=== PATIENT | male | born 1960 | race Caucasian/White ===

== ENCOUNTER 2016-08-27 14:53 | Outpatient (RCR) | payer BC ==
--- OUTSIDE RECORDS SUMMARY | 2016-06-04 15:03 | XMS REPORT | Continuity of Care Document ---
Author Author [facility] Organization [facility] Address Unknown Phone Unavailable Care Team Providers Care Director Of Supply Chain Name Role Phone Heri Holcomb PCP [phone] Source Comments Some departments are not documenting in the electronic medical record. If you do not see the information that you expected, contact Release of Information in the Health Information Management department at [phone] for further assistance in locating additional records.[facility] Active Allergies and Adverse Reactions No Known Allergies Current Medications Prescription Sig. Disp. Refills Start End Date Status Date ALPRAZolam (XANAX) 1 mg Take 0.5-1 mg by mouth at Active tablet bedtime as needed. vitamins, multiple tablet Take 1 Tab by mouth Active daily. methimazole (TAPAZOLE) 10 Take 5 mg by mouth daily. Active mg tablet magnesium oxide (MAG-OX) Take 400 mg by mouth Active 400 mg tablet twice daily. metoprolol tartrate Take 1 Tab by mouth twice 180 Tab 3 02/17/20 Active (LOPRESSOR) 25 mg tablet daily. 16 Active Problems Problem Noted Date Cirrhosis (HCC) 02/17/[address] (HCC) 07/14/2015 Hepatitis C 09/17/2014 Acute renal failure (HCC) 08/25/2014 Hyponatremia 08/25/2014 Anemia, chronic disease 08/25/2014 SBO (small bowel obstruction) (HCC) 08/10/2014 Resolved Problems Problem Noted Date Resolved Date Cirrhosis (HCC) 09/17/2014 02/17/2016 Most Recent Encounters Date Type Specialty Providers Description 04/05/2016 Telephone HepatBear Gee MD Follow-up Phone Call 03/27/2016 Telephone Hepatology Bear Mitchell MD Follow-up Phone Call 03/07/2016 Telephone Hepatology Bear Mitchell MD Medication Question Social History Tobacco Use Types Packs/Day Years Used Date Never Smoker Alcohol Use Drinks/Week oz/Week Comments Yes Last Filed Vital Signs Vital Sign Reading Time Taken Blood Pressure 160/92 02/17/2016 8:13 AM CDT Pulse 90 02/17/2016 8:13 AM CDT Temperature 36.6 C (97.8 F) 02/17/2016 8:13 AM CDT Respiratory Rate 16 02/17/2016 8:13 AM CDT Height 1.778 m (5' 10") 02/17/2016 8:13 AM CDT Weight 77.928 kg (171 lb 12.8 02/17/2016 8:13 AM CDT oz) Body Mass Index 24.65 02/17/2016 8:13 AM CDT Oxygen Saturation 100% 02/17/2016 8:13 AM CDT Plan of Care Date Type Specialty Providers Description 08/10/2016 Appointment Radiology Bear Mitchell MD [address] [facility] [address] [place] [address] [phone] (Fax) 02/18/2017 Appointment Hepatology Bear Mitchell MD [address] [facility] [address] [place] [address] [phone] (Fax) Health Maintenance Due Date Last Done Comments Physical (Comprehensive) 1965 Exam Pertussis Vaccine 1969 Tetanus Vaccine 1975 Colorectal Cancer 2008 Screening Influenza Vaccine 03/29/2016 Results from Last 3 Months Not on file
[2016-06-04 16:34] LABS: BASOPHILS % (AUTO) 0 % (0-10); EOSINOPHILS # (AUTO) 0.1 10^3/uL (0.0-0.3); EOSINOPHILS % (AUTO) 3 % (0-10); LYMPHOCYTES # (AUTO) 1.4 X 10^3 (1.0-4.0); LYMPHOCYTES % (AUTO) 31 % (12-44); MEAN CORPUSCULAR HEMOGLOBIN 33 PG (25-34); MEAN CORPUSCULAR HGB CONC 36 G/DL (32-36); MEAN CORPUSCULAR VOLUME 92 FL (80-99); MEAN PLATELET VOLUME 8.8 FL (7.4-10.4); MONOCYTES # (AUTO) 0.4 X 10^3 (0.0-1.0); MONOCYTES % (AUTO) 9 % (0-12); NEUTROPHILS # (AUTO) 2.6 X 10^3 (1.8-7.8); NEUTROPHILS % (AUTO) 57 % (42-75); PLATELET COUNT 135 10^3/uL (130-400); RED BLOOD COUNT 4.27 10^6/uL (4.35-5.85); RED CELL DISTRIBUTION WIDTH 14.4 % (10.0-14.5); WHITE BLOOD COUNT 4.5 10^3/uL (4.3-11.0)
[2016-06-04 17:04] LABS: ALANINE AMINOTRANSFERASE 31 U/L (0-55); ALBUMIN 3.8 G/DL (3.2-4.5); ANION GAP 11 MMOL/L (5-14); ASPARTATE AMINO TRANSFERASE 41 U/L (5-34); BILIRUBIN,TOTAL 1.7 MG/DL (0.1-1.0); BLOOD UREA NITROGEN 16 MG/DL (7-18); BUN/CREATININE RATIO 15; CALCIUM 8.9 MG/DL (8.5-10.1); CARBON DIOXIDE 21 MMOL/L (21-32); CHLORIDE 107 MMOL/L (98-107); CREATININE SERUM 1.05 MG/DL (0.60-1.30); GFR ESTIMATED > 60; GLUCOSE 76 MG/DL (70-105); POTASSIUM 3.6 MMOL/L (3.6-5.0); SODIUM 139 MMOL/L (135-145); TOTAL PROTEIN 6.9 G/DL (6.4-8.2)
[2016-08-27 15:18] LABS: BASOPHILS % (AUTO) 1 % (0-10); EOSINOPHILS # (AUTO) 0.1 10^3/uL (0.0-0.3); EOSINOPHILS % (AUTO) 2 % (0-10); LYMPHOCYTES # (AUTO) 1.2 X 10^3 (1.0-4.0); LYMPHOCYTES % (AUTO) 32 % (12-44); MEAN CORPUSCULAR HEMOGLOBIN 33 PG (25-34); MEAN CORPUSCULAR HGB CONC 35 G/DL (32-36); MEAN CORPUSCULAR VOLUME 94 FL (80-99); MEAN PLATELET VOLUME 8.9 FL (7.4-10.4); MONOCYTES # (AUTO) 0.4 X 10^3 (0.0-1.0); MONOCYTES % (AUTO) 10 % (0-12); NEUTROPHILS # (AUTO) 2.2 X 10^3 (1.8-7.8); NEUTROPHILS % (AUTO) 56 % (42-75); PLATELET COUNT 131 10^3/uL (130-400); RED BLOOD COUNT 4.31 10^6/uL (4.35-5.85); RED CELL DISTRIBUTION WIDTH 13.6 % (10.0-14.5); WHITE BLOOD COUNT 3.9 10^3/uL (4.3-11.0)
[2016-08-27 16:04] LABS: ALANINE AMINOTRANSFERASE 35 U/L (0-55); ALBUMIN 3.9 G/DL (3.2-4.5); ANION GAP 9 MMOL/L (5-14); ASPARTATE AMINO TRANSFERASE 44 U/L (5-34); BILIRUBIN,TOTAL 1.2 MG/DL (0.1-1.0); BLOOD UREA NITROGEN 19 MG/DL (7-18); BUN/CREATININE RATIO 18; CALCIUM 9.1 MG/DL (8.5-10.1); CARBON DIOXIDE 22 MMOL/L (21-32); CHLORIDE 106 MMOL/L (98-107); CREATININE SERUM 1.05 MG/DL (0.60-1.30); GFR ESTIMATED > 60; GLUCOSE 85 MG/DL (70-105); POTASSIUM 4.2 MMOL/L (3.6-5.0); SODIUM 137 MMOL/L (135-145); TOTAL PROTEIN 6.9 G/DL (6.4-8.2)
== END 2016-09-02 | disposition home or self-care (01) ==
LOC: ONC 14:53
PROVIDERS: ATTEND Internal Medicine Hematology & Oncology
DX: C19 Malignant neoplasm of rectosigmoid junction (principal); R91.1 Solitary pulmonary nodule; Z93.3 Colostomy status; Z79.899 Other long term (current) drug therapy; Z45.2 Encounter for adjustment and management of vascular access device
CPT/HCPCS: 36591; 80053; 82378; 85025; 96523; 99213

== ENCOUNTER → 2016-08-27 | Outpatient (CLI) | payer BC ==
[~2016-08-27] MED LIST: ALLO300T2 PO; ALPR1T PO; ALPR1TAB7 PO; ASP325TEC PO; B/P MEDICATION; CHLS4PK PO; CIPR250S2 PO; CITA-105 PO; CYCL5TAB PO; Fentanyl Citrate IV; GBPN600T PO; GLUC-148 PO; GLYB5TAB6 PO; HCA25SU PR; HYDR-34 PO; INSULIN FLEX; LIPA1CAP2 PO; LIRA0.6P SQ; LISI1TAB10 PO; LOPE1LIQ PO; LOPE2CAP PO; LOPE2TAB17 PO; LSNP20T PO; MAGN400C PO; MELO-195 PO; METH10TA5 PO; METH5TAB5 PO; METO-272 PO; METO100T5 PO; MS15TCR PO; MTR500T PO; MULT-974 PO; NAPR-684 PO; NF-METHI10 PO; ONDA2VIA IV; OXYC-12 PO; OXYC1TAB25 PO; PANT40VI3 IV; POTA10CA43 PO; SIMV40TA4 PO; TRAM50TA2 PO; XELODA 500 MG PO
--- OUTSIDE RECORDS SUMMARY | 2016-08-27 15:19 | XMS REPORT | Continuity of Care Document ---
Author Author [facility] Organization [facility] Address Unknown Phone Unavailable Care Team Providers Care Dehydrogenation Converter Helper Name Role Phone Heri Holcomb PCP [phone] Source Comments Some departments are not documenting in the electronic medical record. If you do not see the information that you expected, contact Release of Information in the Health Information Management department at [phone] for further assistance in locating additional records.[facility] Active Allergies and Adverse Reactions No [...] Recent Encounters Date Type Specialty Providers Description 07/26/2016 Telephone Hepatology Bear Mitchell MD Follow-up Phone Call 07/26/2016 Orders Only Hepatology Elena Puckett LPN Alcoholic cirrhosis of liver without ascites (HCC); Cirrhosis of liver without ascites, unspecified hepatic cirrhosis type (HCC) 07/26/2016 Telephone Hepatology Bear Mitchell MD Results - Lab/US 07/19/2016 Orders Only Hepatology Cassandra Frias Abnormal laboratory test result; Other cirrhosis of liver (HCC) 2016 Telephone HepatBear Gee MD Other - Doppler Social History Tobacco Use Types Packs/Day Years [...] of Care Date Type Specialty Providers Description 02/18/2017 Appointment Radiology Bear Mitchell MD [address] [facility] [address] [place] [address] [phone] (Fax) 02/18/2017 Appointment Hepatology Bear Mitchell MD [address] [facility] [address] [place] [address] [phone] (Fax) Health Maintenance Due Date Last Done Comments Physical (Comprehensive) 1967 Exam Pertussis Vaccine 1969 Tetanus Vaccine 1975 Colorectal Cancer 2008 Screening Influenza Vaccine 03/29/2016 Results from Last 3 Months COMPREHENSIVE METABOLIC PANEL (07/18/2016 1:29 PM) Component Value Range Sodium 137 132-145 Potassium 3.9 3.5-5.5 mEq/L Chloride 102 95-110 CO2 29.0 24.0-34.0 Anion Gap 10 6-14 Glucose 88 60-125 mg/dL Creatinine 1.1 0.6-1.5 mg/dL eGFR Non 73 >59 ml/min/1.73m2 Blood Urea Nitrogen 20 5-25 mg/dL Calcium 9.6 8.5-10.8 mg/dL Alk Phosphatase 139 (H) 30-115 AST (SGOT) 39 0-40 U/L ALT (SGPT) 26 0-50 Total Bilirubin 1.4 0.1-1.4 mg/dL Albumin 4.0 3.5-5.5 g/dL Total Protein 7.0 6.0-8.0 g/dL Specimen Blood Narrative Outside Lab Verified by Cassandra Frias on 07/19/2016. CBC AND DIFF (07/18/2016 1:29 PM) Component Value Range White Blood Cells 5.04 5.00-10.00 RBC 4.29 4.20-5.40 Hemoglobin 14.2 14.0-17.0 Hematocrit 41.3 (L) 42.0-52.0 MCV 96.3 80.0-97.0 MCH 33.1 (H) 27.0-31.0 MCHC 34.4 32.0-36.0 pg RDW 14.3 11.6-14.8 % Platelet Count 101 (L) 150-400 ul Neutrophils 57.1 37.0-80.0 % Lymphocytes 28.6 10.0-50.0 % Monocytes 11.7 0.0-12.0 % Eosinophil 1.8 0.0-7.0 % Basophil 0.8 0.0-2.5 % Absolute Neutrophil Count 2.88 2.00-6.90 Absolute Lymph Count 1.44 0.60-3.40 Absolute Monocyte Count 0.6 0.0-0.9 K/ul Absolute Eosinophil Count 0.1 0.0-0.7 Absolute Basophil Count 0.0 0.0-0.2 Specimen Blood Narrative Outside Lab Verified by Cassandra Frias on 07/19/2016. US DOPPLER ABD PELV RETROPER COMP (07/16/2016)
== END ==
LOC: EDSTATUS 15:09 → LAB 15:09
PROVIDERS: ATTEND Internal Medicine
DX: E05.00 Thyrotoxicosis with diffuse goiter without thyrotoxic crisis or storm (principal)
CPT/HCPCS: 36415; 84439; 84443

== ENCOUNTER 2016-11-28 09:04 | Outpatient (RCR) | payer BC ==
--- OUTSIDE RECORDS SUMMARY | 2016-10-08 09:40 | XMS REPORT | Continuity of Care Document ---
Author Author [facility] Organization [facility] Address Unknown Phone Unavailable Care Team Providers Care Marine Engine Mechanic Name Role Phone Heri Holcomb PCP [phone] Source Comments Some departments are not documenting in the electronic medical record. If you do not see the information that you expected, contact Release of Information in the Health Information Management department at [phone] for further assistance in locating additional records.[facility] Active Allergies and Adverse Reactions No [...] test result; Other cirrhosis of liver (HCC) Social History Tobacco Use Types Packs/Day Years [...] 02/18/2017 Appointment Radiology Bear Mitchell MD [address] [facility] [address] [place] [address] [phone] (Fax) 02/18/2017 Appointment Hepatology Bear Mitchell MD [address] [facility] [address] [place] [address] [phone] (Fax) Health Maintenance Due Date Last Done Comments Physical (Comprehensive) 1967 Exam Pertussis Vaccine 1969 Tetanus Vaccine 1975 Colorectal Cancer 2008 Screening Influenza Vaccine 03/29/2017 Results from Last 3 Months COMPREHENSIVE METABOLIC [...]
[2016-11-28 09:32] LABS: BASOPHILS % (AUTO) 1 % (0-10); EOSINOPHILS # (AUTO) 0.1 10^3/uL (0.0-0.3); EOSINOPHILS % (AUTO) 2 % (0-10); LYMPHOCYTES # (AUTO) 0.9 X 10^3 (1.0-4.0); LYMPHOCYTES % (AUTO) 30 % (12-44); MEAN CORPUSCULAR HGB CONC 35 G/DL (32-36); MEAN CORPUSCULAR VOLUME 94 FL (80-99); MONOCYTES # (AUTO) 0.4 X 10^3 (0.0-1.0); MONOCYTES % (AUTO) 14 % (0-12); NEUTROPHILS # (AUTO) 1.6 X 10^3 (1.8-7.8); NEUTROPHILS % (AUTO) 53 % (42-75); PLATELET COUNT 115 10^3/uL (130-400); RED BLOOD COUNT 4.25 10^6/uL (4.35-5.85); RED CELL DISTRIBUTION WIDTH 13.8 % (10.0-14.5); WHITE BLOOD COUNT 3.1 10^3/uL (4.3-11.0)
[2016-11-28 09:33] LABS: MEAN CORPUSCULAR HEMOGLOBIN 32 PG (25-34)
[2016-11-28 10:03] LABS: ALANINE AMINOTRANSFERASE 46 U/L (0-55); ALBUMIN 3.5 G/DL (3.2-4.5); ANION GAP 6 MMOL/L (5-14); ASPARTATE AMINO TRANSFERASE 57 U/L (5-34); BILIRUBIN,TOTAL 1.3 MG/DL (0.1-1.0); BLOOD UREA NITROGEN 18 MG/DL (7-18); BUN/CREATININE RATIO 16; CALCIUM 9.2 MG/DL (8.5-10.1); CARBON DIOXIDE 26 MMOL/L (21-32); CHLORIDE 106 MMOL/L (98-107); CREATININE SERUM 1.16 MG/DL (0.60-1.30); GFR ESTIMATED > 60; GLUCOSE 91 MG/DL (70-105); POTASSIUM 4.3 MMOL/L (3.6-5.0); SODIUM 138 MMOL/L (135-145); TOTAL PROTEIN 6.4 G/DL (6.4-8.2)
== END 2017-01-06 | disposition home or self-care (01) ==
LOC: ONC 09:04
PROVIDERS: ATTEND Internal Medicine Hematology & Oncology
DX: C19 Malignant neoplasm of rectosigmoid junction (principal); R91.8 Other nonspecific abnormal finding of lung field; E05.00 Thyrotoxicosis with diffuse goiter without thyrotoxic crisis or storm; B18.2 Chronic viral hepatitis C; I10 Essential (primary) hypertension; E83.42 Hypomagnesemia; D61.818 Other pancytopenia; R79.89 Other specified abnormal findings of blood chemistry; Z93.3 Colostomy status; Z92.21 Personal history of antineoplastic chemotherapy; Z92.3 Personal history of irradiation; Z79.899 Other long term (current) drug therapy
CPT/HCPCS: 36591; 80053; 82378; 85025; 99213

== ENCOUNTER → 2016-11-28 | Outpatient (CLI) | payer BC | LOC: LAB 09:09 | PROVIDERS: ATTEND Internal Medicine | DX: E05.00 Thyrotoxicosis with diffuse goiter without thyrotoxic crisis or storm (principal) | CPT/HCPCS: 84439; 84443 ==

== ENCOUNTER 2017-04-08 14:49 | Outpatient (RCR) | payer BC ==
[2017-02-25 10:53] LABS: BASOPHILS % (AUTO) 1 % (0-10); EOSINOPHILS # (AUTO) 0.1 10^3/uL (0.0-0.3); EOSINOPHILS % (AUTO) 2 % (0-10); LYMPHOCYTES # (AUTO) 1.1 X 10^3 (1.0-4.0); LYMPHOCYTES % (AUTO) 31 % (12-44); MEAN CORPUSCULAR HEMOGLOBIN 32 PG (25-34); MEAN CORPUSCULAR HGB CONC 34 G/DL (32-36); MEAN CORPUSCULAR VOLUME 93 FL (80-99); MEAN PLATELET VOLUME 9.1 FL (7.4-10.4); MONOCYTES # (AUTO) 0.5 X 10^3 (0.0-1.0); MONOCYTES % (AUTO) 14 % (0-12); NEUTROPHILS # (AUTO) 1.8 X 10^3 (1.8-7.8); NEUTROPHILS % (AUTO) 53 % (42-75); PLATELET COUNT 116 10^3/uL (130-400); RED BLOOD COUNT 4.12 10^6/uL (4.35-5.85); RED CELL DISTRIBUTION WIDTH 13.8 % (10.0-14.5); WHITE BLOOD COUNT 3.4 10^3/uL (4.3-11.0)
[2017-02-25 11:37] LABS: ALANINE AMINOTRANSFERASE 27 U/L (0-55); ALBUMIN 3.5 GM/DL (3.2-4.5); ANION GAP 8 MMOL/L (5-14); ASPARTATE AMINO TRANSFERASE 35 U/L (5-34); BILIRUBIN,TOTAL 1.2 MG/DL (0.1-1.0); BLOOD UREA NITROGEN 17 MG/DL (7-18); BUN/CREATININE RATIO 18; CALCIUM 8.7 MG/DL (8.5-10.1); CARBON DIOXIDE 24 MMOL/L (21-32); CHLORIDE 105 MMOL/L (98-107); CREATININE SERUM 0.97 MG/DL (0.60-1.30); GFR ESTIMATED > 60; GLUCOSE 103 MG/DL (70-105); POTASSIUM 3.9 MMOL/L (3.6-5.0); SODIUM 137 MMOL/L (135-145); TOTAL PROTEIN 6.6 GM/DL (6.4-8.2)
== END 2017-04-11 | disposition home or self-care (01) ==
LOC: ONC 14:49
PROVIDERS: ATTEND Internal Medicine Hematology & Oncology
DX: C19 Malignant neoplasm of rectosigmoid junction (principal); R91.1 Solitary pulmonary nodule; Z93.3 Colostomy status; Z79.899 Other long term (current) drug therapy; Z45.2 Encounter for adjustment and management of vascular access device
CPT/HCPCS: 36591; 80053; 82378; 85025; 96523

== ENCOUNTER 2017-08-09 11:18 | Outpatient (RCR) | payer BC | END 2017-08-14 | disposition home or self-care (01) | LOC: ONC 11:18 | PROVIDERS: ATTEND Internal Medicine Hematology & Oncology | DX: C19 Malignant neoplasm of rectosigmoid junction (principal); R91.1 Solitary pulmonary nodule; E05.00 Thyrotoxicosis with diffuse goiter without thyrotoxic crisis or storm; B18.2 Chronic viral hepatitis C; I10 Essential (primary) hypertension; E83.42 Hypomagnesemia; D61.818 Other pancytopenia; R79.89 Other specified abnormal findings of blood chemistry; Z93.3 Colostomy status; Z79.899 Other long term (current) drug therapy; Z92.21 Personal history of antineoplastic chemotherapy; Z92.3 Personal history of irradiation | CPT/HCPCS: 36591; 82378; 96523 ==

== ENCOUNTER → 2017-09-25 | Outpatient (CLI) | payer BC | LOC: LAB 16:00 | PROVIDERS: ATTEND Internal Medicine | DX: E05.00 Thyrotoxicosis with diffuse goiter without thyrotoxic crisis or storm (principal) | CPT/HCPCS: 84443 ==

== ENCOUNTER 2017-12-20 08:51 | Outpatient (RCR) | payer BC | END 2017-12-24 | disposition home or self-care (01) | LOC: ONC 08:51 | PROVIDERS: ATTEND Internal Medicine Hematology & Oncology | DX: C19 Malignant neoplasm of rectosigmoid junction (principal); R91.1 Solitary pulmonary nodule; E05.00 Thyrotoxicosis with diffuse goiter without thyrotoxic crisis or storm; B18.2 Chronic viral hepatitis C; I10 Essential (primary) hypertension; E83.42 Hypomagnesemia; D61.818 Other pancytopenia; R79.89 Other specified abnormal findings of blood chemistry; Z93.3 Colostomy status; Z79.899 Other long term (current) drug therapy; Z92.21 Personal history of antineoplastic chemotherapy; Z92.3 Personal history of irradiation; Z45.2 Encounter for adjustment and management of vascular access device | CPT/HCPCS: 36415; 36591; 82378; 96523; 99213 ==

== ENCOUNTER 2018-04-23 13:45 | Outpatient (RCR) | payer BC | END 2018-05-01 | disposition home or self-care (01) | LOC: ONC 13:45 | PROVIDERS: ATTEND Internal Medicine Hematology & Oncology | DX: C19 Malignant neoplasm of rectosigmoid junction (principal); R91.1 Solitary pulmonary nodule; E05.00 Thyrotoxicosis with diffuse goiter without thyrotoxic crisis or storm; B18.2 Chronic viral hepatitis C; I10 Essential (primary) hypertension; E83.42 Hypomagnesemia; D61.818 Other pancytopenia; R79.89 Other specified abnormal findings of blood chemistry; Z93.3 Colostomy status; Z79.899 Other long term (current) drug therapy; Z92.21 Personal history of antineoplastic chemotherapy; Z92.3 Personal history of irradiation; Z45.2 Encounter for adjustment and management of vascular access device | CPT/HCPCS: 96523 ==

== ENCOUNTER 2018-06-25 14:20 | Outpatient (CLI) | payer BC ==
[~2018-06-25] VITALS: Ht 177.8 cm
[2018-06-25] MEDS ORDERED: LISI-552 PO (14:27)
[2018-06-25] MEDS ORDERED: MULT-35 PO (14:27)
[2018-06-25] MEDS ORDERED: MAGN400T7 PO (14:27)
== END 2018-06-25 14:42 | disposition home or self-care (01) ==
LOC: PREOP 14:20
PROVIDERS: ATTEND Surgery
DX: Z01.818 Encounter for other preprocedural examination (principal)

== ENCOUNTER 2018-06-26 07:46 | Day surgery (SDC) | payer BC ==
[~2018-06-26] VITALS: Ht 177.8 cm; Wt 84.8 kg
[~2018-06-26 07:46] MED LIST changes: +LISI-552 PO; +MAGN400T7 PO; +MULT-35 PO
--- NOTE | 2018-06-26 07:56 | Progress Note-Pre Operative ---
Pre-Operative Progress Note H&P Reviewed The H&P was reviewed, patient examined and no changes noted. Date Seen by Provider: Jun 26, 2018 Time Seen by Provider: 07:55 Date H&P Reviewed: Jun 26, 2018 Time H&P Reviewed: 07:55 Pre-Operative Diagnosis: hx rectal ca MATTHEW CASTREJON DO Jun 26, 2018 07:56
[2018-06-26 08:00] VITALS: BP 141/81
[2018-06-26] MEDS ORDERED: LACTATED RINGERS 1,000 ML IV PRN (08:19)
[2018-06-26] MEDS ORDERED: proPOfol 200 MG/20 ML (DIPRIVAN) VIAL IV ONE (08:26)
[2018-06-26] MEDS ORDERED: MIDAZOLAM 2 MG/2 ML (VERSED) VIAL ONE (08:26)
[2018-06-26] MEDS ORDERED: fentaNYL INJECTION 100 MCG/2 ML AMP ONE (08:27)
[2018-06-26] MEDS ORDERED: ceFAZolin 2 GM IV Premixed 50 ML IV ONE (08:30)
[2018-06-26] MEDS ORDERED: BUPIVACAINE 0.5% 30 ML (SENSORCAINE) VIAL ONE (08:58)
[2018-06-26] MEDS ORDERED: LIDOCAINE 1% INJ 20 ML 20 ML VIAL ONE (08:58)
[2018-06-26] MEDS ORDERED: LIDOCAINE PF 2% 5 ML (XYLOCAINE) VIAL ONE (09:30)
[2018-06-26 10:00] VITALS: BP 154/90
--- NOTE | 2018-06-26 10:08 | Discharge Inst-Simple/Standard ---
Discharge Inst-Standard Patient Instructions/Follow Up Plan of Care/Instructions/FU: 2 weeks Glo Activity as Tolerated: Yes Discharge Diet: Regular Diet Other Inst to Patient Follow up Appt: Make appointment for 2 week. Instructions:. May shower in 24 hours, no tub bath or soaking. Use incentive spirometer at home as directed. No Smoking Skin/Wound Care: You have special glue over incision it will fall off on its own. Symptoms to Report: Appetite Changes, Extremity Discoloration, Numbness/Tingling, Swelling Increased , Bleeding Excessive, Eyesight Changes, Pain Increased, Urine Color Change, Constipation(Persistent), Fever over 101 degree F, Pain/Pressure in chest, Urinating Difficulty, Cough Up/Vomit Blood, Heart Beat Irreg/Pounding, Pain/ Pressure in jaw, Vaginal Bleeding Increase, Cramps in feet or legs, Lightheadedness, Pain/Pressure in shoulder, Diarrhea(Persistent), Memory Changes Suddenly, Questions/Concerns, Weight gain consecutive days, Dizziness/ Fainting, Nausea/Vomiting, Shortness of Breath, Weight gain over 2 pounds If questions or concerns contact your physician Or seek help at emergency department. MATTHEW CASTREJON DO Jun 26, 2018 10:08
[2018-06-26 10:30] VITALS: BP 185/109
[2018-06-26 10:50] VITALS: BP 185/109
--- NOTE | 2018-06-26 13:35 | Anesthesia-General Post-Op ---
MAC Patient Condition Mental Status/LOC: Same as Preop Cardiovascular: Satisfactory Nausea/Vomiting: Absent Respiratory: Satisfactory Pain: Controlled Complications: Absent Post Op Complications Complications None Follow Up Care/Instructions Patient Instructions None needed. Anesthesiology Discharge Order Discharge Order Patient is doing well, no complaints, stable vital signs, no apparent adverse anesthesia problems. No complications reported per nursing. JOSE CERVANTES CRNA Jun 26, 2018 13:35
--- OUTSIDE RECORDS SUMMARY | 2018-06-26 14:09 | XMS REPORT | Encounter Summary ---
Author Author [facility] Organization [facility] Address Unknown Phone Unavailable Care Team Providers Care Animal Care Attendant Name Role Phone Nika Salmeron RN Unavailable Unavailable Aamir Holcomb MD PCP Nila Mcbride MD Unavailable Unavailable Martina Olsen RN Unavailable Unavailable Patti Lieberman RN Unavailable Unavailable Aldair Doe DO Unavailable Jennifer Cavanaugh RN Unavailable Unavailable Grisel Fry MD Unavailable Erick Galeana MD Unavailable Bear Mitchell MD Unavailable Mike Wood MD 3 Ying Salmeron MD 3 Reason for Referral * Radiology Services Status Reason Specialty Diagnoses / Referred By Referred To Procedures Contact Contact No Auth Needed Radiology Diagnoses [address] Cirrhosis of [place], MONUMENT SETTER HELPER [address] liver without [address] [facility] [address] ascites, [address] unspecified [address] [place], [place] [address] cirrhosis type [address] Phone: (HCC) S/P TIPS [phone] (transjugular Fax: intrahepatic [phone] portosystemic shunt) P rocedures CT ABDOMEN WO/W CONTRAST * Radiology Services Status Reason Specialty Diagnoses / Referred By Referred To Procedures Contact Contact No Auth Needed Radiology Diagnoses Will [address] Cirrhosis of [place], MONUMENT SETTER HELPER [address] liver without [address] [address], [address] unspecified [address] [place], [place] [address] cirrhosis type [address] Phone: (HCC) S/P TIPS [phone] (transjugular Fax: intrahepatic [phone] portosystemic shunt) P rocedures CT ABDOMEN WO/W CONTRAST Reason for Visit * Radiology Services Status Reason Specialty Diagnoses / Referred By Referred To Procedures Contact Contact No Auth Needed Radiology Diagnoses Will [address] Cirrhosis of [place], MONUMENT SETTER HELPER [address] liver without [address] [facility] [address], [address] unspecified [address] [place], [place] [address] cirrhosis type [address] Phone: (HCC) S/P TIPS [phone] (transjugular Fax: intrahepatic [phone] portosystemic shunt) P rocedures CT ABDOMEN WO/W CONTRAST Encounter Details Date Type Department Care Team Description 05/16/2018 [facility], MONUMENT SETTER HELPER Encounter Hospital Radiology [address] [place] [address] [address] FLO[address] [phone] [place] [address] [phone] Social History Tobacco Use Types Packs/Day Years Used Date Never Smoker Smokeless Tobacco: Never Used Alcohol Use Drinks/Week oz/Week Comments Yes Sex Assigned at Date Recorded Not on file as of this encounter Functional Status Functional Status Response Date of Assessment Does the patient have a hearing impairment: No 05/16/2018 Does the patient have a visual impairment: Yes 05/16/2018 Does the patient have impaired ambulation: No 05/16/2018 Does the patient have an activity of daily living No 05/16/2018 (ADL) impairment: Does the patient have an instrumental activity of No 05/16/2018 daily living (IADL) impairment: Cognitive Status Response Date of Assessment Does the patient have a cognitive impairment: No 05/16/2018 as of this encounter Medications at Time of Discharge Medication Sig. Disp. Refills Start Date End Date ALPRAZolam (XANAX) 1 mg Take 0.5-1 mg by mouth at tablet bedtime as needed. lisinopril (PRINIVIL; Take 20 mg by mouth ZESTRIL) 10 mg tablet daily. magnesium oxide (MAG-OX) Take 400 mg by mouth 400 mg tablet twice daily. methimazole (TAPAZOLE) 10 Take 5 mg by mouth daily. mg tablet metoprolol tartrate Take 1 Tab by mouth twice 180 Tab 3 02/17/2016 (LOPRESSOR) 25 mg tablet daily. vitamins, multiple tablet Take 1 Tab by mouth daily. as of this encounter Plan of Treatment Not on fileas of this encounter Procedures Procedure Name Priority Date/Time Associated Diagnosis Comments CT ABDOMEN WO/W CONTRAST Routine 05/16/2018 Cirrhosis of liver Results for this 10:49 AM CDT without ascites, procedure are in the unspecified hepatic results section. cirrhosis type (HCC) S/P TIPS (transjugular intrahepatic portosystemic shunt) POC CREATININE, RAD 05/16/2018 Results for this 10:33 AM CDT procedure are in the results section. in this encounter Results * CT ABDOMEN WO/W CONTRAST (05/16/2018 10:49 AM) Impressions Performed At 1. No hepatic mass to suggest hepatocellular carcinoma [facility] 2.Cirrhosis and portal hypertension Finalized by Elias Christy M.D. on 05/16/2018 12:51 PM. Dictated by Elias Christy M.D. on 05/16/2018 12:44 PM. Narrative Performed At CT ABDOMEN [facility] Clinical Indication:Male, 57 years old. Hepatocellular carcinoma screening.Heterogeneous liver.Cirrhosis of liver without ascites, unspecified hepatic cirrhosis type. Technique:Multiple contiguous axial images were obtained through the abdomen following the administration of IV contrast material. Noncontrast as well as hepatic arterial, portal venous and delayed imaging was obtained through the abdomen. Post processing coronal and sagittal reconstruction images were made from the axial images. IV contrast: Isovue-370 Bowel contrast:None Comparison: CT August 11, 2014.Abdominal sonogram May 10, 2017. FINDINGS: Lower Thorax: Unchanged mild elevation of the left diaphragm. Liver and Biliary system: The liver is cirrhotic with a TIPS in place that appears patent. No hyperenhancing liver lesion is visualized. Major portal veins and hepatic veins are all patent. Gallbladder is nondistended. Common bile duct is normal in caliber. Spleen: Spleen is mildly enlarged. Adrenal Glands and Kidneys: Unremarkable. Pancreas and Retroperitoneum: Vascular embolization coils are present just cephalad to the pancreatic neck.Pancreas is unremarkable. No retroperitoneal lymphadenopathy. Aorta and Major Vessels: Normal caliber abdominal aorta with mild atherosclerosis. Bowel, Mesentery and Peritoneal space: There has been at least a partial right colectomy, though the entirety of the bowel is not included in the field-of- view of the exam. The visualized bowel loops are normal in caliber. No ascites. Abdominal wall and Osseous Structures: Mild lumbar spondylosis. There is a left lower quadrant colostomy. Procedure Note Interface, Rad[facility] Results - 05/16/2018 12:[address] ABDOMEN Clinical Indication: Male, 57 years old. Hepatocellular carcinoma screening. Heterogeneous liver. Cirrhosis of liver without ascites, unspecified hepatic cirrhosis type. Technique: Multiple contiguous axial images were obtained through the abdomen following the administration of IV contrast material. Noncontrast as well as hepatic arterial, portal venous and delayed imaging was obtained through the abdomen. Post processing coronal and sagittal reconstruction images were made from the axial images. IV contrast: Isovue-370 Bowel contrast: None Comparison: CT August 11, 2014. Abdominal sonogram May 10, 2017. FINDINGS: Lower Thorax: Unchanged mild elevation of the left diaphragm. Liver and Biliary system: The liver is cirrhotic with a TIPS in place that appears patent. No hyperenhancing liver lesion is visualized. Major portal veins and hepatic veins are all patent. Gallbladder is nondistended. Common bile duct is normal in caliber. Spleen: Spleen is mildly enlarged. Adrenal Glands and Kidneys: Unremarkable. Pancreas and Retroperitoneum: Vascular embolization coils are present just cephalad to the pancreatic neck. Pancreas is unremarkable. No retroperitoneal lymphadenopathy. Aorta and Major Vessels: Normal caliber abdominal aorta with mild atherosclerosis. Bowel, Mesentery and Peritoneal space: There has been at least a partial right colectomy, though the entirety of the bowel is not included in the field-of- view of the exam. The visualized bowel loops are normal in caliber. No ascites. Abdominal wall and Osseous Structures: Mild lumbar spondylosis. There is a left lower quadrant colostomy. IMPRESSION 1. No hepatic mass to suggest hepatocellular carcinoma 2. Cirrhosis and portal hypertension Finalized by Elias Christy M.D. on 05/16/2018 12:51 PM. Dictated by Elias Christy M.D. on 05/16/2018 12:44 PM. Performing Organization Address City/[facility]/Zipcode Phone Number [facility] * POC CREATININE, RAD (05/16/2018 10:33 AM) Creatinine, POC 1.6 (H) 0.4 - 1.24 MG/DL [facility] Performing Organization Address City/[facility] Phone Number [facility] [address] [place] [address] in this encounter Visit Diagnoses Diagnosis Cirrhosis of liver without ascites, unspecified hepatic cirrhosis type (HCC) S/P TIPS (transjugular intrahepatic portosystemic shunt) Other postprocedural status Administered Medications Medication Order MAR Action Action Date Dose Rate Site iopamidol 370 (ISOVUE-370) injection 80 Given 05/16/2018 80 mL mL 10:45 CDT 80 mL, Intravenous, ONCE, 1 dose, 05/16/18 at 1045, NOTE: This is a HIGH ALERT Medication. sodium chloride PF 0.9% injection 50 mL Given 05/16/2018 50 mL 50 mL, Intravenous, ONCE, 1 dose, Fri 10:45 CDT 05/16/18 at 1045, Intra-procedure (IR) in this encounter
--- OUTSIDE RECORDS SUMMARY | 2018-06-26 14:09 | XMS REPORT | Encounter Summary ---
Author Author [facility] Organization [facility] Address Unknown Phone Unavailable Care Team Providers Care Speech Professor Name Role Phone Nika Salmeron RN Unavailable Unavailable Aamir Holcomb MD PCP Nila Mcbride MD Unavailable Unavailable Martina Olsen RN Unavailable Unavailable Patti Lieberman RN Unavailable Unavailable Aldair Doe DO Unavailable Jennifer Cavanaugh RN Unavailable Unavailable Grisel Fry MD Unavailable Erick Galeana MD Unavailable Bear Mitchell MD Unavailable Mike Wood MD 3 Ying Salmeron MD 3 Reason for Visit * Reason Comments End Stage Liver Disease Encounter Details Date Type Department Care Team Description 05/16/2018 Office Visit Center for Bear Mitchell MD Other cirrhosis of liver Transplantation-Hepatolog [address] (HCC) (Primary Dx); [facility] [place] [address] History of hepatitis C; [facility] 1st [place] [address] S/P TIPS (transjugular [address] [phone] intrahepatic [place], [place] portosystemic shunt) [id number] Social History Tobacco Use Types Packs/Day Years Used Date Never Smoker Smokeless Tobacco: Never Used Alcohol Use Drinks/Week oz/Week Comments Yes Sex Assigned at Date Recorded Not on file as of this encounter Last Filed Vital Signs Vital Sign Reading Time Taken Blood Pressure 162/80 05/16/2018 8:56 AM CDT Pulse 104 05/16/2018 8:56 AM CDT Temperature 36.9 C (98.5 F) 05/16/2018 8:56 AM CDT Respiratory Rate 18 05/16/2018 8:56 AM CDT Oxygen Saturation 100% 05/16/2018 8:56 AM CDT Inhaled Oxygen - - Concentration Weight 85.2 kg (187 lb 12.8 oz) 05/16/2018 8:56 AM CDT Height 177.8 cm (5' 10") 05/16/2018 8:56 AM CDT Body Mass Index 26.95 05/16/2018 8:56 AM CDT in this encounter Functional Status Functional Status Response [...] impairment: No 05/16/2018 as of this encounter Instructions * Patient Instructions - Katherine Chester, RN - 05/16/2018 8:00 AM CDT Schedule: 1. Return to clinic in 1 year(will need to call to schedule, pt had to leave for CT). 2. Labs today after CT. Patient Information: 1. Continue labs every 6 months, these are due today. 2. Continue imaging every 6 months. You have a CT scheduled for today. 3. The Fibroscan completed at today's visit showed that you still have cirrhosis. If you have completed labs or imaging today and have not received results within 10 days, please contact our office. [facility] Dr. Bear Murphy, RN [phone] in this encounter Progress Notes * Isis Dudley, RN - 05/16/2018 8:00 AM CDT Notified by microbiology that PT INR was not resulted due to the tube not being filled to the top. Alerted Dr Mitchell, who said ok to draw at next visit. * Bear Mitchell MD - 05/16/2018 8:00 AM CDT Formatting of this note may be different from the original. Date of Service: 05/16/2018 Subjective: Kanu Masterson Jr. is a 57 y.o. male. 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 Patient had a tips for refractory ascites. Currently has disease that is very compensated. He has a fibro-scan today that showed a liver stiffness of 16.4 and CAP score of 319. Patients therefore needs to have continued liver cancer screening with imaging every 6 months. In particular patient has increased ultrasound echogenicity and therefore is having a CT scan done today. Patient is considering a takedown of the stroma related to his previous rectal cancer. He is safe from a cirrhosis standpoint although the risk is not completely 0 considering he still have evidence of cirrhosis at this time. He should have a careful discussion with colorectal surgeon about the feasibility of this procedure from a technical standpoint. Review of Systems Review of systems as above and per History of Present Illness; otherwise negative for 10 of 14 systems reviewed. Objective: ALPRAZolam (XANAX) 1 mg tablet Take 0.5-1 mg by mouth at bedtime as needed. lisinopril (PRINIVIL; ZESTRIL) 10 mg tablet Take 20 mg by mouth daily. magnesium oxide (MAG-OX) 400 mg tablet Take 400 mg by mouth twice daily. methimazole (TAPAZOLE) 10 mg tablet Take 5 mg by mouth daily. metoprolol tartrate (LOPRESSOR) 25 mg tablet Take 1 Tab by mouth twice daily. vitamins, multiple tablet Take 1 Tab by mouth daily. Vitals: 05/16/18 0856 BP: 162/80 Pulse: 104 Resp: 18 Temp: 36.9 C (98.5 F) TempSrc: Oral SpO2: 100% Weight: 85.2 kg (187 lb 12.8 oz) Height: 177.8 cm (70") Body mass index is 26.95 kg/m. 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 S/p TIPS: Patient had a tips for refractory ascites. Currently has disease that is very compensated. Cirrhosis: He has a fibro-scan today that showed a liver stiffness of 16.4 and CAP score of 319. HCC Screning: Patients therefore needs to have continued liver cancer screening with imaging every 6 months. In particular patient has increased ultrasound echogenicity and therefore is having a CT scan done today. Ostomy: Patient is considering a takedown of the stroma related to his previous rectal cancer. He is safe from a cirrhosis standpoint although the risk is not completely 0 considering he still have evidence of cirrhosis at this time. He should have a careful discussion with colorectal surgeon about the feasibility of this procedure from a technical standpoint. * Sandro Benson MD - 05/16/2018 8:00 AM CDT Formatting of this note may be different from the original. Date of Service: 05/16/2018 Kanu Masterson Jr. is a 57 y.o. male Subjective: History of Present Illness Providers PCP/IM: Dr. Aamir Holcomb Medical Oncology: Dr. Ying Salmeron GI: Gagan Nagy Hepatology: Dr. Bear Mitchell-[facility] Overview This is a very pleasant 56-year-old gentleman with history of cirrhosis secondary to hepatitis C that was treated and cleared in 2009. He developed rectal carcinoma in 2012 then developed a small-bowel obstruction in July 2014 and underwent partial colectomy. He still has a colostomy bag in place. His rectal carcinoma is being managed by Dr. Coffey. He did have ascites during his second procedure in July 2014, TIPS was placed. His MELD is low at 8 and has been stable. His cirrhosis at this time is compensated. History of Present Illness Mr. Masterson presents today for a followup visit. Last visit was 04/2017 with Joyce. Since that time he denies hospitalizations or new medical problems. His main question today is a surgical question. He would like to know the feasibility of reversing his ostomy. Dr. Doe, our colorectal surgeon, I previously commented in documentation that this would likely be difficult if not impossible due to his small remnant rectal stump in fact that postradiation changes would make the anastomosis difficult. The patient denies any evidence of gastrointestinal bleeding, fatigue, confusion or disorientation, abdominal pain or swelling. He does have some intermittent lower extremity edema near the end of the day. Review of Systems Review of systems as above and per History of Present Illness; otherwise negative for 10 of 14 systems reviewed. Objective: ALPRAZolam (XANAX) 1 mg tablet Take 0.5-1 mg by mouth at bedtime as needed. lisinopril (PRINIVIL; ZESTRIL) 10 mg tablet Take 20 mg by mouth daily. magnesium oxide (MAG-OX) 400 mg tablet Take 400 mg by mouth twice daily. methimazole (TAPAZOLE) 10 mg tablet Take 5 mg by mouth daily. metoprolol tartrate (LOPRESSOR) 25 mg tablet Take 1 Tab by mouth twice daily. vitamins, multiple tablet Take 1 Tab by mouth daily. Vitals: 05/16/18 0856 BP: 162/80 Pulse: 104 Resp: 18 Temp: 36.9 C (98.5 F) TempSrc: Oral SpO2: 100% Weight: 85.2 kg (187 lb 12.8 oz) Height: 177.8 cm (70") Body mass index is 26.95 kg/m. Physical Exam Constitutional: He is oriented to person, place, and time. He appears well- developed and well-nourished. No distress. HENT: Head: Normocephalic and atraumatic. Mouth/Throat: Oropharynx is clear and moist. Eyes: Conjunctivae and EOM are normal. No scleral icterus. Neck: Normal range of motion. No tracheal deviation present. Cardiovascular: Normal rate and regular rhythm. Pulmonary/Chest: Effort normal. No respiratory distress. Abdominal: Soft. He exhibits no distension. There is no tenderness. Right upper quadrant surgical scar Musculoskeletal: Normal range of motion. He exhibits edema (Trace pedal edema). Lymphadenopathy: He has no cervical adenopathy. Neurological: He is alert and oriented to person, place, and time. Skin: Skin is warm and dry. No rash noted. Psychiatric: He has a normal mood and affect. His behavior is normal. Orders Only on 11/05/2017 Component Date Value Ref Range Status White Blood Cells 11/01/2017 3.83* 5.00 - 10.00 K/uL Final RBC 11/01/2017 4.61 4.20 - 5.40 M/ul Final Hemoglobin 11/01/2017 14.8 14.0 - 17.0 g/dl Final Hematocrit 11/01/2017 44.1 42.0 - 52.0 % Final MCV 11/01/2017 95.7 80.0 - 97.00 fL Final MCH 11/01/2017 32.1* 27.0 - 31.0 pg Final MCHC 11/01/2017 33.6 32.0 - 36.0 pg Final RDW 11/01/2017 14.5 11.6 - 14.8 % Final Platelet Count 11/01/2017 110* 150 - 400 K/uL Final Neutrophils 11/01/2017 61.4 37.0 - 80.0 % Final Lymphocytes 11/01/2017 24.8 10.0 - 50.0 % Final Monocytes 11/01/2017 11.5 0.0 - 12.0 % Final Eosinophil 11/01/2017 1.8 0.0 - 7.0 % Final Basophil 11/01/2017 0.5 0.0 - 2.5 % Final Absolute Neutrophil Count 11/01/2017 2.35 2.00 - 6.90 K/uL Final Absolute Lymph Count 11/01/2017 0.95 0.60 - 3.40 K/uL Final Absolute Monocyte Count 11/01/2017 0.4 0.0 - 0.9 K/uL Final Absolute Eosinophil Count 11/01/2017 0.1 0.0 - 0.7 K/uL Final Absolute Basophil Count 11/01/2017 0.0 0.0 - 0.2 K/uL Final Sodium 11/01/2017 141 132 - 145 mEq/L Final Potassium 11/01/2017 4.3 3.5 - 5.5 mEq/L Final Chloride 11/01/2017 107 95 - 110 mEq/L Final CO2 11/01/2017 27.0 24.0 - 34.0 mEq/L Final Anion Gap 11/01/2017 11 6 - 14 Final Glucose 11/01/2017 100 60 - 125 mg/dL Final Creatinine 11/01/2017 1.0 0.6 - 1.5 mg/dL Final eGFR Non 11/01/2017 83 >59 mL/min/1.73 Final Blood Urea Nitrogen 11/01/2017 14 5 - 25 mg/dL Final Calcium 11/01/2017 8.9 8.5 - 10.8 mg/dL Final Alk Phosphatase 11/01/2017 120* 30 - 115 U/L Final AST (SGOT) 11/01/2017 30 0 - 40 U/L Final ALT (SGPT) 11/01/2017 25 0 - 53 U/L Final Total Bilirubin 11/01/2017 1.1 0.1 - 1.4 mg/dL Final Albumin 11/01/2017 3.5 3.5 - 5.5 g/dL Final Total Protein 11/01/2017 6.3 6.0 - 8.0 g/dL Final Protime 11/01/2017 13.7 11.3 - 14.1 seconds Final INR 11/01/2017 1.1 0.9 - 1.1 Final Alpha Feto Protein 11/01/2017 3.8 0.0 - 8.7 ng/mL Final Assessment and Plan: This is a 56-year-old gentleman with cirrhosis stage liver disease from a history of hepatitis C that was treated and cleared in 2009. His cirrhosis is compensated with a low MELD at 8. MELD-Na score: 8 at 11/01/2017 8:24 AM MELD score: 8 at 11/01/2017 8:24 AM Calculated from: Serum Creatinine: 1 mg/dL at 11/01/2017 8:24 AM Serum Sodium: 141 mEq/L (Rounded to 137) at 11/01/2017 8:24 AM Total Bilirubin: 1.1 mg/dL at 11/01/2017 8:24 AM INR(ratio): 1.1 at 11/01/2017 8:24 AM Age: 57 years Cirrhosis due to history of alcohol use and hepatitis C Fibrosis scan today showed E kilopascals 16.4, IQ R 24% with CAP 319 consistent with advanced fibrosis. Hepatitis C was treated in 2009 and cleared no further orders. He had a TIPS placed for ascites and has no history of esophageal variceal bleeding. He will complete a CT scan today. We will continue monitoring with imaging and meld labs with AFP every 6 months. Risk for hepatic encephalopathy: The patient does have a TIPS in place. This increases his risk for hepatic encephalopathy, however, he is having no problems at this time. 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 We will continue to monitor him. Risk for fluid balance problems. The patient does have a TIPS and has having no fluid balance issues, on no diuretics. We will continue to monitor him at this time. HCC screening. The patient had an abdominal ultrasound this morning, the report is pending. Will repeat in 6 months then 12 months when we see him back. HTN: Being managed by PCP. Rectal carcinoma/stable lung lesion: this is being managed by Dr. Ying Salmeron. Return to clinic in 1 year. Sandro Benson MD GI/Hepatology Fellow [phone] Seen with Dr. Mitchell in this encounter Procedure Notes * Bear Mitchell MD - 05/16/2018 8:00 AM CDT Associated Order(s): FIBROSCAN Pre-Procedure Diagnose(s): Other cirrhosis of liver (HCC); History of hepatitis C; S/P TIPS (transjugular intrahepatic portosystemic shunt) (No note.) in this encounter Plan of Treatment Name Priority Associated Diagnoses Order Schedule ALPHA FETO PROTEIN (AFP) Routine Other cirrhosis of liver every 6 months for 3 (HCC) Occurrences starting History of hepatitis C 05/16/2018 until S/P TIPS (transjugular 05/16/2019, 1 completed intrahepatic portosystemic shunt) CBC AND DIFF Routine Other cirrhosis of liver every 6 months for 3 (HCC) Occurrences starting History of hepatitis C 05/16/2018 until S/P TIPS (transjugular 05/16/2019, 1 completed intrahepatic portosystemic shunt) COMPREHENSIVE METABOLIC PANEL Routine Other cirrhosis of liver every 6 months for 3 (HCC) Occurrences starting History of hepatitis C 05/16/2018 until S/P TIPS (transjugular 05/16/2019, 1 completed intrahepatic portosystemic shunt) PROTIME INR (PT) Routine Other cirrhosis of liver every 6 months for 3 (HCC) Occurrences starting History of hepatitis C 05/16/2018 until S/P TIPS (transjugular 05/16/2019 intrahepatic portosystemic shunt) as of this encounter Procedures Procedure Name Priority Date/Time Associated Diagnosis Comments FIBROSCAN Routine 05/16/2018 Other cirrhosis of liver Results for this 8:00 AM CDT (HCC) procedure are in the History of hepatitis C results section. S/P TIPS (transjugular intrahepatic portosystemic shunt) in this encounter Results * COMPREHENSIVE METABOLIC PANEL (05/16/2018 10:30 AM) Sodium 141 137 - 147 MMOL/L [facility] Potassium 4.3 3.5 - 5.1 MMOL/L [facility] Chloride 107 98 - 110 MMOL/L [facility] Glucose 103 (H) 70 - 100 MG/DL [facility] Blood Urea Nitrogen 22 7 - 25 MG/DL [facility] Creatinine 1.41 (H) 0.4 - 1.24 MG/DL [facility] Calcium 9.5 8.5 - 10.6 MG/DL [facility] Total Protein 6.5 6.0 - 8.0 G/DL [facility] Total Bilirubin 1.0 0.3 - 1.2 MG/DL [facility] Albumin 3.6 3.5 - 5.0 G/DL [facility] Alk Phosphatase 98 25 - 110 U/L [facility] AST (SGOT) 31 7 - 40 U/L [facility] CO2 29 21 - 30 MMOL/L [facility] ALT (SGPT) 19 7 - 56 U/L [facility] Anion Gap 5 3 - 12 [facility] eGFR Non 51 (L) >60 mL/min [facility] Comment: The eGFR is not validated for use in drug dosing adjustments.Continue to use estimated creatinine clearance per dosing reference text.Please contact the Clinical Pharmacist for questions. eGFR >60 >60 mL/min [facility] Comment: The eGFR is not validated for use in drug dosing adjustments.Continue to use estimated creatinine clearance per dosing reference text.Please contact the Clinical Pharmacist for questions. Specimen Blood Performing Organization Address City/State/Zipcode Phone Number [facility] [address] [place] [address] * CBC AND DIFF (05/16/2018 10:30 AM) White Blood Cells 3.5 (L) 4.5 - 11.0 K/UL [facility] RBC 4.23 (L) 4.4 - 5.5 M/UL [facility] Hemoglobin 13.9 13.5 - 16.5 GM/DL [facility] Hematocrit 41.0 40 - 50 % [facility] MCV 96.8 80 - 100 FL [facility] MCH 32.8 26 - 34 PG [facility] MCHC 33.9 32.0 - 36.0 G/DL [facility] RDW 14.5 11 - 15 % [facility] Platelet Count 124 (L) 150 - 400 K/UL [facility] MPV 7.4 7 - 11 FL [facility] Neutrophils 63 41 - 77 % [facility] Lymphocytes 27 24 - 44 % [facility] Monocytes 8 4 - 12 % [facility] Eosinophils 2 0 - 5 % [facility] Basophils 0 0 - 2 % [facility] Absolute Neutrophil Count 2.20 1.8 - 7.0 K/UL [facility] Absolute Lymph Count 0.90 (L) 1.0 - 4.8 K/UL [facility] Absolute Monocyte Count 0.30 0 - 0.80 K/UL [facility] Absolute Eosinophil Count 0.10 0 - 0.45 K/UL [facility] Absolute Basophil Count 0.00 0 - 0.20 K/UL [facility] Specimen Blood Performing Organization Address City/[facility] Phone Number [facility] [address] [place] [address] * ALPHA FETO PROTEIN (AFP) (05/16/2018 10:30 AM) Alpha Feto Protein 3.2 0.0 - 15.0 NG/ML [facility] Specimen Blood Performing Organization Address [facility] Phone Number [facility] [address] [place] [address] * FIBROSCAN (05/16/2018 8:00 AM) Narrative Performed At IN CLINIC Bear Mitchell MD 05/16/2018 10:01 AM (No note.) Procedure Note Bear Mitchell MD - 05/16/2018 8:00 AM CDT (No note.) Performing Organization Address [facility] Phone Number IN CLINIC in this encounter Visit Diagnoses Diagnosis Other cirrhosis of liver (HCC) - Primary History of hepatitis C Personal history of other infectious and parasitic disease S/P TIPS (transjugular intrahepatic portosystemic shunt) Other postprocedural status
--- OUTSIDE RECORDS SUMMARY | 2018-06-26 14:09 | XMS REPORT | Encounter Summary ---
Author Author [facility] Organization [facility] Address Unknown Phone Unavailable Care Team Providers Care Desk Monitor Name Role Phone Nika Salmeron RN Unavailable Unavailable Aamir Holcomb MD PCP Nila Mcbride MD Unavailable Unavailable Martina Olsen RN Unavailable Unavailable Patti Lieberman RN Unavailable Unavailable Aldair Doe DO Unavailable Jennifer Cavanaugh RN Unavailable Unavailable Grisel Fry MD Unavailable Erick Galeana MD Unavailable Bear Mitchell MD Unavailable Mike Wood MD 3 Ying Salmeron MD 3 Reason for Visit * Reason Comments Other Encounter Details Date Type Department Care Team Description 05/16/2018 Telephone Center for Bear Mitchell MD Other [facility] [address] [place] [address] [facility] 1[address] [place] [address] [address] [facility] [phone] [place] [address] Social History Tobacco Use Types Packs/Day [...] impairment: No 05/16/2018 as of this encounter Miscellaneous Notes * Telephone Encounter - Jennifer Somers - 05/16/2018 8:15 AM CDT Pt called to inform care team he is running late to appt as he is stuck in traffic but is on his way. in this encounter Plan of Treatment Not on fileas of this encounter Visit Diagnoses Not on filein this encounter
--- OUTSIDE RECORDS SUMMARY | 2018-06-26 14:09 | XMS REPORT | Encounter Summary ---
Author Author [facility] Organization [facility] Address Unknown Phone Unavailable Care Team Providers Care Oracle Data Warehouse Developer Name Role Phone Nika Salmeron RN Unavailable Unavailable Aamir Holcomb MD PCP Nila Mcbride MD Unavailable Unavailable Martina Olsen RN Unavailable Unavailable Patti Lieberman RN Unavailable Unavailable Aldair Doe DO Unavailable Jennifer Cavanaugh RN Unavailable Unavailable Grisel Fry MD Unavailable Erick Galeana MD Unavailable Bear Mitchell MD Unavailable Mike Wood MD 3 Ying Salmeron MD 3 Encounter Details Date Type Department Care Team Description 11/13/2017 Procedure Pass [facility] [address] MED OFFICE [address] [place] [address] Social History Tobacco Use Types Packs/Day Years Used Date Never Smoker Smokeless Tobacco: Never Used Alcohol Use Drinks/Week oz/Week Comments Yes Sex Assigned at Date Recorded Not on file as of this encounter Functional Status Functional Status Response Date of Assessment Does the patient have a hearing impairment: No 05/10/2017 Does the patient have a visual impairment: Yes 05/10/2017 Does the patient have impaired ambulation: No 05/10/2017 Does the patient have an activity of daily living No 05/10/2017 (ADL) impairment: Does the patient have an instrumental activity of No 05/10/2017 daily living (IADL) impairment: Cognitive Status Response Date of Assessment Does the patient have a cognitive impairment: No 05/10/2017 as of this encounter Plan of Treatment Not on fileas of this encounter Visit Diagnoses Not on filein this encounter
--- OUTSIDE RECORDS SUMMARY | 2018-06-26 14:09 | XMS REPORT | Encounter Summary ---
Author Author [facility] Organization [facility] Address Unknown Phone Unavailable Care Team Providers Care Java Web Developer Name Role Phone Nika Salmeron RN [...] Type Department Care Team Description 05/16/2018 [facility] Bear Mitchell MD Other cirrhosis of liver Encounter [facility] [address] (HCC) [address] [place] [address] [place] [address] [place] [address] [phone] Social History Tobacco Use Types Packs/Day Years [...] Procedure Name Priority Date/Time Associated Diagnosis Comments ALPHA FETO PROTEIN (AFP) Routine 05/16/2018 Other cirrhosis of liver Results for this 10:30 AM CDT (HCC) procedure are in the History of hepatitis C results section. S/P TIPS (transjugular intrahepatic portosystemic shunt) CBC AND DIFF Routine 05/16/2018 Other cirrhosis of liver Results for this 10:30 AM CDT (HCC) procedure are in the History of hepatitis C results section. S/P TIPS (transjugular intrahepatic portosystemic shunt) COMPREHENSIVE METABOLIC Routine 05/16/2018 Other cirrhosis of liver Results for this PANEL 10:30 AM CDT (HCC) procedure are in the [...] Address City/State/Zipcode Phone Number [facility] [address] [place] [address] * CBC AND DIFF (05/16/2018 10:30 AM) [...] MAIN LAB Specimen Blood Performing Organization Address City/[facility] Phone [facility] [address] [place] [address] * ALPHA FETO PROTEIN (AFP) (05/16/2018 10:30 AM) Alpha Feto Protein 3.2 0.0 - 15.0 NG/ML [facility]IN [facility] Specimen Blood Performing Organization Address [facility] Phone Number [facility] [address] [place] [address] in this encounter Visit Diagnoses Diagnosis Other cirrhosis of liver (HCC) History of hepatitis C Personal history of other infectious and parasitic disease S/P TIPS (transjugular intrahepatic portosystemic shunt) Other postprocedural status Admitting Diagnoses Diagnosis Other cirrhosis of liver (HCC) Other cirrhosis of liver Personal history of other infectious and parasitic diseases Presence of other vascular implants and grafts
--- OUTSIDE RECORDS SUMMARY | 2018-06-26 14:09 | XMS REPORT | Clinical Summary ---
Author Author [facility] Organization [facility] Address Unknown Phone Unavailable Care Team Providers Care Customer Business Manager Name Role Phone Nika Salmeron RN Unavailable Unavailable Aamir Holcomb MD PCP Nila Mcbride MD Unavailable Unavailable Martina Olsen RN Unavailable Unavailable Patti Lieberman RN Unavailable Unavailable Aldair Doe DO Unavailable Jennifer Cavanaugh RN Unavailable Unavailable Grisel Fry MD Unavailable Erick Galeana MD Unavailable Bear Mitchell MD Unavailable Mike Wood MD 3 Ying Salmeron MD 3 Source Comments Some departments are not documenting in the electronic medical record. If you do not see the information that you expected, contact Release of Information in the Health Information Management department at [phone] for further assistance in locating additional records.[facility] Allergies No Known Allergies Current Medications Prescription Sig. [...] Active (LOPRESSOR) 25 mg tablet daily. 16 lisinopril (PRINIVIL; Take 20 mg by mouth Active ZESTRIL) 10 mg tablet daily. 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 Overview: For ascites after surgery History of hepatitis C 05/10/2017 Overview: Treated and cleared in 2009 Cirrhosis (HCC) 02/17/[address] (HCC) 07/14/2015 Resolved Problems Problem Noted Date Resolved Date Cirrhosis (HCC) 09/17/2014 02/17/2016 Hepatitis C 09/17/2014 05/10/2017 Acute renal failure (HCC) 08/25/2014 05/10/2017 Hyponatremia 08/25/2014 05/10/2017 Anemia, chronic disease 08/25/2014 05/10/2017 SBO (small bowel obstruction) (HCC) 08/10/2014 05/10/2017 Encounters Date Type Specialty Care Team Description 05/16/2018 Hospital Lab Bear Mitchell MD Other cirrhosis of liver Encounter (HCC) 05/16/2018 Hospital Radiology Joyce Gonzales APRN Encounter 05/16/2018 Office Visit Hepatology Bear Mitchell MD Other cirrhosis of liver (HCC) (Primary Dx); History of hepatitis C; S/P TIPS (transjugular intrahepatic portosystemic shunt) 05/16/2018 Telephone Hepatology Bear Mitchell MD Other 11/13/2017 Procedure Pass Radiology from Last 3 Months Family History Medical History Relation Name Comments Arthritis-osteo Father Hypertension Father Heart Failure Paternal Grandfather Hypertension Paternal Grandfather Heart Failure Paternal Grandmother Relation Name Status Comments Father Paternal Grandfather Paternal Grandmother Social History Tobacco Use Types Packs/Day Years Used Date Never Smoker Smokeless Tobacco: Never Used Alcohol Use Drinks/Week oz/Week Comments Yes Sex Assigned at Date Recorded Not on file Last Filed Vital Signs Vital Sign Reading [...] Mass Index 26.95 05/16/2018 8:56 AM CDT Plan of Treatment Health Maintenance Due Date Last Done Comments PHYSICAL (COMPREHENSIVE) 1965 EXAM HIV SCREENING 1973 DTAP/TDAP VACCINES (1 - 1976 Tdap) COLORECTAL CANCER 2008 SCREENING SHINGLES RECOMBINANT 2008 VACCINE (1 of 2) INFLUENZA VACCINE 02/26/2018 Procedures Procedure Name Priority Date/Time Associated Diagnosis Comments CT ABDOMEN WO/W CONTRAST Routine 05/16/2018 Cirrhosis of liver Results for this 10:49 AM CDT without ascites, procedure are in the unspecified hepatic results section. cirrhosis type (HCC) S/P TIPS (transjugular intrahepatic portosystemic shunt) POC CREATININE, RAD 05/16/2018 Results for this 10:33 AM CDT procedure are in the results section. COMPREHENSIVE METABOLIC Routine 05/16/2018 Other cirrhosis of [...] section. S/P TIPS (transjugular intrahepatic portosystemic shunt) ALPHA FETO PROTEIN (AFP) Routine 05/16/2018 Other cirrhosis of liver Results for this 10:30 AM CDT (HCC) procedure are in the History of hepatitis C results section. S/P TIPS (transjugular intrahepatic portosystemic shunt) FIBROSCAN Routine 05/16/2018 Other cirrhosis of liver Results for this 8:00 AM CDT (HCC) procedure are in the History of hepatitis C results section. S/P TIPS (transjugular intrahepatic portosystemic shunt) from Last 3 Months Results * CT ABDOMEN WO/W CONTRAST (05/16/2018 [...] on 05/16/2018 12:44 PM. Performing Organization Address [facility] [place] RAD RESULTS * POC CREATININE, RAD (05/16/2018 10:33 AM) Creatinine, POC 1.6 (H) 0.4 - 1.24 MG/DL [facility] Performing Organization Address [facility] [place] [facility] [address] [phone] * ALPHA FETO PROTEIN (AFP) (05/16/2018 10:30 AM) Alpha Feto Protein 3.2 0.0 - 15.0 NG/ML [facility] Specimen Blood Performing Organization Address [facility] [place] [facility] [address] [place] [address] * CBC AND DIFF (05/16/2018 10:30 AM) [...] MAIN LAB Specimen Blood Performing Organization Address City/State/Zipcode Phone Number MAIN LAB [address] [place] [address] * COMPREHENSIVE METABOLIC PANEL (05/16/2018 10:30 AM) [...] for questions. Specimen Blood Performing Organization Address City/[facility] Phone Number [facility] [address] [place] [address] * FIBROSCAN (05/16/2018 8:00 AM) Narrative Performed At [facility] Bear Mitchell MD 05/16/2018 10:01 AM (No note.) Procedure Note Bear Mitchell MD - 05/16/2018 8:00 AM CDT (No note.) Performing Organization Address [place]/[facility] [place] Phone Number [facility] from Last 3 Months
--- OUTSIDE RECORDS SUMMARY | 2018-06-26 14:11 | XMS REPORT | Continuity of Care Document ---
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 10/29/2014 Ot 070.70 10/29/2014 Ot 242.00 10/29/2014 Ot 401.9 10/29/2014 Ot 571.5 11/12/2014 OSNIA NICHOLS 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 Ot 154.0 11/12/2014 SONIA NICHOLS 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 Ot V44.3 11/12/2014 NICHOLSSONIA Wilson 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 Ot V58.69 11/12/2014 SONIA NICHOLS 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 Ot 518.0 11/12/2014 SONIA NICHOLS 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 Ot 571.5 11/12/2014 SONIA NICHOLS 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 Ot 789.2 11/12/2014 NICHOLSSONIA Wilson 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 Ot 793.19 12/25/2014 VIKI, BOBAN N Ot 154.0 12/25/2014 VIKI, BOBAN N Ot 793.11 12/25/2014 VIKI, BOBAN N Ot V44.3 12/25/2014 VIKI, BOBAN N Ot V58.69 01/25/2015 VIKI, BOBAN N Ot 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 01/25/2015 VIKI, BOBAN N Ot 793.11 SOLITARY PULMONARY NODULE 01/25/2015 VIKI, BOBAN N Ot V44.3 COLOSTOMY STATUS 01/25/2015 VIKI, BOBAN N Ot V58.69 OT MED,LT,CURRENT USE 02/03/2015 VIKI, BOBAN N Ot 154.0 02/03/2015 VIKI, BOBAN N Ot 793.11 02/03/2015 VIKI, BOBAN N Ot V44.3 02/03/2015 VIKI, BOBAN N Ot V58.69 02/03/2015 VIKI, BOBAN N Ot 154.0 02/03/2015 VIKI, BOBAN N Ot 793.11 02/03/2015 VIKI, BOBAN N Ot V44.3 02/03/2015 VIKI, BOBAN N Ot V58.69 02/04/2015 VIKI, BOBAN N Ot 154.0 02/04/2015 VIKI, BOBAN N Ot 793.11 02/04/2015 VIKI, BOBAN N Ot V44.3 02/04/2015 VIKI, BOBAN N Ot V58.69 02/08/2015 VIKI, BOBAN N Ot 154.0 02/08/2015 VIKI, BOBAN N Ot 793.11 02/08/2015 VIKI, BOBAN N Ot V44.3 02/08/2015 VIKI, BOBAN N Ot V58.69 02/17/2015 JACKSON LEE, JAYSONAAKI Ot 153.9 02/17/2015 JACKSON LEE, JAYSONAAKI Ot V72.63 02/17/2015 JACKSON LEE, TAKAAKI Ot V74.8 02/17/2015 MELISSA LEE, JESIKA Liriano Ot 242.90 02/24/2015 MELISSA LEE, JESIKA Liriano Ot 153.9 02/24/2015 MELISSA LEE, JESIKA Liriano Ot 242.00 02/24/2015 MELISSA LEE, JESIKA Liriano Ot 280.9 03/15/2015 VIKI, BOBAN N Ot 154.0 03/15/2015 VIKI, BOBAN N Ot 793.11 03/15/2015 VIKI, BOBAN N Ot V44.3 03/15/2015 VIKI, BOBAN N Ot V58.69 04/15/2015 Ot 155.0 04/15/2015 Ot V81.5 04/15/2015 Ot 155.0 04/15/2015 Ot 070.54 04/15/2015 Ot V58.69 04/15/2015 MELISSA LEE, JESIKA Liriano Ot 154.0 04/15/2015 MELISSA LEE, JESIKA Liriano Ot 211.3 04/15/2015 MELISSA LEE, JESIKA Liriano Ot V76.51 04/15/2015 MELISSA LEE, JESIKA Liriano Ot V72.84 04/15/2015 JACKSON LEE, ADAN Ot 153.9 04/15/2015 JACKSON LEE, SAMANTHAKI Ot 401.9 04/15/2015 JACKSON LEE, JAYSONAAKI Ot V72.63 04/15/2015 JACKSON LEE, JAYSONAAKI Ot V74.8 04/15/2015 VIKI, BOBAN N Ot 154.1 04/15/2015 VIKI, BOBAN N Ot 793.11 04/15/2015 VIKI, BOBAN N Ot 154.0 04/15/2015 VIKI, BOBAN N Ot 285.9 04/15/2015 VIKI, BOBAN N Ot 584.9 04/15/2015 MELISSA LEE, JESIKA Liriano Ot 263.9 04/15/2015 MELISSA LEE, JESIKA Liriano Ot 276.51 04/15/2015 MELISSA LEE, JESIKA Liriano Ot 401.9 04/15/2015 MELISSA LEE, JESIKA Liriano Ot 571.5 04/15/2015 SONIA NICHOLS S 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 Ot 070.70 04/15/2015 SONIA NICHOLS S 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 Ot 154.0 04/15/2015 SONIA NICHOLS S 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 Ot 518.89 04/15/2015 NICHOLSSONIA S 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 Ot 571.5 04/15/2015 MELISSA LEE, JESIKA Liriano Ot 242.90 04/15/2015 NICHOLSSONIA Wilson S 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 Ot 070.70 04/15/2015 NICHOLSSONIA Wilson S 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 Ot 154.0 04/15/2015 NICHOLSSONIA Wilson S 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 Ot 793.11 04/15/2015 SONIA NICHOLS S 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 Ot V44.3 04/15/2015 NICHOLSSONIA Wilson S 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 Ot V58.69 04/15/2015 SONIA NICHOLS S 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 Ot 154.0 04/15/2015 NICHOLSSONIA Wilson S 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 Ot V87.41 04/15/2015 NICHOLSSONIA Wilson S 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 Ot 154.0 04/15/2015 NICHOLSSONIA Wilson S 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 Ot 276.51 04/15/2015 SONIA NICHOLS S 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 Ot 787.91 04/15/2015 NICHOLSSONIA Wilson S 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 Ot 793.11 04/15/2015 NICHOLSSONIA Wilson S 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 Ot V44.3 04/15/2015 NICHOLSSONIA Wilson S 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 Ot V58.69 04/15/2015 Ot 709.8 04/15/2015 Ot V44.3 04/15/2015 NICHOLSSONIA Wilson S 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 Ot 154.0 04/15/2015 NICHOLSSONIA Wilson S 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 Ot 276.51 04/15/2015 NICHOLSSONIA Wilson S 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 Ot 787.91 04/15/2015 NICHOLSSONIA S 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 Ot 793.11 04/15/2015 NICHOLSSONIA S 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 Ot V44.3 04/15/2015 NICHOLSSONIA S 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 Ot V58.69 04/15/2015 MELISSA LEE, JESIKA Liriano Ot 242.00 04/15/2015 MELISSA LEE, JESIKA Liriano Ot 242.00 04/15/2015 NICHOLSSONIA Wilson S 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 Ot 154.0 04/15/2015 SIMONESONIA S 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 Ot 276.51 04/15/2015 SIMONESONIA S 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 Ot 787.91 04/15/2015 NICHOLSSONIA S 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 Ot 793.11 04/15/2015 SIMONE SONIA S 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 Ot V44.3 04/15/2015 SIMONE SONIA S 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 Ot V58.69 04/15/2015 SIMONESONIA S 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 Ot 154.0 04/15/2015 SIMONE SONIA S 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 Ot V44.3 04/15/2015 SIMONE SONIA S 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 Ot V58.69 04/15/2015 JACKSON LEE, ADAN Ot 154.1 04/15/2015 JACKSON LEE, ADAN Ot V72.84 04/15/2015 JACKSON LEE, ADAN Ot V74.8 04/15/2015 SIMONE SONIA S 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 Ot 154.0 04/15/2015 SIMONE SONIA S 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 Ot 793.11 04/15/2015 SIMONE SONIA S 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 Ot V44.3 04/15/2015 SIMONE SONIA S 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 Ot V58.69 04/15/2015 JESIKA TORRES MD Ot 242.00 04/15/2015 SIMONESONIA S 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 Ot 154.0 04/15/2015 SIMONE SONIA S 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 Ot 793.11 04/15/2015 SIMONE SONIA S 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 Ot V44.3 04/15/2015 SIMONE SONIA S 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 Ot V58.69 04/15/2015 JESIKA TORRES MD Ot 274.9 04/15/2015 SIMONE SONIA S 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 Ot 154.0 04/15/2015 SIMONE SONIA S 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 Ot 793.11 04/15/2015 SIMONE SONIA S 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 Ot V44.3 04/15/2015 SIMONE SONIA S 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 Ot V58.69 04/15/2015 SIMONE SONIA S 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 Ot 154.0 04/15/2015 SIMONE SONIA S 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 Ot 793.11 04/15/2015 SIMONE HILAH S 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 Ot V44.3 04/15/2015 SONIA NICHOLS 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 Ot V58.69 04/15/2015 SONIA NICHOLS 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 Ot 154.0 04/15/2015 SONIA NICHOLS 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 Ot 196.9 04/15/2015 SONIA NICHOLS 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 Ot 287.5 04/15/2015 SONIA NICHOLS S 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 Ot 288.00 04/15/2015 SONIA NICHOLS S 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 Ot 793.11 04/15/2015 SONIA NICHOLS 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 Ot V44.3 04/15/2015 SONIA NICHOLS 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 Ot V58.69 04/15/2015 HIMA DREW Ot 154.1 04/15/2015 SONIA NICHOLS 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 Ot 070.70 04/15/2015 SONIA NICHOLS 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 Ot 154.1 04/15/2015 SONIA NICHOLS 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 Ot 196.9 04/15/2015 SONIA NICHOLS 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 Ot 793.11 04/15/2015 SONIA NICHOLS 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 Ot V44.3 04/15/2015 SONIA NICHOLS 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 Ot V58.69 04/15/2015 MELISSA LEE, JESIKA Liriano Ot V72.84 04/15/2015 JACKSON LEE, DAAN Ot 153.9 04/15/2015 JACKSON LEE, ADAN Ot V72.63 04/15/2015 JACKSON LEE, ADAN Ot V74.8 04/15/2015 MELISSA LEE, JESIKA Liriano Ot 242.90 04/15/2015 JESIKA TORRES MD Ot 242.00 04/15/2015 Ot 571.5 04/15/2015 Ot V10.06 04/15/2015 Ot 070.70 04/15/2015 Ot 242.00 04/15/2015 Ot 401.9 04/15/2015 Ot 571.5 04/15/2015 SONIA NICHOLS 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 Ot 154.0 04/15/2015 SONIA NICHOLS 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 Ot V44.3 04/15/2015 SONAI NICHOLS S 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 Ot V58.69 04/15/2015 NICHOLSSONIA Wilson S 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 Ot 518.0 04/15/2015 SONIA NICHOLS S 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 Ot 571.5 04/15/2015 NICHOLSSONIA Wilson S 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 Ot 789.2 04/15/2015 NICHOLSSONIA Wilson S 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 Ot 793.19 04/15/2015 VIKIPOONAM PARRATIARA N Ot 154.0 04/15/2015 POONAM DREWTIARA N Ot 793.11 04/15/2015 VIKI HIMA N Ot V44.3 04/15/2015 VIKIHIMA N Ot V58.69 04/15/2015 MELISSA LEE, JESIKA Liriano Ot 153.9 04/15/2015 MELISSA LEE, JESIKA Liriano Ot 242.00 04/15/2015 MELISSA LEE, JESIKA Liriano Ot 280.9 04/15/2015 SIMONESONIA S RADIAL ARM SAW OPERATOR Ot 070.70 04/15/2015 NICHOLSSONIA S RADIAL ARM SAW OPERATOR Ot 280.9 04/15/2015 NICHOLS SONIA S RADIAL ARM SAW OPERATOR Ot 571.5 04/15/2015 SIMONE SONIA S RADIAL ARM SAW OPERATOR Ot V10.06 04/15/2015 SIMONE SONIA S RADIAL ARM SAW OPERATOR Ot V44.3 04/15/2015 NICHOLSSONIA S RADIAL ARM SAW OPERATOR Ot V58.69 04/15/2015 NICHOLSSONIA S RADIAL ARM SAW OPERATOR Ot V67.1 04/15/2015 SIMONE SONIA S RADIAL ARM SAW OPERATOR Ot V67.2 04/21/2015 NICHOLSSONIA S RADIAL ARM SAW OPERATOR Ot 070.70 04/21/2015 NICHOLSSONIA Wilson S RADIAL ARM SAW OPERATOR Ot 280.9 04/21/2015 SIMONE SONIA S RADIAL ARM SAW OPERATOR Ot 571.5 04/21/2015 SIMONE SONIA S RADIAL ARM SAW OPERATOR Ot V10.06 04/21/2015 NICHOLSSONIA S RADIAL ARM SAW OPERATOR Ot V44.3 04/21/2015 NICHOLSSONIA S RADIAL ARM SAW OPERATOR Ot V58.69 04/21/2015 SIMONE SONIA S RADIAL ARM SAW OPERATOR Ot V67.1 04/21/2015 SIMONE SONIA S RADIAL ARM SAW OPERATOR Ot V67.2 04/27/2015 HIMA DREW N Ot 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 04/27/2015 VIKI, HIMA N Ot 793.11 SOLITARY PULMONARY NODULE 04/27/2015 VIKIHIMA N Ot V44.3 COLOSTOMY STATUS 04/27/2015 POONAM DREWAN N Ot V58.69 OTH MED,LT,CURRENT USE 04/27/2015 VIKI, BOBAN N Ot V58.81 FIT/ADJ VASCULAR CATHETER 04/27/2015 SONIA NICHOLS RADIAL ARM SAW OPERATOR Ot 154.1 04/27/2015 SONIA NICHOLS RADIAL ARM SAW OPERATOR Ot 793.19 07/16/2015 VIKI BOBAN N Ot 154.0 07/16/2015 VIKI, BOBAN N Ot 793.11 07/16/2015 VIKI BOBAN N Ot V44.3 07/16/2015 VIKI BOBAN N Ot V58.69 07/20/2015 MELISSA LEE, JESIKA Liriano Ot E05.00 08/02/2015 VIKI, BOBAN N Ot C19 08/02/2015 VIKI, BOBAN N Ot R91.1 08/02/2015 VIKI, BOBAN N Ot Z79.899 08/02/2015 VIKI, BOBAN N Ot Z93.3 08/16/2015 VIKI, BOBAN N Ot C19 MALIGNANT NEOPLASM OF RECTOSIGMOID JUNCT 08/16/2015 VIKI, BOBAN N Ot R91.1 SOLITARY PULMONARY NODULE 08/16/2015 VIKI, BOBAN N Ot Z79.899 OTHER ALF (CURRENT) DRUG THERAPY 08/16/2015 VIKI BOBAN N Ot Z93.3 COLOSTOMY STATUS 08/24/2015 VIKI, BOBAN N Ot C19 08/24/2015 VIKI, BOBAN N Ot R91.1 08/24/2015 VIKI, BOBAN N Ot Z79.899 08/24/2015 VIKI, BOBAN N Ot Z93.3 08/30/2015 VIKI, BOBAN N Ot C19 08/30/2015 VIKI, BOBAN N Ot R91.1 08/30/2015 VIKI, BOBAN N Ot Z79.899 08/30/2015 VIKI, BOBAN N Ot Z93.3 09/15/2015 VIKI, BOBAN N Ot C19 09/15/2015 VIKI, BOBAN N Ot R91.1 09/15/2015 VIKI, BOBAN N Ot Z45.2 09/15/2015 VIKI, BOBAN N Ot Z79.899 09/15/2015 HIMA DREW N Ot Z93.3 10/04/2015 MELISSA LEE, JESIKA Liriano Ot E05.00 10/24/2015 SONIA NICHOLS RADIAL ARM SAW OPERATOR Ot C19 10/24/2015 SONIA NICHOLS RADIAL ARM SAW OPERATOR Ot R91.1 10/24/2015 SONIA NICHOLS RADIAL ARM SAW OPERATOR Ot Z79.899 10/24/2015 SONIA NICHOLS RADIAL ARM SAW OPERATOR Ot Z93.3 10/24/2015 JESIKA TORRES MD Ot E05.00 11/24/2015 HIMA DREW N Ot C19 MALIGNANT NEOPLASM OF RECTOSIGMOID JUNCT 11/24/2015 HIMA DREW N Ot R91.1 SOLITARY PULMONARY NODULE 11/24/2015 HIMA DREW N Ot Z45.2 ENCOUNTER FOR ADJUSTMENT AND MANAGEMENT 11/24/2015 HIMA DREW N Ot Z79.899 OTHER WRAP YARN SORTER (CURRENT) DRUG THERAPY 11/24/2015 HIMA DREW N Ot Z93.3 COLOSTOMY STATUS 12/09/2015 HIMA DREW N Ot C19 MALIGNANT NEOPLASM OF RECTOSIGMOID JUNCT 12/09/2015 HIMA DREW N Ot R91.1 SOLITARY PULMONARY NODULE 12/09/2015 VIKIHIMA PARRA N Ot Z45.2 ENCOUNTER FOR ADJUSTMENT AND MANAGEMENT 12/09/2015 HIMA DREW N Ot Z79.899 OTHER ALF (CURRENT) DRUG THERAPY 12/09/2015 HIMA DREW N Ot Z93.3 COLOSTOMY STATUS 12/28/2015 HIMA DREW N Ot C19 MALIGNANT NEOPLASM OF RECTOSIGMOID JUNCT 12/28/2015 HIMA DREW N Ot R91.1 SOLITARY PULMONARY NODULE 12/28/2015 VIKIHIMA PARRA N Ot Z45.2 ENCOUNTER FOR ADJUSTMENT AND MANAGEMENT 12/28/2015 VIKIHIMA N Ot Z79.899 OTHER WRAP YARN SORTER (CURRENT) DRUG THERAPY 12/28/2015 VIKIHIMA PARRA N Ot Z93.3 COLOSTOMY STATUS 12/28/2015 SONIA NICHOLS S RADIAL ARM SAW OPERATOR Ot C19 MALIGNANT NEOPLASM OF RECTOSIGMOID JUNCT 12/28/2015 SONIA NICHOLS RADIAL ARM SAW OPERATOR Ot R91.1 SOLITARY PULMONARY NODULE 12/28/2015 SONIA NICHOLS RADIAL ARM SAW OPERATOR Ot Z45.2 ENCOUNTER FOR ADJUSTMENT AND MANAGEMENT 12/28/2015 SONIA NICHOLS RADIAL ARM SAW OPERATOR Ot Z79.899 OTHER ALF (CURRENT) DRUG THERAPY 12/28/2015 SONIA NICHOLS RADIAL ARM SAW OPERATOR Ot Z93.3 COLOSTOMY STATUS 01/06/2016 SONIA NICHOLS RADIAL ARM SAW OPERATOR Ot C19 MALIGNANT NEOPLASM OF RECTOSIGMOID JUNCT 01/06/2016 SONIA NICHOLS RADIAL ARM SAW OPERATOR Ot R91.1 SOLITARY PULMONARY NODULE 01/06/2016 SONAI NICHOLS RADIAL ARM SAW OPERATOR Ot Z45.2 ENCOUNTER FOR ADJUSTMENT AND MANAGEMENT 01/06/2016 SONIA NICHOLS RADIAL ARM SAW OPERATOR Ot Z79.899 OTHER WRAP YARN SORTER (CURRENT) DRUG THERAPY 01/06/2016 SONIA NICHOLS RADIAL ARM SAW OPERATOR Ot Z93.3 COLOSTOMY STATUS 01/25/2016 JESIKA TORRES MD Ot Z01.818 ENCOUNTER FOR OTHER PREPROCEDURAL EXAMIN 01/25/2016 JESIKA TORRES MD Ot Z12.11 ENCOUNTER FOR SCREENING FOR MALIGNANT NE 01/25/2016 JESIKA TORRES MD Ot Z85.038 PERSONAL HISTORY OF MALIGNANT NEOPLASM O 01/26/2016 JESIKA TORRES MD Ot Z01.818 ENCOUNTER FOR OTHER PREPROCEDURAL EXAMIN 01/26/2016 JESIKA TORRES MD Ot Z12.11 ENCOUNTER FOR SCREENING FOR MALIGNANT NE 01/26/2016 JESIKA TORRES MD Ot Z85.038 PERSONAL HISTORY OF MALIGNANT NEOPLASM O 01/27/2016 Ot 709.8 SKIN DISORDERS NEC 01/27/2016 Ot V44.3 COLOSTOMY STATUS 01/27/2016 JESIKA TORRES MD Ot 242.00 TOX DIF GOITER NO CRISIS 01/27/2016 JESIKA TORRES MD Ot E05.00 THYROTOXICOSIS W DIFFUSE GOITER W/O THYR 01/27/2016 JESIKA TORRES MD Ot K62.7 RADIATION PROCTITIS 01/27/2016 JESIKA TORRES MD Ot Z12.11 ENCOUNTER FOR SCREENING FOR MALIGNANT NE 01/27/2016 JESIKA TORRES MD Ot Z79.899 OTHER WRAP YARN SORTER (CURRENT) DRUG THERAPY 01/27/2016 JESIKA TORRES MD Ot Z85.038 PERSONAL HISTORY OF MALIGNANT NEOPLASM O 01/27/2016 JESIKA TORRES MD Ot Z93.3 COLOSTOMY STATUS 02/01/2016 JESIKA TORRES MD, Ot E05.00 THYROTOXICOSIS W DIFFUSE GOITER W/O THYR 02/01/2016 JESIKA TORRES MD Ot K62.7 RADIATION PROCTITIS 02/01/2016 JESIKA TORRES MD Ot Z12.11 ENCOUNTER FOR SCREENING FOR MALIGNANT NE 02/01/2016 JESIKA TORRES MD Ot Z79.899 OTHER ALF (CURRENT) DRUG THERAPY 02/01/2016 JESIKA TORRES MD Ot Z85.038 PERSONAL HISTORY OF MALIGNANT NEOPLASM O 02/01/2016 JESIKA TORRES MD Ot Z93.3 COLOSTOMY STATUS 02/09/2016 VIKIHIMA PARRA N Ot C19 MALIGNANT NEOPLASM OF RECTOSIGMOID JUNCT 02/09/2016 VIKIHIMA PARRA N Ot R91.1 SOLITARY PULMONARY NODULE 02/09/2016 VIKIHIMA PARRA N Ot Z45.2 ENCOUNTER FOR ADJUSTMENT AND MANAGEMENT 02/09/2016 VIKIHIMA PARRA N Ot Z79.899 OTHER WRAP YARN SORTER (CURRENT) DRUG THERAPY 02/09/2016 VIKIHIMA PARRA N Ot Z93.3 COLOSTOMY STATUS 02/22/2016 VIKIHIMA PARRA N Ot C19 MALIGNANT NEOPLASM OF RECTOSIGMOID JUNCT 02/22/2016 VIKIHIMA PARRA N Ot R91.1 SOLITARY PULMONARY NODULE 02/22/2016 VIKIHIMA PARRA N Ot Z45.2 ENCOUNTER FOR ADJUSTMENT AND MANAGEMENT 02/22/2016 VIKIHIMA PARRA N Ot Z79.899 OTHER ALF (CURRENT) DRUG THERAPY 02/22/2016 VIKIHIMA PARRA N Ot Z93.3 COLOSTOMY STATUS 03/14/2016 SONIA NICHOLS RADIAL ARM SAW OPERATOR Ot C20 MALIGNANT NEOPLASM OF RECTUM 03/14/2016 SONIA NICHOLS RADIAL ARM SAW OPERATOR Ot R91.8 OTHER NONSPECIFIC ABNORMAL FINDING OF KORI 03/26/2016 VIKI, BOBAN N Ot C19 MALIGNANT NEOPLASM OF RECTOSIGMOID JUNCT 03/26/2016 VIKIHIMA PARRA N Ot R91.1 SOLITARY PULMONARY NODULE 03/26/2016 VIKIHIMA PARRA N Ot Z45.2 ENCOUNTER FOR ADJUSTMENT AND MANAGEMENT 03/26/2016 VIKIHIMA PARRA N Ot Z79.899 OTHER ALF (CURRENT) DRUG THERAPY 03/26/2016 VIKIHIMA PARRA N Ot Z93.3 COLOSTOMY STATUS 03/29/2016 VIKI, BOBAN N Ot C19 MALIGNANT NEOPLASM OF RECTOSIGMOID JUNCT 03/29/2016 VIKIHIMA PARRA N Ot R91.1 SOLITARY PULMONARY NODULE 03/29/2016 VIKIHIMA PARRA N Ot Z45.2 ENCOUNTER FOR ADJUSTMENT AND MANAGEMENT 03/29/2016 HIMA DREW N Ot Z79.899 OTHER WRAP YARN SORTER (CURRENT) DRUG THERAPY 03/29/2016 VIKIHIMA PARRA N Ot Z93.3 COLOSTOMY STATUS 03/29/2016 SONIA NICHOLS RADIAL ARM SAW OPERATOR Ot C20 MALIGNANT NEOPLASM OF RECTUM 03/29/2016 SONIA NICHOLS RADIAL ARM SAW OPERATOR Ot R91.8 OTHER NONSPECIFIC ABNORMAL FINDING OF [place] 04/13/2016 VIKIHIMA PARRA N Ot C19 MALIGNANT NEOPLASM OF RECTOSIGMOID JUNCT 04/13/2016 HIMA DREW N Ot R91.1 SOLITARY PULMONARY NODULE 04/13/2016 VIKIHIMA PARRA N Ot Z45.2 ENCOUNTER FOR ADJUSTMENT AND MANAGEMENT 04/13/2016 VIKIHIMA PARRA N Ot Z79.899 OTHER WRAP YARN SORTER (CURRENT) DRUG THERAPY 04/13/2016 VIKIHIMA PARRA N Ot Z93.3 COLOSTOMY STATUS 04/24/2016 VIKIHIMA PARRA N Ot C19 MALIGNANT NEOPLASM OF RECTOSIGMOID JUNCT 04/24/2016 VIKIHIMA PARRA N Ot R91.1 SOLITARY PULMONARY NODULE 04/24/2016 VIKIHIMA PARRA N Ot Z45.2 ENCOUNTER FOR ADJUSTMENT AND MANAGEMENT 04/24/2016 VIKIHIMA PARRA N Ot Z79.899 OTHER ALF (CURRENT) DRUG THERAPY 04/24/2016 VIKIHIMA PARRA N Ot Z93.3 COLOSTOMY STATUS 05/07/2016 VIKIHIMA PARRA N Ot C19 MALIGNANT NEOPLASM OF RECTOSIGMOID JUNCT 05/07/2016 VIKIHIMA N Ot R91.1 SOLITARY PULMONARY NODULE 05/07/2016 VIKIHIMA N Ot Z45.2 ENCOUNTER FOR ADJUSTMENT AND MANAGEMENT 05/07/2016 VIKIHIMA N Ot Z79.899 OTHER WRAP YARN SORTER (CURRENT) DRUG THERAPY 05/07/2016 VIKIHIMA N Ot Z93.3 COLOSTOMY STATUS 07/11/2016 VIKIPOONAMAN N Ot C19 MALIGNANT NEOPLASM OF RECTOSIGMOID JUNCT 07/11/2016 VIKIHIMA N Ot R91.1 SOLITARY PULMONARY NODULE 07/11/2016 VIKIHIMA PARRA N Ot Z45.2 ENCOUNTER FOR ADJUSTMENT AND MANAGEMENT 07/11/2016 HIMA DREW N Ot Z79.899 OTHER ALF (CURRENT) DRUG THERAPY 07/11/2016 HIMA DREW N Ot Z93.3 COLOSTOMY STATUS 08/08/2016 HIMA DREW N Ot C19 MALIGNANT NEOPLASM OF RECTOSIGMOID JUNCT 08/08/2016 HIMA DREW N Ot R91.1 SOLITARY PULMONARY NODULE 08/08/2016 HIMA DREW N Ot Z45.2 ENCOUNTER FOR ADJUSTMENT AND MANAGEMENT 08/08/2016 HIMA DREW N Ot Z79.899 OTHER WRAP YARN SORTER (CURRENT) DRUG THERAPY 08/08/2016 HIMA DREW N Ot Z93.3 COLOSTOMY STATUS 08/28/2016 MELISSA LEE, JESIKA Liriano Ot E05.00 THYROTOXICOSIS W DIFFUSE GOITER W/O THYR 09/02/2016 HIMA DREW N Ot C19 MALIGNANT NEOPLASM OF RECTOSIGMOID JUNCT 09/02/2016 HIMA DREW N Ot R91.1 SOLITARY PULMONARY NODULE 09/02/2016 HIMA DREW N Ot Z45.2 ENCOUNTER FOR ADJUSTMENT AND MANAGEMENT 09/02/2016 HIMA DREW N Ot Z79.899 OTHER WRAP YARN SORTER (CURRENT) DRUG THERAPY 09/02/2016 HIMA DREW N Ot Z93.3 COLOSTOMY STATUS 09/12/2016 JESIKA TORRES MD Ot E05.00 THYROTOXICOSIS W DIFFUSE GOITER W/O THYR 10/09/2016 HIMA DREW N Ot C19 MALIGNANT NEOPLASM OF RECTOSIGMOID JUNCT 10/09/2016 HIMA DREW N Ot R91.1 SOLITARY PULMONARY NODULE 10/09/2016 HIMA DREW N Ot Z45.2 ENCOUNTER FOR ADJUSTMENT AND MANAGEMENT 10/09/2016 HIMA DREW N Ot Z79.899 OTHER WRAP YARN SORTER (CURRENT) DRUG THERAPY 10/09/2016 HIMA DREW N Ot Z93.3 COLOSTOMY STATUS 11/13/2016 HIMA DREW N Ot C19 MALIGNANT NEOPLASM OF RECTOSIGMOID JUNCT 11/13/2016 HIMA DREW N Ot R91.1 SOLITARY PULMONARY NODULE 11/13/2016 VIKIHIMA PARRA Ot Z45.2 ENCOUNTER FOR ADJUSTMENT AND MANAGEMENT 11/13/2016 HIMA DREW Ot Z79.899 OTHER ALF (CURRENT) DRUG THERAPY 11/13/2016 HIMA DREW Ot Z93.3 COLOSTOMY STATUS 11/28/2016 Ot 155.0 MAL NEREIDA LIVER , PRIMARY 11/28/2016 Ot V81.5 SCREEN FOR NEPHROPATHY 11/28/2016 Ot 155.0 MAL NEREIDA LIVER , PRIMARY 11/28/2016 Ot 070.54 CHRONIC HEPATITIS C W/O HEPATIC COMA 11/28/2016 Ot V58.69 OTH MED,LT, CURRENT USE 11/28/2016 MELISSA LEE, JESIKA Liriano Ot 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 11/28/2016 MELISSA LEE, JESIKA Liriano Ot 211.3 BENIGN NEOPLASM LG BOWEL 11/28/2016 MELISSA LEE, JESIKA Liriano Ot V76.51 SCREEN MAL NEOP-COLON 11/28/2016 JESIKA TORRES MD Ot V72.84 EXAM PRE-OPERATIVE NOS 11/28/2016 JACKSON LEE, ADAN Ot 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 11/28/2016 ADAN PAZ MD Ot 401.9 HYPERTENSION NOS 11/28/2016 JACKSON LEE, ADAN Ot V72.63 PRE-PROCEDURAL LABORATORY EXAMINATION 11/28/2016 JACKSON LEE, ADAN Ot V74.8 SCREEN-BACTERIAL DIS NEC 11/28/2016 HIMA DREW N Ot 154.1 MALIGNANT NEOPL RECTUM 11/28/2016 HIMA DREW N Ot 793.11 SOLITARY PULMONARY NODULE 11/28/2016 HIMA DREW N Ot 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 11/28/2016 HIMA DREW N Ot 285.9 ANEMIA NOS 11/28/2016 HIMA DREW N Ot 584.9 ACUTE RENAL FAILURE, UNSPECIFIED 11/28/2016 MELISSA LEE, JESIKA Liriano Ot 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 11/28/2016 JESIKA TORRES MD Ot 276.51 DEHYDRATION 11/28/2016 JESIKA TORRES MD Ot 401.9 HYPERTENSION NOS 11/28/2016 MELISSA LEE, JESIKA Liriano Ot 571.5 CIRRHOSIS OF LIVER NOS 11/28/2016 SONIA NICHOLS RADIAL ARM SAW OPERATOR Ot 070.70 UNSPECIFIED VIRAL HEPATITIS C WITHOUT HE 11/28/2016 SONIA NICHOLS RADIAL ARM SAW OPERATOR Ot 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 11/28/2016 SONIA NICHOLS RADIAL ARM SAW OPERATOR Ot 518.89 OTHER DISEASES OF LUNG, NEC 11/28/2016 SONIA NICHOLS RADIAL ARM SAW OPERATOR Ot 571.5 CIRRHOSIS OF LIVER NOS 11/28/2016 MELISSA LEE, JESIKA Liriano Ot 242.90 THYROTOX NOS NO CRISIS 11/28/2016 SONIA NICHOLS RADIAL ARM SAW OPERATOR Ot 070.70 UNSPECIFIED VIRAL HEPATITIS C WITHOUT HE 11/28/2016 SONIA NICHOLS RADIAL ARM SAW OPERATOR Ot 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 11/28/2016 SONIA NICHOLS RADIAL ARM SAW OPERATOR Ot 793.11 SOLITARY PULMONARY NODULE 11/28/2016 SONIA NICHOLS RADIAL ARM SAW OPERATOR Ot V44.3 COLOSTOMY STATUS 11/28/2016 SONIA NICHOLS RADIAL ARM SAW OPERATOR Ot V58.69 OTH MED,LT,CURRENT USE 11/28/2016 SONIA NICHOLS RADIAL ARM SAW OPERATOR Ot 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 11/28/2016 SONIA NICHOLS RADIAL ARM SAW OPERATOR Ot V87.41 PERSONAL HISTORY OF ANTINEOPLASTIC CHEMO 11/28/2016 SONIA NICHOLS RADIAL ARM SAW OPERATOR Ot 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 11/28/2016 SONIA NICHOLS RADIAL ARM SAW OPERATOR Ot 276.51 DEHYDRATION 11/28/2016 SONIA NICHOLS RADIAL ARM SAW OPERATOR Ot 787.91 DIARRHEA 11/28/2016 SONIA NICHOLS RADIAL ARM SAW OPERATOR Ot 793.11 SOLITARY PULMONARY NODULE 11/28/2016 SONIA NICHOLS RADIAL ARM SAW OPERATOR Ot V44.3 COLOSTOMY STATUS 11/28/2016 SONIA NICHOLS RADIAL ARM SAW OPERATOR Ot V58.69 OTH MED,LT,CURRENT USE 11/28/2016 Ot 709.8 SKIN DISORDERS NEC 11/28/2016 Ot V44.3 COLOSTOMY STATUS 11/28/2016 SONIA NICHOLS RADIAL ARM SAW OPERATOR Ot 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 11/28/2016 SONIA NICHOLS RADIAL ARM SAW OPERATOR Ot 276.51 DEHYDRATION 11/28/2016 SONIA NICHOLS RADIAL ARM SAW OPERATOR Ot 787.91 DIARRHEA 11/28/2016 SONIA NICHOLS RADIAL ARM SAW OPERATOR Ot 793.11 SOLITARY PULMONARY NODULE 11/28/2016 SONIA NICHOLS RADIAL ARM SAW OPERATOR Ot V44.3 COLOSTOMY STATUS 11/28/2016 SONIA NICHOLS RADIAL ARM SAW OPERATOR Ot V58.69 OTH MED,LT,CURRENT USE 11/28/2016 JESIKA TORRES MD Ot 242.00 TOX DIF GOITER NO CRISIS 11/28/2016 JESIKA TORRES MD Ot 242.00 TOX DIF GOITER NO CRISIS 11/28/2016 SONIA NICHOLS RADIAL ARM SAW OPERATOR Ot 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 11/28/2016 SONIA NICHOLS RADIAL ARM SAW OPERATOR Ot 276.51 DEHYDRATION 11/28/2016 SONIA NICHOLS RADIAL ARM SAW OPERATOR Ot 787.91 DIARRHEA 11/28/2016 SONIA NICHOLS RADIAL ARM SAW OPERATOR Ot 793.11 SOLITARY PULMONARY NODULE 11/28/2016 SONIA NICHOLS RADIAL ARM SAW OPERATOR Ot V44.3 COLOSTOMY STATUS 11/28/2016 SONIA NICHOLSP Ot V58.69 OTH MED,LT,CURRENT USE 11/28/2016 SONIA NICHOLS RADIAL ARM SAW OPERATOR Ot 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 11/28/2016 SONIA NICHOLS RADIAL ARM SAW OPERATOR Ot V44.3 COLOSTOMY STATUS 11/28/2016 SONIA NICHOLSP Ot V58.69 OTH MED,LT,CURRENT USE 11/28/2016 ADAN PAZ MD Ot 154.1 MALIGNANT NEOPL RECTUM 11/28/2016 ADAN PAZ MD Ot V72.84 EXAM PRE-OPERATIVE NOS 11/28/2016 ADAN PAZ MD Ot V74.8 SCREEN-BACTERIAL DIS NEC 11/28/2016 SONIA NICHOLS RADIAL ARM SAW OPERATOR Ot 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 11/28/2016 SONIA NICHOLS RADIAL ARM SAW OPERATOR Ot 793.11 SOLITARY PULMONARY NODULE 11/28/2016 SONIA NICHOLS RADIAL ARM SAW OPERATOR Ot V44.3 COLOSTOMY STATUS 11/28/2016 SONIA NICHOLS RADIAL ARM SAW OPERATOR Ot V58.69 OTH MED,LT,CURRENT USE 11/28/2016 JESIKA TORRES MD Ot 242.00 TOX DIF GOITER NO CRISIS 11/28/2016 SONIA NICHOLS RADIAL ARM SAW OPERATOR Ot 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 11/28/2016 NICHOLS, HILAH S RADIAL ARM SAW OPERATOR Ot 793.11 SOLITARY PULMONARY NODULE 11/28/2016 KAREN NICHOLSLAURA S RADIAL ARM SAW OPERATOR Ot V44.3 COLOSTOMY STATUS 11/28/2016 SONIA NICHOLS S RADIAL ARM SAW OPERATOR Ot V58.69 OTH MED,LT,CURRENT USE 11/28/2016 MELISSA LEE, JESIKA Liriano Ot 274.9 GOUT NOS 11/28/2016 SONIA NICHOLS S RADIAL ARM SAW OPERATOR Ot 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 11/28/2016 SONIA NICHOLS S RADIAL ARM SAW OPERATOR Ot 793.11 SOLITARY PULMONARY NODULE 11/28/2016 SONIA NICHOLS S RADIAL ARM SAW OPERATOR Ot V44.3 COLOSTOMY STATUS 11/28/2016 KAREN NICHOLSLAURA S RADIAL ARM SAW OPERATOR Ot V58.69 OTH MED,LT,CURRENT USE 11/28/2016 SONIA NICHOLS S RADIAL ARM SAW OPERATOR Ot 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 11/28/2016 SONIA NICHOLS S RADIAL ARM SAW OPERATOR Ot 793.11 SOLITARY PULMONARY NODULE 11/28/2016 SONIA NICHOLS S RADIAL ARM SAW OPERATOR Ot V44.3 COLOSTOMY STATUS 11/28/2016 SONIA NICHOLS S RADIAL ARM SAW OPERATOR Ot V58.69 OTH MED,LT,CURRENT USE 11/28/2016 KAREN NICHOLSLAURA S RADIAL ARM SAW OPERATOR Ot 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 11/28/2016 SONIA NICHOLS S RADIAL ARM SAW OPERATOR Ot 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 11/28/2016 SONIA NICHOLS S RADIAL ARM SAW OPERATOR Ot 287.5 THROMBOCYTOPENIA NOS 11/28/2016 SONIA NICHOLS S RADIAL ARM SAW OPERATOR Ot 288.00 NEUTROPENIA, UNSPECIFIED 11/28/2016 SONIA NICHOLS S RADIAL ARM SAW OPERATOR Ot 793.11 SOLITARY PULMONARY NODULE 11/28/2016 SONIA NICHOLS S RADIAL ARM SAW OPERATOR Ot V44.3 COLOSTOMY STATUS 11/28/2016 SONIA NICHOLS S RADIAL ARM SAW OPERATOR Ot V58.69 OTH MED,LT,CURRENT USE 11/28/2016 HIMA DREW Ot 154.1 MALIGNANT NEOPL RECTUM 11/28/2016 SONIA NICHOLS S RADIAL ARM SAW OPERATOR Ot 070.70 UNSPECIFIED VIRAL HEPATITIS C WITHOUT HE 11/28/2016 SONIA NICHOLS S RADIAL ARM SAW OPERATOR Ot 154.1 MALIGNANT NEOPL RECTUM 11/28/2016 SONIA NICHOLS S RADIAL ARM SAW OPERATOR Ot 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00 TOX DIF GOITER NO CRISIS 11/28/2016 Ot 571.5 CIRRHOSIS OF LIVER NOS 11/28/2016 Ot V10.06 HX-RECTAL ANAL MALIGN 11/28/2016 Ot 070.70 UNSPECIFIED VIRAL HEPATITIS C WITHOUT HE 11/28/2016 Ot 242.00 TOX DIF GOITER NO CRISIS 11/28/2016 Ot 401.9 HYPERTENSION NOS 11/28/2016 Ot 571.5 CIRRHOSIS OF LIVER NOS 11/28/2016 SONIA NICHOLS RADIAL ARM SAW OPERATOR Ot 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 11/28/2016 SONIA NICHOLS RADIAL ARM SAW OPERATOR Ot V44.3 COLOSTOMY STATUS 11/28/2016 SONIA NICHOLSP Ot V58.69 OTH MED,LT,CURRENT USE 11/28/2016 SONIA NICHOLS RADIAL ARM SAW OPERATOR Ot 518.0 PULMONARY COLLAPSE 11/28/2016 SONIA NICHOLS RADIAL ARM SAW OPERATOR Ot 571.5 CIRRHOSIS OF LIVER NOS 11/28/2016 SONIA NICHOLS RADIAL ARM SAW OPERATOR Ot 789.2 SPLENOMEGALY 11/28/2016 SONIA NICHOLS RADIAL ARM SAW OPERATOR Ot 793.19 OTHER NONSPECIFIC ABNORMAL FINDING OF KORI 11/28/2016 JESIKA TORRES MD Ot 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 11/28/2016 JESIKA TORRES MD Ot 242.00 TOX DIF GOITER NO CRISIS 11/28/2016 JESIKA TORRES MD Ot 280.9 IRON DEFIC ANEMIA NOS 11/28/2016 SNOIA NICHOLS RADIAL ARM SAW OPERATOR Ot 070.70 UNSPECIFIED VIRAL HEPATITIS C WITHOUT HE 11/28/2016 SONIA NICHOLS RADIAL ARM SAW OPERATOR Ot 280.9 IRON DEFIC ANEMIA NOS 11/28/2016 SONIA NICHOLS RADIAL ARM SAW OPERATOR Ot 571.5 CIRRHOSIS OF LIVER NOS 11/28/2016 SONIA NICHOLS RADIAL ARM SAW OPERATOR Ot V10.06 HX-RECTAL ANAL MALIGN 11/28/2016 SONIA NICHOLS RADIAL ARM SAW OPERATOR Ot V44.3 COLOSTOMY STATUS 11/28/2016 SONIA NICHOLS RADIAL ARM SAW OPERATOR Ot V58.69 OT MED,LT,CURRENT USE 11/28/2016 SONIA NICHOLS RADIAL ARM SAW OPERATOR Ot V67.1 RADIOTHERAPY FOLLOW-UP 11/28/2016 SONIA NICHOLS RADIAL ARM SAW OPERATOR Ot V67.2 CHEMOTHERAPY FOLLOW-UP 11/28/2016 SONIA NICHOLS RADIAL ARM SAW OPERATOR Ot 154.1 MALIGNANT NEOPL RECTUM 11/28/2016 SONIA NICHOLS RADIAL ARM SAW OPERATOR Ot 793.19 OTHER NONSPECIFIC ABNORMAL FINDING OF KORI 11/28/2016 JESIKA TORRES MD Ot E05.00 THYROTOXICOSIS W DIFFUSE GOITER W/O THYR 11/28/2016 SONIA NICHOLS RADIAL ARM SAW OPERATOR Ot C19 MALIGNANT NEOPLASM OF RECTOSIGMOID JUNCT 11/28/2016 SONIA NICHOLSP Ot R91.1 SOLITARY PULMONARY NODULE 11/28/2016 SONIA NICHOLS RADIAL ARM SAW OPERATOR Ot Z79.899 OTHER WRAP YARN SORTER (CURRENT) DRUG THERAPY 11/28/2016 SONIA NICHOLSP Ot Z93.3 COLOSTOMY STATUS 11/28/2016 JESIKA TORRES MD Ot E05.00 THYROTOXICOSIS W DIFFUSE GOITER W/O THYR 11/28/2016 SONIA NICHOLS RADIAL ARM SAW OPERATOR Ot C19 MALIGNANT NEOPLASM OF RECTOSIGMOID JUNCT 11/28/2016 SONIA NICHOLS RADIAL ARM SAW OPERATOR Ot R91.1 SOLITARY PULMONARY NODULE 11/28/2016 SONIA NICHOLS RADIAL ARM SAW OPERATOR Ot Z45.2 ENCOUNTER FOR ADJUSTMENT AND MANAGEMENT 11/28/2016 SONIA NICHOLS RADIAL ARM SAW OPERATOR Ot Z79.899 OTHER WRAP YARN SORTER (CURRENT) DRUG THERAPY 11/28/2016 SONIA NICHOLS RADIAL ARM SAW OPERATOR Ot Z93.3 COLOSTOMY STATUS 11/28/2016 SONIA NICHOLS RADIAL ARM SAW OPERATOR Ot C20 MALIGNANT NEOPLASM OF RECTUM 11/28/2016 NICHOLS SONIA Wilson RADIAL ARM SAW OPERATOR Ot R91.8 OTHER NONSPECIFIC ABNORMAL FINDING OF KORI 11/28/2016 MELISSA LEE, JESIKA Liriano Ot E05.00 THYROTOXICOSIS W DIFFUSE GOITER W/O THYR 11/28/2016 VIKIHIMA PARRA N Ot C19 MALIGNANT NEOPLASM OF RECTOSIGMOID JUNCT 11/28/2016 VIKI, POONAMTIARA N Ot R91.1 SOLITARY PULMONARY NODULE 11/28/2016 VIKI, POONAMTIARA N Ot Z45.2 ENCOUNTER FOR ADJUSTMENT AND MANAGEMENT 11/28/2016 VIKIPOONAM PARRAAN N Ot Z79.899 OTHER WRAP YARN SORTER (CURRENT) DRUG THERAPY 11/28/2016 VIKI, POONAMTIARA N Ot Z93.3 COLOSTOMY STATUS 12/13/2016 MELISSA LEE, JESIKA Liriano Ot E05.00 THYROTOXICOSIS W DIFFUSE GOITER W/O THYR 01/06/2017 VIKIHIMA PARRA N Ot C19 MALIGNANT NEOPLASM OF RECTOSIGMOID JUNCT 01/06/2017 VIKI, POONAMTIARA N Ot R91.1 SOLITARY PULMONARY NODULE 01/06/2017 VIKIHIMA PARRA N Ot Z45.2 ENCOUNTER FOR ADJUSTMENT AND MANAGEMENT 01/06/2017 VIKI, BOBAN N Ot Z79.899 OTHER ALF (CURRENT) DRUG THERAPY 01/06/2017 VIKI, BOBAN N Ot Z93.3 COLOSTOMY STATUS 01/14/2017 VIKIHIMA PARRA N Ot C19 MALIGNANT NEOPLASM OF RECTOSIGMOID JUNCT 01/14/2017 VIKI, BOBAN N Ot R91.1 SOLITARY PULMONARY NODULE 01/14/2017 VIKIHIMA N Ot Z45.2 ENCOUNTER FOR ADJUSTMENT AND MANAGEMENT 01/14/2017 VIKI BOBAN N Ot Z79.899 OTHER WRAP YARN SORTER (CURRENT) DRUG THERAPY 01/14/2017 VIKIPOONAMAN N Ot Z93.3 COLOSTOMY STATUS 02/08/2017 VIKIHIMA PARRA N Ot C19 MALIGNANT NEOPLASM OF RECTOSIGMOID JUNCT 02/08/2017 VIKI BOBAN N Ot R91.1 SOLITARY PULMONARY NODULE 02/08/2017 VIKI BOBAN N Ot Z45.2 ENCOUNTER FOR ADJUSTMENT AND MANAGEMENT 02/08/2017 VIKI POONAMAN N Ot Z79.899 OTHER WRAP YARN SORTER (CURRENT) DRUG THERAPY 02/08/2017 HIMA DREW Dejan Ot Z93.3 COLOSTOMY STATUS 04/11/2017 VIKI POONAMTIARA Dejan Ot C19 MALIGNANT NEOPLASM OF RECTOSIGMOID JUNCT 04/11/2017 HIMA DREW Dejan Ot R91.1 SOLITARY PULMONARY NODULE 04/11/2017 HIMA DREW Dejan Ot Z45.2 ENCOUNTER FOR ADJUSTMENT AND MANAGEMENT 04/11/2017 VIKI POONAMTIARA Dejan Ot Z79.899 OTHER ALF (CURRENT) DRUG THERAPY 04/11/2017 HIMA DREW Dejan Ot Z93.3 COLOSTOMY STATUS 05/17/2017 HIMA DREW Dejan Ot B18.2 CHRONIC VIRAL HEPATITIS C 05/17/2017 VIKI HIMA Wylie Ot C19 MALIGNANT NEOPLASM OF RECTOSIGMOID JUNCT 05/17/2017 HIMA DREW Dejan Ot D61.818 OTHER PANCYTOPENIA 05/17/2017 VIKI POONAMTIARA Dejan Ot E05.00 THYROTOXICOSIS W DIFFUSE GOITER W/O THYR 05/17/2017 VIKIHIMA N Ot E83.42 HYPOMAGNESEMIA 05/17/2017 VIKI POONAMTIARA Dejan Ot I10 ESSENTIAL (PRIMARY) HYPERTENSION 05/17/2017 HIMA DREW Dejan Ot R79.89 OTHER SPECIFIED ABNORMAL FINDINGS OF BLO 05/17/2017 HIMA DREW Dejan Ot R91.1 SOLITARY PULMONARY NODULE 05/17/2017 HIMA DREW Dejan Ot Z79.899 OTHER WRAP YARN SORTER (CURRENT) DRUG THERAPY 05/17/2017 HIMA DREW Dejan Ot Z92.21 PERSONAL HISTORY OF ANTINEOPLASTIC CHEMO 05/17/2017 VIKIHIMA Ot Z92.3 PERSONAL HISTORY OF IRRADIATION 05/17/2017 VIKI POONAMTIARA Dejan Ot Z93.3 COLOSTOMY STATUS 06/14/2017 HIMA DREW Dejan Ot B18.2 CHRONIC VIRAL HEPATITIS C 06/14/2017 VIKI HIMA Wylie Ot C19 MALIGNANT NEOPLASM OF RECTOSIGMOID JUNCT 06/14/2017 VIKI HIMA Wylie Ot D61.818 OTHER PANCYTOPENIA 06/14/2017 VIKI POONAMTIARA Dejan Ot E05.00 THYROTOXICOSIS W DIFFUSE GOITER W/O THYR 06/14/2017 VIKI HIMA N Ot E83.42 HYPOMAGNESEMIA 06/14/2017 HIMA DREW N Ot I10 ESSENTIAL (PRIMARY) HYPERTENSION 06/14/2017 HIMA DREW N Ot R79.89 OTHER SPECIFIED ABNORMAL FINDINGS OF BLO 06/14/2017 HIMA DERW N Ot R91.1 SOLITARY PULMONARY NODULE 06/14/2017 HIMA DREW N Ot Z79.899 OTHER ALF (CURRENT) DRUG THERAPY 06/14/2017 HIMA DREW N Ot Z92.21 PERSONAL HISTORY OF ANTINEOPLASTIC CHEMO 06/14/2017 HIMA DREW N Ot Z92.3 PERSONAL HISTORY OF IRRADIATION 06/14/2017 HIMA DREW N Ot Z93.3 COLOSTOMY STATUS 08/14/2017 HIMA DREW N Ot B18.2 CHRONIC VIRAL HEPATITIS C 08/14/2017 HIMA DREW N Ot C19 MALIGNANT NEOPLASM OF RECTOSIGMOID JUNCT 08/14/2017 HIMA DREW N Ot D61.818 OTHER PANCYTOPENIA 08/14/2017 HIMA DREW N Ot E05.00 THYROTOXICOSIS W DIFFUSE GOITER W/O THYR 08/14/2017 HIMA DREW N Ot E83.42 HYPOMAGNESEMIA 08/14/2017 HIMA DREW N Ot I10 ESSENTIAL (PRIMARY) HYPERTENSION 08/14/2017 HIMA DREW N Ot R79.89 OTHER SPECIFIED ABNORMAL FINDINGS OF BLO 08/14/2017 HIMA DREW N Ot R91.1 SOLITARY PULMONARY NODULE 08/14/2017 HIMA DREW N Ot Z79.899 OTHER WRAP YARN SORTER (CURRENT) DRUG THERAPY 08/14/2017 HIMA DREW Dejan Ot Z92.21 PERSONAL HISTORY OF ANTINEOPLASTIC CHEMO 08/14/2017 HIMA DREW N Ot Z92.3 PERSONAL HISTORY OF IRRADIATION 08/14/2017 HIMA DREW N Ot Z93.3 COLOSTOMY STATUS 09/26/2017 HIMA DREW N Ot B18.2 CHRONIC VIRAL HEPATITIS C 09/26/2017 HIMA DREW N Ot C19 MALIGNANT NEOPLASM OF RECTOSIGMOID JUNCT 09/26/2017 HIMA DREW N Ot D61.818 OTHER PANCYTOPENIA 09/26/2017 HIMA DREW N Ot E05.00 THYROTOXICOSIS W DIFFUSE GOITER W/O THYR 09/26/2017 HIMA DREW N Ot E83.42 HYPOMAGNESEMIA 09/26/2017 HIMA DREW N Ot I10 ESSENTIAL (PRIMARY) HYPERTENSION 09/26/2017 HIMA DREW N Ot R79.89 OTHER SPECIFIED ABNORMAL FINDINGS OF BLO 09/26/2017 HIMA DREW N Ot R91.1 SOLITARY PULMONARY NODULE 09/26/2017 HIMA DREW N Ot Z79.899 OTHER WRAP YARN SORTER (CURRENT) DRUG THERAPY 09/26/2017 HIMA DREW N Ot Z92.21 PERSONAL HISTORY OF ANTINEOPLASTIC CHEMO 09/26/2017 HIMA DREW N Ot Z92.3 PERSONAL HISTORY OF IRRADIATION 09/26/2017 HIMA DREW N Ot Z93.3 COLOSTOMY STATUS 10/11/2017 MELISSA LEE, JESIKA Liriano Ot E05.00 THYROTOXICOSIS W DIFFUSE GOITER W/O THYR 10/11/2017 HIMA DREW N Ot B18.2 CHRONIC VIRAL HEPATITIS C 10/11/2017 VIKI POONAMTIARA N Ot C19 MALIGNANT NEOPLASM OF RECTOSIGMOID JUNCT 10/11/2017 HIMA DREW N Ot D61.818 OTHER PANCYTOPENIA 10/11/2017 HIMA DREW N Ot E05.00 THYROTOXICOSIS W DIFFUSE GOITER W/O THYR 10/11/2017 HIMA DREW N Ot E83.42 HYPOMAGNESEMIA 10/11/2017 HIMA DREW N Ot I10 ESSENTIAL (PRIMARY) HYPERTENSION 10/11/2017 HIMA DREW N Ot R79.89 OTHER SPECIFIED ABNORMAL FINDINGS OF BLO 10/11/2017 HIMA DREW N Ot R91.1 SOLITARY PULMONARY NODULE 10/11/2017 HIMA DREW N Ot Z79.899 OTHER WRAP YARN SORTER (CURRENT) DRUG THERAPY 10/11/2017 HIMA DREW N Ot Z92.21 PERSONAL HISTORY OF ANTINEOPLASTIC CHEMO 10/11/2017 HIMA DREW N Ot Z92.3 PERSONAL HISTORY OF IRRADIATION 10/11/2017 HIMA DREW N Ot Z93.3 COLOSTOMY STATUS 12/11/2017 HIMA DREW N Ot B18.2 CHRONIC VIRAL HEPATITIS C 12/11/2017 VIKI POONAMTIARA N Ot C19 MALIGNANT NEOPLASM OF RECTOSIGMOID JUNCT 12/11/2017 HIMA DREW N Ot D61.818 OTHER PANCYTOPENIA 12/11/2017 HIMA DREW N Ot E05.00 THYROTOXICOSIS W DIFFUSE GOITER W/O THYR 12/11/2017 HIMA DREW N Ot E83.42 HYPOMAGNESEMIA 12/11/2017 HIMA DREW N Ot I10 ESSENTIAL (PRIMARY) HYPERTENSION 12/11/2017 HIMA DREW N Ot R79.89 OTHER SPECIFIED ABNORMAL FINDINGS OF BLO 12/11/2017 HIMA DREW N Ot R91.1 SOLITARY PULMONARY NODULE 12/11/2017 HIMA DREW N Ot Z79.899 OTHER WRAP YARN SORTER (CURRENT) DRUG THERAPY 12/11/2017 HIMA DREW N Ot Z92.21 PERSONAL HISTORY OF ANTINEOPLASTIC CHEMO 12/11/2017 VIKI, HIMA N Ot Z92.3 PERSONAL HISTORY OF IRRADIATION 12/11/2017 HIMA DREW N Ot Z93.3 COLOSTOMY STATUS 12/24/2017 HIMA DREW N Ot B18.2 CHRONIC VIRAL HEPATITIS C 12/24/2017 HIMA DREW Dejan Ot C19 MALIGNANT NEOPLASM OF RECTOSIGMOID JUNCT 12/24/2017 HIMA DREW N Ot D61.818 OTHER PANCYTOPENIA 12/24/2017 HIMA DREW N Ot E05.00 THYROTOXICOSIS W DIFFUSE GOITER W/O THYR 12/24/2017 HIMA DREW N Ot E83.42 HYPOMAGNESEMIA 12/24/2017 HIMA DREW N Ot I10 ESSENTIAL (PRIMARY) HYPERTENSION 12/24/2017 HIMA DREW Dejan Ot R79.89 OTHER SPECIFIED ABNORMAL FINDINGS OF BLO 12/24/2017 HIMA DREW Dejan Ot R91.1 SOLITARY PULMONARY NODULE 12/24/2017 HIMA DREW Dejan Ot Z45.2 ENCOUNTER FOR ADJUSTMENT AND MANAGEMENT 12/24/2017 HIMA DREW N Ot Z79.899 OTHER WRAP YARN SORTER (CURRENT) DRUG THERAPY 12/24/2017 HIMA DREW N Ot Z92.21 PERSONAL HISTORY OF ANTINEOPLASTIC CHEMO 12/24/2017 VIKI HIMA N Ot Z92.3 PERSONAL HISTORY OF IRRADIATION 12/24/2017 VIKIHIMA N Ot Z93.3 COLOSTOMY STATUS 02/03/2018 VIKI HIMA N Ot B18.2 CHRONIC VIRAL HEPATITIS C 02/03/2018 HIMA DREW N Ot C19 MALIGNANT NEOPLASM OF RECTOSIGMOID JUNCT 02/03/2018 HIMA DREW N Ot D61.818 OTHER PANCYTOPENIA 02/03/2018 HIMA DREW N Ot E05.00 THYROTOXICOSIS W DIFFUSE GOITER W/O THYR 02/03/2018 HIMA DREW N Ot E83.42 HYPOMAGNESEMIA 02/03/2018 HIMA DREW N Ot I10 ESSENTIAL (PRIMARY) HYPERTENSION 02/03/2018 HIMA DREW N Ot R79.89 OTHER SPECIFIED ABNORMAL FINDINGS OF BLO 02/03/2018 HIMA DREW N Ot R91.1 SOLITARY PULMONARY NODULE 02/03/2018 HIMA DREW N Ot Z79.899 OTHER WRAP YARN SORTER (CURRENT) DRUG THERAPY 02/03/2018 VIKI POONAMTIARA N Ot Z92.21 PERSONAL HISTORY OF ANTINEOPLASTIC CHEMO 02/03/2018 VIKIHIMA N Ot Z92.3 PERSONAL HISTORY OF IRRADIATION 02/03/2018 VIKIHIMA N Ot Z93.3 COLOSTOMY STATUS 03/17/2018 HIMA DREW N Ot B18.2 CHRONIC VIRAL HEPATITIS C 03/17/2018 HIMA DREW N Ot C19 MALIGNANT NEOPLASM OF RECTOSIGMOID JUNCT 03/17/2018 HIMA DREW N Ot D61.818 OTHER PANCYTOPENIA 03/17/2018 HIMA DREW N Ot E05.00 THYROTOXICOSIS W DIFFUSE GOITER W/O THYR 03/17/2018 HIMA DREW N Ot E83.42 HYPOMAGNESEMIA 03/17/2018 HIMA DREW N Ot I10 ESSENTIAL (PRIMARY) HYPERTENSION 03/17/2018 HIMA DREW N Ot R79.89 OTHER SPECIFIED ABNORMAL FINDINGS OF BLO 03/17/2018 HIMA DREW N Ot R91.1 SOLITARY PULMONARY NODULE 03/17/2018 HIMA DREW N Ot Z45.2 ENCOUNTER FOR ADJUSTMENT AND MANAGEMENT 03/17/2018 HIMA DREW N Ot Z79.899 OTHER ALF (CURRENT) DRUG THERAPY 03/17/2018 HIMA DREW N Ot Z92.21 PERSONAL HISTORY OF ANTINEOPLASTIC CHEMO 03/17/2018 VIKIHIMA N Ot Z92.3 PERSONAL HISTORY OF IRRADIATION 03/17/2018 HIMA DREW N Ot Z93.3 COLOSTOMY STATUS 04/09/2018 HIMA DREW N Ot B18.2 CHRONIC VIRAL HEPATITIS C 04/09/2018 HIMA DREW N Ot C19 MALIGNANT NEOPLASM OF RECTOSIGMOID JUNCT 04/09/2018 HIMA DREW N Ot D61.818 OTHER PANCYTOPENIA 04/09/2018 HIMA DREW N Ot E05.00 THYROTOXICOSIS W DIFFUSE GOITER W/O THYR 04/09/2018 HIMA DREW N Ot E83.42 HYPOMAGNESEMIA 04/09/2018 HIMA DREW N Ot I10 ESSENTIAL (PRIMARY) HYPERTENSION 04/09/2018 HIMA DREW N Ot R79.89 OTHER SPECIFIED ABNORMAL FINDINGS OF BLO 04/09/2018 HIMA DREW Dejan Ot R91.1 SOLITARY PULMONARY NODULE 04/09/2018 HIMA DREW Dejan Ot Z45.2 ENCOUNTER FOR ADJUSTMENT AND MANAGEMENT 04/09/2018 HIMA DREW Dejan Ot Z79.899 OTHER ALF (CURRENT) DRUG THERAPY 04/09/2018 HIMA DREW Dejan Ot Z92.21 PERSONAL HISTORY OF ANTINEOPLASTIC CHEMO 04/09/2018 HIMA DREW N Ot Z92.3 PERSONAL HISTORY OF IRRADIATION 04/09/2018 HIMA DREW Dejan Ot Z93.3 COLOSTOMY STATUS 05/01/2018 HIMA DREW Dejan Ot B18.2 CHRONIC VIRAL HEPATITIS C 05/01/2018 HIMA DREW N Ot C19 MALIGNANT NEOPLASM OF RECTOSIGMOID JUNCT 05/01/2018 HIMA DREW Dejan Ot D61.818 OTHER PANCYTOPENIA 05/01/2018 HIMA DREW N Ot E05.00 THYROTOXICOSIS W DIFFUSE GOITER W/O THYR 05/01/2018 HIMA DREW N Ot E83.42 HYPOMAGNESEMIA 05/01/2018 HIMA DREW N Ot I10 ESSENTIAL (PRIMARY) HYPERTENSION 05/01/2018 HIMA DREW N Ot R79.89 OTHER SPECIFIED ABNORMAL FINDINGS OF BLO 05/01/2018 HIMA DREW N Ot R91.1 SOLITARY PULMONARY NODULE 05/01/2018 HIMA DREW N Ot Z45.2 ENCOUNTER FOR ADJUSTMENT AND MANAGEMENT 05/01/2018 HIMA DREW N Ot Z79.899 OTHER WRAP YARN SORTER (CURRENT) DRUG THERAPY 05/01/2018 HIMA DREW Dejan Ot Z92.21 PERSONAL HISTORY OF ANTINEOPLASTIC CHEMO 05/01/2018 HIMA DREW Dejan Ot Z92.3 PERSONAL HISTORY OF IRRADIATION 05/01/2018 HIMA DREW Dejan Ot Z93.3 COLOSTOMY STATUS 05/02/2018 HIMA DREW Dejan Ot B18.2 CHRONIC VIRAL HEPATITIS C 05/02/2018 HIMA DREW Dejan Ot C19 MALIGNANT NEOPLASM OF RECTOSIGMOID JUNCT 05/02/2018 HIMA DREW Dejan Ot D61.818 OTHER PANCYTOPENIA 05/02/2018 HIMA DREW Dejan Ot E05.00 THYROTOXICOSIS W DIFFUSE GOITER W/O THYR 05/02/2018 HIMA DREW Dejan Ot E83.42 HYPOMAGNESEMIA 05/02/2018 HIMA DREW Dejan Ot I10 ESSENTIAL (PRIMARY) HYPERTENSION 05/02/2018 HIMA DREW Dejan Ot R79.89 OTHER SPECIFIED ABNORMAL FINDINGS OF BLO 05/02/2018 HIMA DREW Dejan Ot R91.1 SOLITARY PULMONARY NODULE 05/02/2018 HIMA DREW Dejan Ot Z45.2 ENCOUNTER FOR ADJUSTMENT AND MANAGEMENT 05/02/2018 HIMA DREW Dejan Ot Z79.899 OTHER ALF (CURRENT) DRUG THERAPY 05/02/2018 HIMA DREW Dejan Ot Z92.21 PERSONAL HISTORY OF ANTINEOPLASTIC CHEMO 05/02/2018 HIMA DREW Dejan Ot Z92.3 PERSONAL HISTORY OF IRRADIATION 05/02/2018 HIMA DREW Dejan Ot Z93.3 COLOSTOMY STATUS Procedures Code Description Performed By Performed On 79.15 CLOSED RED-INT FIX FEMUR 01/21/2013 38.93 VENOUS CATHETERIZATION NEC 07/02/2013 45.24 FLEXIBLE SIGMOIDOSCOPY 07/02/2013 48.63 ANTERIOR RECT RESECT NEC 07/02/2013 46.01 SM BOWEL EXTERIORIZATION 07/14/2013 46.51 SM BOWEL STOMA CLOSURE 07/01/2014 45.25 CLOSED ENDOSCOPIC BIOPSY OF LARGE INTEST 07/30/2014 46.85 DILATION OF INTESTINE 07/30/2014 Results Test Result Range Serum or plasma thyroxine (T4) free measurement (mass/volume) - 08/27/16 15:10 Serum or plasma thyroxine (T4) free measurement (mass/volume) 1.06 ng/dL 0.70-1.48 Serum or plasma thyrotropin measurement by detection limit <=0.05 miu/l (units/ volume) - 08/27/16 15:10 Serum or plasma thyrotropin measurement by detection limit <=0.05 miu/l (units/ volume) 0.09 u[iU]/mL 0.35-4.94 Serum or plasma thyroxine (T4) free measurement (mass/volume) - 11/28/16 09:20 Serum or plasma thyroxine (T4) free measurement (mass/volume) 0.83 ng/dL 0.70-1.48 Serum or plasma thyrotropin measurement by detection limit <=0.05 miu/l (units/ volume) - 11/28/16 09:20 Serum or plasma thyrotropin measurement by detection limit <=0.05 miu/l (units/ volume) 0.27 u[iU]/mL 0.35-4.94 Serum or plasma thyrotropin measurement by detection limit <=0.05 miu/l (units/ volume) - 09/25/17 16:10 Serum or plasma thyrotropin measurement by detection limit <=0.05 miu/l (units/ volume) 0.85 u[iU]/mL 0.35-4.94 Encounters ACCT No. Visit Date/Time Discharge Status Pt. Type Provider Facility Loc./Unit Complaint [id number] 05/27/2018 15:06:00 05/27/2018 23:59:59 CLS Outpatient HIMA DREW [facility] ONC [id number] 04/23/2018 13:45:00 05/01/2018 00:01:00 DIS Outpatient HIMA DREW [facility] ONC [id number] 12/20/2017 08:51:00 12/24/2017 00:01:00 DIS Outpatient HIMA DREW [facility] ONC [id number] 09/25/2017 16:00:00 09/25/2017 23:59:59 CLS Outpatient MELISSA LEE, JESIKA Liriano [facility] LAB [id number] 08/09/2017 11:18:00 08/14/2017 00:01:00 DIS Outpatient HIMA DREW [facility] ONC [id number] 04/08/2017 14:49:00 04/11/2017 00:01:00 DIS Outpatient HIMA DREW [facility] ONC [id number] 11/28/2016 09:04:00 01/06/2017 00:01:00 DIS Outpatient HIMA DREW [facility] ONC [id number] 11/28/2016 09:09:00 11/28/2016 23:59:59 CLS Outpatient JESIKA TORRES MD [facility] LAB [id number] 08/27/2016 14:53:00 09/02/2016 00:01:00 DIS Outpatient HIMA DREW [facility] ONC [id number] 08/27/2016 15:09:00 08/27/2016 23:59:59 CLS Outpatient JESIKA TORRES MD [facility] LAB [id number] 04/23/2016 13:04:00 05/07/2016 13:27:00 DIS Outpatient HIMA DREW [facility] ONC [id number] 03/19/2016 14:52:00 03/26/2016 00:01:00 DIS Outpatient HIMA DREW [facility] ONC [id number] 03/12/2016 10:08:00 03/12/2016 23:59:59 CLS Outpatient SONIA NICHOLS [facility] RAD MALIGNANT TUMOR OF RECTUM,LUNG NODULES [id number] 01/27/2016 07:51:00 01/27/2016 10:00:00 DIS Outpatient JESIKA TORRES MD [facility] SDC HISTORY COLON CANCER [id number] 01/25/2016 05:43:00 01/25/2016 15:35:00 DIS Outpatient JESIKA TORRES MD [facility] PREOP HISTORY COLON CANCER [id number] 12/27/2015 14:35:00 12/27/2015 23:59:59 CLS Outpatient SONIA NICHOLS [facility] ONC [id number] 11/15/2015 14:07:00 11/24/2015 00:01:00 DIS Outpatient HIMA DREW [facility] ONC [id number] 10/03/2015 14:49:00 10/03/2015 23:59:59 CLS Outpatient JESIKA TORRES MD [facility] LAB [id number] 10/03/2015 14:47:00 10/03/2015 23:59:59 CLS Outpatient SONIA NICHOLS S 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 [facility] ONC [id number] 07/04/2015 14:51:00 07/04/2015 23:59:59 CLS Outpatient JESIKA TORRES MD [facility] LAB [id number] 07/04/2015 14:48:00 07/04/2015 23:59:59 CLS Outpatient HIMA DREW [facility] ONC [id number] 04/19/2015 16:08:00 04/27/2015 00:01:00 DIS Outpatient HIMA DREW N [facility] ONC [id number] 04/15/2015 10:48:00 04/15/2015 23:59:59 CLS Outpatient NICHOLSSONIA Wilson S RADIAL ARM SAW OPERATOR [facility] RAD RECTAL CANCER,LUNG NODULES [id number] 04/07/2015 13:03:00 04/07/2015 23:59:59 CLS Outpatient KAREN NICHOLSAH S RADIAL ARM SAW OPERATOR [facility] ONC [id number] 02/04/2015 07:39:00 02/04/2015 23:59:59 CLS Outpatient JESIKA TORRES MD [facility] LAB [id number] 01/13/2015 12:45:00 01/25/2015 00:01:00 DIS Outpatient HIMA DREW N [facility] ONC [id number] 10/29/2014 09:22:00 10/29/2014 23:59:59 CLS Outpatient NICHOLS, HILAH S RADIAL ARM SAW OPERATOR [facility] RAD LUNG NODULE [id number] 10/27/2014 14:22:00 10/27/2014 23:59:59 CLS Outpatient NICHOLS, HILAH S 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 [facility] ONC [id number] 08/26/2014 00:28:00 08/26/2014 23:59:59 CLS Preadmit JESIKA TORRES MD [facility] LAB [id number] 06/21/2014 10:48:00 08/25/2014 00:01:00 DIS Outpatient HIMA DREW [facility] ONC [id number] 05/27/2014 08:57:00 08/25/2014 00:01:00 DIS Outpatient JESIKA TORRES MD [facility] LAB [id number] 07/18/2014 19:43:00 08/06/2014 16:30:00 DIS Inpatient JESIKA TORRES MD [facility] SURGICAL PARTIAL SMALL BOWEL OBST, DEHYDRATION [id number] 08/02/2014 09:15:00 08/02/2014 23:59:59 CLS Preadmit SONIA NICHOLSP [facility] 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 [id number] 07/01/2014 09:00:00 07/12/2014 14:40:00 DIS Inpatient ADAN PAZ MD [facility] SURGICAL COLON CA [id number] 06/28/2014 08:42:00 06/28/2014 23:59:59 CLS Outpatient JESIKA TORRES MD [facility] LAB THYROTOXICOSIS [id number] 06/28/2014 08:00:00 06/28/2014 23:59:59 CLS Outpatient ADAN PAZ MD [facility] PREOP ILEOSTOMY REVERSAL [id number] 05/21/2014 06:58:00 05/21/2014 09:00:00 DIS Outpatient JESIKA TORRES MD [facility] SDC COLON CANCER [id number] 05/20/2014 07:47:00 05/20/2014 23:59:59 CLS Outpatient JESIKA TORRES MD [facility] PREOP COLON CANCER [id number] 04/21/2014 11:55:00 05/20/2014 00:01:00 DIS Outpatient HIMA DREW [facility] ONC [id number] 05/14/2014 10:11:00 05/14/2014 23:59:59 CLS Outpatient NICHOLSSONIA Wilson S 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 SAW OPERATOR [facility] ONC [id number] 05/04/2014 08:12:00 05/04/2014 23:59:59 CLS Outpatient VIKI HIMA Wylie [facility] RAD RECTAL CANCER [id number] 03/26/2014 10:20:00 03/26/2014 23:59:59 CLS Outpatient NICHOLS, HILAH S RADIAL ARM SAW OPERATOR [facility] ONC [id number] 03/05/2014 09:45:00 03/05/2014 23:59:59 CLS Outpatient NICHOLS, HILAH S RADIAL ARM SAW OPERATOR [facility] ONC [id number] 01/08/2014 09:55:00 02/18/2014 00:01:00 DIS Outpatient HIMA DREW [facility] ONC [id number] 01/01/2014 09:57:00 01/01/2014 23:59:59 CLS Outpatient NICHOLS, HILAH S RADIAL ARM SAW OPERATOR [facility] ONC [id number] 12/18/2013 11:42:00 12/18/2013 23:59:59 CLS Outpatient JESIKA TORRES MD [facility] LAB [id number] 12/11/2013 09:58:00 12/11/2013 23:59:59 CLS Outpatient SONIA NICHOLS S RADIAL ARM SAW OPERATOR [facility] ONC [id number] 11/16/2013 13:27:00 11/16/2013 23:59:59 CLS Outpatient NICHOLS, HILAH S RADIAL ARM SAW OPERATOR [facility] ONC [id number] 11/12/2013 09:14:00 11/15/2013 00:01:00 DIS Outpatient HIMA DREW [facility] ONC [id number] 11/12/2013 09:28:00 11/12/2013 23:59:59 CLS Outpatient JESIKA TORRES MD [facility] LAB [id number] 11/05/2013 06:15:00 11/05/2013 10:40:00 DIS Outpatient ADAN PAZ MD [facility] RECTAL CANCER [id number] 11/02/2013 10:12:00 11/02/2013 23:59:59 CLS Outpatient ADAN PAZ MD [facility] PREOP RECTAL CANCER [id number] 10/23/2013 10:20:00 10/23/2013 23:59:59 CLS Outpatient NICHOLSSONIA Wilson S RADIAL ARM SAW OPERATOR [facility] ONC [id number] 10/14/2013 10:37:00 10/14/2013 23:59:59 CLS Outpatient SONIA NICHOLS S RADIAL ARM SAW OPERATOR [facility] ONC [id number] 10/14/2013 10:33:00 10/14/2013 23:59:59 CLS Outpatient JESIKA TORRES MD [facility] LAB [id number] 10/09/2013 10:27:00 10/09/2013 23:59:59 CLS Outpatient JESIKA TORRES MD [facility] LAB [id number] 10/07/2013 08:37:00 10/07/2013 23:59:59 CLS Outpatient SONIA NICHOLS S RADIAL ARM SAW OPERATOR [facility] ONC [id number] 09/30/2013 09:54:00 10/05/2013 10:56:00 DIS Inpatient JESIKA TORRES MD [facility] 4TH RENAL FAILUR,DEHYDRATION, DIARRHEA [id number] 09/24/2013 08:29:00 09/24/2013 23:59:59 CLS Outpatient SONIA NICHOLS S RADIAL ARM SAW OPERATOR [facility] ONC [id number] 09/18/2013 08:30:00 09/24/2013 09:19:00 DIS Outpatient JESIKA TORRES MD [facility] WOUNDCARE PERISTOMAL TISSUE [id number] 09/17/2013 12:58:00 09/17/2013 23:59:59 CLS Outpatient SONIA NICHOLS S RADIAL ARM SAW OPERATOR [facility] ONC [id number] 09/08/2013 08:37:00 09/08/2013 23:59:59 CLS Outpatient KAREN NICHOLSAH S RADIAL ARM SAW OPERATOR [facility] ONC [id number] 08/26/2013 11:18:00 08/26/2013 23:59:59 CLS Outpatient JESIKA TORRES MD [facility] RAD TACHYCARDIA, HYPERTHYROIDISM [id number] 08/19/2013 13:03:00 08/19/2013 23:59:59 CLS Outpatient NICHOLSKARENLAURA Wilson RADIAL ARM SAW OPERATOR [facility] ONC [id number] 08/11/2013 10:16:00 08/11/2013 23:59:59 CLS Outpatient HIMA DREW [facility] RAD RECTAL CANCER [id number] 08/11/2013 03:24:00 08/11/2013 05:55:00 DIS Emergency CECILIA LEE, ALEJANDRO Steele [facility] ER PROBLEM W/COLOSTOMY BAG [id number] 08/10/2013 11:30:00 08/10/2013 23:59:59 CLS Outpatient JESIKA TORRES MD [facility] DEHYDRATION, MALNUTRITION , CIRRHOSIS, HTN [id number] 08/06/2013 14:55:00 08/06/2013 23:59:59 CLS Outpatient HIMA DREW [facility] ARF, ANEMIA, [place] [id number] 07/27/2013 19:10:00 08/03/2013 14:39:00 DIS Inpatient JESIKA TORRES MD [facility] SURGICAL ACUTE RENAL FAILURE [id number] 07/02/2013 09:54:00 07/16/2013 16:35:00 DIS Inpatient ADAN PAZ MD [facility] SURGICAL COLON CANCER [id number] 06/29/2013 12:06:00 06/29/2013 23:59:59 CLS Outpatient ADAN PAZ MD [facility] PREOP COLON CANCER [id number] 06/12/2013 07:37:00 06/12/2013 23:59:59 CLS Outpatient JESIKA TORRES MD [facility] SDC SCREENING [id number] 06/10/2013 09:50:00 06/10/2013 23:59:59 CLS Outpatient JESIKA TORRES MD [facility] PREOP SCREENING [id number] 01/22/2013 01:38:00 01/23/2013 11:30:00 DIS Inpatient RAMA DUBOSE DO [facility] SURGICAL L LEG FX [id number] 10/29/2014 09:23:00 Document Registration [id number] 10/11/2014 09:11:00 Document Registration [id number] 09/23/2014 09:10:00 Document Registration [id number] 09/24/2013 12:30:00 Document Registration [id number] 09/14/2011 16:10:00 Document Registration [id number] 07/30/2011 11:01:00 Document Registration [id number] 07/20/2011 10:17:00 Document Registration
--- NOTE | 2018-06-26 17:10 | Progress Note-Post Operative ---
Post-Operative Progess Note Surgeon (s)/Machine Hostler (s) Surgeon MATTHEW CASTREJON DO Machine Hostler: na Pre-Operative Diagnosis hx rectal ca Post-Operative Diagnosis same Procedure & Operative Findings Date of Procedure 06/26/18 Procedure Performed/Findings port removal Anesthesia Type mac c local Estimated Blood Loss Estimated blood loss (mL): min Specimens/Packing Specimens Removed na MATTHEW CASTREJON DO Jun 26, 2018 17:10
--- NOTE | 2018-06-30 12:57 | OPERATIVE REPORT ---
DATE OF SERVICE: 06/26/2018 PREOPERATIVE DIAGNOSIS: History of rectal cancer. POSTOPERATIVE DIAGNOSIS: History of rectal cancer. PROCEDURE: Port removal. SURGEON: Matthew Cody DO. ANESTHESIA: Per CHEMICAL LIBRARIAN, MAC with local. ESTIMATED BLOOD LOSS: Minimal. COMPLICATIONS: None. INDICATIONS: The patient is a 57-year-old male, who has been cleared to have port removed. He understands risks and benefits and wished to proceed with the procedure. Consent was signed in the chart. PROCEDURE: The patient was taken to the operating suite. He was prepped and draped in sterile fashion. Surgical pause was performed. Local anesthetic was infiltrated around the port. A 15 blade scalpel was used to make an incision and cautery was used to dissect down to the port, which was then mobilized. The port was then dissected around, grasped, elevated and removed in its entirety. Hemostasis was achieved. The subcutaneous tissues were then reapproximated using 3-0 Vicryl. Skin was then closed using a 4-0 Vicryl in a running subcuticular fashion. The area was then washed and dried and Skin Affix was placed over the incision. The patient tolerated the procedure well without any complications and taken to the recovery room in stable condition. Job ID: [id number] DocumentID: [id number] Dictated Date: 06/30/2018 08:45:54 Clinical Rehabilitation Liaison Date: 06/30/2018 12:56:46 Dictated By: MATTHEW CODY DO [facility]
== END 2018-06-26 10:55 | disposition home or self-care (01) ==
LOC: SDC 07:46
PROVIDERS: ATTEND Surgery
DX: Z08 Encounter for follow-up examination after completed treatment for malignant neoplasm (principal); Z85.048 Personal history of other malignant neoplasm of rectum, rectosigmoid junction, and anus; I10 Essential (primary) hypertension; Z86.19 Personal history of other infectious and parasitic diseases; Z79.899 Other long term (current) drug therapy
CPT/HCPCS: 87081

== ENCOUNTER → 2018-07-01 | Outpatient (CLI) | payer BC ==
[~2018-07-01] MED LIST changes: +IOHEXOL 350 MG/ML 100 ML (OMNIPAQUE 350) VIAL IV ONE; +NS 250 ML (IVPB) BAG IV ONE
--- NOTE | 2018-07-01 10:05 | Diagnostic Imaging Report ---
PROCEDURE: CT chest with contrast, CT abdomen and pelvis with and without contrast. TECHNIQUE: Pre and post intravenous contrast axial imaging of the abdomen and pelvis and post contrast axial imaging of the chest were performed. INDICATION: Rectal cancer. COMPARISON: Study compared 03/12/2016. FINDINGS: CHEST: There is a new mass in the right upper lobe, lobular and irregular, 3.2 x 2.3 cm. New mildly prominent right superior paratracheal mediastinal node is 1.5 x 0.9 cm. There is a small lower right paratracheal node just anterior to the takeoff of the right mainstem at 9.1 mm. There are old healed deformities to the right second and third ribs chronic. No acute or suspicious bony lesion is found. There is no other lung mass. No thoracic effusion. The axilla, thoracic inlet and visualized portions of the supraclavicular fossae unremarkable. The vascular structures unremarkable. ABDOMEN AND PELVIS: Cirrhotic liver with an indwelling patent tip redemonstrated. No vascular obstruction. Mild splenomegaly stable from prior. No findings of splenic infarct. Some thickening of the presacral tissues partially calcified unchanged from prior. Post surgical changes with left lower quadrant diverting ostomy redemonstrated without evidence for parastomal hernia or obstruction. There is no pneumatosis or free air. Post surgical changes to the left hemipelvis, chronic. There is lumbar spondylosis. No acute or new bony abnormality. Some mild thickening of the left adrenal gland, low in density unchanged from prior. Its stability and density favor hyperplasia or adenomatous disease. No abdominopelvic lymphadenopathy. IMPRESSION: CHEST: New mass right upper lobe medially with a borderline new right-sided upper and lower paratracheal mediastinal nodes. Primary lung cancer could not be excluded. The lesion is deep and may not be accessible to percutaneous sampling. Consider metabolic CT/PET as further evaluation to see if a more appropriate candidate for tissue sampling might be demonstrated at that modality. No other significant finding in the chest. ABDOMEN AND PELVIS: Hepatic cirrhosis. Indwelling patent tip. Stable splenomegaly with no findings to suggest abdominopelvic soft tissue or osseous metastasis with stable presumed post therapeutic distortion and scarring of the presacral fat. Dictated by: Dictated on workstation # [id number]
== END ==
LOC: RAD 07:52
PROVIDERS: ATTEND Nurse Practitioner Adult Health
DX: C20 Malignant neoplasm of rectum (principal); R91.8 Other nonspecific abnormal finding of lung field; K74.60 Unspecified cirrhosis of liver
CPT/HCPCS: 71260; 74178

== ENCOUNTER → 2018-07-08 | Outpatient (CLI) | payer BC ==
[~2018-07-08] MED LIST changes: -IOHEXOL 350 MG/ML 100 ML (OMNIPAQUE 350) VIAL IV ONE; -NS 250 ML (IVPB) BAG IV ONE
--- NOTE | 2018-07-08 13:48 | Diagnostic Imaging Report ---
EXAMINATION: PET/CT. INDICATION: Colorectal carcinoma TECHNIQUE: PET/CT imaging was obtained from the base of the skull through the pelvis after the administration of 13.39 mCi of F-[address] imaging was utilized for localization and attenuation correction purposes. The low energy CT utilized for attenuation correction is not considered to be of high enough spatial resolution to allow in and of itself a separate anatomical analysis. FINDINGS: The previous PET/CT exam of 05/04/2014 failed to show any hypermetabolic activity that would suggest the presence of neoplasm. However, the recent CT chest, abdomen and pelvis exam of 07/01/2018 noted a new 2.3 x 3.2 cm mass in the medial aspect of the right upper lobe as well as a 0.9 x 1.5 cm mildly prominent right superior pretracheal lymph node. There was also another lymph node measuring 0.9 cm just anterior to the takeoff of the right mainstem bronchus. On this exam, the mass in the medial aspect of the right upper lung is indeed hypermetabolic and has a maximum SUV of 10.1. The lymph node in the right paratracheal region seen previously is also hypermetabolic with a maximum SUV of 11.7. The lymph node anterior to the right mainstem bronchus is hypermetabolic as well with a maximum SUV of 9.4. There is also a minute slightly hypermetabolic lymph node just anterior to the aortic arch. This has a maximum SUV of 3.9. There is another similar sized lymph node interposed between the innominate vein and the superior vena cava at the level of the manubrium. This has a maximum SUV of 5.2. All of these areas of abnormal hypermetabolic activity should be considered neoplastic until proven otherwise. There is no other hypermetabolic activity to suggest the presence of neoplasm. Physiologic activity is again seen in the brain, the kidneys, the heart and the bladder. The CT images failed to show any sign of an acute abnormality. The TIPS catheter and the embolectomy coils seen previously are again evident. There are also extensive postsurgical changes involving the left pelvis and left hip. Incidental note is made of a large left hydrocele. IMPRESSION: 1. The newly developed mass in the right upper lobe and the mediastinal adenopathy seen on the recent CT chest exam are hypermetabolic and should be considered neoplastic until proven otherwise. 2. There is no other hypermetabolic activity to suggest the presence of neoplasm. 3. There is no acute abnormality identified. 4. There is a large left-sided hydrocele. Dictated by: Dictated on workstation # [id number]
== END ==
LOC: RAD 10:14
PROVIDERS: ATTEND Nurse Practitioner Adult Health
DX: C18.9 Malignant neoplasm of colon, unspecified (principal); N43.3 Hydrocele, unspecified; R91.8 Other nonspecific abnormal finding of lung field; R59.0 Localized enlarged lymph nodes

== ENCOUNTER → 2018-07-11 | Outpatient (CLI) | payer BC ==
[2018-07-11 11:24] LABS: BASOPHILS % (AUTO) 1 % (0-10); EOSINOPHILS # (AUTO) 0.1 10^3/uL (0.0-0.3); EOSINOPHILS % (AUTO) 2 % (0-10); HEMATOCRIT 43 % (40-54); HEMOGLOBIN 14.7 G/DL (13.3-17.7); LYMPHOCYTES # (AUTO) 0.9 X 10^3 (1.0-4.0); LYMPHOCYTES % (AUTO) 30 % (12-44); MEAN CORPUSCULAR HEMOGLOBIN 33 PG (25-34); MEAN CORPUSCULAR HGB CONC 35 G/DL (32-36); MEAN CORPUSCULAR VOLUME 94 FL (80-99); MEAN PLATELET VOLUME 9.2 FL (7.4-10.4); MONOCYTES # (AUTO) 0.3 X 10^3 (0.0-1.0); MONOCYTES % (AUTO) 12 % (0-12); NEUTROPHILS # (AUTO) 1.6 X 10^3 (1.8-7.8); NEUTROPHILS % (AUTO) 55 % (42-75); PLATELET COUNT 135 10^3/uL (130-400); RED BLOOD COUNT 4.53 10^6/uL (4.35-5.85); WHITE BLOOD COUNT 2.9 10^3/uL (4.3-11.0)
[2018-07-11 11:42] LABS: INR 1.1 (0.8-1.4); PROTHROMBIN TIME PATIENT 14.2 SEC (12.2-14.7)
[2018-07-11 11:48] LABS: ALANINE AMINOTRANSFERASE 21 U/L (0-55); ALBUMIN 3.9 GM/DL (3.2-4.5); ALKALINE PHOSPHATASE 118 U/L (40-136); BILIRUBIN,TOTAL 1.2 MG/DL (0.1-1.0); BUN/CREATININE RATIO 13; CALCIUM 9.3 MG/DL (8.5-10.1); CARBON DIOXIDE 24 MMOL/L (21-32); CHLORIDE 105 MMOL/L (98-107); CREATININE SERUM 1.06 MG/DL (0.60-1.30); GFR ESTIMATED > 60; GLUCOSE 96 MG/DL (70-105); POTASSIUM 4.2 MMOL/L (3.6-5.0); SODIUM 138 MMOL/L (135-145); TOTAL PROTEIN 7.3 GM/DL (6.4-8.2)
== END ==
LOC: LAB 10:52
PROVIDERS: ATTEND Nurse Practitioner Family
DX: R91.8 Other nonspecific abnormal finding of lung field (principal)
CPT/HCPCS: 36415; 80053; 85025; 85610

== ENCOUNTER 2018-07-14 06:29 | Outpatient (CLI) | payer BC ==
[~2018-07-14] VITALS: Ht 177.8 cm; Wt 84.8 kg
== END 2018-07-14 11:47 | disposition home or self-care (01) ==
LOC: PREOP 06:29
PROVIDERS: ATTEND Internal Medicine Critical Care Medicine
DX: Z01.818 Encounter for other preprocedural examination (principal)

== ENCOUNTER 2018-07-16 07:12 | Day surgery (SDC) | payer BC ==
[~2018-07-16] VITALS: Ht 177.8 cm; Wt 84.8 kg
[~2018-07-16 07:12] MED LIST changes: +LACTATED RINGERS 1,000 ML IV ONE
[2018-07-16] MEDS ORDERED: LIDOCAINE PF 1% 2 ML VIAL (OR ONLY) IJ ONE (07:13)
--- NOTE | 2018-07-16 07:22 | Progress Note-Pre Operative ---
Pre-Operative Progress Note H&P Reviewed The H&P was reviewed, patient examined and no changes noted. Time Seen by Provider: 08:30 Date H&P Reviewed: Jul 16, 2018 Time H&P Reviewed: 07:22 Pre-Operative Diagnosis: ILD ANA RAIN DO Jul 16, 2018 07:22
[2018-07-16] MEDS ORDERED: LACTATED RINGERS 1,000 ML IV STA (07:25)
[2018-07-16] MEDS ORDERED: fentaNYL INJECTION 100 MCG/2 ML AMP ONE (07:27)
[2018-07-16] MEDS ORDERED: SEVOFLURANE (ULTANE) 15 ML INHAL SOLN ONE (07:27)
[2018-07-16] MEDS ORDERED: proPOfol 200 MG/20 ML (DIPRIVAN) VIAL IV ONE (07:27)
[2018-07-16] MEDS ORDERED: GLYCOPYRROLATE 0.2 MG/ML (ROBINUL) 2 ML VIAL ONE (07:28)
[2018-07-16] MEDS ORDERED: LIDOCAINE PF 2% 5 ML (XYLOCAINE) VIAL ONE (07:28)
[2018-07-16] MEDS ORDERED: MIDAZOLAM 2 MG/2 ML (VERSED) VIAL ONE (07:28)
[2018-07-16] MEDS ORDERED: ONDANSETRON 4 MG/2 ML (SDV) Z0FRAN ONE (07:28)
[2018-07-16] MEDS ORDERED: DEXAMETHASONE 10 MG/ML (DECADRON) 1 ML VIAL ONE (07:28)
[2018-07-16 07:29] VITALS: BP 137/95
[2018-07-16] MEDS ORDERED: ROCURONIUM 10 MG/ML 5 ML SYRINGE IV ONE (07:29)
[2018-07-16] MEDS ORDERED: NEOSTIGMINE 1 MG/ML 5 ML SYRINGE ONE (07:29)
[2018-07-16] MEDS ORDERED: PHENYLEPHRINE 100 MCG/ML 10 ML (ANESTHESIA) SYR ONE (07:49)
--- OUTSIDE RECORDS SUMMARY | 2018-07-16 08:19 | XMS REPORT | Encounter Summary ---
Author Author [facility] Organization [facility] Address Unknown Phone Unavailable Care Team Providers Care Ambulance Dispatcher Name Role Phone Nika Salmeron RN Unavailable Unavailable Aamir Holcomb MD PCP Nila Mcbride MD Unavailable Unavailable Martina Olsen RN Unavailable Unavailable Patti Lieberman RN Unavailable Unavailable Aldair Doe DO Unavailable Jennifer Cavanaugh RN Unavailable Unavailable Grisel Fry MD Unavailable Erick Galeana MD Unavailable Bear Mitchell MD Unavailable Mike Wood MD 3 Ying Salmeron MD 3 Reason for Visit * Reason Comments Results Encounter Details Care Team Description Date Type Department Bear Mitchell MD [address] [place] [address] Results 07/01/2018 Telephone [facility] [address] [place] [address] Social History Date Tobacco Use Types Packs/Day Years Used Never Smoker Smokeless Tobacco: Never Used Alcohol Use Drinks/Week oz/Week Comments Yes Sex Assigned at Date Recorded Not on file Industry Job Start Date Occupation Not on file Not on file Not on file Travel End Travel History Travel Start No recent travel history available. as of this encounter Functional Status Date of Assessment Functional Status Response 05/16/2018 Does the patient have a hearing impairment: No 05/16/2018 Does the patient have a visual impairment: Yes 05/16/2018 Does the patient have impaired ambulation: No 05/16/2018 Does the patient have an activity of daily living No (ADL) impairment: 05/16/2018 Does the patient have an instrumental activity of No daily living (IADL) impairment: Date of Assessment Cognitive Status Response 05/16/2018 Does the patient have a cognitive impairment: No as of this encounter Miscellaneous Notes * Telephone Encounter - Katherine Chester RN - 07/11/2018 3:03 PM POWER EQUIPMENT TECHNOLOGY INSTRUCTOR Left message for patient to return call. Katherine Chester RN BSN R EQUIPMENT TECHNOLOGY INSTRUCTOR * Telephone Encounter - Kiana Boland - 07/10/2018 3:17 PM POWER EQUIPMENT TECHNOLOGY INSTRUCTOR Bill returned your call. R EQUIPMENT TECHNOLOGY INSTRUCTOR * Telephone Encounter - Katherine Chester RN - 07/01/2018 9:44 AM POWER EQUIPMENT TECHNOLOGY INSTRUCTOR Discussed CT and lab results with Dr. Mitchell and he advised to: 1. Complete US with doppler for next imaging. 2. Check on patient due to elevated Cr. Repeat labs and may need quinones cultures. Left message for patient to return call. Katherine Chester [employer] R EQUIPMENT TECHNOLOGY INSTRUCTOR in this encounter Plan of Treatment Order Schedule Name Priority Associated Diagnoses Expected: 10/27/2018 (Approximate), Expires: 07/01/2019 US DOPPLER ABD PELV RETROPER COMP Routine Other cirrhosis of liver (HCC) S/P TIPS (transjugular intrahepatic portosystemic shunt) Expected: 07/01/2018 (Approximate), Expires: 07/01/2019 COMPREHENSIVE METABOLIC PANEL Routine Other cirrhosis of liver (HCC) S/P TIPS (transjugular intrahepatic portosystemic shunt) as of this encounter Visit Diagnoses Diagnosis Other cirrhosis of liver (HCC) - Primary S/P TIPS (transjugular intrahepatic portosystemic shunt) Other postprocedural status in this encounter
--- OUTSIDE RECORDS SUMMARY | 2018-07-16 08:19 | XMS REPORT | Encounter Summary ---
Author Author [facility] Organization [facility] Address Unknown Phone Unavailable Care Team Providers Care Felt Cutting Machine Operator Name Role Phone Nika Salmeron RN Unavailable [...] Visit * Reason Comments Other Encounter Details Care Team Description Date Type Department Bear Mitchell MD [address] [place] [address] Other 05/16/2018 Telephone [facility] [address] [place] [address] Social History Date Tobacco Use [...]
--- OUTSIDE RECORDS SUMMARY | 2018-07-16 08:19 | XMS REPORT | Encounter Summary ---
Author Author [facility] Organization [facility] Address Unknown Phone Unavailable Care Team Providers Care Knifeman Name Role Phone Nika Salmeron RN Unavailable Unavailable Aamir Holcomb MD PCP Nila Mcbride MD Unavailable Unavailable Martina Olsen RN Unavailable Unavailable Patti Lieberman RN Unavailable Unavailable Aldair Doe DO Unavailable Jennifer Cavanaugh RN Unavailable Unavailable Grisel Fry MD Unavailable Erick Galeana MD Unavailable Bear Mitchell MD Unavailable Mike Wood MD 3 Ying Salmeron MD 3 Encounter Details Care Team Description Date Type Department Bear Mitchell MD [address] [place] [address] Other cirrhosis of liver (HCC) 05/16/2018 [facility] [address] [place] [address] Social History Date Tobacco Use Types Packs/Day [...] cognitive impairment: No as of this encounter Medications at Time of Discharge Start Date End Date Medication Sig Dispensed Refills ALPRAZolam (XANAX) 1 mg Take 0.5-1 mg 0 tablet by mouth at bedtime as needed. lisinopril (PRINIVIL; Take 20 mg by 0 ZESTRIL) 10 mg tablet mouth daily. magnesium oxide (MAG-OX) Take 400 mg 0 400 mg tablet by mouth twice daily. methimazole (TAPAZOLE) 10 Take 5 mg by 0 mg tablet mouth daily. 02/17/2016 metoprolol tartrate Take 1 Tab by 180 Tab 3 (LOPRESSOR) 25 mg tablet mouth twice daily. vitamins, multiple tablet Take 1 Tab by 0 mouth daily. as of this encounter Progress Notes * Katherine Chester RN - 05/16/2018 11:59 PM CDT Bear Mitchell MD Shaffer, Michelle, RN Not on diuretics. Call ask how he is doing. Repeat labs, quinones culture See telephone encounter 07/01/18. Katherine Chester RN BSN * Katherine Chester RN - 05/16/2018 11:59 PM CDT Pt Cr elevated from typical baseline, please advise. Katherine in this encounter Plan of Treatment Not on fileas of this encounter Procedures Comments Procedure Name Priority Date/Time Associated Diagnosis ALPHA FETO PROTEIN (AFP) Routine 05/16/2018 Other cirrhosis of liver 10:30 AM CDT (HCC) History of hepatitis C S/P TIPS (transjugular intrahepatic portosystemic shunt) CBC AND DIFF Routine 05/16/2018 Other cirrhosis of liver 10:30 AM CDT (HCC) History of hepatitis C S/P TIPS (transjugular intrahepatic portosystemic shunt) COMPREHENSIVE METABOLIC Routine 05/16/2018 Other cirrhosis of liver PANEL 10:30 AM CDT (HCC) History of hepatitis C S/P TIPS (transjugular intrahepatic portosystemic shunt) in this encounter Results * COMPREHENSIVE METABOLIC PANEL (05/16/2018 10:30 AM CDT) Sodium 141 137 - 147 MMOL/L [facility] [...] Address City/State/Zipcode Phone Number [facility] [address] [place] [address] * CBC AND DIFF (05/16/2018 10:30 AM CDT) White Blood Cells 3.5 (L) 4.5 - [...] MAIN LAB Specimen Blood Performing Organization Address City/[facility]/Zipcode Phone Number [facility] [address] [place] [address] * ALPHA FETO PROTEIN (AFP) (05/16/2018 10:30 AM CDT) Alpha Feto Protein 3.2 0.0 - 15.0 NG/ML [facility] Specimen Blood Performing Organization Address City/[facility] Number [facility] [address] [place] [address] in this encounter Visit Diagnoses Diagnosis Other cirrhosis of liver (HCC) History of hepatitis C Personal history of other infectious and parasitic disease S/P TIPS (transjugular intrahepatic portosystemic shunt) Other postprocedural status in this encounter
--- OUTSIDE RECORDS SUMMARY | 2018-07-16 08:19 | XMS REPORT | Encounter Summary ---
Author Author [facility] Organization [facility] Address Unknown Phone Unavailable Care Team Providers Care Field Laborer Name Role Phone Nika Salmeron RN Unavailable Unavailable Aamir Holcomb MD PCP Nila Mcbride MD Unavailable Unavailable Martina Olsen RN Unavailable Unavailable Patti Lieberman RN Unavailable Unavailable Aldair Doe DO Unavailable Jennifer Cavanaugh RN Unavailable Unavailable Grisel Fry MD Unavailable Erick Galeana MD Unavailable Bear Mitchell MD Unavailable Mike Wood MD 3 Ying Salmeron MD 3 Reason for Referral * Radiology Services Referred By Contact Referred To Contact Status Reason Specialty Diagnoses / Procedures Joyce Gonzales, ASSOCIATE FIELD SERVICE ENGINEER [address] [facility] [address] [place] [address] [facility] MED OFFICE [address] [place] [address] No Auth Needed Radiology Diagnoses Cirrhosis of liver without ascites, unspecified hepatic cirrhosis type (HCC) S/P TIPS (transjugular intrahepatic portosystemic shunt) P rocedures CT ABDOMEN WO/W CONTRAST * Radiology Services Referred By Contact Referred To Contact Status Reason Specialty Diagnoses / Procedures Joyce Gonzales, ASSOCIATE FIELD SERVICE ENGINEER [address] [facility] [address] [place] [address] [facility] [address] [address] No Auth Needed Radiology Diagnoses Cirrhosis of liver without ascites, unspecified hepatic cirrhosis type (HCC) S/P TIPS (transjugular intrahepatic portosystemic shunt) P rocedures CT ABDOMEN WO/W CONTRAST Reason for Visit * Radiology Services Referred By Contact Referred To Contact Status Reason Specialty Diagnoses / Procedures Joyce Gonzales, ASSOCIATE FIELD SERVICE ENGINEER [address] [facility] [address] [place] [address] [facility] [address] [address] No Auth Needed Radiology Diagnoses Cirrhosis of liver without ascites, unspecified hepatic cirrhosis type (HCC) S/P TIPS (transjugular intrahepatic portosystemic shunt) P rocedures CT ABDOMEN WO/W CONTRAST Encounter Details Care Team Description Date Type Department Joyce Gonzales, ASSOCIATE FIELD SERVICE ENGINEER [address] [facility] [address] [place] [address] [phone] 05/16/2018 [facility] Radiology [address] [address] Social History Date Tobacco Use Types Packs/Day [...] 0 mouth daily. as of this encounter Plan of Treatment Not on fileas of this encounter Procedures Comments Procedure Name Priority Date/Time Associated Diagnosis CT ABDOMEN WO/W CONTRAST Routine 05/16/2018 Cirrhosis of liver 10:49 AM CDT without ascites, unspecified hepatic cirrhosis type (HCC) S/P TIPS (transjugular intrahepatic portosystemic shunt) POC CREATININE, RAD 05/16/2018 10:33 AM CDT in this encounter Results * CT ABDOMEN WO/W CONTRAST (05/16/2018 10:49 AM CDT) Impressions Performed At 1. No hepatic mass [...] on 05/16/2018 12:44 PM. Performing Organization Address City/[facility]/Zipcode Phone Number RAD RESULTS * POC CREATININE, RAD (05/16/2018 10:33 AM CDT) Creatinine, POC 1.6 (H) 0.4 - 1.24 MG/DL MAIN LAB Performing Organization Address City/[facility] Phone Number [facility] [address] [place] [address] in this encounter Visit Diagnoses Diagnosis Cirrhosis of liver without ascites, unspecified hepatic cirrhosis type (HCC) S/P TIPS (transjugular intrahepatic portosystemic shunt) Other postprocedural status in this encounter Administered Medications Action Date Dose Rate Site Medication Order MAR Action 05/16/2018 10:45 AM CDT 80 mL iopamidol 370 (ISOVUE-370) injection 80 Given mL 80 mL, Intravenous, ONCE, 1 dose, Sat05/16/18 at 1045, NOTE: This is a HIGH ALERT Medication., 05/16/2018 10:45 AM CDT 50 mL sodium chloride PF 0.9% injection 50 mL Given 50 mL, Intravenous, ONCE, 1 dose, Sat05/16/18 at 1045, Intra-procedure (IR) in this encounter
--- OUTSIDE RECORDS SUMMARY | 2018-07-16 08:19 | XMS REPORT | Clinical Summary ---
Author Author [facility] Organization [facility] Address Unknown Phone Unavailable Care Team Providers Care Web User Experience Strategist Name Role Phone Nika Salmeron RN Unavailable [...] in the Health Information Management department at [phone] for further assistance in locating additional records.[facility] Allergies No Known Allergies Medications End Date Status Medication Sig Dispensed Refills Start Date Active ALPRAZolam (XANAX) 1 mg Take 0.5-1 mg 0 tablet by mouth at bedtime as needed. Active vitamins, multiple tablet Take 1 Tab by 0 mouth daily. Active methimazole (TAPAZOLE) 10 Take 5 mg by 0 mg tablet mouth daily. Active magnesium oxide (MAG-OX) Take 400 mg 0 400 mg tablet by mouth twice daily. Active metoprolol tartrate Take 1 Tab by 180 Tab 3 (LOPRESSOR) 25 mg tablet mouth twice 6 daily. Active lisinopril (PRINIVIL; Take 20 mg by 0 ZESTRIL) 10 mg tablet mouth daily. 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 Overview: For ascites after surgery History of hepatitis C 05/10/2017 Overview: Treated and cleared in 2009 Cirrhosis 02/17/[address] 07/14/2015 Resolved Problems Problem Noted Date Resolved Date Cirrhosis 09/17/2014 02/17/2016 Hepatitis C 09/17/2014 05/10/2017 Acute renal failure 08/25/2014 05/10/2017 Hyponatremia 08/25/2014 05/10/2017 Anemia, chronic disease 08/25/2014 05/10/2017 SBO (small bowel obstruction) 08/10/2014 05/10/2017 Encounters Care Team Description Date Type Specialty Bear Mitchell MD Results 07/01/2018 Telephone Hepatology Bear Mitchell MD Other cirrhosis of liver (HCC) 05/16/2018 Hospital Lab Encounter Joyce Gonzales APRN 05/16/2018 Hospital Radiology Encounter Bear Mitchell MD Other cirrhosis of liver (HCC) (Primary Dx); History of hepatitis C; S/P TIPS (transjugular intrahepatic portosystemic shunt) 05/16/2018 Office Visit Hepatology Bear Mitchell MD Other 05/16/2018 Telephone Hepatology from Last 3 Months Family History Medical History Relation Name Comments Arthritis-osteo Father Hypertension Father Heart Failure Paternal Grandfather Hypertension Paternal Grandfather Heart Failure Paternal Grandmother Relation Name Status Comments Father Paternal Grandfather Paternal Grandmother Social History Date Tobacco Use Types Packs/Day Years Used Never Smoker Smokeless Tobacco: Never Used Alcohol Use Drinks/Week oz/Week Comments Yes Sex Assigned at Date Recorded Not on file Industry Job Start Date Occupation Not on file Not on file Not on file Travel End Travel History Travel Start No recent travel history available. Last Filed Vital Signs Time Taken Vital Sign Reading 05/16/2018 8:56 AM CDT Blood Pressure 162/80 05/16/2018 8:56 AM CDT Pulse 104 05/16/2018 8:56 AM CDT Temperature 36.9 C (98.5 F) 05/16/2018 8:56 AM CDT Respiratory Rate 18 05/16/2018 8:56 AM CDT Oxygen Saturation 100% - Inhaled Oxygen - Concentration 05/16/2018 8:56 AM CDT Weight 85.2 kg (187 lb 12.8 oz) 05/16/2018 8:56 AM CDT Height 177.8 cm (5' 10") 05/16/2018 8:56 AM CDT Body Mass Index 26.95 Plan of Treatment Health Maintenance Due Date Last Done Comments PHYSICAL (COMPREHENSIVE) 1965 EXAM HIV SCREENING 1973 DTAP/TDAP VACCINES (1 - 1976 Tdap) COLORECTAL CANCER 2008 SCREENING SHINGLES RECOMBINANT 2008 VACCINE (1 of 2) INFLUENZA VACCINE 02/26/2018 Procedures Comments Procedure Name Priority Date/Time Associated Diagnosis CT ABDOMEN WO/W CONTRAST Routine 05/16/2018 Cirrhosis of liver 10:49 AM CDT without ascites, unspecified hepatic cirrhosis type (HCC) S/P TIPS (transjugular intrahepatic portosystemic shunt) POC CREATININE, RAD 05/16/2018 10:33 AM CDT COMPREHENSIVE METABOLIC Routine 05/16/2018 Other cirrhosis of liver PANEL 10:30 AM CDT (HCC) History of hepatitis C S/P TIPS (transjugular intrahepatic portosystemic shunt) CBC AND DIFF Routine 05/16/2018 Other cirrhosis of liver 10:30 AM CDT (HCC) History of hepatitis C S/P TIPS (transjugular intrahepatic portosystemic shunt) ALPHA FETO PROTEIN (AFP) Routine 05/16/2018 Other cirrhosis of liver 10:30 AM CDT (HCC) History of hepatitis C S/P TIPS (transjugular intrahepatic portosystemic shunt) FIBROSCAN Routine 05/16/2018 Other cirrhosis of liver 8:00 AM CDT (HCC) History of hepatitis C S/P TIPS (transjugular intrahepatic portosystemic shunt) from [...] on 05/16/2018 12:44 PM. Performing Organization Address [facility] Phone Number RAD RESULTS * POC CREATININE, RAD (05/16/2018 10:33 AM CDT) Creatinine, POC 1.6 (H) 0.4 - 1.24 MG/DL [facility] Performing Organization Address [facility] Phone Number [facility] [address] [place] [address] * ALPHA FETO PROTEIN (AFP) (05/16/2018 10:30 AM CDT) Alpha Feto Protein 3.2 0.0 - 15.0 NG/ML [facility] Specimen Blood Performing Organization Address [facility] Phone Number MAIN LAB [address] [place] [address] * CBC AND DIFF (05/16/2018 10:30 AM [...] Address City/State/Zipcode Phone Number [facility] [address] [facility] [address] * COMPREHENSIVE METABOLIC PANEL (05/16/2018 10:30 AM [...] Address City/State/Zipcode Phone Number MAIN LAB [address] [place] [address] * FIBROSCAN (05/16/2018 8:00 AM CDT) Narrative Performed At IN CLINIC Bear Mitchell MD 05/16/2018 10:01 AM (No note.) Procedure Note Bear Mitchell MD - 05/16/2018 8:00 AM CDT (No note.) Performing Organization Address City/[facility]/Zipcode Phone Number IN CLINIC from Last 3 Months Insurance Payer Benefit Subscriber ID Type Phone Address Plan / Group BS [facility] xxxxxxxxxxxx O [facility] BLUE Advance Directives Patient has advance care planning documents, and code status on file. For more information, please contact: [facility] [address] [place] [address] Date Inactivated Comments Code Status Date Activated 09/03/2014 1:16 PM Full Code 08/10/2014 11:49 PM Provider has discussed Code Status No, more discussion w/Patient or Family? needed
--- OUTSIDE RECORDS SUMMARY | 2018-07-16 08:20 | XMS REPORT | Encounter Summary ---
Author Author [facility] Organization [facility] Address Unknown Phone Unavailable Care Team Providers Care Accounts Executive Name Role Phone Nika Salmeron RN Unavailable [...] Comments End Stage Liver Disease Encounter Details Care Team Description Date Type Department Bear Mitchell MD [address] [facility] [address] [place] [address] Other cirrhosis of liver (HCC) (Primary Dx); History of hepatitis C; S/P TIPS (transjugular intrahepatic portosystemic shunt) 05/16/2018 [facility] [address] [place] [address] Social History Date Tobacco Use Types Packs/Day Years Used Never Smoker Smokeless Tobacco: Never Used Alcohol Use Drinks/Week oz/Week Comments Yes Sex Assigned at Date Recorded Not on file Industry Job Start Date Occupation Not on file Not on file Not on file Travel End Travel History Travel Start No recent travel history available. as of this encounter Last Filed Vital Signs Time Taken Vital [...] 8:56 AM CDT Body Mass Index 26.95 in this encounter Functional Status Date of Assessment [...] cognitive impairment: No as of this encounter Patient Instructions * Patient Instructions* Katherine Chester, DUONG - 05/16/2018 8:00 AM CDT Schedule: 1. [...] [facility] Dr. Bear Murphy, RN [phone] in this encounter Progress Notes * Luis Enrique, Isis, RN - 05/16/2018 8:00 AM CDT Notified by microbiology that PT INR was not resulted due to the tube not being filled to the top. Alerted Dr Mitchell, who said ok to draw at next visit. * Bear Mitchell MD - 05/16/2018 8:00 AM CDT Date of Service: 05/16/2018 Subjective: Kanu Masterson Jr. is a 57 y.o. male. History of Present [id number] gentleman with previous end-stage liver disease secondary [...] Benson MD - 05/16/2018 8:00 AM CDT Date of Service: 05/16/2018 Kanu Masterson Jr. is a 57 y.o. male Subjective: History of Present Illness Providers PCP/IM: Dr. Aamir Holcomb Medical Oncology: Dr. Ying Salmeron GI: Gagan Nagy Hepatology: Dr. Bear Mitchell-[facility] Overview This is a very pleasant [...] note.) in this encounter Plan of Treatment Order Schedule Name Priority Associated Diagnoses every 6 months for 3 Occurrences starting 05/16/2018 until 05/16/2019, 1 completed ALPHA FETO PROTEIN (AFP) Routine Other cirrhosis of liver (HCC) History of hepatitis C S/P TIPS (transjugular intrahepatic portosystemic shunt) every 6 months for 3 Occurrences starting 05/16/2018 until 05/16/2019, 1 completed CBC AND DIFF Routine Other cirrhosis of liver (HCC) History of hepatitis C S/P TIPS (transjugular intrahepatic portosystemic shunt) every 6 months for 3 Occurrences starting 05/16/2018 until 05/16/2019, 1 completed COMPREHENSIVE METABOLIC PANEL Routine Other cirrhosis of liver (HCC) History of hepatitis C S/P TIPS (transjugular intrahepatic portosystemic shunt) every 6 months for 3 Occurrences starting 05/16/2018 until 05/16/2019 PROTIME INR (PT) Routine Other cirrhosis of liver (HCC) History of hepatitis C S/P TIPS (transjugular intrahepatic portosystemic shunt) as of this encounter Procedures Comments Procedure Name Priority Date/Time Associated Diagnosis FIBROSCAN Routine 05/16/2018 Other cirrhosis of liver [...] City/State/Zipcode Phone Number [facility] [address] [place] [address] * CBC AND DIFF (05/16/2018 10:30 AM [...] MAIN LAB Specimen Blood Performing Organization Address City/[facility] Phone Number [facility] LAB [address] [place] [address] * ALPHA FETO PROTEIN (AFP) (05/16/2018 10:30 AM CDT) Alpha Feto Protein 3.2 0.0 - 15.0 NG/ML [facility] Specimen Blood Performing Organization Address [facility] Phone Number [facility] [address] [place] [address] * FIBROSCAN (05/16/2018 8:00 AM CDT) Narrative Performed At IN CLINIC Bear Mitchell MD 05/16/2018 10:01 AM (No note.) Procedure Note Bear Mitchell MD - 05/16/2018 8:00 AM CDT (No note.) Performing Organization Address City/[facility] Phone Number [facility] in this encounter Visit Diagnoses Diagnosis Other cirrhosis of liver (HCC) - Primary History of hepatitis C Personal history of other infectious and parasitic disease S/P TIPS (transjugular intrahepatic portosystemic shunt) Other postprocedural status in this encounter
--- OUTSIDE RECORDS SUMMARY | 2018-07-16 08:21 | XMS REPORT | Continuity of Care Document ---
Author Author [facility] Organization [facility] Address Unknown Phone Unavailable Allergies Active Description Code Type Severity Reaction Onset Reported/Identified Relationship to Patient Clinical Status Yes No Known Drug Allergies [id number] Drug Allergy Unknown N/A 06/25/2018 Medications There is no data. 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 06/27/1326 HIMA DREW Ot [...] JESIKA Liriano Ot V76.51 07/21/2014 MELISSA LEE, JESIKA Liriano Ot V72.84 07/21/2014 JACKSON LEE, ADAN Ot 153.9 07/21/2014 JACKSON LEE, JAYSONAAKI Ot 401.9 07/21/2014 JACKSON LEE, TAKAAKI Ot V72.63 07/21/2014 JACKSON LEE, TAKAAKI Ot V74.8 07/21/2014 VIKI, BOBAN N Ot 154.1 07/21/2014 VIKI, BOBAN N Ot 793.11 07/21/2014 VIKI, BOBAN N Ot 154.0 07/21/2014 VIKI, BOBAN N Ot 285.9 07/21/2014 VIKI, BOBAN N Ot 584.9 07/21/2014 MELISSA LEE, JESIKA Lriiano Ot 263.9 07/21/2014 JESIKA TORRES MD Ot 276.51 07/21/2014 MELISSA LEE, JESIKA Liriano Ot 401.9 07/21/2014 MELISSA LEE, JESIKA Liriano Ot 571.5 07/21/2014 SONIA NICHOLS CHILD CAREGIVER Ot 070.70 07/21/2014 SONIA NICHOLS CHILD CAREGIVER Ot 154.0 07/21/2014 SONIA NICHOLS CHILD CAREGIVER Ot 518.89 07/21/2014 SONIA NICHOLS CHILD CAREGIVER Ot 571.5 07/21/2014 JESIKA TORRES MD Ot 242.90 07/21/2014 SONIA NICHOLS CHILD CAREGIVER Ot 070.70 07/21/2014 SONIA NICHOLS CHILD CAREGIVER Ot 154.0 07/21/2014 SONIA NICHOLS CHILD CAREGIVER Ot 793.11 07/21/2014 SONIA NICHOLS CHILD CAREGIVER Ot V44.3 07/21/2014 SONIA NICHOLS CHILD CAREGIVER Ot V58.69 07/21/2014 SONIA NICHOLS CHILD CAREGIVER Ot 154.0 07/21/2014 SONIA NICHOLS CHILD CAREGIVER Ot V87.41 07/21/2014 SONIA NICHOLS S CHILD CAREGIVER Ot 154.0 07/21/2014 SONIA NICHOLS S CHILD CAREGIVER Ot 276.51 07/21/2014 SONIA NICHOLS S CHILD CAREGIVER Ot 787.91 07/21/2014 SONIA NICHOLS S CHILD CAREGIVER Ot 793.11 07/21/2014 SONIA NICHOLS S CHILD CAREGIVER Ot V44.3 07/21/2014 SONIA NIHCOLS S CHILD CAREGIVER Ot V58.69 07/21/2014 Ot 709.8 07/21/2014 Ot V44.3 07/21/2014 SONIA NICHOLS S CHILD CAREGIVER Ot 154.0 07/21/2014 SONIA NICHOLS S CHILD CAREGIVER Ot 276.51 07/21/2014 NICHOLSSONIA Wilson S CHILD CAREGIVER Ot 787.91 07/21/2014 NICHOLSSONIA Wilson S CHILD CAREGIVER Ot 793.11 07/21/2014 NICHOLSSONIA Wilson S CHILD CAREGIVER Ot V44.3 07/21/2014 NICHOLSSONIA Wilson S CHILD CAREGIVER Ot V58.69 07/21/2014 MELISSA LEE, JESIKA Liriano Ot 242.00 07/21/2014 MELISSA LEE, JESIKA Liriano Ot 242.00 07/21/2014 NICHOLSSONIA Wilson S CHILD CAREGIVER Ot 154.0 07/21/2014 NICHOLSSONIA Wilson S CHILD CAREGIVER Ot 276.51 07/21/2014 NICHOLSSONIA Wilson S CHILD CAREGIVER Ot 787.91 07/21/2014 NICHOLSSONIA Wilson S CHILD CAREGIVER Ot 793.11 07/21/2014 NICHOLSSONIA Wilson S CHILD CAREGIVER Ot V44.3 07/21/2014 NICHOLSSONIA Wilson S CHILD CAREGIVER Ot V58.69 07/21/2014 NICHOLSSONIA Wilson S CHILD CAREGIVER Ot 154.0 07/21/2014 NICHOLSSONIA Wilson S CHILD CAREGIVER Ot V44.3 07/21/2014 NICHOLSSONIA Wilson S CHILD CAREGIVER Ot V58.69 07/21/2014 JACKSON LEE, ADAN Ot 154.1 07/21/2014 JACKSON LEE, ADAN Ot V72.84 07/21/2014 ADAN PAZ MD Ot V74.8 07/21/2014 NICHOLSSONIA Wilson S CHILD CAREGIVER Ot 154.0 07/21/2014 NICHOLSSONIA Wilson S CHILD CAREGIVER Ot 793.11 07/21/2014 NICHOLSSONIA Wilson S CHILD CAREGIVER Ot V44.3 07/21/2014 NICHOLSSONIA S CHILD CAREGIVER Ot V58.69 07/21/2014 JESIKA TORRES MD Ot 242.00 07/21/2014 NICHOLS, SONIA S CHILD CAREGIVER Ot 154.0 07/21/2014 NICHOLSSONIA S CHILD CAREGIVER Ot 793.11 07/21/2014 NICHOLSSONIA S CHILD CAREGIVER Ot V44.3 07/21/2014 SIMONE SONIA S CHILD CAREGIVER Ot V58.69 07/21/2014 MELISSA LEE, JESIKA Liriano Ot 274.9 07/21/2014 NICHOLSSONIA S CHILD CAREGIVER Ot 154.0 07/21/2014 SIMONE SONIA S CHILD CAREGIVER Ot 793.11 07/21/2014 SIMONE SONIA S CHILD CAREGIVER Ot V44.3 07/21/2014 NICHOLSSONIA Wilson S CHILD CAREGIVER Ot V58.69 07/21/2014 NICHOLSSONIA Wilson S CHILD CAREGIVER Ot 154.0 07/21/2014 NICHOLSSONIA Wilson S CHILD CAREGIVER Ot 793.11 07/21/2014 NICHOLSSONIA Wilson S CHILD CAREGIVER Ot V44.3 07/21/2014 NICHOLSSONIA S CHILD CAREGIVER Ot V58.69 07/21/2014 SIMONE SONIA S CHILD CAREGIVER Ot 154.0 07/21/2014 SIMONE KARENAH S CHILD CAREGIVER Ot 196.9 07/21/2014 NICHOLS KARENAH S CHILD CAREGIVER Ot 287.5 07/21/2014 NICHOLS SONIA S CHILD CAREGIVER Ot 288.00 07/21/2014 NICHOLS SONIA S CHILD CAREGIVER Ot 793.11 07/21/2014 SIMONE SONIA S CHILD CAREGIVER Ot V44.3 07/21/2014 NICHOLS, SONIA S CHILD CAREGIVER Ot V58.69 07/21/2014 HIMA DREW Ot 154.1 07/21/2014 SIMONE SONIA S CHILD CAREGIVER Ot 070.70 07/21/2014 SIMONE SONIA S CHILD CAREGIVER Ot 154.1 07/21/2014 SONIA NICHOLS CHILD CAREGIVER Ot 196.9 07/21/2014 SONIA NICHOLS CHILD CAREGIVER Ot 793.11 07/21/2014 SONIA NICHOLS CHILD CAREGIVER Ot V44.3 07/21/2014 SONIA NICHOLS CHILD CAREGIVER Ot V58.69 07/21/2014 MELISSA LEE, JESIKA Liriano [...] Liriano Ot 276.8 07/21/2014 MELISSA LEE, JESIKA Liraino Ot 560.1 07/21/2014 MELISSA LEE, JESIKA Liriano [...] JESIKA Liriano Ot 997.49 07/28/2014 MELISSA LEE, JESIAK Liriano Ot 154.0 07/28/2014 MELISSA LEE, JESIKA Liriano Ot 276.1 07/28/2014 MELISSA LEE, JESIKA Liriano Ot 276.8 07/28/2014 MELISSA LEE, JESIKA Liriano Ot 560.1 07/28/2014 MELISSA LEE, JESIKA Liriano Ot 787.91 07/28/2014 MELISSA LEE, JESIKA Liriano Ot 997.49 07/29/2014 MELISSA LEE, JESIKA Liriano Ot 154.0 07/29/2014 MELISSA LEE, JESIKA Liriano Ot 276.1 07/29/2014 MELISSA LEE, JESIKA Liriano Ot 276.8 07/29/2014 MELISSA LEE, JESIKA Liriano Ot 560.1 07/29/2014 MELISSA LEE, JESIKA Liriano Ot 787.91 07/29/2014 MELISSA LEE, JESIKA Liriano Ot 997.49 07/30/2014 MELISSA LEE, JESIKA Liriano Ot 154.0 07/30/2014 MELISSA LEE, JESIKA Liriaon Ot 276.1 07/30/2014 MELISSA LEE, JESIKA Liriano [...] Liriano Ot 787.91 08/04/2014 MELISSA LEE, JESIKA Liraino Ot 997.49 08/05/2014 MELISSA LEE, JESIKA Liriano [...] N Ot 793.11 SOLITARY PULMONARY NODULE 08/25/2014 IHMA DREW N Ot V44.3 COLOSTOMY STATUS 08/25/2014 [...] JESIKA Liriano Ot 571.5 10/29/2014 SONIA NICHOLS CHILD CAREGIVER Ot 070.70 10/29/2014 SONIA NICHOLS CHILD CAREGIVER Ot 154.0 10/29/2014 SONIA NICHOLS CHILD CAREGIVER Ot 518.89 10/29/2014 SONIA NICHOLS CHILD CAREGIVER Ot 571.5 10/29/2014 MELISSA LEE, JESIKA Liriano Ot 242.90 10/29/2014 SONIA NICHOLS S CHILD CAREGIVER Ot 070.70 10/29/2014 SONIA NICHOLS S CHILD CAREGIVER Ot 154.0 10/29/2014 SONIA NICHOLS S CHILD CAREGIVER Ot 793.11 10/29/2014 SONIA NICHOLS S CHILD CAREGIVER Ot V44.3 10/29/2014 SONIA NICHOLS S CHILD CAREGIVER Ot V58.69 10/29/2014 SONIA NICHOLS S CHILD CAREGIVER Ot 154.0 10/29/2014 SONIA NICHOLS S CHILD CAREGIVER Ot V87.41 10/29/2014 OSNIA NICHOLS S CHILD CAREGIVER Ot 154.0 10/29/2014 SONIA NICHOLS S CHILD CAREGIVER Ot 276.51 10/29/2014 SONIA NICHOLS S CHILD CAREGIVER Ot 787.91 10/29/2014 NICHOLSSONIA Wilson S CHILD CAREGIVER Ot 793.11 10/29/2014 SONIA NICHOLS S CHILD CAREGIVER Ot V44.3 10/29/2014 SONIA NICHOLS S CHILD CAREGIVER Ot V58.69 10/29/2014 Ot 709.8 10/29/2014 Ot V44.3 10/29/2014 SONIA NICHOLS S CHILD CAREGIVER Ot 154.0 10/29/2014 SONIA NICHOLS S CHILD CAREGIVER Ot 276.51 10/29/2014 SONIA NICHOLS S CHILD CAREGIVER Ot 787.91 10/29/2014 NICHOLSSONIA Wilson S CHILD CAREGIVER Ot 793.11 10/29/2014 SONIA NICHOLS S CHILD CAREGIVER Ot V44.3 10/29/2014 NICHOLSSONIA Wilson S CHILD CAREGIVER Ot V58.69 10/29/2014 MELISSA LEE, JESIKA Liriano Ot 242.00 10/29/2014 JESIKA TORRES MD Ot 242.00 10/29/2014 NICHOLSSONIA Wilson S CHILD CAREGIVER Ot 154.0 10/29/2014 NICHOLSSONIA Wilson S CHILD CAREGIVER Ot 276.51 10/29/2014 NICHOLSSONIA Wilson S CHILD CAREGIVER Ot 787.91 10/29/2014 NICHOLSSONIA S CHILD CAREGIVER Ot 793.11 10/29/2014 NICHOLSSONIA Wilson S CHILD CAREGIVER Ot V44.3 10/29/2014 NICHOLSSONIA S CHILD CAREGIVER Ot V58.69 10/29/2014 NICHOLSSONIA S CHILD CAREGIVER Ot 154.0 10/29/2014 NICHOLSSONIA S CHILD CAREGIVER Ot V44.3 10/29/2014 SIMONE SONIA S CHILD CAREGIVER Ot V58.69 10/29/2014 JACKSON LEE, ADAN Ot 154.1 10/29/2014 JACKSON LEE, ADAN Ot V72.84 10/29/2014 JACKSON LEE, ADAN Ot V74.8 10/29/2014 SIMONE SONIA S CHILD CAREGIVER Ot 154.0 10/29/2014 SIMONE SONIA S CHILD CAREGIVER Ot 793.11 10/29/2014 SIMONESONIA S CHILD CAREGIVER Ot V44.3 10/29/2014 SIMONE SONIA S CHILD CAREGIVER Ot V58.69 10/29/2014 MELISSA LEE, JESIKA Liriano Ot 242.00 10/29/2014 SIMONE SONIA S CHILD CAREGIVER Ot 154.0 10/29/2014 SIMONE SONIA S CHILD CAREGIVER Ot 793.11 10/29/2014 SIMONE SONIA S CHILD CAREGIVER Ot V44.3 10/29/2014 SIMONE SONIA S CHILD CAREGIVER Ot V58.69 10/29/2014 MELISSA LEE, JESIKA Liriano Ot 274.9 10/29/2014 SIMONE SONIA S CHILD CAREGIVER Ot 154.0 10/29/2014 NICHOLS, SONIA S CHILD CAREGIVER Ot 793.11 10/29/2014 SIMONE SONIA S CHILD CAREGIVER Ot V44.3 10/29/2014 NICHOLS KARENAH S CHILD CAREGIVER Ot V58.69 10/29/2014 NICHOLS SONIA S CHILD CAREGIVER Ot 154.0 10/29/2014 NICHOLS KARENAH S CHILD CAREGIVER Ot 793.11 10/29/2014 SIMONE KARENAH S CHILD CAREGIVER Ot V44.3 10/29/2014 NICHOLS, KARENAH S CHILD CAREGIVER Ot V58.69 10/29/2014 SIMONE SONIA S CHILD CAREGIVER Ot 154.0 10/29/2014 SIMONE SONIA S CHILD CAREGIVER Ot 196.9 10/29/2014 SIMONE KARENAH S CHILD CAREGIVER Ot 287.5 10/29/2014 SONIA NICHOLS CHILD CAREGIVER Ot 288.00 10/29/2014 SONIA NICHOLS CHILD CAREGIVER Ot 793.11 10/29/2014 SONIA NICHOLS CHILD CAREGIVER Ot V44.3 10/29/2014 SONIA NICHOLS CHILD CAREGIVER Ot V58.69 10/29/2014 HIMA DREW N Ot 154.1 10/29/2014 SONIA NICHOLS CHILD CAREGIVER Ot 070.70 10/29/2014 SONIA NICHOLS CHILD CAREGIVER Ot 154.1 10/29/2014 SONIA NICHOLS CHILD CAREGIVER Ot 196.9 10/29/2014 SONIA NICHOLS CHILD CAREGIVER Ot 793.11 10/29/2014 SONIA NICHOLS CHILD CAREGIVER Ot V44.3 10/29/2014 SONIA NICHOLS CHILD CAREGIVER Ot V58.69 10/29/2014 MELISSA LEE, JESIKA Liriano [...] 401.9 10/29/2014 Ot 571.5 10/29/2014 SONIA NICHOLS CHILD CAREGIVER Ot 154.0 10/29/2014 SONIA NICHOLS CHILD CAREGIVER Ot V44.3 10/29/2014 SONIA NICHOLS CHILD CAREGIVER Ot V58.69 10/29/2014 Ot 571.5 10/29/2014 Ot V10.06 10/29/2014 Ot 070.70 10/29/2014 Ot 242.00 10/29/2014 Ot 401.9 10/29/2014 Ot 571.5 11/12/2014 SONIA NICHOLS CHILD CAREGIVER Ot 154.0 11/12/2014 SONIA NICHOLS CHILD CAREGIVER Ot V44.3 11/12/2014 NICHOLSSONIA Wilson CHILD CAREGIVER Ot V58.69 11/12/2014 SONIA NICHOLS CHILD CAREGIVER Ot 518.0 11/12/2014 SONIA NICHOLS CHILD CAREGIVER Ot 571.5 11/12/2014 SONIA NICHOLS CHILD CAREGIVER Ot 789.2 11/12/2014 NICHOLSSONIA Wilson CHILD CAREGIVER Ot 793.19 12/25/2014 VIKI, BOBAN N Ot [...] Liriano Ot 571.5 04/15/2015 SONIA NICHOLS S CHILD CAREGIVER Ot 070.70 04/15/2015 SONIA NICHOLS S CHILD CAREGIVER Ot 154.0 04/15/2015 SONIA NICHOLS S CHILD CAREGIVER Ot 518.89 04/15/2015 NICHOLSSONIA S CHILD CAREGIVER Ot 571.5 04/15/2015 MELISSA LEE, JESIKA Liriano Ot 242.90 04/15/2015 NICHOLSSONIA Wilson S CHILD CAREGIVER Ot 070.70 04/15/2015 NICHOLSSONIA Wilson S CHILD CAREGIVER Ot 154.0 04/15/2015 NICHOLSSONIA Wilson S CHILD CAREGIVER Ot 793.11 04/15/2015 SONIA NICHOLS S CHILD CAREGIVER Ot V44.3 04/15/2015 NICHOLSSONIA Wilson S CHILD CAREGIVER Ot V58.69 04/15/2015 SONIA NICHOLS S CHILD CAREGIVER Ot 154.0 04/15/2015 NICHOLSSONIA Wilson S CHILD CAREGIVER Ot V87.41 04/15/2015 NICHOLSSONIA Wilson S CHILD CAREGIVER Ot 154.0 04/15/2015 NICHOLSSONIA Wilson S CHILD CAREGIVER Ot 276.51 04/15/2015 SONIA NICHOLS S CHILD CAREGIVER Ot 787.91 04/15/2015 NICHOLSSONIA Wilson S CHILD CAREGIVER Ot 793.11 04/15/2015 NICHOLSSONIA Wilson S CHILD CAREGIVER Ot V44.3 04/15/2015 NICHOLSSONIA Wilson S CHILD CAREGIVER Ot V58.69 04/15/2015 Ot 709.8 04/15/2015 Ot V44.3 04/15/2015 NICHOLSSONIA Wilson S CHILD CAREGIVER Ot 154.0 04/15/2015 NICHOLSSONIA Wilson S CHILD CAREGIVER Ot 276.51 04/15/2015 NICHOLSSONIA Wilson S CHILD CAREGIVER Ot 787.91 04/15/2015 NICHOLSSONIA S CHILD CAREGIVER Ot 793.11 04/15/2015 NICHOLSSONIA S CHILD CAREGIVER Ot V44.3 04/15/2015 NICHOLSSONIA S CHILD CAREGIVER Ot V58.69 04/15/2015 MELISSA LEE, JESIKA Liriano Ot 242.00 04/15/2015 MELISSA LEE, JESIKA Liriano Ot 242.00 04/15/2015 NICHOLSSONIA Wilson S CHILD CAREGIVER Ot 154.0 04/15/2015 SIMONESONIA S CHILD CAREGIVER Ot 276.51 04/15/2015 SIMONESONIA S CHILD CAREGIVER Ot 787.91 04/15/2015 NICHOLSSONIA S CHILD CAREGIVER Ot 793.11 04/15/2015 SIMONE SONIA S CHILD CAREGIVER Ot V44.3 04/15/2015 SIMONE SONIA S CHILD CAREGIVER Ot V58.69 04/15/2015 SIMONESONIA S CHILD CAREGIVER Ot 154.0 04/15/2015 SIMONE SONIA S CHILD CAREGIVER Ot V44.3 04/15/2015 SIMONE SONIA S CHILD CAREGIVER Ot V58.69 04/15/2015 JACKSON LEE, ADAN Ot 154.1 04/15/2015 JACKSON LEE, ADAN Ot V72.84 04/15/2015 JACKSON LEE, ADAN Ot V74.8 04/15/2015 SIMONE SONIA S CHILD CAREGIVER Ot 154.0 04/15/2015 SIMONE SONIA S CHILD CAREGIVER Ot 793.11 04/15/2015 SIMONE SONIA S CHILD CAREGIVER Ot V44.3 04/15/2015 SIMONE SONIA S CHILD CAREGIVER Ot V58.69 04/15/2015 JESIKA TORRES MD Ot 242.00 04/15/2015 SIMONESONIA S CHILD CAREGIVER Ot 154.0 04/15/2015 SIMONE SONIA S CHILD CAREGIVER Ot 793.11 04/15/2015 SIMONE SONIA S CHILD CAREGIVER Ot V44.3 04/15/2015 SIMONE SONIA S CHILD CAREGIVER Ot V58.69 04/15/2015 JESIKA TORRES MD Ot 274.9 04/15/2015 SIMONE SONIA S CHILD CAREGIVER Ot 154.0 04/15/2015 SIMONE SONIA S CHILD CAREGIVER Ot 793.11 04/15/2015 SIMONE SONIA S CHILD CAREGIVER Ot V44.3 04/15/2015 SIMONE SONIA S CHILD CAREGIVER Ot V58.69 04/15/2015 SIMONE SONIA S CHILD CAREGIVER Ot 154.0 04/15/2015 SIMONE SONIA S CHILD CAREGIVER Ot 793.11 04/15/2015 SIMONE HILAH S CHILD CAREGIVER Ot V44.3 04/15/2015 SONIA NICHOLS CHILD CAREGIVER Ot V58.69 04/15/2015 SONIA NICHOLS CHILD CAREGIVER Ot 154.0 04/15/2015 SONIA NICHOLS CHILD CAREGIVER Ot 196.9 04/15/2015 SONIA NICHOLS CHILD CAREGIVER Ot 287.5 04/15/2015 SONIA NICHOLS S CHILD CAREGIVER Ot 288.00 04/15/2015 SONIA NICHOLS S CHILD CAREGIVER Ot 793.11 04/15/2015 SONIA NICHOLS CHILD CAREGIVER Ot V44.3 04/15/2015 SONIA NICHOLS CHILD CAREGIVER Ot V58.69 04/15/2015 HIMA DREW Ot 154.1 04/15/2015 SONIA NICHOLS CHILD CAREGIVER Ot 070.70 04/15/2015 SONIA NICHOLS CHILD CAREGIVER Ot 154.1 04/15/2015 SONIA NICHOLS CHILD CAREGIVER Ot 196.9 04/15/2015 SONIA NICHOLS CHILD CAREGIVER Ot 793.11 04/15/2015 SONIA NICHOLS CHILD CAREGIVER Ot V44.3 04/15/2015 SONIA NICHOLS CHILD CAREGIVER Ot V58.69 04/15/2015 MELISSA LEE, JESIKA Liriano Ot V72.84 04/15/2015 JACKSON LEE, ADAN Ot 153.9 04/15/2015 JACKSON LEE, ADAN Ot V72.63 04/15/2015 JACKSON LEE, ADAN Ot V74.8 04/15/2015 MELISSA LEE, JESIKA Liriano Ot 242.90 04/15/2015 JESIKA TORRES MD Ot 242.00 04/15/2015 Ot 571.5 04/15/2015 Ot V10.06 04/15/2015 Ot 070.70 04/15/2015 Ot 242.00 04/15/2015 Ot 401.9 04/15/2015 Ot 571.5 04/15/2015 SONIA NICHOLS CHILD CAREGIVER Ot 154.0 04/15/2015 SONIA NICHOLS CHILD CAREGIVER Ot V44.3 04/15/2015 SONIA NICHOLS S CHILD CAREGIVER Ot V58.69 04/15/2015 NICHOLSSONIA Wilson S CHILD CAREGIVER Ot 518.0 04/15/2015 SONIA NICHOLS S CHILD CAREGIVER Ot 571.5 04/15/2015 NICHOLSSONIA Wilson S CHILD CAREGIVER Ot 789.2 04/15/2015 NICHOLSSONIA Wilson S CHILD CAREGIVER Ot 793.19 04/15/2015 VIKIPOONAM PARRATIARA N Ot 154.0 04/15/2015 POONAM DREWTIARA N Ot 793.11 04/15/2015 VIKI HIMA N Ot V44.3 04/15/2015 VIKIHIMA N Ot V58.69 04/15/2015 MELISSA LEE, JESIKA Liriano Ot 153.9 04/15/2015 MELISSA LEE, JESIKA Liriano Ot 242.00 04/15/2015 MELISSA LEE, JESIKA Liriano Ot 280.9 04/15/2015 SIMONESONIA S CHILD CAREGIVER Ot 070.70 04/15/2015 NICHOLSSONIA S CHILD CAREGIVER Ot 280.9 04/15/2015 NICHOLS SONIA S CHILD CAREGIVER Ot 571.5 04/15/2015 SIMONE SONIA S CHILD CAREGIVER Ot V10.06 04/15/2015 SIMONE SONIA S CHILD CAREGIVER Ot V44.3 04/15/2015 NICHOLSSONIA S CHILD CAREGIVER Ot V58.69 04/15/2015 NICHOLSSONIA S CHILD CAREGIVER Ot V67.1 04/15/2015 SIMONE SONIA S CHILD CAREGIVER Ot V67.2 04/21/2015 NICHOLSSONIA S CHILD CAREGIVER Ot 070.70 04/21/2015 NICHOLSSONIA Wilson S CHILD CAREGIVER Ot 280.9 04/21/2015 SIMONE SONIA S CHILD CAREGIVER Ot 571.5 04/21/2015 SIMONE SONIA S CHILD CAREGIVER Ot V10.06 04/21/2015 NICHOLSSONIA S CHILD CAREGIVER Ot V44.3 04/21/2015 NICHOLSSONIA S CHILD CAREGIVER Ot V58.69 04/21/2015 SIMONE SONIA S CHILD CAREGIVER Ot V67.1 04/21/2015 SIMONE SONIA S CHILD CAREGIVER Ot V67.2 04/27/2015 HIMA DREW N Ot 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 04/27/2015 VIKI, HIMA N Ot 793.11 SOLITARY PULMONARY NODULE 04/27/2015 VIKIHIMA N Ot V44.3 COLOSTOMY STATUS 04/27/2015 POONAM DREWAN N Ot V58.69 OTH MED,LT,CURRENT USE 04/27/2015 VIKI, BOBAN N Ot V58.81 FIT/ADJ VASCULAR CATHETER 04/27/2015 SONIA NICHOLS CHILD CAREGIVER Ot 154.1 04/27/2015 SONIA NICHOLS CHILD CAREGIVER Ot 793.19 07/16/2015 VIKI BOBAN N Ot [...] 08/16/2015 VIKI, BOBAN N Ot Z79.899 OTHER [facility] (CURRENT) DRUG THERAPY 08/16/2015 VIKI BOBAN N [...] JESIKA Liriano Ot E05.00 10/24/2015 SONIA NICHOLS CHILD CAREGIVER Ot C19 10/24/2015 SONIA NICHOLS CHILD CAREGIVER Ot R91.1 10/24/2015 SONIA NICHOLS CHILD CAREGIVER Ot Z79.899 10/24/2015 SONIA NICHOLS CHILD CAREGIVER Ot Z93.3 10/24/2015 JESIKA TORRES MD Ot E05.00 11/24/2015 HIMA DREW N Ot C19 MALIGNANT NEOPLASM OF RECTOSIGMOID JUNCT 11/24/2015 HIMA DREW N Ot R91.1 SOLITARY PULMONARY NODULE 11/24/2015 HIMA DREW N Ot Z45.2 ENCOUNTER FOR ADJUSTMENT AND MANAGEMENT 11/24/2015 HIMA DREW N Ot 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.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 11/24/2015 HIMA DREW N Ot Z93.3 COLOSTOMY STATUS 12/09/2015 HIMA DREW N Ot C19 MALIGNANT NEOPLASM OF RECTOSIGMOID JUNCT 12/09/2015 HIMA DREW N Ot R91.1 SOLITARY PULMONARY NODULE 12/09/2015 VIKIHIMA PARRA N Ot Z45.2 ENCOUNTER FOR ADJUSTMENT AND MANAGEMENT 12/09/2015 HIMA DREW N Ot Z79.899 OTHER [facility] (CURRENT) DRUG THERAPY 12/09/2015 HIMA DREW N Ot Z93.3 COLOSTOMY STATUS 12/28/2015 HIMA DREW N Ot C19 MALIGNANT NEOPLASM OF RECTOSIGMOID JUNCT 12/28/2015 HIMA DREW N Ot R91.1 SOLITARY PULMONARY NODULE 12/28/2015 VIKIHIMA PARRA N Ot Z45.2 ENCOUNTER FOR ADJUSTMENT AND MANAGEMENT 12/28/2015 VIKIHIMA N Ot Z79.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 12/28/2015 VIKIHIMA PARRA N Ot Z93.3 COLOSTOMY STATUS 12/28/2015 SONIA NICHOLS S CHILD CAREGIVER Ot C19 MALIGNANT NEOPLASM OF RECTOSIGMOID JUNCT 12/28/2015 SONIA NICHOLS CHILD CAREGIVER Ot R91.1 SOLITARY PULMONARY NODULE 12/28/2015 SONIA NICHOLS CHILD CAREGIVER Ot Z45.2 ENCOUNTER FOR ADJUSTMENT AND MANAGEMENT 12/28/2015 SONIA NICHOLS CHILD CAREGIVER Ot Z79.899 OTHER [facility] (CURRENT) DRUG THERAPY 12/28/2015 SONIA NICHOLS CHILD CAREGIVER Ot Z93.3 COLOSTOMY STATUS 01/06/2016 SONIA NICHOLS CHILD CAREGIVER Ot C19 MALIGNANT NEOPLASM OF RECTOSIGMOID JUNCT 01/06/2016 SONIA NICHOLS CHILD CAREGIVER Ot R91.1 SOLITARY PULMONARY NODULE 01/06/2016 SONIA NICHOLS CHILD CAREGIVER Ot Z45.2 ENCOUNTER FOR ADJUSTMENT AND MANAGEMENT 01/06/2016 SONIA NICHOLS CHILD CAREGIVER Ot Z79.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 01/06/2016 SONIA NICHOLS CHILD CAREGIVER Ot Z93.3 COLOSTOMY STATUS 01/25/2016 JESIKA TORRES [...] 01/27/2016 JESIKA TORRES MD Ot Z79.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 01/27/2016 JESIKA TORRES MD Ot Z85.038 PERSONAL HISTORY OF MALIGNANT NEOPLASM O 01/27/2016 JESIKA TORRES MD Ot Z93.3 COLOSTOMY STATUS 02/01/2016 JESIKA TORRES MD, Ot E05.00 THYROTOXICOSIS W DIFFUSE GOITER W/O THYR 02/01/2016 JESIKA TORRES MD Ot K62.7 RADIATION PROCTITIS 02/01/2016 JESIKA TORRES MD Ot Z12.11 ENCOUNTER FOR SCREENING FOR MALIGNANT NE 02/01/2016 JESIKA TORRES MD Ot Z79.899 OTHER [facility] (CURRENT) DRUG THERAPY 02/01/2016 JESIKA TORRES MD Ot Z85.038 PERSONAL HISTORY OF MALIGNANT NEOPLASM O 02/01/2016 JESIKA TORRES MD Ot Z93.3 COLOSTOMY STATUS 02/09/2016 VIKIHIMA PARRA N Ot C19 MALIGNANT NEOPLASM OF RECTOSIGMOID JUNCT 02/09/2016 VIKIHIMA PARRA N Ot R91.1 SOLITARY PULMONARY NODULE 02/09/2016 VIKIHIMA PARRA N Ot Z45.2 ENCOUNTER FOR ADJUSTMENT AND MANAGEMENT 02/09/2016 VIKIHIMA PARRA N Ot Z79.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 02/09/2016 VIKIHIMA PARRA N Ot Z93.3 COLOSTOMY STATUS 02/22/2016 VIKIHIMA PARRA N Ot C19 MALIGNANT NEOPLASM OF RECTOSIGMOID JUNCT 02/22/2016 VIKIHIMA PARRA N Ot R91.1 SOLITARY PULMONARY NODULE 02/22/2016 VIKIHIMA PARRA N Ot Z45.2 ENCOUNTER FOR ADJUSTMENT AND MANAGEMENT 02/22/2016 VIKIHIMA PARRA N Ot Z79.899 OTHER [facility] (CURRENT) DRUG THERAPY 02/22/2016 VIKIHIMA PARRA N Ot Z93.3 COLOSTOMY STATUS 03/14/2016 SONIA NICHOLS CHILD CAREGIVER Ot C20 MALIGNANT NEOPLASM OF RECTUM 03/14/2016 SONIA NICHOLS CHILD CAREGIVER Ot R91.8 OTHER NONSPECIFIC ABNORMAL FINDING OF KORI 03/26/2016 VIKI, BOBAN N Ot C19 MALIGNANT NEOPLASM OF RECTOSIGMOID JUNCT 03/26/2016 VIKIHIMA PARRA N Ot R91.1 SOLITARY PULMONARY NODULE 03/26/2016 VIKIHIMA PARRA N Ot Z45.2 ENCOUNTER FOR ADJUSTMENT AND MANAGEMENT 03/26/2016 VIKIHIMA PARRA N Ot Z79.899 OTHER [facility] (CURRENT) DRUG THERAPY 03/26/2016 VIKIHIMA PARRA N Ot Z93.3 COLOSTOMY STATUS 03/29/2016 VIKI, BOBAN N Ot C19 MALIGNANT NEOPLASM OF RECTOSIGMOID JUNCT 03/29/2016 VIKIHIMA PARRA N Ot R91.1 SOLITARY PULMONARY NODULE 03/29/2016 VIKIHIMA PARRA N Ot Z45.2 ENCOUNTER FOR ADJUSTMENT AND MANAGEMENT 03/29/2016 HIMA DREW N Ot Z79.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 03/29/2016 VIKIHIMA PARRA N Ot Z93.3 COLOSTOMY STATUS 03/29/2016 SONIA NICHOLS CHILD CAREGIVER Ot C20 MALIGNANT NEOPLASM OF RECTUM 03/29/2016 SONIA NICHOLS CHILD CAREGIVER Ot R91.8 OTHER NONSPECIFIC ABNORMAL FINDING OF KORI 04/13/2016 VIKIHIMA PARRA N Ot C19 MALIGNANT NEOPLASM OF RECTOSIGMOID JUNCT 04/13/2016 HIMA DREW N Ot R91.1 SOLITARY PULMONARY NODULE 04/13/2016 VIKIHIMA PARRA N Ot Z45.2 ENCOUNTER FOR ADJUSTMENT AND MANAGEMENT 04/13/2016 VIKIHIMA PARRA N Ot Z79.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 04/13/2016 VIKIHIMA PARRA N Ot Z93.3 COLOSTOMY STATUS 04/24/2016 VIKIHIMA PARRA N Ot C19 MALIGNANT NEOPLASM OF RECTOSIGMOID JUNCT 04/24/2016 VIKIHIMA PARRA N Ot R91.1 SOLITARY PULMONARY NODULE 04/24/2016 VIKIHIMA PARRA N Ot Z45.2 ENCOUNTER FOR ADJUSTMENT AND MANAGEMENT 04/24/2016 VIKIHIMA PARRA N Ot Z79.899 OTHER [facility] (CURRENT) DRUG THERAPY 04/24/2016 VIKIHIMA PARRA N Ot Z93.3 COLOSTOMY STATUS 05/07/2016 VIKIHIMA PARRA N Ot C19 MALIGNANT NEOPLASM OF RECTOSIGMOID JUNCT 05/07/2016 VIKIHIMA N Ot R91.1 SOLITARY PULMONARY NODULE 05/07/2016 VIKIHIMA N Ot Z45.2 ENCOUNTER FOR ADJUSTMENT AND MANAGEMENT 05/07/2016 VIKIHIMA N Ot Z79.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 05/07/2016 VIKIHIMA N Ot Z93.3 COLOSTOMY STATUS 07/11/2016 VIKIPOONAMAN N Ot C19 MALIGNANT NEOPLASM OF RECTOSIGMOID JUNCT 07/11/2016 VIKIHIMA N Ot R91.1 SOLITARY PULMONARY NODULE 07/11/2016 VIKIHIMA PARRA N Ot Z45.2 ENCOUNTER FOR ADJUSTMENT AND MANAGEMENT 07/11/2016 HIMA DREW N Ot Z79.899 OTHER [facility] (CURRENT) DRUG THERAPY 07/11/2016 HIMA DREW N Ot Z93.3 COLOSTOMY STATUS 08/08/2016 HIMA DREW N Ot C19 MALIGNANT NEOPLASM OF RECTOSIGMOID JUNCT 08/08/2016 HIMA DREW N Ot R91.1 SOLITARY PULMONARY NODULE 08/08/2016 HIMA DREW N Ot Z45.2 ENCOUNTER FOR ADJUSTMENT AND MANAGEMENT 08/08/2016 HIMA DREW N Ot Z79.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 08/08/2016 HIMA DREW N Ot Z93.3 COLOSTOMY STATUS 08/28/2016 MELISSA LEE, JESIKA Liriano Ot E05.00 THYROTOXICOSIS W DIFFUSE GOITER W/O THYR 09/02/2016 HIMA DREW N Ot C19 MALIGNANT NEOPLASM OF RECTOSIGMOID JUNCT 09/02/2016 HIMA DREW N Ot R91.1 SOLITARY PULMONARY NODULE 09/02/2016 HIMA DREW N Ot Z45.2 ENCOUNTER FOR ADJUSTMENT AND MANAGEMENT 09/02/2016 HIMA DREW N Ot Z79.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 09/02/2016 HIMA DREW N Ot Z93.3 COLOSTOMY STATUS 09/12/2016 JESIKA TORRES MD Ot E05.00 THYROTOXICOSIS W DIFFUSE GOITER W/O THYR 10/09/2016 HIMA DREW N Ot C19 MALIGNANT NEOPLASM OF RECTOSIGMOID JUNCT 10/09/2016 HIMA DREW N Ot R91.1 SOLITARY PULMONARY NODULE 10/09/2016 HIMA DREW N Ot Z45.2 ENCOUNTER FOR ADJUSTMENT AND MANAGEMENT 10/09/2016 HIMA DREW N Ot Z79.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 10/09/2016 HIMA DREW N Ot Z93.3 COLOSTOMY STATUS 11/13/2016 HIMA DREW N Ot C19 MALIGNANT NEOPLASM OF RECTOSIGMOID JUNCT 11/13/2016 HIMA DREW N Ot R91.1 SOLITARY PULMONARY NODULE 11/13/2016 VIKIHIMA PARRA Ot Z45.2 ENCOUNTER FOR ADJUSTMENT AND MANAGEMENT 11/13/2016 HIMA DREW Ot Z79.899 OTHER [facility] (CURRENT) DRUG THERAPY 11/13/2016 HIMA DREW Ot [...] CIRRHOSIS OF LIVER NOS 11/28/2016 SONIA NICHOLS CHILD CAREGIVER Ot 070.70 UNSPECIFIED VIRAL HEPATITIS C WITHOUT HE 11/28/2016 SONIA NICHOLS CHILD CAREGIVER Ot 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 11/28/2016 SONIA NICHOLS CHILD CAREGIVER Ot 518.89 OTHER DISEASES OF LUNG, NEC 11/28/2016 SONIA NICHOLS CHILD CAREGIVER Ot 571.5 CIRRHOSIS OF LIVER NOS 11/28/2016 MELISSA LEE, JESIKA Liriano Ot 242.90 THYROTOX NOS NO CRISIS 11/28/2016 SONIA NICHOLS CHILD CAREGIVER Ot 070.70 UNSPECIFIED VIRAL HEPATITIS C WITHOUT HE 11/28/2016 SONIA NICHOLS CHILD CAREGIVER Ot 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 11/28/2016 SONIA NICHOLS CHILD CAREGIVER Ot 793.11 SOLITARY PULMONARY NODULE 11/28/2016 SONIA NICHOLS CHILD CAREGIVER Ot V44.3 COLOSTOMY STATUS 11/28/2016 SONIA NICHOLS CHILD CAREGIVER Ot V58.69 OTH MED,LT,CURRENT USE 11/28/2016 SONIA NICHOLS CHILD CAREGIVER Ot 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 11/28/2016 SONIA NICHOLS CHILD CAREGIVER Ot V87.41 PERSONAL HISTORY OF ANTINEOPLASTIC CHEMO 11/28/2016 SONIA NICHOLS CHILD CAREGIVER Ot 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 11/28/2016 SONIA NICHOLS CHILD CAREGIVER Ot 276.51 DEHYDRATION 11/28/2016 SONIA NICHOLS CHILD CAREGIVER Ot 787.91 DIARRHEA 11/28/2016 SONIA NICHOLS CHILD CAREGIVER Ot 793.11 SOLITARY PULMONARY NODULE 11/28/2016 SONIA NICHOLS CHILD CAREGIVER Ot V44.3 COLOSTOMY STATUS 11/28/2016 SONIA NICHOLS CHILD CAREGIVER Ot V58.69 OTH MED,LT,CURRENT USE 11/28/2016 Ot 709.8 SKIN DISORDERS NEC 11/28/2016 Ot V44.3 COLOSTOMY STATUS 11/28/2016 SONIA NICHOLS CHILD CAREGIVER Ot 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 11/28/2016 SONIA NICHOLS CHILD CAREGIVER Ot 276.51 DEHYDRATION 11/28/2016 SONIA NICHOLS CHILD CAREGIVER Ot 787.91 DIARRHEA 11/28/2016 SONIA NICHOLS CHILD CAREGIVER Ot 793.11 SOLITARY PULMONARY NODULE 11/28/2016 SONIA NICHOLS CHILD CAREGIVER Ot V44.3 COLOSTOMY STATUS 11/28/2016 SONIA NICHOLS CHILD CAREGIVER Ot V58.69 OTH MED,LT,CURRENT USE 11/28/2016 JESIKA TORRES MD Ot 242.00 TOX DIF GOITER NO CRISIS 11/28/2016 JESIKA TORRES MD Ot 242.00 TOX DIF GOITER NO CRISIS 11/28/2016 SONIA NICHOLS CHILD CAREGIVER Ot 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 11/28/2016 SONIA NICHOLS CHILD CAREGIVER Ot 276.51 DEHYDRATION 11/28/2016 SONIA NICHOLS CHILD CAREGIVER Ot 787.91 DIARRHEA 11/28/2016 SONIA NICHOLS CHILD CAREGIVER Ot 793.11 SOLITARY PULMONARY NODULE 11/28/2016 SONIA NICHOLS CHILD CAREGIVER Ot V44.3 COLOSTOMY STATUS 11/28/2016 SONIA NICHOLSP Ot V58.69 OTH MED,LT,CURRENT USE 11/28/2016 SONIA NICHOLS CHILD CAREGIVER Ot 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 11/28/2016 SONIA NICHOLS CHILD CAREGIVER Ot V44.3 COLOSTOMY STATUS 11/28/2016 SONIA NICHOLSP Ot V58.69 OTH MED,LT,CURRENT USE 11/28/2016 ADAN PAZ MD Ot 154.1 MALIGNANT NEOPL RECTUM 11/28/2016 ADAN PAZ MD Ot V72.84 EXAM PRE-OPERATIVE NOS 11/28/2016 ADAN PAZ MD Ot V74.8 SCREEN-BACTERIAL DIS NEC 11/28/2016 SONIA NICHOLS CHILD CAREGIVER Ot 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 11/28/2016 SONIA NICHOLS CHILD CAREGIVER Ot 793.11 SOLITARY PULMONARY NODULE 11/28/2016 SONIA NICHOLS CHILD CAREGIVER Ot V44.3 COLOSTOMY STATUS 11/28/2016 SONIA NICHOLS CHILD CAREGIVER Ot V58.69 OTH MED,LT,CURRENT USE 11/28/2016 JESIKA TORRES MD Ot 242.00 TOX DIF GOITER NO CRISIS 11/28/2016 SONIA NICHOLS CHILD CAREGIVER Ot 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 11/28/2016 NICHOLS, HILAH S CHILD CAREGIVER Ot 793.11 SOLITARY PULMONARY NODULE 11/28/2016 KAREN NICHOLSLAURA S CHILD CAREGIVER Ot V44.3 COLOSTOMY STATUS 11/28/2016 SONIA NICHOLS S CHILD CAREGIVER Ot V58.69 OTH MED,LT,CURRENT USE 11/28/2016 MELISSA LEE, JESIKA Liriano Ot 274.9 GOUT NOS 11/28/2016 SONIA NICHOLS S CHILD CAREGIVER Ot 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 11/28/2016 SONIA NICHOLS S CHILD CAREGIVER Ot 793.11 SOLITARY PULMONARY NODULE 11/28/2016 SONIA NICHOLS S CHILD CAREGIVER Ot V44.3 COLOSTOMY STATUS 11/28/2016 KAREN NICHOLSLAURA S CHILD CAREGIVER Ot V58.69 OTH MED,LT,CURRENT USE 11/28/2016 SONIA NICHOLS S CHILD CAREGIVER Ot 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 11/28/2016 SONIA NICHOLS S CHILD CAREGIVER Ot 793.11 SOLITARY PULMONARY NODULE 11/28/2016 SONIA NICHOLS S CHILD CAREGIVER Ot V44.3 COLOSTOMY STATUS 11/28/2016 SONIA NICHOLS S CHILD CAREGIVER Ot V58.69 OTH MED,LT,CURRENT USE 11/28/2016 KAREN NICHOLSLAURA S CHILD CAREGIVER Ot 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 11/28/2016 SONIA NICHOLS S CHILD CAREGIVER Ot 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 11/28/2016 SONIA NICHOLS S CHILD CAREGIVER Ot 287.5 THROMBOCYTOPENIA NOS 11/28/2016 SONIA NICHOLS S CHILD CAREGIVER Ot 288.00 NEUTROPENIA, UNSPECIFIED 11/28/2016 SONIA NICHOLS S CHILD CAREGIVER Ot 793.11 SOLITARY PULMONARY NODULE 11/28/2016 SONIA NICHOLS S CHILD CAREGIVER Ot V44.3 COLOSTOMY STATUS 11/28/2016 SONIA NICHOLS S CHILD CAREGIVER Ot V58.69 OTH MED,LT,CURRENT USE 11/28/2016 HIMA DREW Ot 154.1 MALIGNANT NEOPL RECTUM 11/28/2016 SONIA NICHOLS S CHILD CAREGIVER Ot 070.70 UNSPECIFIED VIRAL HEPATITIS C WITHOUT HE 11/28/2016 SONIA NICHOLS S CHILD CAREGIVER Ot 154.1 MALIGNANT NEOPL RECTUM 11/28/2016 SONIA NICHOLS S CHILD CAREGIVER Ot 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 11/28/2016 SONIA NICHOLS CHILD CAREGIVER Ot 793.11 SOLITARY PULMONARY NODULE 11/28/2016 SONIA NICHOLS CHILD CAREGIVER Ot V44.3 COLOSTOMY STATUS 11/28/2016 SONIA NICHOLS CHILD CAREGIVER Ot V58.69 OTH MED,LT,CURRENT USE 11/28/2016 JESIKA [...] CIRRHOSIS OF LIVER NOS 11/28/2016 SONIA NICHOLS CHILD CAREGIVER Ot 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 11/28/2016 SONIA NICHOLS CHILD CAREGIVER Ot V44.3 COLOSTOMY STATUS 11/28/2016 SONIA NICHOLSP Ot V58.69 OTH MED,LT,CURRENT USE 11/28/2016 SONIA NICHOLS CHILD CAREGIVER Ot 518.0 PULMONARY COLLAPSE 11/28/2016 SONIA NICHOLS CHILD CAREGIVER Ot 571.5 CIRRHOSIS OF LIVER NOS 11/28/2016 SONIA NICHOLS CHILD CAREGIVER Ot 789.2 SPLENOMEGALY 11/28/2016 SONIA NICHOLS CHILD CAREGIVER Ot 793.19 OTHER NONSPECIFIC ABNORMAL FINDING OF KORI 11/28/2016 JESIKA TORRES MD Ot 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 11/28/2016 JESIKA TORRES MD Ot 242.00 TOX DIF GOITER NO CRISIS 11/28/2016 JESIKA TORRES MD Ot 280.9 IRON DEFIC ANEMIA NOS 11/28/2016 SONIA NICHOLS CHILD CAREGIVER Ot 070.70 UNSPECIFIED VIRAL HEPATITIS C WITHOUT HE 11/28/2016 SONIA NICHOLS CHILD CAREGIVER Ot 280.9 IRON DEFIC ANEMIA NOS 11/28/2016 SONIA NICHOLS CHILD CAREGIVER Ot 571.5 CIRRHOSIS OF LIVER NOS 11/28/2016 SONIA NICHOLS CHILD CAREGIVER Ot V10.06 HX-RECTAL ANAL MALIGN 11/28/2016 SONIA NICHOLS CHILD CAREGIVER Ot V44.3 COLOSTOMY STATUS 11/28/2016 SONIA INCHOLS CHILD CAREGIVER Ot V58.69 OT MED,LT,CURRENT USE 11/28/2016 SONIA NICHOLS CHILD CAREGIVER Ot V67.1 RADIOTHERAPY FOLLOW-UP 11/28/2016 SONIA NICHOLS CHILD CAREGIVER Ot V67.2 CHEMOTHERAPY FOLLOW-UP 11/28/2016 SONIA NICHOLS CHILD CAREGIVER Ot 154.1 MALIGNANT NEOPL RECTUM 11/28/2016 OSNIA NICHOLS CHILD CAREGIVER Ot 793.19 OTHER NONSPECIFIC ABNORMAL FINDING OF KORI 11/28/2016 JESIKA TORRES MD Ot E05.00 THYROTOXICOSIS W DIFFUSE GOITER W/O THYR 11/28/2016 SONIA NICHOLS CHILD CAREGIVER Ot C19 MALIGNANT NEOPLASM OF RECTOSIGMOID JUNCT 11/28/2016 SONIA NICHOLSP Ot R91.1 SOLITARY PULMONARY NODULE 11/28/2016 SONIA NICHOLS CHILD CAREGIVER Ot Z79.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 11/28/2016 SONIA NICHLOSP Ot Z93.3 COLOSTOMY STATUS 11/28/2016 JESIKA TORRES MD Ot E05.00 THYROTOXICOSIS W DIFFUSE GOITER W/O THYR 11/28/2016 SONIA NICHOLS CHILD CAREGIVER Ot C19 MALIGNANT NEOPLASM OF RECTOSIGMOID JUNCT 11/28/2016 SONIA NICHOLS CHILD CAREGIVER Ot R91.1 SOLITARY PULMONARY NODULE 11/28/2016 SONIA NICHOLS CHILD CAREGIVER Ot Z45.2 ENCOUNTER FOR ADJUSTMENT AND MANAGEMENT 11/28/2016 SONIA NICHOLS CHILD CAREGIVER Ot Z79.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 11/28/2016 SONIA NICHOLS CHILD CAREGIVER Ot Z93.3 COLOSTOMY STATUS 11/28/2016 SONIA NICHOLS CHILD CAREGIVER Ot C20 MALIGNANT NEOPLASM OF RECTUM 11/28/2016 NICHOLS SONIA Wilson CHILD CAREGIVER Ot R91.8 OTHER NONSPECIFIC ABNORMAL FINDING OF KORI 11/28/2016 MELISSA LEE, JESIKA Liriano Ot E05.00 THYROTOXICOSIS W DIFFUSE GOITER W/O THYR 11/28/2016 VIKIHIMA PARRA N Ot C19 MALIGNANT NEOPLASM OF RECTOSIGMOID JUNCT 11/28/2016 VIKI, POONAMTAIRA N Ot R91.1 SOLITARY PULMONARY NODULE 11/28/2016 VIKI, POONAMTIARA N Ot Z45.2 ENCOUNTER FOR ADJUSTMENT AND MANAGEMENT 11/28/2016 VIKIPOONAM PARRAAN N Ot Z79.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 11/28/2016 VIKI, POONAMTIARA N Ot Z93.3 COLOSTOMY STATUS 12/13/2016 MELISSA LEE, JESIKA Liriano Ot E05.00 THYROTOXICOSIS W DIFFUSE GOITER W/O THYR 01/06/2017 VIKIHIMA PARRA N Ot C19 MALIGNANT NEOPLASM OF RECTOSIGMOID JUNCT 01/06/2017 VIKI, POONAMTIARA N Ot R91.1 SOLITARY PULMONARY NODULE 01/06/2017 VIKIHIMA PARRA N Ot Z45.2 ENCOUNTER FOR ADJUSTMENT AND MANAGEMENT 01/06/2017 VIKI, BOBAN N Ot Z79.899 OTHER [facility] (CURRENT) DRUG THERAPY 01/06/2017 VIKI, BOBAN N Ot Z93.3 COLOSTOMY STATUS 01/14/2017 VIKIHIMA PARRA N Ot C19 MALIGNANT NEOPLASM OF RECTOSIGMOID JUNCT 01/14/2017 VIKI, BOBAN N Ot R91.1 SOLITARY PULMONARY NODULE 01/14/2017 VIKIHIMA N Ot Z45.2 ENCOUNTER FOR ADJUSTMENT AND MANAGEMENT 01/14/2017 VIKI BOBAN N Ot Z79.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 01/14/2017 VIKIPOONAMAN N Ot Z93.3 COLOSTOMY STATUS 02/08/2017 VIKIHIMA PARRA N Ot C19 MALIGNANT NEOPLASM OF RECTOSIGMOID JUNCT 02/08/2017 VIKI BOBAN N Ot R91.1 SOLITARY PULMONARY NODULE 02/08/2017 VIKI BOBAN N Ot Z45.2 ENCOUNTER FOR ADJUSTMENT AND MANAGEMENT 02/08/2017 VIKI POONAMAN N Ot Z79.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 02/08/2017 HIMA DREW Dejan Ot Z93.3 COLOSTOMY STATUS 04/11/2017 VIKI POONAMTIARA Dejan Ot C19 MALIGNANT NEOPLASM OF RECTOSIGMOID JUNCT 04/11/2017 HIMA DREW Dejan Ot R91.1 SOLITARY PULMONARY NODULE 04/11/2017 HIMA DREW Dejan Ot Z45.2 ENCOUNTER FOR ADJUSTMENT AND MANAGEMENT 04/11/2017 VIKI POONAMTIARA Dejan Ot Z79.899 OTHER [facility] (CURRENT) DRUG THERAPY 04/11/2017 HIMA DREW Dejan [...] 05/17/2017 HIMA DREW Dejan Ot Z79.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 05/17/2017 HIMA DREW Dejan [...] SPECIFIED ABNORMAL FINDINGS OF BLO 06/14/2017 HIMA DREW N Ot R91.1 SOLITARY PULMONARY NODULE 06/14/2017 HIMA DREW N Ot Z79.899 OTHER [facility] (CURRENT) DRUG THERAPY 06/14/2017 HIMA DREW N Ot Z92.21 PERSONAL HISTORY OF ANTINEOPLASTIC CHEMO 06/14/2017 HIMA DREW N Ot Z92.3 PERSONAL HISTORY OF IRRADIATION 06/14/2017 HIMA DREW N Ot Z93.3 COLOSTOMY STATUS 08/14/2017 HIAM DREW N Ot B18.2 CHRONIC VIRAL HEPATITIS [...] 08/14/2017 HIMA DREW N Ot Z79.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 08/14/2017 HIMA DREW Dejan [...] 09/26/2017 HIMA DREW N Ot Z79.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 09/26/2017 HIMA DREW N [...] 10/11/2017 HIMA DREW N Ot Z79.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 10/11/2017 HIMA DREW N [...] 12/11/2017 HIMA DREW N Ot Z79.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 12/11/2017 HIMA DREW N [...] DREW N Ot E83.42 HYPOMAGNESEMIA 12/24/2017 HIMA DRWE N Ot I10 ESSENTIAL (PRIMARY) HYPERTENSION 12/24/2017 HIMA DREW Dejan Ot R79.89 OTHER SPECIFIED ABNORMAL FINDINGS OF BLO 12/24/2017 HIMA DREW Dejan Ot R91.1 SOLITARY PULMONARY NODULE 12/24/2017 HIMA DREW Dejan Ot Z45.2 ENCOUNTER FOR ADJUSTMENT AND MANAGEMENT 12/24/2017 HIMA DREW N Ot Z79.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 12/24/2017 HIMA DREW N [...] 02/03/2018 HIMA DREW N Ot Z79.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 02/03/2018 VIKI POONAMTIARA N [...] 03/17/2018 HIMA DREW N Ot Z79.899 OTHER [facility] (CURRENT) DRUG THERAPY 03/17/2018 HIMA DREW N [...] 04/09/2018 HIMA DREW Dejan Ot Z79.899 OTHER [facility] (CURRENT) DRUG THERAPY 04/09/2018 HIMA DREW Dejan [...] 05/01/2018 HIMA DREW N Ot Z79.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 05/01/2018 HIMA DREW N Ot Z92.21 PERSONAL HISTORY OF ANTINEOPLASTIC CHEMO 05/01/2018 HIMA DREW N Ot Z92.3 PERSONAL HISTORY OF IRRADIATION 05/01/2018 HIMA DREW N Ot Z93.3 COLOSTOMY STATUS 05/02/2018 HIMA DREW N Ot B18.2 CHRONIC VIRAL HEPATITIS C 05/02/2018 HIMA DREW N Ot C19 MALIGNANT NEOPLASM OF RECTOSIGMOID JUNCT 05/02/2018 HIMA DREW N Ot D61.818 OTHER PANCYTOPENIA 05/02/2018 HIMA DREW N Ot E05.00 THYROTOXICOSIS W DIFFUSE GOITER W/O THYR 05/02/2018 HIMA DREW N Ot E83.42 HYPOMAGNESEMIA 05/02/2018 HIMA DREW N Ot I10 ESSENTIAL (PRIMARY) HYPERTENSION 05/02/2018 HIMA DREW Dejan Ot R79.89 OTHER SPECIFIED ABNORMAL FINDINGS OF BLO 05/02/2018 HIMA DREW Dejan Ot R91.1 SOLITARY PULMONARY NODULE 05/02/2018 HIMA DREW N Ot Z45.2 ENCOUNTER FOR ADJUSTMENT AND MANAGEMENT 05/02/2018 HIMA DREW N Ot Z79.899 OTHER [facility] (CURRENT) DRUG THERAPY 05/02/2018 HIMA DREW N Ot Z92.21 PERSONAL HISTORY OF ANTINEOPLASTIC CHEMO 05/02/2018 HIMA DREW N Ot Z92.3 PERSONAL HISTORY OF IRRADIATION 05/02/2018 HIMA DREW N Ot Z93.3 COLOSTOMY STATUS 06/25/2018 Ot 709.8 SKIN DISORDERS NEC 06/25/2018 Ot V44.3 COLOSTOMY STATUS 06/25/2018 MELISSA LEE, JESIKA Liriano Ot 242.00 TOX DIF GOITER NO CRISIS 06/25/2018 HIMA DREW Dejan Ot B18.2 CHRONIC VIRAL HEPATITIS C 06/25/2018 VIKIHIMA PARRA N Ot C19 MALIGNANT NEOPLASM OF RECTOSIGMOID JUNCT 06/25/2018 HIMA DREW N Ot D61.818 OTHER PANCYTOPENIA 06/25/2018 HIMA DREW N Ot E05.00 THYROTOXICOSIS W DIFFUSE GOITER W/O THYR 06/25/2018 HIMA DREW Ot E83.42 HYPOMAGNESEMIA 06/25/2018 HIMA DREW Dejan Ot I10 ESSENTIAL (PRIMARY) HYPERTENSION 06/25/2018 HIMA DREW Ot R79.89 OTHER SPECIFIED ABNORMAL FINDINGS OF BLO 06/25/2018 HIMA DREW Ot R91.1 SOLITARY PULMONARY NODULE 06/25/2018 HIMA DREW Ot Z45.2 ENCOUNTER FOR ADJUSTMENT AND MANAGEMENT 06/25/2018 HIMA DREW Ot Z79.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 06/25/2018 HIMA DREW Ot Z92.21 PERSONAL HISTORY OF ANTINEOPLASTIC CHEMO 06/25/2018 HIMA DREW Dejan Ot Z92.3 PERSONAL HISTORY OF IRRADIATION 06/25/2018 HIMA DREW Dejan Ot Z93.3 COLOSTOMY STATUS 06/25/2018 MATTHEW CASTREJON DO Ot Z01.818 ENCOUNTER FOR OTHER PREPROCEDURAL EXAMIN 06/26/2018 MATTHEW CASTREJON DO Ot I10 ESSENTIAL (PRIMARY) HYPERTENSION 06/26/2018 MATTHEW CASTREJON DO Ot Z08 ENCNTR FOR FOLLOW-UP EXAM AFTER TRTMT FO 06/26/2018 MATTHEW CASTREJON DO Ot Z79.899 OTHER [facility] (CURRENT) DRUG THERAPY 06/26/2018 MATTHEW CASTREJON DO Ot Z85.048 PRSNL HX OF MALIG NEOPLM OF RECTUM, RECT 06/26/2018 MATTHEW CASTREJON DO Ot Z86.19 PERSONAL HISTORY OF OTHER INFECTIOUS AND 06/30/2018 MATTHEW CASTREJON DO Ot I10 ESSENTIAL (PRIMARY) HYPERTENSION 06/30/2018 MATTHEW CASTREJON DO Ot Z08 ENCNTR FOR FOLLOW-UP EXAM AFTER TRTMT FO 06/30/2018 MATTHEW CASTREJON DO Ot Z79.899 OTHER [facility] (CURRENT) DRUG THERAPY 06/30/2018 MATTHEW CASTREJON DO Ot Z85.048 PRSNL HX OF MALIG NEOPLM OF RECTUM, RECT 06/30/2018 MATTHEW CASTREJON DO Ot Z86.19 PERSONAL HISTORY OF OTHER INFECTIOUS AND 07/10/2018 SONIA NICHOLS CHILD CAREGIVER Ot C18.9 MALIGNANT NEOPLASM OF COLON, UNSPECIFIED 07/10/2018 SONIA NICHOLS CHILD CAREGIVER Ot N43.3 HYDROCELE, UNSPECIFIED 07/10/2018 SONIA NICHOLS [facility] Ot R59.0 LOCALIZED ENLARGED LYMPH NODES 07/10/2018 SIMONE KARENLAURA Wilson [facility] Ot R91.8 OTHER NONSPECIFIC ABNORMAL FINDING OF KORI Procedures Code Description Performed By Performed On [...] <=0.05 miu/l (units/ volume) 0.85 u[iU]/mL 0.35-4.94 Methicillin resistant Staphylococcus aureus (MRSA) screening culture - 08:10 Methicillin resistant Staphylococcus aureus (MRSA) screening culture NEG NR Complete blood count (CBC) with automated white blood cell (WBC) differential - 07/11/18 11:20 Blood leukocytes automated count (number/volume) 2.9 10*3/uL 4.3-11.0 Blood erythrocytes automated count (number/volume) 4.53 10*6/uL 4.35-5.85 Venous blood hemoglobin measurement (mass/volume) 14.7 g/dL 13.3-17.7 Blood hematocrit (volume fraction) 43 % 40-54 Automated erythrocyte mean corpuscular volume 94 [foz_us] 80-99 Automated erythrocyte mean corpuscular hemoglobin (mass per erythrocyte) 33 pg 25-34 Automated erythrocyte mean corpuscular hemoglobin concentration measurement ( mass/volume) 35 g/dL 32-36 Automated erythrocyte distribution width ratio 14.0 % 10.0-14.5 Automated blood platelet count (count/volume) 135 10*3/uL 130-400 Automated blood platelet mean volume measurement 9.2 [foz_us] 7.4-10.4 Automated blood neutrophils/100 leukocytes 55 % 42-75 Automated blood lymphocytes/100 leukocytes 30 % 12-44 Blood monocytes/100 leukocytes 12 % 0-12 Automated blood eosinophils/100 leukocytes 2 % 0-10 Automated blood basophils/100 leukocytes 1 % 0-10 Blood neutrophils automated count (number/volume) 1.6 10*3 1.8-7.8 Blood lymphocytes automated count (number/volume) 0.9 10*3 1.0-4.0 Blood monocytes automated count (number/volume) 0.3 10*3 0.0-1.0 Automated eosinophil count 0.1 10*3/uL 0.0-0.3 Automated blood basophil count (count/volume) 0.0 10*3/uL 0.0-0.1 PT panel in platelet poor plasma by coagulation assay - 07/11/18 11:20 Prothrombin time (PT) in platelet poor plasma by coagulation assay 14.2 s 12.2-14.7 INR in platelet poor plasma or blood by coagulation assay 1.1 0.8-1.4 Comprehensive metabolic panel - 07/11/18 11:20 Serum or plasma sodium measurement (moles/volume) 138 mmol/L 135-145 Serum or plasma potassium measurement (moles/volume) 4.2 mmol/L 3.6-5.0 Serum or plasma chloride measurement (moles/volume) 105 mmol/L 98-107 Carbon dioxide 24 mmol/L 21-32 Serum or plasma anion gap determination (moles/volume) 9 mmol/L 5-14 Serum or plasma urea nitrogen measurement (mass/volume) 14 mg/dL 7-18 Serum or plasma creatinine measurement (mass/volume) 1.06 mg/dL 0.60-1.30 Serum or plasma urea nitrogen/creatinine mass ratio 13 NRG Serum or plasma creatinine measurement with calculation of estimated glomerular filtration rate > NRG Serum or plasma glucose measurement (mass/volume) 96 mg/dL 70-105 Serum or plasma calcium measurement (mass/volume) 9.3 mg/dL 8.5-10.1 Serum or plasma total bilirubin measurement (mass/volume) 1.2 mg/dL 0.1-1.0 Serum or plasma alkaline phosphatase measurement (enzymatic activity/volume) 118 U/L 40-136 Serum or plasma aspartate aminotransferase measurement (enzymatic activity/ volume) 37 U/L 5-34 Serum or plasma alanine aminotransferase measurement (enzymatic activity/volume ) 21 U/L 0-55 Serum or plasma protein measurement (mass/volume) 7.3 g/dL 6.4-8.2 Serum or plasma albumin measurement (mass/volume) 3.9 g/dL 3.2-4.5 CALCIUM CORRECTED 9.4 mg/dL 8.5-10.1 Encounters ACCT No. Visit Date/Time Discharge Status Pt. Type Provider Facility Loc./Unit Complaint [id number] 07/08/2018 10:14:00 07/08/2018 23:59:59 CLS Outpatient SONIA NICHOLS [facility] RAD ABNORMAL CAT SCAN, LUNG NODULES [id number] 07/01/2018 07:52:00 07/01/2018 23:59:59 CLS Outpatient SONIA NICHOLS [facility] RAD MALIGNANT TUMOR OF RECTUM [id number] 06/27/2018 15:23:00 06/27/2018 23:59:59 CLS Outpatient HIMA DREW [facility] ONC [id number] 06/26/2018 07:46:00 06/26/2018 10:55:00 DIS Outpatient MATTHEW CASTREJON DO [facility] HISTORY OF RECTAL CANCER [id number] 06/25/2018 14:20:00 06/25/2018 14:42:00 DIS Outpatient MATTHEW CASTREJON DO [facility] PREOP HISTORY OF RECTAL CANCER [id number] 04/23/2018 13:45:00 05/01/2018 00:01:00 DIS Outpatient VIKI, BOBAN N [facility] ONC [id number] 12/20/2017 08:51:00 12/24/2017 00:01:00 DIS Outpatient VIKI, BOBAN N [facility] ONC [id number] 09/25/2017 16:00:00 09/25/2017 23:59:59 CLS Outpatient JESIKA TORRES MD [facility] LAB [id number] 08/09/2017 11:18:00 08/14/2017 00:01:00 DIS Outpatient POONAM DREWAN N [facility] ONC [id number] 04/08/2017 14:49:00 04/11/2017 00:01:00 DIS Outpatient VIKI, BOBAN N [facility] ONC [id number] 11/28/2016 09:04:00 01/06/2017 00:01:00 DIS Outpatient VIKI, BOBAN N [facility] ONC [id number] 11/28/2016 09:09:00 11/28/2016 23:59:59 CLS Outpatient JESIKA TORRES MD [facility] LAB [id number] 08/27/2016 14:53:00 09/02/2016 00:01:00 DIS Outpatient VIKI, BOBAN N [facility] ONC [id number] 08/27/2016 15:09:00 08/27/2016 23:59:59 CLS Outpatient JESIKA TORRES MD [facility] LAB [id number] 04/23/2016 13:04:00 05/07/2016 13:27:00 DIS Outpatient VIKI, BOBAN N [facility] ONC [id number] 03/19/2016 14:52:00 03/26/2016 00:01:00 DIS Outpatient VIKI, BOBAN N [facility] ONC [id number] 03/12/2016 10:08:00 03/12/2016 23:59:59 CLS Outpatient SONIA NICHOLS [facility] RAD MALIGNANT TUMOR OF RECTUM,LUNG NODULES [id number] 01/27/2016 07:51:00 01/27/2016 10:00:00 DIS Outpatient JESIKA TORRES MD [facility] SDC HISTORY COLON CANCER [id number] 01/25/2016 05:43:00 01/25/2016 15:35:00 DIS Outpatient JESIKA TORRES MD [facility] PREOP HISTORY COLON CANCER [id number] 12/27/2015 14:35:00 12/27/2015 23:59:59 CLS Outpatient SONIA NICHOLS [facility] ONC [id number] 11/15/2015 14:07:00 11/24/2015 00:01:00 DIS Outpatient HIMA DREW [facility] ONC [id number] 10/03/2015 14:49:00 10/03/2015 23:59:59 CLS Outpatient JESIKA TORRES MD [facility] LAB [id number] 10/03/2015 14:47:00 10/03/2015 23:59:59 CLS Outpatient SONIA NICHOLS [facility] ONC [id number] 07/04/2015 14:51:00 07/04/2015 23:59:59 CLS Outpatient JESIKA TORRES MD [facility] LAB [id number] 07/04/2015 14:48:00 07/04/2015 23:59:59 CLS Outpatient HIMA DREW [facility] ONC [id number] 04/19/2015 16:08:00 04/27/2015 00:01:00 DIS Outpatient HIMA DREW [facility] ONC [id number] 04/15/2015 10:48:00 04/15/2015 23:59:59 CLS Outpatient SONIA NICHOLS CHILD CAREGIVER [facility] RAD RECTAL CANCER,LUNG NODULES [id number] 04/07/2015 13:03:00 04/07/2015 23:59:59 CLS Outpatient SONIA NICHOLS CHILD CAREGIVER [facility] ONC [id number] 02/04/2015 07:39:00 02/04/2015 23:59:59 CLS Outpatient JESIKA TORRES MD [facility] LAB [id number] 01/13/2015 12:45:00 01/25/2015 00:01:00 DIS Outpatient HIMA DREW [facility] ONC [id number] 10/29/2014 09:22:00 10/29/2014 23:59:59 CLS Outpatient SONIA NICHOLSP [facility] RAD LUNG NODULE [id number] 10/27/2014 14:22:00 10/27/2014 23:59:59 CLS Outpatient SONIA NICHOLSP [facility] ONC [id number] 08/26/2014 00:28:00 08/26/2014 23:59:59 CLS Preadmit JESIKA TORRES MD [facility] LAB [id number] 06/21/2014 10:48:00 08/25/2014 00:01:00 DIS Outpatient HIMA DREW [facility] ONC [id number] 05/27/2014 08:57:00 08/25/2014 00:01:00 DIS Outpatient JESIKA TORRES MD [facility] LAB [id number] 07/18/2014 19:43:00 08/06/2014 16:30:00 DIS Inpatient JESIKA TORRES MD [facility] SURGICAL PARTIAL SMALL BOWEL OBST, DEHYDRATION [id number] 08/02/2014 09:15:00 08/02/2014 23:59:59 CLS Preadmit SONIA NICHOLS [facility] 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 [id number] 07/01/2014 09:00:00 07/12/2014 14:40:00 DIS Inpatient ADAN PAZ MD [facility] SURGICAL COLON CA [id number] 06/28/2014 08:42:00 06/28/2014 23:59:59 CLS Outpatient JESIKA TORRES MD [facility] LAB THYROTOXICOSIS [id number] 06/28/2014 08:00:00 06/28/2014 23:59:59 CLS Outpatient ADAN PAZ MD [facility] PREOP ILEOSTOMY REVERSAL [id number] 05/21/2014 06:58:00 05/21/2014 09:00:00 DIS Outpatient JESIKA TORRES MD [facility] SDC COLON CANCER [id number] 05/20/2014 07:47:00 05/20/2014 23:59:59 CLS Outpatient JESIKA TORRES MD [facility] PREOP COLON CANCER [id number] 04/21/2014 11:55:00 05/20/2014 00:01:00 DIS Outpatient HIMA DREW [facility] ONC [id number] 05/14/2014 10:11:00 05/14/2014 23:59:59 CLS Outpatient SONIA NICHOLS CHILD CAREGIVER [facility] ONC [id number] 05/04/2014 08:12:00 05/04/2014 23:59:59 CLS Outpatient HIMA DREW [facility] RAD RECTAL CANCER [id number] 03/26/2014 10:20:00 03/26/2014 23:59:59 CLS Outpatient SONIA NICHOLS CHILD CAREGIVER [facility] ONC [id number] 03/05/2014 09:45:00 03/05/2014 23:59:59 CLS Outpatient SONIA NICHOLS CHILD CAREGIVER [facility] ONC [id number] 01/08/2014 09:55:00 02/18/2014 00:01:00 DIS Outpatient HIMA DREW [facility] ONC [id number] 01/01/2014 09:57:00 01/01/2014 23:59:59 CLS Outpatient SONIA NICHOLS CHILD CAREGIVER [facility] ONC [id number] 12/18/2013 11:42:00 12/18/2013 23:59:59 CLS Outpatient JESIKA TORRES MD [facility] LAB [id number] 12/11/2013 09:58:00 12/11/2013 23:59:59 CLS Outpatient SONIA NICHOLS CHILD CAREGIVER [facility] ONC [id number] 11/16/2013 13:27:00 11/16/2013 23:59:59 CLS Outpatient SONIA NICHOLS S CHILD CAREGIVER [facility] ONC [id number] 11/12/2013 09:14:00 11/15/2013 00:01:00 DIS Outpatient HIMA DREW [facility] ONC [id number] 11/12/2013 09:28:00 11/12/2013 23:59:59 CLS Outpatient JESIKA TORRES MD [facility] LAB [id number] 11/05/2013 06:15:00 11/05/2013 10:40:00 DIS Outpatient ADAN PAZ MD [facility] SDC RECTAL CANCER [id number] 11/02/2013 10:12:00 11/02/2013 23:59:59 CLS Outpatient ADAN PAZ MD [facility] PREOP RECTAL CANCER [id number] 10/23/2013 10:20:00 10/23/2013 23:59:59 CLS Outpatient SONIA NICHOLS CHILD CAREGIVER [facility] ONC [id number] 10/14/2013 10:37:00 10/14/2013 23:59:59 CLS Outpatient SONIA NICHOLS CHILD CAREGIVER [facility] ONC [id number] 10/14/2013 10:33:00 10/14/2013 23:59:59 CLS Outpatient JESIKA TORRES MD [facility] LAB [id number] 10/09/2013 10:27:00 10/09/2013 23:59:59 CLS Outpatient JESIKA TORRES MD [facility] LAB [id number] 10/07/2013 08:37:00 10/07/2013 23:59:59 CLS Outpatient SONIA NICHOLS S CHILD CAREGIVER [facility] ONC [id number] 09/30/2013 09:54:00 10/05/2013 10:56:00 DIS Inpatient JESIKA TORRES MD [facility] 4TH RENAL FAILUR,DEHYDRATION, DIARRHEA [id number] 09/24/2013 08:29:00 09/24/2013 23:59:59 CLS Outpatient SONIA NICHOLS CHILD CAREGIVER [facility] ONC [id number] 09/18/2013 08:30:00 09/24/2013 09:19:00 DIS Outpatient JESIKA TORRES MD [facility] WOUNDCARE PERISTOMAL TISSUE [id number] 09/17/2013 12:58:00 09/17/2013 23:59:59 CLS Outpatient SONIA NICHOLS S CHILD CAREGIVER [facility] ONC [id number] 09/08/2013 08:37:00 09/08/2013 23:59:59 CLS Outpatient SONIA NICHOLS S CHILD CAREGIVER [facility] ONC [id number] 08/26/2013 11:18:00 08/26/2013 23:59:59 CLS Outpatient JESIKA TORRES MD [facility] RAD TACHYCARDIA, HYPERTHYROIDISM [id number] 08/19/2013 13:03:00 08/19/2013 23:59:59 CLS Outpatient SONIA NICHOLS S CHILD CAREGIVER [facility] ONC [id number] 08/11/2013 10:16:00 08/11/2013 23:59:59 CLS Outpatient HIMA DREW [facility] RAD RECTAL CANCER [id number] 08/11/2013 03:24:00 08/11/2013 05:55:00 DIS Emergency ALEJANDRO BROOKS MD [facility] ER PROBLEM W/COLOSTOMY BAG [id number] 08/10/2013 11:30:00 08/10/2013 23:59:59 CLS Outpatient JESIKA TORRES MD [facility] HH DEHYDRATION, MALNUTRITION , CIRRHOSIS, HTN [id number] 08/06/2013 14:55:00 08/06/2013 23:59:59 CLS Outpatient HIMA DREW [facility] HH ARF, [place], [place] [id number] 07/27/2013 19:10:00 08/03/2013 14:39:00 DIS Inpatient JESIKA TORRES MD [facility] SURGICAL ACUTE RENAL FAILURE [id number] 07/02/2013 09:54:00 07/16/2013 16:35:00 DIS Inpatient ADAN PAZ MD [facility] SURGICAL COLON CANCER [id number] 06/29/2013 12:06:00 06/29/2013 23:59:59 CLS Outpatient ADAN PAZ MD [facility] PREOP COLON CANCER [id number] 06/12/2013 07:37:00 06/12/2013 23:59:59 CLS Outpatient JESIKA TORRES MD [facility] SDC SCREENING [id number] 06/10/2013 09:50:00 06/10/2013 23:59:59 CLS Outpatient JESIKA TORRES MD [facility] PREOP SCREENING [id number] 01/22/2013 01:38:00 01/23/2013 11:30:00 DIS Inpatient RAMA DUBOSE DO [facility] SURGICAL L LEG FX [id number] 07/11/2018 11:25:00 Document Registration [id number] 10/29/2014 09:23:00 Document Registration [id number] 10/11/2014 09:11:00 Document Registration [id number] 09/23/2014 09:10:00 Document Registration [id number] 09/24/2013 12:30:00 Document Registration [id number] 09/14/2011 16:10:00 Document Registration [id number] 07/30/2011 11:01:00 Document Registration [id number] 07/20/2011 10:17:00 Document Registration
[2018-07-16 09:30] VITALS: BP 175/82
--- NOTE | 2018-07-16 09:34 | Diagnostic Imaging Report ---
INDICATION: Post bronc. Exam interpreted in correlation with CT fusion PET 07/08/2018. Right-sided medial upper lung suprahilar density unchanged when correlated with previous CT PET. Mediastinal adenopathy less conspicuous. There is no pneumothorax and no free air beneath the diaphragms. IMPRESSION: Medial suprahilar right lung lesion redemonstrated. No pneumothorax or substantial pleural fluid load. Dictated by: Dictated on workstation # [id number]
[2018-07-16 10:06] VITALS: BP 152/87
[2018-07-16 10:10] VITALS: BP 152/87
--- NOTE | 2018-07-16 12:59 | Anesthesia-General Post-Op ---
MAC Patient Condition Mental Status/LOC: Same as Preop Cardiovascular: Satisfactory Nausea/Vomiting: Absent Respiratory: Satisfactory Pain: Controlled Complications: Absent Post Op Complications Complications None Follow Up Care/Instructions Patient Instructions None needed. Anesthesiology Discharge Order Discharge Order Patient is doing well, no complaints, stable vital signs, no apparent adverse anesthesia problems. No complications reported per nursing. JOSE CERVANTES CRNA Jul 16, 2018 12:59
--- NOTE | 2018-07-30 12:29 | Pulmonary Procedures ---
Pulmonary Procedures Date of Procedure Date of Service: Jul 30, 2018 Bronch Bronchoscopy with bronchial washing, RUL BAL, transbronchial brush using fluoroscopy followed by EBUS with bx of station 4R lymph nodes under US guidance. Preop DX: [mediastinal lymphadenopathy lung mass PostOP DX: same Complications: None Pt was sedated per anesthesia. Bronchoscopy was advanced through the ED tube and an anatomical undertaken down to the segmental bronchi bilaterally. No endobronchial lesions noted. With regular bronchoscope bronchial washing, RUL BAL, transbronchial brush using fluoroscopy followed by EBUS with bx of station 4R lymph nodes under US guidance Pt tolerated procedure well. No complications noted. ANA RAIN DO Jul 30, 2018 12:29
== END 2018-07-16 10:10 | disposition home or self-care (01) ==
LOC: ENDO 07:12
PROVIDERS: ATTEND Internal Medicine Critical Care Medicine
DX: C78.01 Secondary malignant neoplasm of right lung (principal); C20 Malignant neoplasm of rectum; K74.60 Unspecified cirrhosis of liver; R91.8 Other nonspecific abnormal finding of lung field; Z86.19 Personal history of other infectious and parasitic diseases; I10 Essential (primary) hypertension; F41.9 Anxiety disorder, unspecified; Z87.891 Personal history of nicotine dependence; Z79.899 Other long term (current) drug therapy
CPT/HCPCS: 71045; 87015; 87070; 87077; 87101; 87116; 87205; 87206; 88112; 88305; 88312; 88341; 88342; 88344

== ENCOUNTER 2018-08-05 09:32 | Outpatient (CLI) | payer BC ==
[~2018-08-05] VITALS: Ht 177.8 cm; Wt 84.8 kg
[~2018-08-05 09:32] MED LIST changes: -LACTATED RINGERS 1,000 ML IV ONE
== END 2018-08-05 15:52 | disposition home or self-care (01) ==
LOC: PREOP 09:32
PROVIDERS: ATTEND Surgery
DX: Z01.818 Encounter for other preprocedural examination (principal)

== ENCOUNTER 2018-08-07 09:06 | Day surgery (SDC) | payer BC ==
[~2018-08-07] VITALS: Ht 177.8 cm; Wt 84.8 kg
[~2018-08-07 09:06] MED LIST changes: +BUPIVACAINE 0.5% 30 ML (SENSORCAINE) VIAL ONE; +HEParin (CENTRAL IV FLUSH) 500 UNIT/5 ML SYR ONE; +LIDOCAINE 1% INJ 20 ML 20 ML VIAL ONE; +WATER (STERILE) FOR INJECTION 0 ML ONE
--- OUTSIDE RECORDS SUMMARY | 2018-08-07 09:10 | XMS REPORT | Encounter Summary ---
Author Author [facility] Organization [facility] Address Unknown Phone Unavailable Care Team Providers Care Stapler Hand Name Role Phone Nika Salmeron RN Unavailable [...] Mitchell MD [address] [place] [address] Results 07/01/2018 [facility]phone [facility] [address] [place] [address] Social History Date Tobacco Use [...] Katherine Chester RN - 07/11/2018 3:03 PM HEALTH AND WELLNESS COACH Left message for patient to return call. Katherine Chester RN BSN TH AND WELLNESS COACH * Telephone Encounter - Kiana Boland - 07/10/2018 3:17 PM HEALTH AND WELLNESS COACH Bill returned your call. TH AND WELLNESS COACH * Telephone Encounter - Katherine Chester RN - 07/01/2018 9:44 AM HEALTH AND WELLNESS COACH Discussed CT and lab results with Dr. Mitchell and he advised to: 1. Complete US with doppler for next imaging. 2. Check on patient due to elevated Cr. Repeat labs and may need quinones cultures. Left message for patient to return call. Katherine Chester LACER AND TIER TH AND WELLNESS COACH in this encounter Plan of Treatment Order [...]
--- OUTSIDE RECORDS SUMMARY | 2018-08-07 09:10 | XMS REPORT | Clinical Summary ---
Author Author [facility] Organization [facility] Address Unknown Phone Unavailable Care Team Providers Care Applied Psychology Chair Name Role Phone Nika Salmeron RN Unavailable [...] in the Health Information Management department at [phone] for further assistance in locating additional records.[facility] Allergies No Known Allergies Medications End [...] on 05/16/2018 12:44 PM. Performing Organization Address [facility] Phone Number RAD RESULTS * POC CREATININE, RAD (05/16/2018 10:33 AM CDT) Creatinine, POC 1.6 (H) 0.4 - 1.24 MG/DL [facility] Performing Organization Address [facility] Phone Number [facility] [address] [place] [address] * ALPHA FETO PROTEIN (AFP) (05/16/2018 10:30 AM CDT) Alpha Feto Protein 3.2 0.0 - 15.0 NG/ML [facility] Specimen Blood Performing Organization Address [facility] Phone Number MAIN LAB [address] [place] [address] * CBC AND DIFF (05/16/2018 10:30 AM [...] Phone Number [facility] [address] [facility] [place] [address] * COMPREHENSIVE METABOLIC PANEL (05/16/2018 10:30 AM [...] Phone Number MAIN LAB [address] [place] [address] * FIBROSCAN (05/16/2018 8:00 AM CDT) Narrative Performed At [facility] Bear Mitchell MD 05/16/2018 10:01 AM (No note.) Procedure Note Bear Mitchell MD - 05/16/2018 8:00 AM CDT (No note.) Performing Organization Address City/[facility]/Zipcode Phone Number [facility] from Last 3 Months Insurance Payer Benefit Subscriber ID Type Phone Address Plan / Group BS [facility] xxxxxxxxxxxx O [facility] BLUE Advance Directives Patient has advance care planning documents, and code status on file. For more information, please contact: [facility] [address] [place] [address] Date Inactivated Comments Code Status Date Activated 09/03/2014 1:16 PM Full Code 08/10/2014 11:49 PM Provider has discussed Code Status No, more discussion w/Patient or Family? needed
--- OUTSIDE RECORDS SUMMARY | 2018-08-07 09:10 | XMS REPORT | Encounter Summary ---
Author Author [facility] Organization [facility] Address Unknown Phone Unavailable Care Team Providers Care Numerical Control Programmer Name Role Phone Nika Salmeron RN Unavailable [...] Mitchell MD [address] [place] [address] Other cirrhosis of liver (HCC) 05/16/2018 Hospital [facility] Encounter [facility] [address] [place] [address] Social History Date Tobacco Use Types Packs/Day [...] Address City/State/Zipcode Phone Number [facility] [address] [place] [address] * CBC AND DIFF (05/16/2018 10:30 AM [...] MAIN LAB Specimen Blood Performing Organization Address City/[facility]/Zipcode Phone Number MAIN LAB [address] [place] [address] * ALPHA FETO PROTEIN (AFP) (05/16/2018 10:30 AM CDT) Alpha Feto Protein 3.2 0.0 - 15.0 NG/ML [facility] Specimen Blood Performing Organization Address City/[facility] Phone Number MAIN LAB [address] [place] [address] in this encounter Visit Diagnoses Diagnosis Other cirrhosis of liver (HCC) History of hepatitis C Personal history of other infectious and parasitic disease S/P TIPS (transjugular intrahepatic portosystemic shunt) Other postprocedural status in this encounter
--- OUTSIDE RECORDS SUMMARY | 2018-08-07 09:10 | XMS REPORT | Encounter Summary ---
Author Author [facility] Organization [facility] Address Unknown Phone Unavailable Care Team Providers Care Buttonholer Name Role Phone Nika Salmeron RN Unavailable [...] Mitchell MD [address] [place] [address] Other 05/16/2018 Telephone [facility] [address] [place] [address] Social History Date Tobacco Use [...]
--- OUTSIDE RECORDS SUMMARY | 2018-08-07 09:11 | XMS REPORT | Encounter Summary ---
Author Author [facility] Organization [facility] Address Unknown Phone Unavailable Care Team Providers Care Vamp Throater Name Role Phone Nika Salmeron RN Unavailable [...] Date Type Department Bear Mitchell MD [address] [place] [address] Other cirrhosis of liver (HCC) (Primary Dx); History of hepatitis C; S/P TIPS (transjugular intrahepatic portosystemic shunt) 05/16/2018 Office Visit [facility] [address] [place] [address] Social History Date Tobacco Use [...] [facility] Dr. Bear Murphy, RN [phone] in this encounter Progress Notes * Luis [...] a 57 y.o. male. History of Present [id number] gentleman with previous end-stage liver disease secondary [...] GI: Gagan Nagy Hepatology: Dr. Bear Mitchell-[facility] Overview This is a very pleasant [...] Address City/State/Zipcode Phone Number [facility] [address] [place] [address] * CBC AND DIFF (05/16/2018 10:30 AM [...] MAIN LAB Specimen Blood Performing Organization Address City/[facility] Phone Number MAIN LAB [address] [place] [address] * ALPHA FETO PROTEIN (AFP) (05/16/2018 10:30 AM CDT) Alpha Feto Protein 3.2 0.0 - 15.0 NG/ML [facility] Specimen Blood Performing Organization Address [facility] Phone Number [facility] [address] [place] [address] * FIBROSCAN (05/16/2018 8:00 AM CDT) Narrative Performed At [facility] Bear Mitchell MD 05/16/2018 10:01 AM (No note.) Procedure Note Bear Mitchell MD - 05/16/2018 8:00 AM CDT (No note.) Performing Organization Address City/[facility] Phone Number [facility] in this encounter Visit Diagnoses Diagnosis Other cirrhosis of liver (HCC) - Primary History of hepatitis C Personal history of other infectious and parasitic disease S/P TIPS (transjugular intrahepatic portosystemic shunt) Other postprocedural status in this encounter
--- OUTSIDE RECORDS SUMMARY | 2018-08-07 09:11 | XMS REPORT | Encounter Summary ---
Author Author [facility] Organization [facility] Address Unknown Phone Unavailable Care Team Providers Care News Correspondent Name Role Phone Nika Salmeron RN Unavailable [...] Reason Specialty Diagnoses / Procedures Joyce Gonzales, SILK SCREEN ETCHER [address] [facility] [address] [place] [address] [facility] MED OFFICE [address] [place] [address] No Auth Needed Radiology Diagnoses Cirrhosis of liver without ascites, unspecified hepatic cirrhosis type (HCC) S/P TIPS (transjugular intrahepatic portosystemic shunt) P rocedures CT ABDOMEN WO/W CONTRAST * Radiology Services Referred By Contact Referred To Contact Status Reason Specialty Diagnoses / Procedures Joyce Gonzales, SILK SCREEN ETCHER [address] [facility] [address] [place] [address] [facility] [address] [address] No Auth Needed Radiology Diagnoses Cirrhosis of liver without ascites, unspecified hepatic cirrhosis type (HCC) S/P TIPS (transjugular intrahepatic portosystemic shunt) P rocedures CT ABDOMEN WO/W CONTRAST Reason for Visit * Radiology Services Referred By Contact Referred To Contact Status Reason Specialty Diagnoses / Procedures Joyce Gonzales, SILK SCREEN ETCHER [address] [facility] [address] [place] [address] [facility] [address] [address] No Auth Needed Radiology Diagnoses Cirrhosis of liver without ascites, unspecified hepatic cirrhosis type (HCC) S/P TIPS (transjugular intrahepatic portosystemic shunt) P rocedures CT ABDOMEN WO/W CONTRAST Encounter Details Care Team Description Date Type Department Joyce Gonzales, SILK SCREEN ETCHER [address] [facility] [address] [place] [address] [phone] 05/16/2018 [facility] Radiology [address] [address] Social History Date Tobacco Use Types Packs/Day [...] on 05/16/2018 12:44 PM. Performing Organization Address City/[facility]/Zipcode Phone Number RAD RESULTS * POC CREATININE, RAD (05/16/2018 10:33 AM CDT) Creatinine, POC 1.6 (H) 0.4 - 1.24 MG/DL MAIN LAB Performing Organization Address City/[facility] Phone Number [facility] LAB [address] [place] [address] in this encounter Visit Diagnoses Diagnosis Cirrhosis [...]
--- OUTSIDE RECORDS SUMMARY | 2018-08-07 09:14 | XMS REPORT | Continuity of Care Document ---
Author Author [facility] Organization [facility] Address Unknown Phone Unavailable Allergies Active Description Code Type Severity Reaction Onset Reported/Identified Relationship to Patient Clinical Status Yes No Known Drug Allergies [id number] Drug Allergy Unknown N/A 06/25/2018 Medications There is no data. 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.899 OTHER SBA UNDERWRITER (CURRENT) DRUG THERAPY 06/27/1326 HIMA DREW Ot [...] JESIKA TORRES MD Ot 276.1 HYPOSMOLALITY 08/03/2013 JESIAK TORRES MD Ot 276.2 ACIDOSIS 08/03/2013 JESIKA [...] JESIKA Liriano Ot 571.5 07/21/2014 SONIA NICHOLS DIRECTOR FINANCIAL SERVICES Ot 070.70 07/21/2014 SONIA NICHOLS DIRECTOR FINANCIAL SERVICES Ot 154.0 07/21/2014 SONIA NICHOLS DIRECTOR FINANCIAL SERVICES Ot 518.89 07/21/2014 SONIA NICHOLS DIRECTOR FINANCIAL SERVICES Ot 571.5 07/21/2014 JEISKA TORRES MD Ot 242.90 07/21/2014 SONIA NICHOLS DIRECTOR FINANCIAL SERVICES Ot 070.70 07/21/2014 SONIA NICHOLS DIRECTOR FINANCIAL SERVICES Ot 154.0 07/21/2014 SONIA NICHOLS DIRECTOR FINANCIAL SERVICES Ot 793.11 07/21/2014 SONIA NICHOLS DIRECTOR FINANCIAL SERVICES Ot V44.3 07/21/2014 SONIA NICHOLS DIRECTOR FINANCIAL SERVICES Ot V58.69 07/21/2014 SONIA NICHOLS DIRECTOR FINANCIAL SERVICES Ot 154.0 07/21/2014 SONIA NICHOLS DIRECTOR FINANCIAL SERVICES Ot V87.41 07/21/2014 SONIA NICHOLS S DIRECTOR FINANCIAL SERVICES Ot 154.0 07/21/2014 SONIA NICHOLS S DIRECTOR FINANCIAL SERVICES Ot 276.51 07/21/2014 SONIA NICHOLS S DIRECTOR FINANCIAL SERVICES Ot 787.91 07/21/2014 SONIA NICHOLS S DIRECTOR FINANCIAL SERVICES Ot 793.11 07/21/2014 SONIA NICHOLS S DIRECTOR FINANCIAL SERVICES Ot V44.3 07/21/2014 SONIA NICHOLS S DIRECTOR FINANCIAL SERVICES Ot V58.69 07/21/2014 Ot 709.8 07/21/2014 Ot V44.3 07/21/2014 SONIA NICHOLS S DIRECTOR FINANCIAL SERVICES Ot 154.0 07/21/2014 SONIA NICHOLS S DIRECTOR FINANCIAL SERVICES Ot 276.51 07/21/2014 NICHOLSSONIA Wilson S DIRECTOR FINANCIAL SERVICES Ot 787.91 07/21/2014 NICHOLSSONIA Wilson S DIRECTOR FINANCIAL SERVICES Ot 793.11 07/21/2014 NICHOLSSONIA Wilson S DIRECTOR FINANCIAL SERVICES Ot V44.3 07/21/2014 NICHOLSSONIA Wilson S DIRECTOR FINANCIAL SERVICES Ot V58.69 07/21/2014 MELISSA LEE, JESIKA Liriano Ot 242.00 07/21/2014 MELISSA LEE, JESIKA Liriano Ot 242.00 07/21/2014 NICHOLSSONIA Wilson S DIRECTOR FINANCIAL SERVICES Ot 154.0 07/21/2014 NICHOLSSONIA Wilson S DIRECTOR FINANCIAL SERVICES Ot 276.51 07/21/2014 NICHOLSSONIA Wilson S DIRECTOR FINANCIAL SERVICES Ot 787.91 07/21/2014 NICHOLSSONIA Wilson S DIRECTOR FINANCIAL SERVICES Ot 793.11 07/21/2014 NICHOLSSONIA Wilson S DIRECTOR FINANCIAL SERVICES Ot V44.3 07/21/2014 NICHOLSSONIA Wilson S DIRECTOR FINANCIAL SERVICES Ot V58.69 07/21/2014 NICHOLSSONIA Wilson S DIRECTOR FINANCIAL SERVICES Ot 154.0 07/21/2014 NICHOLSSONIA Wilson S DIRECTOR FINANCIAL SERVICES Ot V44.3 07/21/2014 NICHOLSSONIA Wilson S DIRECTOR FINANCIAL SERVICES Ot V58.69 07/21/2014 JACKSON LEE, ADAN Ot 154.1 07/21/2014 JACKSON LEE, ADAN Ot V72.84 07/21/2014 ADAN PAZ MD Ot V74.8 07/21/2014 NICHOLSSONIA Wilson S DIRECTOR FINANCIAL SERVICES Ot 154.0 07/21/2014 NICHOLSSONIA Wilson S DIRECTOR FINANCIAL SERVICES Ot 793.11 07/21/2014 NICHOLSSONIA Wilson S DIRECTOR FINANCIAL SERVICES Ot V44.3 07/21/2014 NICHOLSSONIA S DIRECTOR FINANCIAL SERVICES Ot V58.69 07/21/2014 JESIKA TORRES MD Ot 242.00 07/21/2014 NICHOLS, SONIA S DIRECTOR FINANCIAL SERVICES Ot 154.0 07/21/2014 NICHOLSSONIA S DIRECTOR FINANCIAL SERVICES Ot 793.11 07/21/2014 NICHOLSSONIA S DIRECTOR FINANCIAL SERVICES Ot V44.3 07/21/2014 SIMONE SONIA S DIRECTOR FINANCIAL SERVICES Ot V58.69 07/21/2014 MELISSA LEE, JESIKA Liriano Ot 274.9 07/21/2014 NICHOLSSONIA S DIRECTOR FINANCIAL SERVICES Ot 154.0 07/21/2014 SIMONE SONIA S DIRECTOR FINANCIAL SERVICES Ot 793.11 07/21/2014 SIMONE SONIA S DIRECTOR FINANCIAL SERVICES Ot V44.3 07/21/2014 NICHOLSSONIA Wilson S DIRECTOR FINANCIAL SERVICES Ot V58.69 07/21/2014 NICHOLSSONIA Wilson S DIRECTOR FINANCIAL SERVICES Ot 154.0 07/21/2014 NICHOLSSONIA Wilson S DIRECTOR FINANCIAL SERVICES Ot 793.11 07/21/2014 NICHOLSSONIA Wilson S DIRECTOR FINANCIAL SERVICES Ot V44.3 07/21/2014 NICHOLSSONIA S DIRECTOR FINANCIAL SERVICES Ot V58.69 07/21/2014 SIMONE SONIA S DIRECTOR FINANCIAL SERVICES Ot 154.0 07/21/2014 SIMONE KARENAH S DIRECTOR FINANCIAL SERVICES Ot 196.9 07/21/2014 NICHOLS KARENAH S DIRECTOR FINANCIAL SERVICES Ot 287.5 07/21/2014 NICHOLS SONIA S DIRECTOR FINANCIAL SERVICES Ot 288.00 07/21/2014 NICHOLS SONIA S DIRECTOR FINANCIAL SERVICES Ot 793.11 07/21/2014 SIMONE SONIA S DIRECTOR FINANCIAL SERVICES Ot V44.3 07/21/2014 NICHOLS, SONIA S DIRECTOR FINANCIAL SERVICES Ot V58.69 07/21/2014 HIMA DREW Ot 154.1 07/21/2014 SIMONE SONIA S DIRECTOR FINANCIAL SERVICES Ot 070.70 07/21/2014 SIMONE SONIA S DIRECTOR FINANCIAL SERVICES Ot 154.1 07/21/2014 SONIA NICHOLS DIRECTOR FINANCIAL SERVICES Ot 196.9 07/21/2014 SONIA NICHOLS DIRECTOR FINANCIAL SERVICES Ot 793.11 07/21/2014 SONIA NICHOLS DIRECTOR FINANCIAL SERVICES Ot V44.3 07/21/2014 SONIA NICHOLS DIRECTOR FINANCIAL SERVICES Ot V58.69 07/21/2014 MELISSA LEE, JESIKA Liriano [...] MELISSA LEE, JESIKA Liriano Ot 154.0 07/30/2014 MELSISA LEE, JESIKA Liriano Ot 276.1 07/30/2014 MELISSA [...] Liriano Ot 263.9 10/29/2014 MELISSA LEE, JESIKA iLriano Ot 276.51 10/29/2014 MELISSA LEE, JESIKA Liriano Ot 401.9 10/29/2014 MELISSA LEE, JESIKA Liriano Ot 571.5 10/29/2014 SONIA NICHOLS DIRECTOR FINANCIAL SERVICES Ot 070.70 10/29/2014 SONIA NICHOLS DIRECTOR FINANCIAL SERVICES Ot 154.0 10/29/2014 SONIA NICHOLS DIRECTOR FINANCIAL SERVICES Ot 518.89 10/29/2014 SONIA NICHOLS DIRECTOR FINANCIAL SERVICES Ot 571.5 10/29/2014 MELISSA LEE, JESIKA Liriano Ot 242.90 10/29/2014 SONIA NICHOLS S DIRECTOR FINANCIAL SERVICES Ot 070.70 10/29/2014 SONIA NICHOLS S DIRECTOR FINANCIAL SERVICES Ot 154.0 10/29/2014 SONIA NICHOLS S DIRECTOR FINANCIAL SERVICES Ot 793.11 10/29/2014 SONIA NICHOLS S DIRECTOR FINANCIAL SERVICES Ot V44.3 10/29/2014 SONIA NICHOLS S DIRECTOR FINANCIAL SERVICES Ot V58.69 10/29/2014 SONIA NICHOLS S DIRECTOR FINANCIAL SERVICES Ot 154.0 10/29/2014 SONIA NICHOLS S DIRECTOR FINANCIAL SERVICES Ot V87.41 10/29/2014 SONIA NICHOLS S DIRECTOR FINANCIAL SERVICES Ot 154.0 10/29/2014 SONIA NICHOLS S DIRECTOR FINANCIAL SERVICES Ot 276.51 10/29/2014 SONIA NICHOLS S DIRECTOR FINANCIAL SERVICES Ot 787.91 10/29/2014 NICHOLSSONIA Wilson S DIRECTOR FINANCIAL SERVICES Ot 793.11 10/29/2014 SONIA NICHOLS S DIRECTOR FINANCIAL SERVICES Ot V44.3 10/29/2014 SONIA NICHOLS S DIRECTOR FINANCIAL SERVICES Ot V58.69 10/29/2014 Ot 709.8 10/29/2014 Ot V44.3 10/29/2014 SONIA NICHOLS S DIRECTOR FINANCIAL SERVICES Ot 154.0 10/29/2014 SONIA NICHOLS S DIRECTOR FINANCIAL SERVICES Ot 276.51 10/29/2014 SONIA NICHOLS S DIRECTOR FINANCIAL SERVICES Ot 787.91 10/29/2014 NICHOLSSONIA Wilson S DIRECTOR FINANCIAL SERVICES Ot 793.11 10/29/2014 SONIA NICHOLS S DIRECTOR FINANCIAL SERVICES Ot V44.3 10/29/2014 NICHOLSSONIA Wilson S DIRECTOR FINANCIAL SERVICES Ot V58.69 10/29/2014 MELISSA LEE, JESIKA Liriano Ot 242.00 10/29/2014 JESIKA TORRES MD Ot 242.00 10/29/2014 NICHOLSSONIA Wilson S DIRECTOR FINANCIAL SERVICES Ot 154.0 10/29/2014 NICHOLSSONIA Wilson S DIRECTOR FINANCIAL SERVICES Ot 276.51 10/29/2014 NICHOLSSONIA Wilson S DIRECTOR FINANCIAL SERVICES Ot 787.91 10/29/2014 NICHOLSSONIA S DIRECTOR FINANCIAL SERVICES Ot 793.11 10/29/2014 NICHOLSSONIA Wilson S DIRECTOR FINANCIAL SERVICES Ot V44.3 10/29/2014 NICHOLSSONIA S DIRECTOR FINANCIAL SERVICES Ot V58.69 10/29/2014 NICHOLSSONIA S DIRECTOR FINANCIAL SERVICES Ot 154.0 10/29/2014 NICHOLSSONIA S DIRECTOR FINANCIAL SERVICES Ot V44.3 10/29/2014 SIMONE SONIA S DIRECTOR FINANCIAL SERVICES Ot V58.69 10/29/2014 JACKSON LEE, ADAN Ot 154.1 10/29/2014 JACKSON LEE, ADAN Ot V72.84 10/29/2014 JACKSON LEE, ADAN Ot V74.8 10/29/2014 SIMONE SONIA S DIRECTOR FINANCIAL SERVICES Ot 154.0 10/29/2014 SIMONE SONIA S DIRECTOR FINANCIAL SERVICES Ot 793.11 10/29/2014 SIMONESONIA S DIRECTOR FINANCIAL SERVICES Ot V44.3 10/29/2014 SIMONE SONIA S DIRECTOR FINANCIAL SERVICES Ot V58.69 10/29/2014 MELISSA LEE, JESIKA Liriano Ot 242.00 10/29/2014 SIMONE SONIA S DIRECTOR FINANCIAL SERVICES Ot 154.0 10/29/2014 SIMONE SONIA S DIRECTOR FINANCIAL SERVICES Ot 793.11 10/29/2014 SIMONE SONIA S DIRECTOR FINANCIAL SERVICES Ot V44.3 10/29/2014 SIMONE SONIA S DIRECTOR FINANCIAL SERVICES Ot V58.69 10/29/2014 MELISSA LEE, JESIKA Liriano Ot 274.9 10/29/2014 SIMONE SONIA S DIRECTOR FINANCIAL SERVICES Ot 154.0 10/29/2014 NICHOLS, SONIA S DIRECTOR FINANCIAL SERVICES Ot 793.11 10/29/2014 SIMONE SONIA S DIRECTOR FINANCIAL SERVICES Ot V44.3 10/29/2014 NICHOLS KARENAH S DIRECTOR FINANCIAL SERVICES Ot V58.69 10/29/2014 NICHOLS SONIA S DIRECTOR FINANCIAL SERVICES Ot 154.0 10/29/2014 NICHOLS KARENAH S DIRECTOR FINANCIAL SERVICES Ot 793.11 10/29/2014 SIMONE KARENAH S DIRECTOR FINANCIAL SERVICES Ot V44.3 10/29/2014 NICHOLS, KARENAH S DIRECTOR FINANCIAL SERVICES Ot V58.69 10/29/2014 SIMONE SONIA S DIRECTOR FINANCIAL SERVICES Ot 154.0 10/29/2014 SIMONE SONIA S DIRECTOR FINANCIAL SERVICES Ot 196.9 10/29/2014 SIMONE KARENAH S DIRECTOR FINANCIAL SERVICES Ot 287.5 10/29/2014 SONIA NICHOLS DIRECTOR FINANCIAL SERVICES Ot 288.00 10/29/2014 SONIA NICHOLS DIRECTOR FINANCIAL SERVICES Ot 793.11 10/29/2014 SONIA NICHOLS DIRECTOR FINANCIAL SERVICES Ot V44.3 10/29/2014 SONIA NICHOLS DIRECTOR FINANCIAL SERVICES Ot V58.69 10/29/2014 HIMA DREW N Ot 154.1 10/29/2014 SONIA NICHOLS DIRECTOR FINANCIAL SERVICES Ot 070.70 10/29/2014 SONIA NICHOLS DIRECTOR FINANCIAL SERVICES Ot 154.1 10/29/2014 SONIA NICHOLS DIRECTOR FINANCIAL SERVICES Ot 196.9 10/29/2014 SONIA NICHOLS DIRECTOR FINANCIAL SERVICES Ot 793.11 10/29/2014 SONIA NICHOLS DIRECTOR FINANCIAL SERVICES Ot V44.3 10/29/2014 SONIA NICHOLS DIRECTOR FINANCIAL SERVICES Ot V58.69 10/29/2014 MELISSA LEE, JESIKA Liriano [...] 401.9 10/29/2014 Ot 571.5 10/29/2014 SONIA NICHOLS DIRECTOR FINANCIAL SERVICES Ot 154.0 10/29/2014 SONIA NICHOLS DIRECTOR FINANCIAL SERVICES Ot V44.3 10/29/2014 SONIA NICHOLS DIRECTOR FINANCIAL SERVICES Ot V58.69 10/29/2014 Ot 571.5 10/29/2014 Ot V10.06 10/29/2014 Ot 070.70 10/29/2014 Ot 242.00 10/29/2014 Ot 401.9 10/29/2014 Ot 571.5 11/12/2014 SONIA NICHOLS DIRECTOR FINANCIAL SERVICES Ot 154.0 11/12/2014 SONIA NICHOLS DIRECTOR FINANCIAL SERVICES Ot V44.3 11/12/2014 NICHOLSSONIA Wilson DIRECTOR FINANCIAL SERVICES Ot V58.69 11/12/2014 SONIA NICHOLS DIRECTOR FINANCIAL SERVICES Ot 518.0 11/12/2014 SONIA NICHOLS DIRECTOR FINANCIAL SERVICES Ot 571.5 11/12/2014 SONIA NICHOLS DIRECTOR FINANCIAL SERVICES Ot 789.2 11/12/2014 NICHOLSSONIA Wilson DIRECTOR FINANCIAL SERVICES Ot 793.19 12/25/2014 VIKI, BOBAN N Ot [...] Liriano Ot 571.5 04/15/2015 SONIA NICHOLS S DIRECTOR FINANCIAL SERVICES Ot 070.70 04/15/2015 SONIA NICHOLS S DIRECTOR FINANCIAL SERVICES Ot 154.0 04/15/2015 SONIA NICHOLS S DIRECTOR FINANCIAL SERVICES Ot 518.89 04/15/2015 NICHOLSSONIA S DIRECTOR FINANCIAL SERVICES Ot 571.5 04/15/2015 MELISSA LEE, JESIKA Liriano Ot 242.90 04/15/2015 NICHOLSSONIA Wilson S DIRECTOR FINANCIAL SERVICES Ot 070.70 04/15/2015 NICHOLSSONIA Wilson S DIRECTOR FINANCIAL SERVICES Ot 154.0 04/15/2015 NICHOLSSONIA Wilson S DIRECTOR FINANCIAL SERVICES Ot 793.11 04/15/2015 SONIA NICHOLS S DIRECTOR FINANCIAL SERVICES Ot V44.3 04/15/2015 NICHOLSSNOIA Wilson S DIRECTOR FINANCIAL SERVICES Ot V58.69 04/15/2015 SONIA NICHOLS S DIRECTOR FINANCIAL SERVICES Ot 154.0 04/15/2015 NICHOLSSONIA Wilson S DIRECTOR FINANCIAL SERVICES Ot V87.41 04/15/2015 NICHOLSSONIA Wilson S DIRECTOR FINANCIAL SERVICES Ot 154.0 04/15/2015 NICHOLSSONIA Wilson S DIRECTOR FINANCIAL SERVICES Ot 276.51 04/15/2015 SONIA NICHOLS S DIRECTOR FINANCIAL SERVICES Ot 787.91 04/15/2015 NICHOLSSONIA Wilson S DIRECTOR FINANCIAL SERVICES Ot 793.11 04/15/2015 NICHOLSSONIA Wilson S DIRECTOR FINANCIAL SERVICES Ot V44.3 04/15/2015 NICHOLSSONIA Wilson S DIRECTOR FINANCIAL SERVICES Ot V58.69 04/15/2015 Ot 709.8 04/15/2015 Ot V44.3 04/15/2015 NICHOLSSONIA Wilson S DIRECTOR FINANCIAL SERVICES Ot 154.0 04/15/2015 NICHOLSSONIA Wilson S DIRECTOR FINANCIAL SERVICES Ot 276.51 04/15/2015 NICHOLSSONIA Wilson S DIRECTOR FINANCIAL SERVICES Ot 787.91 04/15/2015 NICHOLSSONIA S DIRECTOR FINANCIAL SERVICES Ot 793.11 04/15/2015 NICHOLSSONIA S DIRECTOR FINANCIAL SERVICES Ot V44.3 04/15/2015 NICHOLSSONIA S DIRECTOR FINANCIAL SERVICES Ot V58.69 04/15/2015 MELISSA LEE, JESIKA Liriano Ot 242.00 04/15/2015 MELISSA LEE, JESIKA Liriano Ot 242.00 04/15/2015 NICHOLSSONIA Wilson S DIRECTOR FINANCIAL SERVICES Ot 154.0 04/15/2015 SIMONESONIA S DIRECTOR FINANCIAL SERVICES Ot 276.51 04/15/2015 SIMONESONIA S DIRECTOR FINANCIAL SERVICES Ot 787.91 04/15/2015 NICHOLSSONIA S DIRECTOR FINANCIAL SERVICES Ot 793.11 04/15/2015 SIMONE SONIA S DIRECTOR FINANCIAL SERVICES Ot V44.3 04/15/2015 SIMONE SONIA S DIRECTOR FINANCIAL SERVICES Ot V58.69 04/15/2015 SIMONESONIA S DIRECTOR FINANCIAL SERVICES Ot 154.0 04/15/2015 SIMONE SONIA S DIRECTOR FINANCIAL SERVICES Ot V44.3 04/15/2015 SIMONE SONIA S DIRECTOR FINANCIAL SERVICES Ot V58.69 04/15/2015 JACKSON LEE, ADAN Ot 154.1 04/15/2015 JACKSON LEE, ADAN Ot V72.84 04/15/2015 JACKSON LEE, ADAN Ot V74.8 04/15/2015 SIMONE SONIA S DIRECTOR FINANCIAL SERVICES Ot 154.0 04/15/2015 SIMONE SONIA S DIRECTOR FINANCIAL SERVICES Ot 793.11 04/15/2015 SIMONE SONIA S DIRECTOR FINANCIAL SERVICES Ot V44.3 04/15/2015 SIMONE SONIA S DIRECTOR FINANCIAL SERVICES Ot V58.69 04/15/2015 JESIKA TORRES MD Ot 242.00 04/15/2015 SIMONESONIA S DIRECTOR FINANCIAL SERVICES Ot 154.0 04/15/2015 SIMONE SONIA S DIRECTOR FINANCIAL SERVICES Ot 793.11 04/15/2015 SIMONE SONIA S DIRECTOR FINANCIAL SERVICES Ot V44.3 04/15/2015 SIMONE SONIA S DIRECTOR FINANCIAL SERVICES Ot V58.69 04/15/2015 JESIKA TORRES MD Ot 274.9 04/15/2015 SIMONE SONIA S DIRECTOR FINANCIAL SERVICES Ot 154.0 04/15/2015 SIMONE SONIA S DIRECTOR FINANCIAL SERVICES Ot 793.11 04/15/2015 SIMONE SONIA S DIRECTOR FINANCIAL SERVICES Ot V44.3 04/15/2015 SIMONE SONIA S DIRECTOR FINANCIAL SERVICES Ot V58.69 04/15/2015 SIMONE SONIA S DIRECTOR FINANCIAL SERVICES Ot 154.0 04/15/2015 SIMONE SONIA S DIRECTOR FINANCIAL SERVICES Ot 793.11 04/15/2015 SIMONE HILAH S DIRECTOR FINANCIAL SERVICES Ot V44.3 04/15/2015 SONIA NICHOLS DIRECTOR FINANCIAL SERVICES Ot V58.69 04/15/2015 SONIA NICHOLS DIRECTOR FINANCIAL SERVICES Ot 154.0 04/15/2015 SONIA NICHOLS DIRECTOR FINANCIAL SERVICES Ot 196.9 04/15/2015 SONIA NICHOLS DIRECTOR FINANCIAL SERVICES Ot 287.5 04/15/2015 SONIA NICHOLS S DIRECTOR FINANCIAL SERVICES Ot 288.00 04/15/2015 SONIA NICHOLS S DIRECTOR FINANCIAL SERVICES Ot 793.11 04/15/2015 SONIA NICHOLS DIRECTOR FINANCIAL SERVICES Ot V44.3 04/15/2015 SONIA NICHOLS DIRECTOR FINANCIAL SERVICES Ot V58.69 04/15/2015 HIMA DREW Ot 154.1 04/15/2015 SONIA NICHOLS DIRECTOR FINANCIAL SERVICES Ot 070.70 04/15/2015 SONIA NICHOLS DIRECTOR FINANCIAL SERVICES Ot 154.1 04/15/2015 SONIA NICHOLS DIRECTOR FINANCIAL SERVICES Ot 196.9 04/15/2015 SONIA NICHOLS DIRECTOR FINANCIAL SERVICES Ot 793.11 04/15/2015 SONIA NICHOLS DIRECTOR FINANCIAL SERVICES Ot V44.3 04/15/2015 SONIA NICHOLS DIRECTOR FINANCIAL SERVICES Ot V58.69 04/15/2015 MELISSA LEE, JESIKA Liriano Ot V72.84 04/15/2015 JACKSON LEE, ADAN Ot 153.9 04/15/2015 JACKSON LEE, ADAN Ot V72.63 04/15/2015 JACKSON LEE, ADAN Ot V74.8 04/15/2015 MELISSA LEE, JESIKA Liriano Ot 242.90 04/15/2015 JESIKA TORRES MD Ot 242.00 04/15/2015 Ot 571.5 04/15/2015 Ot V10.06 04/15/2015 Ot 070.70 04/15/2015 Ot 242.00 04/15/2015 Ot 401.9 04/15/2015 Ot 571.5 04/15/2015 SONIA NICHOLS DIRECTOR FINANCIAL SERVICES Ot 154.0 04/15/2015 SONIA NICHOLS DIRECTOR FINANCIAL SERVICES Ot V44.3 04/15/2015 SONIA NICHOLS S DIRECTOR FINANCIAL SERVICES Ot V58.69 04/15/2015 NICHOLSSONIA Wilson S DIRECTOR FINANCIAL SERVICES Ot 518.0 04/15/2015 SONIA NICHOLS S DIRECTOR FINANCIAL SERVICES Ot 571.5 04/15/2015 NICHOLSSONIA Wilson S DIRECTOR FINANCIAL SERVICES Ot 789.2 04/15/2015 NICHOLSSONIA Wilson S DIRECTOR FINANCIAL SERVICES Ot 793.19 04/15/2015 VIKIPOONAM PARRATIARA N Ot 154.0 04/15/2015 POONAM DREWTIARA N Ot 793.11 04/15/2015 VIKI HIMA N Ot V44.3 04/15/2015 VIKIHIMA N Ot V58.69 04/15/2015 MELISSA LEE, JESIKA Liriano Ot 153.9 04/15/2015 MELISSA LEE, JESIKA Liriano Ot 242.00 04/15/2015 MELISSA LEE, JESIKA Liriano Ot 280.9 04/15/2015 SIMONESONIA S DIRECTOR FINANCIAL SERVICES Ot 070.70 04/15/2015 NICHOLSSONIA S DIRECTOR FINANCIAL SERVICES Ot 280.9 04/15/2015 NICHOLS SONIA S DIRECTOR FINANCIAL SERVICES Ot 571.5 04/15/2015 SIMONE SONIA S DIRECTOR FINANCIAL SERVICES Ot V10.06 04/15/2015 SIMONE SONIA S DIRECTOR FINANCIAL SERVICES Ot V44.3 04/15/2015 NICHOLSSONIA S DIRECTOR FINANCIAL SERVICES Ot V58.69 04/15/2015 NICHOLSSONIA S DIRECTOR FINANCIAL SERVICES Ot V67.1 04/15/2015 SIMONE SONIA S DIRECTOR FINANCIAL SERVICES Ot V67.2 04/21/2015 NICHOLSSONIA S DIRECTOR FINANCIAL SERVICES Ot 070.70 04/21/2015 NICHOLSSONIA Wilson S DIRECTOR FINANCIAL SERVICES Ot 280.9 04/21/2015 SIMONE SONIA S DIRECTOR FINANCIAL SERVICES Ot 571.5 04/21/2015 SIMONE SONIA S DIRECTOR FINANCIAL SERVICES Ot V10.06 04/21/2015 NICHOLSSONIA S DIRECTOR FINANCIAL SERVICES Ot V44.3 04/21/2015 NICHOLSSONIA S DIRECTOR FINANCIAL SERVICES Ot V58.69 04/21/2015 SIMONE SONIA S DIRECTOR FINANCIAL SERVICES Ot V67.1 04/21/2015 SIMONE SONIA S DIRECTOR FINANCIAL SERVICES Ot V67.2 04/27/2015 HIMA DREW N Ot 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 04/27/2015 VIKI, HIMA N Ot 793.11 SOLITARY PULMONARY NODULE 04/27/2015 VIKIHIMA N Ot V44.3 COLOSTOMY STATUS 04/27/2015 POONAM DREWAN N Ot V58.69 OTH MED,LT,CURRENT USE 04/27/2015 VIKI, BOBAN N Ot V58.81 FIT/ADJ VASCULAR CATHETER 04/27/2015 SONIA NICHOLS DIRECTOR FINANCIAL SERVICES Ot 154.1 04/27/2015 SONIA NICHOLS DIRECTOR FINANCIAL SERVICES Ot 793.19 07/16/2015 VIKI BOBAN N Ot [...] 08/16/2015 VIKI, BOBAN N Ot Z79.899 OTHER ASSISTED (CURRENT) DRUG THERAPY 08/16/2015 VIKI BOBAN N [...] 09/15/2015 VIKI, BOBAN N Ot Z45.2 09/15/2015 VKII, BOBAN N Ot Z79.899 09/15/2015 HIMA DREW N Ot Z93.3 10/04/2015 MELISSA LEE, JESIKA Liriano Ot E05.00 10/24/2015 SONIA NICHOLS DIRECTOR FINANCIAL SERVICES Ot C19 10/24/2015 SONIA NICHOLS DIRECTOR FINANCIAL SERVICES Ot R91.1 10/24/2015 SONIA NICHOLS DIRECTOR FINANCIAL SERVICES Ot Z79.899 10/24/2015 SONIA NICHOLS DIRECTOR FINANCIAL SERVICES Ot Z93.3 10/24/2015 JESIKA TORRES MD Ot E05.00 11/24/2015 HIMA DREW N Ot C19 MALIGNANT NEOPLASM OF RECTOSIGMOID JUNCT 11/24/2015 HIMA DREW N Ot R91.1 SOLITARY PULMONARY NODULE 11/24/2015 HIMA DREW N Ot Z45.2 ENCOUNTER FOR ADJUSTMENT AND MANAGEMENT 11/24/2015 HIMA DREW N Ot Z79.899 OTHER SBA UNDERWRITER (CURRENT) DRUG THERAPY 11/24/2015 HIMA DREW N Ot Z93.3 COLOSTOMY STATUS 12/09/2015 HIMA DREW N Ot C19 MALIGNANT NEOPLASM OF RECTOSIGMOID JUNCT 12/09/2015 HIMA DREW N Ot R91.1 SOLITARY PULMONARY NODULE 12/09/2015 VIKIHIMA PARRA N Ot Z45.2 ENCOUNTER FOR ADJUSTMENT AND MANAGEMENT 12/09/2015 HIMA DREW N Ot Z79.899 OTHER ASSISTED (CURRENT) DRUG THERAPY 12/09/2015 HIMA DREW N Ot Z93.3 COLOSTOMY STATUS 12/28/2015 HIMA DREW N Ot C19 MALIGNANT NEOPLASM OF RECTOSIGMOID JUNCT 12/28/2015 HIMA DREW N Ot R91.1 SOLITARY PULMONARY NODULE 12/28/2015 VIKIHIMA PARRA N Ot Z45.2 ENCOUNTER FOR ADJUSTMENT AND MANAGEMENT 12/28/2015 VIKIHIMA N Ot Z79.899 OTHER SBA UNDERWRITER (CURRENT) DRUG THERAPY 12/28/2015 VKIIHIMA PARRA N Ot Z93.3 COLOSTOMY STATUS 12/28/2015 SONIA NICHOLS S DIRECTOR FINANCIAL SERVICES Ot C19 MALIGNANT NEOPLASM OF RECTOSIGMOID JUNCT 12/28/2015 SONIA NICHOLS DIRECTOR FINANCIAL SERVICES Ot R91.1 SOLITARY PULMONARY NODULE 12/28/2015 SONIA NICHOLS DIRECTOR FINANCIAL SERVICES Ot Z45.2 ENCOUNTER FOR ADJUSTMENT AND MANAGEMENT 12/28/2015 SONIA NICHOLS DIRECTOR FINANCIAL SERVICES Ot Z79.899 OTHER ASSISTED (CURRENT) DRUG THERAPY 12/28/2015 SONIA NICHOLS DIRECTOR FINANCIAL SERVICES Ot Z93.3 COLOSTOMY STATUS 01/06/2016 SONIA NICHOLS DIRECTOR FINANCIAL SERVICES Ot C19 MALIGNANT NEOPLASM OF RECTOSIGMOID JUNCT 01/06/2016 SONIA NICHOLS DIRECTOR FINANCIAL SERVICES Ot R91.1 SOLITARY PULMONARY NODULE 01/06/2016 SONIA NICHOLS DIRECTOR FINANCIAL SERVICES Ot Z45.2 ENCOUNTER FOR ADJUSTMENT AND MANAGEMENT 01/06/2016 SONIA NICHOLS DIRECTOR FINANCIAL SERVICES Ot Z79.899 OTHER SBA UNDERWRITER (CURRENT) DRUG THERAPY 01/06/2016 SONIA NICHOLS DIRECTOR FINANCIAL SERVICES Ot Z93.3 COLOSTOMY STATUS 01/25/2016 JESIKA TORRES [...] 01/27/2016 JESIKA TORRES MD Ot Z79.899 OTHER SBA UNDERWRITER (CURRENT) DRUG THERAPY 01/27/2016 JESIKA TORRES MD Ot Z85.038 PERSONAL HISTORY OF MALIGNANT NEOPLASM O 01/27/2016 JESIKA TORRES MD Ot Z93.3 COLOSTOMY STATUS 02/01/2016 JESIKA TORRES MD, Ot E05.00 THYROTOXICOSIS W DIFFUSE GOITER W/O THYR 02/01/2016 JESIKA TORRES MD Ot K62.7 RADIATION PROCTITIS 02/01/2016 JESIKA TORRES MD Ot Z12.11 ENCOUNTER FOR SCREENING FOR MALIGNANT NE 02/01/2016 JESIKA TORRES MD Ot Z79.899 OTHER ASSISTED (CURRENT) DRUG THERAPY 02/01/2016 JESIKA TORRES MD Ot Z85.038 PERSONAL HISTORY OF MALIGNANT NEOPLASM O 02/01/2016 JESIKA TORRES MD Ot Z93.3 COLOSTOMY STATUS 02/09/2016 VIKIHIMA PARRA N Ot C19 MALIGNANT NEOPLASM OF RECTOSIGMOID JUNCT 02/09/2016 VIKIHIMA PARRA N Ot R91.1 SOLITARY PULMONARY NODULE 02/09/2016 VIKIHIMA PARRA N Ot Z45.2 ENCOUNTER FOR ADJUSTMENT AND MANAGEMENT 02/09/2016 VIKIHIMA PARRA N Ot Z79.899 OTHER SBA UNDERWRITER (CURRENT) DRUG THERAPY 02/09/2016 VIKIHIMA PARRA N Ot Z93.3 COLOSTOMY STATUS 02/22/2016 VIKIHIMA PARRA N Ot C19 MALIGNANT NEOPLASM OF RECTOSIGMOID JUNCT 02/22/2016 VIKIHIMA PARRA N Ot R91.1 SOLITARY PULMONARY NODULE 02/22/2016 VIKIHIMA PARRA N Ot Z45.2 ENCOUNTER FOR ADJUSTMENT AND MANAGEMENT 02/22/2016 VIKIHIMA PARRA N Ot Z79.899 OTHER ASSISTED (CURRENT) DRUG THERAPY 02/22/2016 VIKIHIMA PARRA N Ot Z93.3 COLOSTOMY STATUS 03/14/2016 SONIA NICHOLS DIRECTOR FINANCIAL SERVICES Ot C20 MALIGNANT NEOPLASM OF RECTUM 03/14/2016 SONIA NICHOLS DIRECTOR FINANCIAL SERVICES Ot R91.8 OTHER NONSPECIFIC ABNORMAL FINDING OF [place]ORI 03/26/2016 VIKI, BOBAN N Ot C19 MALIGNANT NEOPLASM OF RECTOSIGMOID JUNCT 03/26/2016 VIKIHIMA PARRA N Ot R91.1 SOLITARY PULMONARY NODULE 03/26/2016 VIKIHIMA PARRA N Ot Z45.2 ENCOUNTER FOR ADJUSTMENT AND MANAGEMENT 03/26/2016 VIKIHIMA PARRA N Ot Z79.899 OTHER ASSISTED (CURRENT) DRUG THERAPY 03/26/2016 VIKIHIMA PARRA N Ot Z93.3 COLOSTOMY STATUS 03/29/2016 VIKI, BOBAN N Ot C19 MALIGNANT NEOPLASM OF RECTOSIGMOID JUNCT 03/29/2016 VIKIHIMA PARRA N Ot R91.1 SOLITARY PULMONARY NODULE 03/29/2016 VIKIHIMA PARRA N Ot Z45.2 ENCOUNTER FOR ADJUSTMENT AND MANAGEMENT 03/29/2016 HIMA DREW N Ot Z79.899 OTHER SBA UNDERWRITER (CURRENT) DRUG THERAPY 03/29/2016 VIKIHIMA PARRA N Ot Z93.3 COLOSTOMY STATUS 03/29/2016 SONIA NICHOLS DIRECTOR FINANCIAL SERVICES Ot C20 MALIGNANT NEOPLASM OF RECTUM 03/29/2016 SONIA NICHOLS DIRECTOR FINANCIAL SERVICES Ot R91.8 OTHER NONSPECIFIC ABNORMAL FINDING OF [place] 04/13/2016 VIKIHIMA PARRA N Ot C19 MALIGNANT NEOPLASM OF RECTOSIGMOID JUNCT 04/13/2016 HIMA DREW N Ot R91.1 SOLITARY PULMONARY NODULE 04/13/2016 VIKIHIMA PARRA N Ot Z45.2 ENCOUNTER FOR ADJUSTMENT AND MANAGEMENT 04/13/2016 VIKIHIMA PARRA N Ot Z79.899 OTHER SBA UNDERWRITER (CURRENT) DRUG THERAPY 04/13/2016 VIKIHIMA PARRA N Ot Z93.3 COLOSTOMY STATUS 04/24/2016 VIKIHIMA PARRA N Ot C19 MALIGNANT NEOPLASM OF RECTOSIGMOID JUNCT 04/24/2016 VIKIHIMA PARRA N Ot R91.1 SOLITARY PULMONARY NODULE 04/24/2016 VIKIHIMA PARRA N Ot Z45.2 ENCOUNTER FOR ADJUSTMENT AND MANAGEMENT 04/24/2016 VIKIHIMA PARRA N Ot Z79.899 OTHER ASSISTED (CURRENT) DRUG THERAPY 04/24/2016 VIKIHIMA PARRA N Ot Z93.3 COLOSTOMY STATUS 05/07/2016 VIKIHIMA PARRA N Ot C19 MALIGNANT NEOPLASM OF RECTOSIGMOID JUNCT 05/07/2016 VIKIHIMA N Ot R91.1 SOLITARY PULMONARY NODULE 05/07/2016 VIKIHIMA N Ot Z45.2 ENCOUNTER FOR ADJUSTMENT AND MANAGEMENT 05/07/2016 VIKIHIMA N Ot Z79.899 OTHER SBA UNDERWRITER (CURRENT) DRUG THERAPY 05/07/2016 VIKIHIMA N Ot Z93.3 COLOSTOMY STATUS 07/11/2016 VIKIPOONAMAN N Ot C19 MALIGNANT NEOPLASM OF RECTOSIGMOID JUNCT 07/11/2016 VIKIHIMA N Ot R91.1 SOLITARY PULMONARY NODULE 07/11/2016 VIKIHIMA PARRA N Ot Z45.2 ENCOUNTER FOR ADJUSTMENT AND MANAGEMENT 07/11/2016 HIMA DREW N Ot Z79.899 OTHER ASSISTED (CURRENT) DRUG THERAPY 07/11/2016 HIMA DREW N Ot Z93.3 COLOSTOMY STATUS 08/08/2016 HIMA DREW N Ot C19 MALIGNANT NEOPLASM OF RECTOSIGMOID JUNCT 08/08/2016 HIMA DREW N Ot R91.1 SOLITARY PULMONARY NODULE 08/08/2016 HIMA DREW N Ot Z45.2 ENCOUNTER FOR ADJUSTMENT AND MANAGEMENT 08/08/2016 HIMA DREW N Ot Z79.899 OTHER SBA UNDERWRITER (CURRENT) DRUG THERAPY 08/08/2016 HIMA DREW N Ot Z93.3 COLOSTOMY STATUS 08/28/2016 MELISSA LEE, JESIKA Liriano Ot E05.00 THYROTOXICOSIS W DIFFUSE GOITER W/O THYR 09/02/2016 HIMA DREW N Ot C19 MALIGNANT NEOPLASM OF RECTOSIGMOID JUNCT 09/02/2016 HIMA DREW N Ot R91.1 SOLITARY PULMONARY NODULE 09/02/2016 HIMA DREW N Ot Z45.2 ENCOUNTER FOR ADJUSTMENT AND MANAGEMENT 09/02/2016 HIMA DREW N Ot Z79.899 OTHER SBA UNDERWRITER (CURRENT) DRUG THERAPY 09/02/2016 HIMA DREW N Ot Z93.3 COLOSTOMY STATUS 09/12/2016 JESIKA TORRES MD Ot E05.00 THYROTOXICOSIS W DIFFUSE GOITER W/O THYR 10/09/2016 HIMA DREW N Ot C19 MALIGNANT NEOPLASM OF RECTOSIGMOID JUNCT 10/09/2016 HIMA DREW N Ot R91.1 SOLITARY PULMONARY NODULE 10/09/2016 HIMA DREW N Ot Z45.2 ENCOUNTER FOR ADJUSTMENT AND MANAGEMENT 10/09/2016 HIMA DREW N Ot Z79.899 OTHER SBA UNDERWRITER (CURRENT) DRUG THERAPY 10/09/2016 HIMA DREW N Ot Z93.3 COLOSTOMY STATUS 11/13/2016 HIMA DREW N Ot C19 MALIGNANT NEOPLASM OF RECTOSIGMOID JUNCT 11/13/2016 HIMA DREW N Ot R91.1 SOLITARY PULMONARY NODULE 11/13/2016 VKIIHIMA PARRA Ot Z45.2 ENCOUNTER FOR ADJUSTMENT AND MANAGEMENT 11/13/2016 HIMA DREW Ot Z79.899 OTHER ASSISTED (CURRENT) DRUG THERAPY 11/13/2016 HIMA DREW Ot [...] Ot V76.51 SCREEN MAL NEOP-COLON 11/28/2016 JESIKA TRORES MD Ot V72.84 EXAM PRE-OPERATIVE NOS 11/28/2016 [...] CIRRHOSIS OF LIVER NOS 11/28/2016 SONIA NICHOLS DIRECTOR FINANCIAL SERVICES Ot 070.70 UNSPECIFIED VIRAL HEPATITIS C WITHOUT HE 11/28/2016 SONIA NICHOLS DIRECTOR FINANCIAL SERVICES Ot 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 11/28/2016 SONIA NICHOLS DIRECTOR FIN[employer]CIAL SERVICES Ot 518.89 OTHER DISEASES OF LUNG, NEC 11/28/2016 SONIA NICHOLS DIRECTOR FINANCIAL SERVICES Ot 571.5 CIRRHOSIS OF LIVER NOS 11/28/2016 MELISSA LEE, JESIKA Liriano Ot 242.90 THYROTOX NOS NO CRISIS 11/28/2016 SONIA NICHOLS DIRECTOR FINANCIAL SERVICES Ot 070.70 UNSPECIFIED VIRAL HEPATITIS C WITHOUT HE 11/28/2016 SONIA NICHOLS DIRECTOR FINANCIAL SERVICES Ot 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 11/28/2016 SONIA NICHOLS DIRECTOR FINANCIAL SERVICES Ot 793.11 SOLITARY PULMONARY NODULE 11/28/2016 SONIA NICHOLS DIRECTOR FINANCIAL SERVICES Ot V44.3 COLOSTOMY STATUS 11/28/2016 SONIA NICHOLS DIRECTOR FINANCIAL SERVICES Ot V58.69 OTH MED,LT,CURRENT USE 11/28/2016 SONIA NICHOLS DIRECTOR FINANCIAL SERVICES Ot 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 11/28/2016 SONIA NICHOLS DIRECTOR FINANCIAL SERVICES Ot V87.41 PERSONAL HISTORY OF ANTINEOPLASTIC CHEMO 11/28/2016 SONIA NICHOLS DIRECTOR FINANCIAL SERVICES Ot 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 11/28/2016 SONIA NICHOLS DIRECTOR FINANCIAL SERVICES Ot 276.51 DEHYDRATION 11/28/2016 SONIA NICHOLS DIRECTOR FINANCIAL SERVICES Ot 787.91 DIARRHEA 11/28/2016 SONIA NICHOLS DIRECTOR FINANCIAL SERVICES Ot 793.11 SOLITARY PULMONARY NODULE 11/28/2016 SONIA NICHOLS DIRECTOR FINANCIAL SERVICES Ot V44.3 COLOSTOMY STATUS 11/28/2016 SONIA NICHOLS DIRECTOR FINANCIAL SERVICES Ot V58.69 OTH MED,LT,CURRENT USE 11/28/2016 Ot 709.8 SKIN DISORDERS NEC 11/28/2016 Ot V44.3 COLOSTOMY STATUS 11/28/2016 SONIA NICHOLS DIRECTOR FINANCIAL SERVICES Ot 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 11/28/2016 SONIA NICHOLS DIRECTOR FINANCIAL SERVICES Ot 276.51 DEHYDRATION 11/28/2016 SONIA NICHOLS DIRECTOR FINANCIAL SERVICES Ot 787.91 DIARRHEA 11/28/2016 SONIA NICHOLS DIRECTOR FINANCIAL SERVICES Ot 793.11 SOLITARY PULMONARY NODULE 11/28/2016 SONIA NICHOLS DIRECTOR FINANCIAL SERVICES Ot V44.3 COLOSTOMY STATUS 11/28/2016 SONIA NICHOLS DIRECTOR FINANCIAL SERVICES Ot V58.69 OTH MED,LT,CURRENT USE 11/28/2016 JESIKA TORRES MD Ot 242.00 TOX DIF GOITER NO CRISIS 11/28/2016 JESIKA TORRES MD Ot 242.00 TOX DIF GOITER NO CRISIS 11/28/2016 SONIA NICHOLS DIRECTOR FINANCIAL SERVICES Ot 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 11/28/2016 SONIA NICHOLS DIRECTOR FINANCIAL SERVICES Ot 276.51 DEHYDRATION 11/28/2016 SONIA NICHOLS DIRECTOR FINANCIAL SERVICES Ot 787.91 DIARRHEA 11/28/2016 SONIA NICHOLS DIRECTOR FINANCIAL SERVICES Ot 793.11 SOLITARY PULMONARY NODULE 11/28/2016 SONIA NICHOLS DIRECTOR FINANCIAL SERVICES Ot V44.3 COLOSTOMY STATUS 11/28/2016 SONIA NICHOLSP Ot V58.69 OTH MED,LT,CURRENT USE 11/28/2016 SONIA NICHOLS DIRECTOR FINANCIAL SERVICES Ot 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 11/28/2016 SONIA NICHOLS DIRECTOR FINANCIAL SERVICES Ot V44.3 COLOSTOMY STATUS 11/28/2016 SONIA NICHOLSP Ot V58.69 OTH MED,LT,CURRENT USE 11/28/2016 ADAN PAZ MD Ot 154.1 MALIGNANT NEOPL RECTUM 11/28/2016 ADAN PAZ MD Ot V72.84 EXAM PRE-OPERATIVE NOS 11/28/2016 ADAN PAZ MD Ot V74.8 SCREEN-BACTERIAL DIS NEC 11/28/2016 SONIA NICHOLS DIRECTOR FINANCIAL SERVICES Ot 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 11/28/2016 SONIA NICHOLS DIRECTOR FINANCIAL SERVICES Ot 793.11 SOLITARY PULMONARY NODULE 11/28/2016 SONIA NICHOLS DIRECTOR FINANCIAL SERVICES Ot V44.3 COLOSTOMY STATUS 11/28/2016 SONIA NICHOLS DIRECTOR FINANCIAL SERVICES Ot V58.69 OTH MED,LT,CURRENT USE 11/28/2016 JESIKA TORRES MD Ot 242.00 TOX DIF GOITER NO CRISIS 11/28/2016 SONIA NICHOLS DIRECTOR FINANCIAL SERVICES Ot 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 11/28/2016 NICHOLS, HILAH S DIRECTOR FINANCIAL SERVICES Ot 793.11 SOLITARY PULMONARY NODULE 11/28/2016 KAREN NICHOLSLAURA S DIRECTOR FINANCIAL SERVICES Ot V44.3 COLOSTOMY STATUS 11/28/2016 SONIA NICHOLS S DIRECTOR FINANCIAL SERVICES Ot V58.69 OTH MED,LT,CURRENT USE 11/28/2016 MELISSA LEE, JESIKA Liriano Ot 274.9 GOUT NOS 11/28/2016 SONIA NICHOLS S DIRECTOR FINANCIAL SERVICES Ot 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 11/28/2016 SONIA NICHOLS S DIRECTOR FINANCIAL SERVICES Ot 793.11 SOLITARY PULMONARY NODULE 11/28/2016 SONIA NICHOLS S DIRECTOR FINANCIAL SERVICES Ot V44.3 COLOSTOMY STATUS 11/28/2016 KAREN NICHOLSLAURA S DIRECTOR FINANCIAL SERVICES Ot V58.69 OTH MED,LT,CURRENT USE 11/28/2016 SONIA NICHOLS S DIRECTOR FINANCIAL SERVICES Ot 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 11/28/2016 SONIA NICHOLS S DIRECTOR FINANCIAL SERVICES Ot 793.11 SOLITARY PULMONARY NODULE 11/28/2016 SONIA NICHOLS S DIRECTOR FINANCIAL SERVICES Ot V44.3 COLOSTOMY STATUS 11/28/2016 SONIA NICHOLS S DIRECTOR FINANCIAL SERVICES Ot V58.69 OTH MED,LT,CURRENT USE 11/28/2016 KAREN NICHOLSLAURA S DIRECTOR FINANCIAL SERVICES Ot 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 11/28/2016 SONIA NICHOLS S DIRECTOR FINANCIAL SERVICES Ot 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 11/28/2016 SONIA NICHOLS S DIRECTOR FINANCIAL SERVICES Ot 287.5 THROMBOCYTOPENIA NOS 11/28/2016 SONIA NICHOLS S DIRECTOR FINANCIAL SERVICES Ot 288.00 NEUTROPENIA, UNSPECIFIED 11/28/2016 SONIA NICHOLS S DIRECTOR FINANCIAL SERVICES Ot 793.11 SOLITARY PULMONARY NODULE 11/28/2016 SONIA NICHOLS S DIRECTOR FINANCIAL SERVICES Ot V44.3 COLOSTOMY STATUS 11/28/2016 SONIA NICHOLS S DIRECTOR FINANCIAL SERVICES Ot V58.69 OTH MED,LT,CURRENT USE 11/28/2016 HIMA DREW Ot 154.1 MALIGNANT NEOPL RECTUM 11/28/2016 SONIA NICHOLS S DIRECTOR FINANCIAL SERVICES Ot 070.70 UNSPECIFIED VIRAL HEPATITIS C WITHOUT HE 11/28/2016 SONIA NICHOLS S DIRECTOR FINANCIAL SERVICES Ot 154.1 MALIGNANT NEOPL RECTUM 11/28/2016 SONIA NICHOLS S DIRECTOR FINANCIAL SERVICES Ot 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 11/28/2016 SONIA NICHOLS DIRECTOR FINANCIAL SERVICES Ot 793.11 SOLITARY PULMONARY NODULE 11/28/2016 SONIA NICHOLS DIRECTOR FINANCIAL SERVICES Ot V44.3 COLOSTOMY STATUS 11/28/2016 SONIA NICHOLS DIRECTOR FINANCIAL SERVICES Ot V58.69 OTH MED,LT,CURRENT USE 11/28/2016 JESIKA [...] CIRRHOSIS OF LIVER NOS 11/28/2016 SONIA NICHOLS DIRECTOR FINANCIAL SERVICES Ot 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 11/28/2016 SONIA NICHOLS DIRECTOR FINANCIAL SERVICES Ot V44.3 COLOSTOMY STATUS 11/28/2016 SONIA NICHOLSP Ot V58.69 OTH MED,LT,CURRENT USE 11/28/2016 SONIA NICHOLS DIRECTOR FINANCIAL SERVICES Ot 518.0 PULMONARY COLLAPSE 11/28/2016 SONIA NICHOLS DIRECTOR FINANCIAL SERVICES Ot 571.5 CIRRHOSIS OF LIVER NOS 11/28/2016 SONIA NICHOLS DIRECTOR FINANCIAL SERVICES Ot 789.2 SPLENOMEGALY 11/28/2016 SONIA NICHOLS DIRECTOR FINANCIAL SERVICES Ot 793.19 OTHER NONSPECIFIC ABNORMAL FINDING OF KORI 11/28/2016 JESIKA TORRES MD Ot 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 11/28/2016 JESIKA TORRES MD Ot 242.00 TOX DIF GOITER NO CRISIS 11/28/2016 JESIKA TORRES MD Ot 280.9 IRON DEFIC ANEMIA NOS 11/28/2016 SONIA NICHOLS DIRECTOR FINANCIAL SERVICES Ot 070.70 UNSPECIFIED VIRAL HEPATITIS C WITHOUT HE 11/28/2016 SONIA NICHOLS DIRECTOR FINANCIAL SERVICES Ot 280.9 IRON DEFIC ANEMIA NOS 11/28/2016 SONIA NICHOLS DIRECTOR FINANCIAL SERVICES Ot 571.5 CIRRHOSIS OF LIVER NOS 11/28/2016 SONIA NICHOLS DIRECTOR FINANCIAL SERVICES Ot V10.06 HX-RECTAL ANAL MALIGN 11/28/2016 SONIA NICHOLS DIRECTOR FINANCIAL SERVICES Ot V44.3 COLOSTOMY STATUS 11/28/2016 SONIA NICHOLS DIRECTOR FINANCIAL SERVICES Ot V58.69 OT MED,LT,CURRENT USE 11/28/2016 SONIA NICHOLS DIRECTOR FINANCIAL SERVICES Ot V67.1 RADIOTHERAPY FOLLOW-UP 11/28/2016 SONIA NICHOLS DIRECTOR FINANCIAL SERVICES Ot V67.2 CHEMOTHERAPY FOLLOW-UP 11/28/2016 SONIA NICHOLS DIRECTOR FINANCIAL SERVICES Ot 154.1 MALIGNANT NEOPL RECTUM 11/28/2016 SONIA NICHOLS DIRECTOR FINANCIAL SERVICES Ot 793.19 OTHER NONSPECIFIC ABNORMAL FINDING OF KORI 11/28/2016 JESIKA TORRES MD Ot E05.00 THYROTOXICOSIS W DIFFUSE GOITER W/O THYR 11/28/2016 SONIA NICHOLS DIRECTOR FINANCIAL SERVICES Ot C19 MALIGNANT NEOPLASM OF RECTOSIGMOID JUNCT 11/28/2016 SONIA NICHOLSP Ot R91.1 SOLITARY PULMONARY NODULE 11/28/2016 SONIA NICHOLS DIRECTOR FINANCIAL SERVICES Ot Z79.899 OTHER SBA UNDERWRITER (CURRENT) DRUG THERAPY 11/28/2016 SONIA NICHOLSP Ot Z93.3 COLOSTOMY STATUS 11/28/2016 JESIKA TORRES MD Ot E05.00 THYROTOXICOSIS W DIFFUSE GOITER W/O THYR 11/28/2016 SONIA NICHOLS DIRECTOR FINANCIAL SERVICES Ot C19 MALIGNANT NEOPLASM OF RECTOSIGMOID JUNCT 11/28/2016 SONIA NICHOLS DIRECTOR FINANCIAL SERVICES Ot R91.1 SOLITARY PULMONARY NODULE 11/28/2016 SONIA NICHOLS DIRECTOR FINANCIAL SERVICES Ot Z45.2 ENCOUNTER FOR ADJUSTMENT AND MANAGEMENT 11/28/2016 SONIA NICHOLS DIRECTOR FINANCIAL SERVICES Ot Z79.899 OTHER SBA UNDERWRITER (CURRENT) DRUG THERAPY 11/28/2016 SONIA NICHOLS DIRECTOR FINANCIAL SERVICES Ot Z93.3 COLOSTOMY STATUS 11/28/2016 SONIA NICHOLS DIRECTOR FINANCIAL SERVICES Ot C20 MALIGNANT NEOPLASM OF RECTUM 11/28/2016 NICHOLS SONIA Wilson DIRECTOR FINANCIAL SERVICES Ot R91.8 OTHER NONSPECIFIC ABNORMAL FINDING OF KORI 11/28/2016 MELISSA LEE, JESIKA Liriano Ot E05.00 THYROTOXICOSIS W DIFFUSE GOITER W/O THYR 11/28/2016 VIKIHIMA PARRA N Ot C19 MALIGNANT NEOPLASM OF RECTOSIGMOID JUNCT 11/28/2016 VIKI, POONAMTIARA N Ot R91.1 SOLITARY PULMONARY NODULE 11/28/2016 VIKI, POONAMTIARA N Ot Z45.2 ENCOUNTER FOR ADJUSTMENT AND MANAGEMENT 11/28/2016 VIKIPOONAM PARRAAN N Ot Z79.899 OTHER SBA UNDERWRITER (CURRENT) DRUG THERAPY 11/28/2016 VIKI, POONAMTIARA N Ot Z93.3 COLOSTOMY STATUS 12/13/2016 MELISSA LEE, JESIKA Liriano Ot E05.00 THYROTOXICOSIS W DIFFUSE GOITER W/O THYR 01/06/2017 VIKIHIMA PARRA N Ot C19 MALIGNANT NEOPLASM OF RECTOSIGMOID JUNCT 01/06/2017 VIKI, POONAMTIARA N Ot R91.1 SOLITARY PULMONARY NODULE 01/06/2017 VIKIHIMA PARRA N Ot Z45.2 ENCOUNTER FOR ADJUSTMENT AND MANAGEMENT 01/06/2017 VIKI, BOBAN N Ot Z79.899 OTHER ASSISTED (CURRENT) DRUG THERAPY 01/06/2017 VIKI, BOBAN N Ot Z93.3 COLOSTOMY STATUS 01/14/2017 VIKIHIMA PARRA N Ot C19 MALIGNANT NEOPLASM OF RECTOSIGMOID JUNCT 01/14/2017 VIKI, BOBAN N Ot R91.1 SOLITARY PULMONARY NODULE 01/14/2017 VIKIHIMA N Ot Z45.2 ENCOUNTER FOR ADJUSTMENT AND MANAGEMENT 01/14/2017 VIKI BOBAN N Ot Z79.899 OTHER SBA UNDERWRITER (CURRENT) DRUG THERAPY 01/14/2017 VIKIPOONAMAN N Ot Z93.3 COLOSTOMY STATUS 02/08/2017 VIKIHIMA PARRA N Ot C19 MALIGNANT NEOPLASM OF RECTOSIGMOID JUNCT 02/08/2017 VIKI BOBAN N Ot R91.1 SOLITARY PULMONARY NODULE 02/08/2017 VIKI BOBAN N Ot Z45.2 ENCOUNTER FOR ADJUSTMENT AND MANAGEMENT 02/08/2017 VIKI POONAMAN N Ot Z79.899 OTHER SBA UNDERWRITER (CURRENT) DRUG THERAPY 02/08/2017 HIMA DREW Dejan Ot Z93.3 COLOSTOMY STATUS 04/11/2017 VIKI POONAMTIARA Dejan Ot C19 MALIGNANT NEOPLASM OF RECTOSIGMOID JUNCT 04/11/2017 HIMA DREW Dejan Ot R91.1 SOLITARY PULMONARY NODULE 04/11/2017 HIMA DREW Dejan Ot Z45.2 ENCOUNTER FOR ADJUSTMENT AND MANAGEMENT 04/11/2017 VIKI POONAMTIARA Dejan Ot Z79.899 OTHER ASSISTED (CURRENT) DRUG THERAPY 04/11/2017 HIMA DREW Dejan [...] 05/17/2017 HIMA DREW Dejan Ot Z79.899 OTHER SBA UNDERWRITER (CURRENT) DRUG THERAPY 05/17/2017 HIMA DREW Dejan [...] 06/14/2017 HIMA DREW N Ot Z79.899 OTHER ASSISTED (CURRENT) DRUG THERAPY 06/14/2017 HIMA DREW N [...] 08/14/2017 HIMA DREW N Ot Z79.899 OTHER SBA UNDERWRITER (CURRENT) DRUG THERAPY 08/14/2017 HIMA DREW Dejan [...] 09/26/2017 HIMA DREW N Ot Z79.899 OTHER SBA UNDERWRITER (CURRENT) DRUG THERAPY 09/26/2017 HIMA DREW N [...] 10/11/2017 HIMA DREW N Ot Z79.899 OTHER SBA UNDERWRITER (CURRENT) DRUG THERAPY 10/11/2017 HIMA DREW N [...] 12/11/2017 HIMA DREW N Ot Z79.899 OTHER SBA UNDERWRITER (CURRENT) DRUG THERAPY 12/11/2017 HIMA DREW N [...] 12/24/2017 HIMA DREW N Ot Z79.899 OTHER SBA UNDERWRITER (CURRENT) DRUG THERAPY 12/24/2017 HIMA DREW N [...] 02/03/2018 HIMA DREW N Ot Z79.899 OTHER SBA UNDERWRITER (CURRENT) DRUG THERAPY 02/03/2018 VIKI POONAMTIARA N [...] 03/17/2018 HIMA DREW N Ot Z79.899 OTHER ASSISTED (CURRENT) DRUG THERAPY 03/17/2018 HIMA DREW N [...] 04/09/2018 HIMA DREW Dejan Ot Z79.899 OTHER ASSISTED (CURRENT) DRUG THERAPY 04/09/2018 HIMA DREW Dejan [...] 05/01/2018 HIMA DREW N Ot Z79.899 OTHER SBA UNDERWRITER (CURRENT) DRUG THERAPY 05/01/2018 HIMA DREW N [...] 05/02/2018 HIMA DREW N Ot Z79.899 OTHER ASSISTED (CURRENT) DRUG THERAPY 05/02/2018 HIMA DREW N [...] MANAGEMENT 06/25/2018 HIMA DREW Ot Z79.899 OTHER SBA UNDERWRITER (CURRENT) DRUG THERAPY 06/25/2018 HIMA DREW Ot [...] 06/26/2018 MATTHEW CASTREJON DO Ot Z79.899 OTHER ASSISTED (CURRENT) DRUG THERAPY 06/26/2018 MATTHEW CASTREJON DO Ot Z85.048 PRSNL HX OF MALIG NEOPLM OF RECTUM, RECT 06/26/2018 MATTHEW CASTREJON DO Ot Z86.19 PERSONAL HISTORY OF OTHER INFECTIOUS AND 06/30/2018 MATTHEW CASTREJON DO Ot I10 ESSENTIAL (PRIMARY) HYPERTENSION 06/30/2018 MATTHEW CASTREJON DO Ot Z08 ENCNTR FOR FOLLOW-UP EXAM AFTER TRTMT FO 06/30/2018 MATTHEW CASTREJON DO Ot Z79.899 OTHER ASSISTED (CURRENT) DRUG THERAPY 06/30/2018 MATTHEW CASTREJON DO Ot Z85.048 PRSNL HX OF MALIG NEOPLM OF RECTUM, RECT 06/30/2018 MATTHEW CASTREJON DO Ot Z86.19 PERSONAL HISTORY OF OTHER INFECTIOUS AND 07/10/2018 SONIA NICHOLS DIRECTOR FINANCIAL SERVICES Ot C18.9 MALIGNANT NEOPLASM OF COLON, UNSPECIFIED 07/10/2018 SONIA NICHOLS DIRECTOR FINANCIAL SERVICES Ot N43.3 HYDROCELE, UNSPECIFIED 07/10/2018 SONIA NICHOLS DIRECTOR FINANCIAL SERVICES Ot R59.0 LOCALIZED ENLARGED LYMPH NODES 07/10/2018 SONIA NICHOLS DIRECTOR FINANCIAL SERVICES Ot R91.8 OTHER NONSPECIFIC ABNORMAL FINDING OF KORI 07/14/2018 ANA RAIN DO Ot Z01.818 ENCOUNTER FOR OTHER PREPROCEDURAL EXAMIN 07/15/2018 Ot R91.8 OTHER NONSPECIFIC ABNORMAL FINDING OF KORI 07/16/2018 ANA RAIN DO Ot C20 MALIGNANT NEOPLASM OF RECTUM 07/16/2018 ANA RAIN DO Ot 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 07/16/2018 ANA RAIN DO Ot F41.9 ANXIETY DISORDER, UNSPECIFIED 07/16/2018 ANA RAIN DO Ot I10 ESSENTIAL (PRIMARY) HYPERTENSION 07/16/2018 ANA RAIN DO Ot K74.60 UNSPECIFIED CIRRHOSIS OF LIVER 07/16/2018 ANA RAIN DO Ot R91.8 OTHER NONSPECIFIC ABNORMAL FINDING OF KORI 07/16/2018 ANA RAIN DO Ot Z79.899 OTHER ASSISTED (CURRENT) DRUG THERAPY 07/16/2018 ANA RAIN DO Ot Z86.19 PERSONAL HISTORY OF OTHER INFECTIOUS AND 07/16/2018 ANA RAIN DO Ot Z87.891 PERSONAL HISTORY OF NICOTINE DEPENDENCE 07/30/2018 ANA RAIN DO Ot C20 MALIGNANT NEOPLASM OF RECTUM 07/30/2018 ANA RAIN DO Ot 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 07/30/2018 ANA RAIN DO Ot F41.9 ANXIETY DISORDER, UNSPECIFIED 07/30/2018 ANA RAIN DO Ot I10 ESSENTIAL (PRIMARY) HYPERTENSION 07/30/2018 ANA RAIN DO Ot K74.60 UNSPECIFIED CIRRHOSIS OF LIVER 07/30/2018 ANA RAIN DO Ot R91.8 OTHER NONSPECIFIC ABNORMAL FINDING OF KORI 07/30/2018 ANA RAIN DO Ot Z79.899 OTHER ASSISTED (CURRENT) DRUG THERAPY 07/30/2018 ANA RAIN DO Ot Z86.19 PERSONAL HISTORY OF OTHER INFECTIOUS AND 07/30/2018 ANA RAIN DO Ot Z87.891 PERSONAL HISTORY OF NICOTINE DEPENDENCE Procedures Code Description Performed By Performed On [...] resistant Staphylococcus aureus (MRSA) screening culture NEG NRG Complete blood count (CBC) with automated white [...] g/dL 3.2-4.5 CALCIUM CORRECTED 9.4 mg/dL 8.5-10.1 Sputum Gram stain - 07/16/18 08:00 Sputum Gram stain No bacteria seen NRG Bacteria identification in bronchial specimen by aerobe culture - 07/16/18 08: 00 QUANTITY OF GROWTH . NRG Bacteria identification in bronchial specimen by aerobe culture [id number] NRG FTX;REPORTABLE 30,000 CFU/ML NRG C FUNGUS SPUTUM FLUID TISSUE - 07/16/18 08:00 FTX;REPORTABLE FINAL REQUIRES 4 WEEKS NRG FUNGUS EXAM CURRENT REPORT: NEGATIVE NRG Sputum Gram stain - 07/16/18 08:01 Sputum Gram stain No bacteria seen NRG Bacteria identification in bronchial specimen by aerobe culture - 07/16/18 08: 01 QUANTITY OF GROWTH . NRG Bacteria identification in bronchial specimen by aerobe culture USUAL RESP NRG FTX;REPORTABLE 1,000 CFU/ML NRG C FUNGUS SPUTUM FLUID TISSUE - 07/16/18 08:01 FTX;REPORTABLE 4 WEEKS REQUIRED FOR FINAL NRG FUNGUS EXAM CURRENT REPORT: NEGATIVE NRG Mycobacterium species detection by organism specific culture - 07/16/18 08:02 Encounters ACCT No. Visit Date/Time Discharge Status Pt. Type Provider Facility Loc./Unit Complaint [id number] 08/05/2018 09:32:00 08/05/2018 15:52:00 DIS Outpatient MATTHEW CASTREJON DO [facility] PREOP PORT PLACEMENT [id number] 08/01/2018 13:57:00 08/01/2018 23:59:59 CLS Outpatient HIMA DREW [facility] ONC [id number] 07/16/2018 07:12:00 07/16/2018 10:10:00 DIS Outpatient ANA RAIN DO [facility] ENDO LUNG MASS/MALIGANT TUMOR OF RECTUM/CIRRHOSIS OF LI [id number] 07/14/2018 06:29:00 07/14/2018 11:47:00 DIS Outpatient ANA RAIN DO [facility] PREOP EBUS [id number] 07/08/2018 10:14:00 07/08/2018 23:59:59 CLS Outpatient SONIA NICHOLSP [facility] RAD ABNORMAL CAT SCAN, LUNG NODULES [id number] 07/01/2018 07:52:00 07/01/2018 23:59:59 CLS Outpatient SONIA NICHOLS [facility] RAD MALIGNANT TUMOR OF RECTUM [id number] 06/26/2018 07:46:00 06/26/2018 10:55:00 DIS Outpatient MATTHEW CASTREJON DO [facility] SDC HISTORY OF RECTAL CANCER [id number] 06/25/2018 14:20:00 06/25/2018 14:42:00 DIS Outpatient MATTHEW CASTREJON DO [facility] PREOP HISTORY OF RECTAL CANCER [id number] 04/23/2018 13:45:00 05/01/2018 00:01:00 DIS Outpatient HIMA DREW [facility] ONC [id number] 12/20/2017 08:51:00 12/24/2017 00:01:00 DIS Outpatient HIMA DREW [facility] ONC [id number] 09/25/2017 16:00:00 09/25/2017 23:59:59 CLS Outpatient JESIKA TORRES MD [facility] LAB [id number] 08/09/2017 11:18:00 08/14/2017 00:01:00 DIS Outpatient HIMA DREW [facility] ONC [id number] 04/08/2017 14:49:00 04/11/2017 00:01:00 DIS Outpatient HIMA DREW [facility] ONC [id number] 11/28/2016 09:04:00 01/06/2017 00:01:00 DIS Outpatient HIMA DREW [facility] ONC [id number] 11/28/2016 09:09:00 11/28/2016 23:59:59 CLS Outpatient JESIKA TORRES MD [facility] LAB [id number] 08/27/2016 14:53:00 09/02/2016 00:01:00 DIS Outpatient HIMA DREW [facility] ONC [id number] 08/27/2016 15:09:00 08/27/2016 23:59:59 CLS Outpatient JESIKA TORRES MD [facility] LAB [id number] 04/23/2016 13:04:00 05/07/2016 13:27:00 DIS Outpatient HIMA DREW [facility] ONC [id number] 03/19/2016 14:52:00 03/26/2016 00:01:00 DIS Outpatient HIMA DREW [facility] ONC [id number] 03/12/2016 10:08:00 03/12/2016 23:59:59 CLS Outpatient SONIA NICHOLS [facility] RAD MALIGNANT TUMOR OF RECTUM,LUNG NODULES [id number] 01/27/2016 07:51:00 01/27/2016 10:00:00 DIS Outpatient JESIKA TORRES MD [facility] SDC HISTORY COLON CANCER [id number] 01/25/2016 05:43:00 01/25/2016 15:35:00 DIS Outpatient JESIKA TORRES MD [facility] PREOP HISTORY COLON CANCER [id number] 12/27/2015 14:35:00 12/27/2015 23:59:59 CLS Outpatient SONIA NICHOLS [facility] ONC [id number] 11/15/2015 14:07:00 11/24/2015 00:01:00 DIS Outpatient VIKIHIMA Dejan [facility] ONC [id number] 10/03/2015 14:49:00 10/03/2015 23:59:59 CLS Outpatient JESIKA TORRES MD [facility] LAB [id number] 10/03/2015 14:47:00 10/03/2015 23:59:59 CLS Outpatient SONIA NICHOLS S DIRECTOR FINANCIAL SERVICES [facility] ONC [id number] 07/04/2015 14:51:00 07/04/2015 23:59:59 CLS Outpatient JESIKA TORRES MD [facility] LAB [id number] 07/04/2015 14:48:00 07/04/2015 23:59:59 CLS Outpatient HIMA DREW [facility] [id number] 04/19/2015 16:08:00 04/27/2015 00:01:00 DIS Outpatient VIKI HIMA Wylie [facility] [id number] 04/15/2015 10:48:00 04/15/2015 23:59:59 CLS Outpatient SONIA NICHOLS S DIRECTOR [employer] SERVICES [facility] RAD RECTAL CANCER,LUNG NODULES [id number] 04/07/2015 13:03:00 04/07/2015 23:59:59 CLS Outpatient SONIA NICHOLS S DIRECTOR [employer] SERVICES [facility] [id number] 02/04/2015 07:39:00 02/04/2015 23:59:59 CLS Outpatient JESIKA TORRES MD [facility] [id number] 01/13/2015 12:45:00 01/25/2015 00:01:00 DIS Outpatient HIMA DREW [facility] [id number] 10/29/2014 09:22:00 10/29/2014 23:59:59 CLS Outpatient SONIA NICHOLS S DIRECTOR [employer] [facility] RAD LUNG NODULE [id number] 10/27/2014 14:22:00 10/27/2014 23:59:59 CLS Outpatient SONIA NICHOLS [facility] [id number] 08/26/2014 00:28:00 08/26/2014 23:59:59 CLS Preadmit JESIKA TORRES MD [facility] [id number] 06/21/2014 10:48:00 08/25/2014 00:01:00 DIS Outpatient HIMA DREW [facility] [id number] 05/27/2014 08:57:00 08/25/2014 00:01:00 DIS Outpatient JESIKA TORRES MD [facility] [id number] 07/18/2014 19:43:00 08/06/2014 16:30:00 DIS Inpatient JESIKA TORRES MD [facility] SURGICAL PARTIAL SMALL BOWEL OBST, DEHYDRATION [id number] 08/02/2014 09:15:00 08/02/2014 23:59:59 CLS Preadmit SONIA NICHOLS [facility] 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 [id number] 07/01/2014 09:00:00 07/12/2014 14:40:00 DIS Inpatient ADAN PAZ MD [facility] SURGICAL COLON CA [id number] 06/28/2014 08:42:00 06/28/2014 23:59:59 CLS Outpatient JESIKA TORRES MD [facility] THYROTOXICOSIS [id number] 06/28/2014 08:00:00 06/28/2014 23:59:59 CLS Outpatient ADAN PAZ MD [facility] PREOP ILEOSTOMY REVERSAL [id number] 05/21/2014 06:58:00 05/21/2014 09:00:00 DIS Outpatient JESIKA TORRES MD [facility] SDC COLON CANCER [id number] 05/20/2014 07:47:00 05/20/2014 23:59:59 CLS Outpatient JESIKA TORRES MD [facility] PREOP COLON CANCER [id number] 04/21/2014 11:55:00 05/20/2014 00:01:00 DIS Outpatient HIMA DREW [facility] [id number] 05/14/2014 10:11:00 05/14/2014 23:59:59 CLS Outpatient SONIA NICHOLS S [employer]OR [employer] [facility] [id number] 05/04/2014 08:12:00 05/04/2014 23:59:59 CLS Outpatient VIKI POONAMTIARA Dejan [facility] RAD RECTAL CANCER [id number] 03/26/2014 10:20:00 03/26/2014 23:59:59 CLS Outpatient NICHOLSSONIA Wilson S DIRECTOR [employer] SERVICES [facility] [id number] 03/05/2014 09:45:00 03/05/2014 23:59:59 CLS Outpatient NICHOLSSONIA Wilson S DIRECTOR [employer] SERVICES [facility] [id number] 01/08/2014 09:55:00 02/18/2014 00:01:00 DIS Outpatient HIMA DREW [facility] [id number] 01/01/2014 09:57:00 01/01/2014 23:59:59 CLS Outpatient SONIA NICHOLS S [employer]OR [employer] [facility] [id number] 12/18/2013 11:42:00 12/18/2013 23:59:59 CLS Outpatient JESIKA TORRES MD [facility] [id number] 12/11/2013 09:58:00 12/11/2013 23:59:59 CLS Outpatient SONIA NICHOLS S DIRECTOR [employer] SERVICES [facility] [id number] 11/16/2013 13:27:00 11/16/2013 23:59:59 CLS Outpatient KAREN NICHOLSAH S DIRECTOR [employer] SERVICES [facility] [facility] [id number] 11/12/2013 09:14:00 11/15/2013 00:01:00 DIS Outpatient HIMA DREW [facility] ONC [id number] 11/12/2013 09:28:00 11/12/2013 23:59:59 CLS Outpatient JESIKA TORRES MD [facility] LAB [id number] 11/05/2013 06:15:00 11/05/2013 10:40:00 DIS Outpatient ADAN PAZ MD [facility] SDC RECTAL CANCER [id number] 11/02/2013 10:12:00 11/02/2013 23:59:59 CLS Outpatient AADN PAZ MD [facility] PREOP RECTAL CANCER [id number] 10/23/2013 10:20:00 10/23/2013 23:59:59 CLS Outpatient SONIA NICHOLS S DIRECTOR [employer] SERVICES [facility] ONC [id number] 10/14/2013 10:37:00 10/14/2013 23:59:59 CLS Outpatient SONIA NICHOLS S DIRECTOR [employer] SERVICES [facility] ONC [id number] 10/14/2013 10:33:00 10/14/2013 23:59:59 CLS Outpatient JESIKA TORRES MD [facility] LAB [id number] 10/09/2013 10:27:00 10/09/2013 23:59:59 CLS Outpatient JESIKA TORRES MD [facility] LAB [id number] 10/07/2013 08:37:00 10/07/2013 23:59:59 CLS Outpatient SONIA NICHOLS DIRECTOR [employer] SERVICES [facility] ONC [id number] 09/30/2013 09:54:00 10/05/2013 10:56:00 DIS Inpatient JESIKA TORRES MD [facility] 4TH RENAL FAILUR,DEHYDRATION, DIARRHEA [id number] 09/24/2013 08:29:00 09/24/2013 23:59:59 CLS Outpatient SONIA NICHOLS S DIRECTOR [employer] SERVICES [facility] ONC [id number] 09/18/2013 08:30:00 09/24/2013 09:19:00 DIS Outpatient JESIKA TORRES MD [facility] WOUNDCARE PERISTOMAL TISSUE [id number] 09/17/2013 12:58:00 09/17/2013 23:59:59 CLS Outpatient SONIA NICHOLS S DIRECTOR [employer] SERVICES [facility] ONC [id number] 09/08/2013 08:37:00 09/08/2013 23:59:59 CLS Outpatient SONIA NICHOLS S DIRECTOR [employer] SERVICES [facility] ONC [id number] 08/26/2013 11:18:00 08/26/2013 23:59:59 CLS Outpatient JESIKA TORRES MD [facility] RAD TACHYCARDIA, HYPERTHYROIDISM [id number] 08/19/2013 13:03:00 08/19/2013 23:59:59 CLS Outpatient SONIA NICHOLS S DIRECTOR [employer] SERVICES [facility] ONC [id number] 08/11/2013 10:16:00 08/11/2013 23:59:59 CLS Outpatient HIMA DREW [facility] RAD RECTAL CANCER [id number] 08/11/2013 03:24:00 08/11/2013 05:55:00 DIS Emergency ALEJANDRO BROOKS MD [facility] ER PROBLEM W/COLOSTOMY BAG [id number] 08/10/2013 11:30:00 08/10/2013 23:59:59 CLS Outpatient JESIKA TORRES MD [facility] HH DEHYDRATION, MALNUTRITION , CIRRHOSIS, HTN [id number] 08/06/2013 14:55:00 08/06/2013 23:59:59 CLS Outpatient HIMA DREW [facility] ARF, [place], [place] [id number] 07/27/2013 19:10:00 08/03/2013 14:39:00 DIS Inpatient JESIKA TORRES MD [facility] SURGICAL ACUTE RENAL FAILURE [id number] 07/02/2013 09:54:00 07/16/2013 16:35:00 DIS Inpatient ADAN PAZ MD [facility] SURGICAL COLON CANCER [id number] 06/29/2013 12:06:00 06/29/2013 23:59:59 CLS Outpatient ADAN PAZ MD [facility] PREOP COLON CANCER [id number] 06/12/2013 07:37:00 06/12/2013 23:59:59 CLS Outpatient JESIKA TORRES MD [facility] SDC SCREENING [id number] 06/10/2013 09:50:00 06/10/2013 23:59:59 CLS Outpatient JESIKA TORRES MD [facility] PREOP SCREENING [id number] 01/22/2013 01:38:00 01/23/2013 11:30:00 DIS Inpatient SATANDREW DO RAMA Ojeda [facility] SURGICAL L LEG FX [id number] 08/07/2018 10:30:00 PEN Preadmit MATTHEW CASTREJON DO [facility] CHEMOTHERAPY, METASTATIC RECTAL CANCER [id number] 07/11/2018 11:25:00 Document Registration [id number] 10/29/2014 09:23:00 Document Registration [id number] 10/11/2014 09:11:00 Document Registration [id number] 09/23/2014 09:10:00 Document Registration [id number] 09/24/2013 12:30:00 Document Registration [id number] 09/14/2011 16:10:00 Document Registration [id number] 07/30/2011 11:01:00 Document Registration [id number] 07/20/2011 10:17:00 Document Registration
[2018-08-07] MEDS ORDERED: fentaNYL INJECTION 100 MCG/2 ML AMP ONE (09:24)
[2018-08-07] MEDS ORDERED: MIDAZOLAM 2 MG/2 ML (VERSED) VIAL ONE ×2 (09:24→10:07)
[2018-08-07] MEDS ORDERED: LIDOCAINE PF 2% 5 ML (XYLOCAINE) VIAL ONE (09:24)
[2018-08-07] MEDS ORDERED: PROPOFOL INJECTION 50 ML IV ONE (09:24)
[2018-08-07] MEDS ORDERED: ceFAZolin 2 GM IV Premixed 50 ML ONE (09:41)
--- NOTE | 2018-08-07 09:51 | Progress Note-Pre Operative ---
Pre-Operative Progress Note H&P Reviewed The H&P was reviewed, patient examined and no changes noted. Date Seen by Provider: Aug 07, 2018 Time Seen by Provider: 09:50 Date H&P Reviewed: Aug 07, 2018 Time H&P Reviewed: 09:51 Pre-Operative Diagnosis: METASTATIC RECTAL CANCER MATTHEW CASTREJON DO Aug 07, 2018 09:51
[2018-08-07] MEDS ORDERED: ANCEF 2 GM/50 ML PRE-MIXED IVPB IV ONE (10:00)
[2018-08-07] MEDS ORDERED: LACTATED RINGERS 1,000 ML IV PRN (10:03)
[2018-08-07] MEDS ORDERED: KETAMINE HCL 100 MG/ML 5 ML VIAL ONE (10:07)
[2018-08-07 10:09] VITALS: BP 144/98
[2018-08-07] MEDS ORDERED: ceFAZolin 2 GM IV Premixed 50 ML IV ONE (10:15)
[2018-08-07] MEDS ORDERED: BUPIVACAINE 0.5% 30 ML (SENSORCAINE) VIAL INJ ONE (10:45)
[2018-08-07] MEDS ORDERED: LIDOCAINE 1% INJ 20 ML 20 ML VIAL INJ ONE (10:45)
[2018-08-07] MEDS ORDERED: SOD CHL BACTER. 10 ML (IV START) VIAL IJ ONE (10:45)
[2018-08-07] MEDS ORDERED: HEParin (CENTRAL IV FLUSH) 500 UNIT/5 ML SYR IV ONE (10:45)
--- NOTE | 2018-08-07 10:58 | Discharge Inst-Simple/Standard ---
Discharge Inst-Standard Patient Instructions/Follow Up Plan of Care/Instructions/FU: 2 weeks Glo Activity as Tolerated: No Discharge Diet: Regular Diet Other Inst to Patient Follow up Appt: Make appointment for 2 week. Instructions: No lifting greater than 10 pounds. No strenuous activity. May shower in 24 hours, no tub bath or soaking. Use incentive spirometer at home as directed. No Smoking Skin/Wound Care: May remove bandages. You need to leave the white strips over incision on they will fall off on their own. Symptoms to Report: Appetite Changes, Extremity Discoloration, Numbness/Tingling, Swelling Increased , Bleeding Excessive, Eyesight Changes, Pain Increased, Urine Color Change, Constipation(Persistent), Fever over 101 degree F, Pain/Pressure in chest, Urinating Difficulty, Cough Up/Vomit Blood, Heart Beat Irreg/Pounding, Pain/ Pressure in jaw, Vaginal Bleeding Increase, Cramps in feet or legs, Lightheadedness, Pain/Pressure in shoulder, Diarrhea(Persistent), Memory Changes Suddenly, Questions/Concerns, Weight gain consecutive days, Dizziness/ Fainting, Nausea/Vomiting, Shortness of Breath, Weight gain over 2 pounds If questions or concerns contact your physician Or seek help at emergency department. MATTHEW CASTREJON DO Aug 07, 2018 10:58
[2018-08-07] MEDS ORDERED: morphine INJ 10 MG/ML 1ML (SYR OR VIAL) IVP ONE (11:00)
[2018-08-07] MEDS ORDERED: ONDANSETRON 4 MG/2 ML (SDV) Z0FRAN IVP PRN (11:00)
--- NOTE | 2018-08-07 11:01 | Progress Note-Post Operative ---
Post-Operative Progess Note Surgeon (s)/Final Inspector Balance Wheel (s) Surgeon MATTHEW CASTREJON DO Final Inspector Balance Wheel: na Pre-Operative Diagnosis METASTATIC RECTAL CANCER Post-Operative Diagnosis same Procedure & Operative Findings Date of Procedure 08/07/18 Procedure Performed/Findings u/s guided left IJ port placement Anesthesia Type mac c local Estimated Blood Loss Estimated blood loss (mL): min Specimens/Packing Specimens Removed na MATTHEW CASTREJON DO Aug 07, 2018 11:01
[2018-08-07] MEDS ORDERED: LABETALOL HCL 20 MG/4 ML VIAL ONE (11:30)
--- NOTE | 2018-08-07 11:34 | Diagnostic Imaging Report ---
INDICATION: Status post Groshong placement. COMPARISON: 07/16/2018. FINDINGS: Single frontal radiographic view of the chest was obtained and demonstrates interval placement of left internal jugular central venous catheter, tip of which appears to terminate within the mid SVC. There is no pneumothorax on either side. Lungs show low inspiratory volumes, but otherwise clear. There is no large effusion. Note is made of prominent nodular opacities within the right suprahilar region. This corresponds to mass seen on previous CT PET. Bony structures show no gross acute abnormalities. IMPRESSION: 1. Left-sided internal jugular central venous catheter as described above. 2. Low lung volumes, but no pneumothorax. 3. Redemonstration of mass-like opacity within the right suprahilar region. Dictated by: Dictated on workstation # [id number]
--- NOTE | 2018-08-07 11:37 | Diagnostic Imaging Report ---
INDICATION: Groshong catheter placement. COMPARISON: 11/05/2013 FINDINGS: 2 intraoperative image intensifier views of the chest were obtained during Groshong placement. Images provided show left internal jugular approach. Evaluation for pneumothorax is suboptimal given the fluoroscopic modality. Please note, interpreting radiologist was not present during the procedure. Total fluoro time is approximately 24 seconds. IMPRESSION: 1. Fluoroscopic guidance provided during central catheter placement. Dictated by: Dictated on workstation # [id number]
[2018-08-07] MEDS ORDERED: LABETALOL HCL 20 MG/4 ML VIAL IV ONE ×2 (11:45→12:00)
[2018-08-07 12:00] VITALS: BP 156/96
--- NOTE | 2018-08-07 12:11 | Anesthesia-General Post-Op ---
MAC Patient Condition Mental Status/LOC: Same as Preop Cardiovascular: Satisfactory Nausea/Vomiting: Absent Respiratory: Satisfactory Pain: Controlled Complications: Absent Post Op Complications Complications None Follow Up Care/Instructions Patient Instructions None needed. Anesthesiology Discharge Order Discharge Order Patient is doing well, no complaints, stable vital signs, no apparent adverse anesthesia problems. No complications reported per nursing. MAGDA HORVATH CRNA Aug 07, 2018 12:11
[2018-08-07 12:30] VITALS: BP 150/88
[2018-08-07 12:50] VITALS: BP 150/88
[2018-08-07] MEDS ORDERED: 0.9% SODIUM CHLORIDE PF INJ 20 ML VIAL ONE (13:44)
--- NOTE | 2018-08-07 21:37 | OPERATIVE REPORT ---
DATE OF SERVICE: PREOPERATIVE DIAGNOSIS: Metastatic rectal cancer. POSTOPERATIVE DIAGNOSIS: Metastatic rectal cancer. PROCEDURE: Ultrasound-guided left internal jugular port placement. SURGEON: Matthew Cody DO ANESTHESIA: MAC with local. ESTIMATED BLOOD LOSS: Minimal. INDICATIONS: The patient is a 58-year-old male who just recently found to have metastatic rectal cancer to the lung. He understands risks and benefits of procedure and wished to proceed with procedure. Consent was signed on the chart. DESCRIPTION OF PROCEDURE: The patient was taken to the operating suite, was prepped and draped in sterile fashion. Surgical pause was performed. The left internal jugular vein was then accessed using micro access needle. Dark nonpulsatile was withdrawn. The micro access wire was inserted through the needle and fluoroscopy assured proper placement and the needle was removed. A #11 blade scalpel was used to make a stab incision. Dilator sheath was advanced over the guidewire and the dilator and wire were removed. The regular guidewire was inserted through the sheath and the sheath was removed. Fluoroscopy assured proper placement. This was secured. Local anesthetic was used to infiltrate the neck on to the left chest for tunneling purposes and pocket creation. A #15 blade scalpel was used to make an incision on the left chest and a pocket was created. Under direct visualization of fluoroscopy, the dilator sheath was advanced over the guidewire. The guidewire and the dilator were removed. The Groshong catheter was inserted into the sheath and the sheath was then removed. Fluoroscopy assured proper placement. The catheter was then tunneled from the insertion point down to the pocket created on the left chest. This was then cut to length using fluoroscopy. The port was then accessed without difficulty, melita blood and flushed saline and then with heparin without difficulty. The skin was then closed using 3-0 Vicryl and Skin Affix. The patient tolerated procedure well without any complications, taken to recovery room in stable condition. Chest x-ray pending. Job ID: [id number] DocumentID: [id number] Dictated Date: 08/07/2018 11:02:58 Library Clerk Date: 08/07/2018 21:36:59 Dictated By: MATTHEW CODY DO
== END 2018-08-07 12:50 | disposition home or self-care (01) ==
LOC: SDC 09:06
PROVIDERS: ATTEND Surgery
DX: C20 Malignant neoplasm of rectum (principal); C78.01 Secondary malignant neoplasm of right lung; I10 Essential (primary) hypertension; B19.20 Unspecified viral hepatitis C without hepatic coma; Z87.891 Personal history of nicotine dependence; Z79.899 Other long term (current) drug therapy
CPT/HCPCS: 71045; 87081

== ENCOUNTER 2018-08-21 13:02 | Outpatient (RCR) | payer BC ==
[2018-05-27 15:45] LABS: BASOPHILS % (AUTO) 1 % (0-10); EOSINOPHILS # (AUTO) 0.1 10^3/uL (0.0-0.3); EOSINOPHILS % (AUTO) 3 % (0-10); HEMATOCRIT 39 % (40-54); HEMOGLOBIN 13.4 G/DL (13.3-17.7); LYMPHOCYTES # (AUTO) 1.2 X 10^3 (1.0-4.0); LYMPHOCYTES % (AUTO) 33 % (12-44); MEAN CORPUSCULAR HEMOGLOBIN 32 PG (25-34); MEAN CORPUSCULAR HGB CONC 34 G/DL (32-36); MEAN CORPUSCULAR VOLUME 94 FL (80-99); MEAN PLATELET VOLUME 9.5 FL (7.4-10.4); MONOCYTES # (AUTO) 0.3 X 10^3 (0.0-1.0); MONOCYTES % (AUTO) 9 % (0-12); NEUTROPHILS # (AUTO) 1.9 X 10^3 (1.8-7.8); NEUTROPHILS % (AUTO) 54 % (42-75); PLATELET COUNT 126 10^3/uL (130-400); RED CELL DISTRIBUTION WIDTH 14.2 % (10.0-14.5); WHITE BLOOD COUNT 3.5 10^3/uL (4.3-11.0)
[2018-05-27 16:05] LABS: ALANINE AMINOTRANSFERASE 23 U/L (0-55); ALBUMIN 3.6 GM/DL (3.2-4.5); ALKALINE PHOSPHATASE 103 U/L (40-136); BUN/CREATININE RATIO 17; CALCIUM 9.2 MG/DL (8.5-10.1); CARBON DIOXIDE 25 MMOL/L (21-32); CHLORIDE 109 MMOL/L (98-107); CREATININE SERUM 1.05 MG/DL (0.60-1.30); GFR ESTIMATED > 60; GLUCOSE 125 MG/DL (70-105); SODIUM 139 MMOL/L (135-145); TOTAL PROTEIN 6.4 GM/DL (6.4-8.2)
[2018-06-27 15:48] LABS: BUN/CREATININE RATIO 15; CALCIUM 9.4 MG/DL (8.5-10.1); CARBON DIOXIDE 27 MMOL/L (21-32); CHLORIDE 106 MMOL/L (98-107); CREATININE SERUM 1.09 MG/DL (0.60-1.30); GFR ESTIMATED > 60; GLUCOSE 106 MG/DL (70-105); POTASSIUM 4.2 MMOL/L (3.6-5.0); SODIUM 141 MMOL/L (135-145)
[~2018-08-21] VITALS: Ht 177.8 cm; Wt 83.9 kg
[~2018-08-21 13:02] MED LIST changes: -BUPIVACAINE 0.5% 30 ML (SENSORCAINE) VIAL ONE; +D5W 500 ML IV (CANCER CTR) 500 ML IV SCH; +FOSAPREPITANT DIMEGLUMINE 150 MG in NS (IVPB) CANCER CENTER ONLY 150 ML IV SCH; -HEParin (CENTRAL IV FLUSH) 500 UNIT/5 ML SYR ONE; -LIDOCAINE 1% INJ 20 ML 20 ML VIAL ONE; +NS IV 1000 ML (CANCER CTR) IV SCH; +OXALIPLATIN 180 MG in D5W 250 ML IVPB (CANCER CTR) 250 ML IV SCH; +PALONOSETRON HCL 0.25 MG, DEXAMETHASONE INJECTION 10 MG in NS (IVPB) CANCER CENTER 50 ML IV SCH; +PANITUMUMAB IV SCH; -WATER (STERILE) FOR INJECTION 0 ML ONE; +[UNRECOGNIZED DRUG - OTHER] IV SCH
[2018-08-21 13:50] LABS: BASOPHILS % (AUTO) 0 % (0-10); EOSINOPHILS # (AUTO) 0.1 10^3/uL (0.0-0.3); EOSINOPHILS % (AUTO) 2 % (0-10); HEMATOCRIT 39 % (40-54); HEMOGLOBIN 13.1 G/DL (13.3-17.7); LYMPHOCYTES # (AUTO) 0.8 X 10^3 (1.0-4.0); LYMPHOCYTES % (AUTO) 27 % (12-44); MEAN CORPUSCULAR HEMOGLOBIN 32 PG (25-34); MEAN CORPUSCULAR HGB CONC 34 G/DL (32-36); MEAN CORPUSCULAR VOLUME 94 FL (80-99); MEAN PLATELET VOLUME 9.4 FL (7.4-10.4); MONOCYTES # (AUTO) 0.4 X 10^3 (0.0-1.0); MONOCYTES % (AUTO) 12 % (0-12); NEUTROPHILS # (AUTO) 1.8 X 10^3 (1.8-7.8); NEUTROPHILS % (AUTO) 58 % (42-75); PLATELET COUNT 118 10^3/uL (130-400); WHITE BLOOD COUNT 3.1 10^3/uL (4.3-11.0)
[2018-08-21 14:07] LABS: ALANINE AMINOTRANSFERASE 20 U/L (0-55); ALBUMIN 3.5 GM/DL (3.2-4.5); ALKALINE PHOSPHATASE 91 U/L (40-136); BILIRUBIN,TOTAL 1.3 MG/DL (0.1-1.0); BUN/CREATININE RATIO 18; CALCIUM 9.1 MG/DL (8.5-10.1); CARBON DIOXIDE 27 MMOL/L (21-32); CHLORIDE 107 MMOL/L (98-107); CREATININE SERUM 1.02 MG/DL (0.60-1.30); GFR ESTIMATED > 60; GLUCOSE 127 MG/DL (70-105); MAGNESIUM 1.8 MG/DL (1.8-2.4); POTASSIUM 3.7 MMOL/L (3.6-5.0); SODIUM 142 MMOL/L (135-145); TOTAL PROTEIN 6.3 GM/DL (6.4-8.2)
[2018-08-21] MEDS ORDERED: OXALIPLATIN 160 MG in D5W 250 ML IVPB (CANCER CTR) 250 ML IV SCH (14:15)
[2018-08-21] MEDS ORDERED: [UNRECOGNIZED DRUG - OTHER] IV SCH (15:15)
[2018-08-21] MEDS ORDERED: PANITUMUMAB IV SCH (15:15)
== END 2018-08-25 | disposition home or self-care (01) ==
LOC: ONC 13:02
PROVIDERS: ATTEND Internal Medicine Hematology & Oncology
DX: Z51.11 Encounter for antineoplastic chemotherapy (principal); C19 Malignant neoplasm of rectosigmoid junction; R91.1 Solitary pulmonary nodule; E05.00 Thyrotoxicosis with diffuse goiter without thyrotoxic crisis or storm; B18.2 Chronic viral hepatitis C; I10 Essential (primary) hypertension; E83.42 Hypomagnesemia; D61.818 Other pancytopenia; R79.89 Other specified abnormal findings of blood chemistry; Z93.3 Colostomy status; Z79.899 Other long term (current) drug therapy; Z92.21 Personal history of antineoplastic chemotherapy; Z92.3 Personal history of irradiation; Z45.2 Encounter for adjustment and management of vascular access device
CPT/HCPCS: 36415; 36591; 80048; 80053; 82378; 83735; 84443; 85025; 96367; 96375; 96413; 96417; 99213

== ENCOUNTER 2018-11-20 13:33 | Outpatient (RCR) | payer BC ==
[2018-08-28 10:00] LABS: BASOPHILS % (AUTO) 0 % (0-10); EOSINOPHILS # (AUTO) 0.1 10^3/uL (0.0-0.3); EOSINOPHILS % (AUTO) 2 % (0-10); HEMATOCRIT 45 % (40-54); LYMPHOCYTES # (AUTO) 0.9 X 10^3 (1.0-4.0); LYMPHOCYTES % (AUTO) 24 % (12-44); MEAN CORPUSCULAR HEMOGLOBIN 32 PG (25-34); MEAN CORPUSCULAR HGB CONC 34 G/DL (32-36); MEAN CORPUSCULAR VOLUME 94 FL (80-99); MEAN PLATELET VOLUME 9.3 FL (7.4-10.4); MONOCYTES # (AUTO) 0.4 X 10^3 (0.0-1.0); MONOCYTES % (AUTO) 10 % (0-12); NEUTROPHILS # (AUTO) 2.3 X 10^3 (1.8-7.8); NEUTROPHILS % (AUTO) 64 % (42-75); PLATELET COUNT 117 10^3/uL (130-400); RED CELL DISTRIBUTION WIDTH 13.8 % (10.0-14.5); WHITE BLOOD COUNT 3.7 10^3/uL (4.3-11.0)
[2018-08-28 10:14] LABS: BUN/CREATININE RATIO 17; CALCIUM 9.7 MG/DL (8.5-10.1); CARBON DIOXIDE 24 MMOL/L (21-32); CHLORIDE 106 MMOL/L (98-107); CREATININE SERUM 1.03 MG/DL (0.60-1.30); GFR ESTIMATED > 60; GLUCOSE 90 MG/DL (70-105); POTASSIUM 3.8 MMOL/L (3.6-5.0); SODIUM 139 MMOL/L (135-145)
[2018-09-04 16:25] LABS: BASOPHILS % (AUTO) 0 % (0-10); EOSINOPHILS % (AUTO) 0 % (0-10); HEMATOCRIT 41 % (40-54); HEMOGLOBIN 14.6 G/DL (13.3-17.7); LYMPHOCYTES # (AUTO) 0.6 X 10^3 (1.0-4.0); LYMPHOCYTES % (AUTO) 6 % (12-44); MEAN CORPUSCULAR HEMOGLOBIN 33 PG (25-34); MEAN CORPUSCULAR HGB CONC 35 G/DL (32-36); MEAN CORPUSCULAR VOLUME 93 FL (80-99); MEAN PLATELET VOLUME 9.2 FL (7.4-10.4); MONOCYTES # (AUTO) 0.8 X 10^3 (0.0-1.0); MONOCYTES % (AUTO) 8 % (0-12); NEUTROPHILS # (AUTO) 8.3 X 10^3 (1.8-7.8); NEUTROPHILS % (AUTO) 85 % (42-75); PLATELET COUNT 215 10^3/uL (130-400); WHITE BLOOD COUNT 9.7 10^3/uL (4.3-11.0)
[2018-09-04 16:40] LABS: CALCIUM 8.9 MG/DL (8.5-10.1); CREATININE SERUM 1.39 MG/DL (0.60-1.30); POTASSIUM 3.3 MMOL/L (3.6-5.0)
[2018-09-11 13:20] LABS: BASOPHILS % (AUTO) 1 % (0-10); EOSINOPHILS # (AUTO) 0.1 10^3/uL (0.0-0.3); EOSINOPHILS % (AUTO) 2 % (0-10); HEMATOCRIT 33 % (40-54); HEMOGLOBIN 11.5 G/DL (13.3-17.7); LYMPHOCYTES # (AUTO) 1.1 X 10^3 (1.0-4.0); LYMPHOCYTES % (AUTO) 24 % (12-44); MEAN CORPUSCULAR HEMOGLOBIN 33 PG (25-34); MEAN CORPUSCULAR HGB CONC 35 G/DL (32-36); MEAN CORPUSCULAR VOLUME 95 FL (80-99); MEAN PLATELET VOLUME 8.9 FL (7.4-10.4); MONOCYTES # (AUTO) 0.9 X 10^3 (0.0-1.0); MONOCYTES % (AUTO) 20 % (0-12); NEUTROPHILS # (AUTO) 2.5 X 10^3 (1.8-7.8); NEUTROPHILS % (AUTO) 54 % (42-75); PLATELET COUNT 268 10^3/uL (130-400); RED CELL DISTRIBUTION WIDTH 15.4 % (10.0-14.5); WHITE BLOOD COUNT 4.7 10^3/uL (4.3-11.0)
[2018-09-11 13:42] LABS: ALANINE AMINOTRANSFERASE 28 U/L (0-55); ALBUMIN 2.5 GM/DL (3.2-4.5); ALKALINE PHOSPHATASE 107 U/L (40-136); BILIRUBIN,TOTAL 2.4 MG/DL (0.1-1.0); BUN/CREATININE RATIO 18; CARBON DIOXIDE 20 MMOL/L (21-32); CHLORIDE 107 MMOL/L (98-107); CREATININE SERUM 1.05 MG/DL (0.60-1.30); GFR ESTIMATED > 60; GLUCOSE 91 MG/DL (70-105); MAGNESIUM 1.3 MG/DL (1.8-2.4); POTASSIUM 2.8 MMOL/L (3.6-5.0); SODIUM 134 MMOL/L (135-145); TOTAL PROTEIN 5.6 GM/DL (6.4-8.2)
[2018-09-18 13:36] LABS: BASOPHILS % (AUTO) 1 % (0-10); EOSINOPHILS # (AUTO) 0.1 10^3/uL (0.0-0.3); EOSINOPHILS % (AUTO) 3 % (0-10); HEMATOCRIT 33 % (40-54); HEMOGLOBIN 10.7 G/DL (13.3-17.7); LYMPHOCYTES # (AUTO) 0.9 X 10^3 (1.0-4.0); LYMPHOCYTES % (AUTO) 32 % (12-44); MEAN CORPUSCULAR HEMOGLOBIN 33 PG (25-34); MEAN CORPUSCULAR HGB CONC 33 G/DL (32-36); MEAN CORPUSCULAR VOLUME 100 FL (80-99); MONOCYTES # (AUTO) 0.3 X 10^3 (0.0-1.0); MONOCYTES % (AUTO) 10 % (0-12); NEUTROPHILS # (AUTO) 1.5 X 10^3 (1.8-7.8); NEUTROPHILS % (AUTO) 55 % (42-75); PLATELET COUNT 183 10^3/uL (130-400); WHITE BLOOD COUNT 2.8 10^3/uL (4.3-11.0)
[2018-09-18 13:50] LABS: ALANINE AMINOTRANSFERASE 32 U/L (0-55); ALBUMIN 2.6 GM/DL (3.2-4.5); ALKALINE PHOSPHATASE 120 U/L (40-136); BILIRUBIN,TOTAL 1.2 MG/DL (0.1-1.0); BUN/CREATININE RATIO 11; CALCIUM 8.5 MG/DL (8.5-10.1); CARBON DIOXIDE 23 MMOL/L (21-32); CHLORIDE 111 MMOL/L (98-107); CREATININE SERUM 1.15 MG/DL (0.60-1.30); GFR ESTIMATED > 60; GLUCOSE 116 MG/DL (70-105); POTASSIUM 3.8 MMOL/L (3.6-5.0); SODIUM 142 MMOL/L (135-145); TOTAL PROTEIN 5.4 GM/DL (6.4-8.2)
[2018-09-25 11:27] LABS: BASOPHILS % (AUTO) 1 % (0-10); EOSINOPHILS # (AUTO) 0.2 10^3/uL (0.0-0.3); EOSINOPHILS % (AUTO) 4 % (0-10); HEMATOCRIT 39 % (40-54); HEMOGLOBIN 13.1 G/DL (13.3-17.7); LYMPHOCYTES # (AUTO) 1.4 X 10^3 (1.0-4.0); LYMPHOCYTES % (AUTO) 32 % (12-44); MEAN CORPUSCULAR HEMOGLOBIN 34 PG (25-34); MEAN CORPUSCULAR HGB CONC 33 G/DL (32-36); MEAN CORPUSCULAR VOLUME 101 FL (80-99); MEAN PLATELET VOLUME 9.2 FL (7.4-10.4); MONOCYTES # (AUTO) 0.5 X 10^3 (0.0-1.0); MONOCYTES % (AUTO) 11 % (0-12); NEUTROPHILS # (AUTO) 2.2 X 10^3 (1.8-7.8); NEUTROPHILS % (AUTO) 52 % (42-75); PLATELET COUNT 161 10^3/uL (130-400); RED CELL DISTRIBUTION WIDTH 17.4 % (10.0-14.5); WHITE BLOOD COUNT 4.2 10^3/uL (4.3-11.0)
[2018-09-25 11:53] LABS: ALANINE AMINOTRANSFERASE 32 U/L (0-55); ALBUMIN 3.5 GM/DL (3.2-4.5); ALKALINE PHOSPHATASE 106 U/L (40-136); BILIRUBIN,TOTAL 1.8 MG/DL (0.1-1.0); BUN/CREATININE RATIO 20; CALCIUM 9.6 MG/DL (8.5-10.1); CARBON DIOXIDE 26 MMOL/L (21-32); CHLORIDE 103 MMOL/L (98-107); CREATININE SERUM 0.95 MG/DL (0.60-1.30); GFR ESTIMATED > 60; GLUCOSE 91 MG/DL (70-105); MAGNESIUM 2.1 MG/DL (1.8-2.4); POTASSIUM 4.4 MMOL/L (3.6-5.0); SODIUM 137 MMOL/L (135-145); TOTAL PROTEIN 6.8 GM/DL (6.4-8.2)
[2018-10-03 09:13] LABS: BASOPHILS % (AUTO) 1 % (0-10); EOSINOPHILS # (AUTO) 0.1 10^3/uL (0.0-0.3); EOSINOPHILS % (AUTO) 2 % (0-10); HEMATOCRIT 34 % (40-54); HEMOGLOBIN 11.6 G/DL (13.3-17.7); LYMPHOCYTES # (AUTO) 0.9 X 10^3 (1.0-4.0); LYMPHOCYTES % (AUTO) 21 % (12-44); MEAN CORPUSCULAR HEMOGLOBIN 33 PG (25-34); MEAN CORPUSCULAR HGB CONC 34 G/DL (32-36); MEAN CORPUSCULAR VOLUME 99 FL (80-99); MEAN PLATELET VOLUME 9.1 FL (7.4-10.4); MONOCYTES # (AUTO) 0.5 X 10^3 (0.0-1.0); MONOCYTES % (AUTO) 12 % (0-12); NEUTROPHILS # (AUTO) 2.8 X 10^3 (1.8-7.8); NEUTROPHILS % (AUTO) 64 % (42-75); PLATELET COUNT 165 10^3/uL (130-400); RED CELL DISTRIBUTION WIDTH 18.3 % (10.0-14.5); WHITE BLOOD COUNT 4.3 10^3/uL (4.3-11.0)
[2018-10-03 09:33] LABS: ALANINE AMINOTRANSFERASE 21 U/L (0-55); ALBUMIN 3.3 GM/DL (3.2-4.5); ALKALINE PHOSPHATASE 92 U/L (40-136); BILIRUBIN,TOTAL 1.8 MG/DL (0.1-1.0); BUN/CREATININE RATIO 10; CALCIUM 9.1 MG/DL (8.5-10.1); CARBON DIOXIDE 26 MMOL/L (21-32); CHLORIDE 106 MMOL/L (98-107); CREATININE SERUM 1.09 MG/DL (0.60-1.30); GFR ESTIMATED > 60; GLUCOSE 99 MG/DL (70-105); MAGNESIUM 1.8 MG/DL (1.8-2.4); POTASSIUM 3.4 MMOL/L (3.6-5.0); SODIUM 139 MMOL/L (135-145); TOTAL PROTEIN 6.1 GM/DL (6.4-8.2)
[2018-10-09 13:57] LABS: BASOPHILS % (AUTO) 1 % (0-10); EOSINOPHILS # (AUTO) 0.1 10^3/uL (0.0-0.3); EOSINOPHILS % (AUTO) 2 % (0-10); HEMATOCRIT 33 % (40-54); HEMOGLOBIN 11.3 G/DL (13.3-17.7); LYMPHOCYTES # (AUTO) 1.2 X 10^3 (1.0-4.0); LYMPHOCYTES % (AUTO) 21 % (12-44); MEAN CORPUSCULAR HEMOGLOBIN 34 PG (25-34); MEAN CORPUSCULAR HGB CONC 35 G/DL (32-36); MEAN CORPUSCULAR VOLUME 99 FL (80-99); MEAN PLATELET VOLUME 9.4 FL (7.4-10.4); MONOCYTES # (AUTO) 1.1 X 10^3 (0.0-1.0); MONOCYTES % (AUTO) 18 % (0-12); NEUTROPHILS # (AUTO) 3.3 X 10^3 (1.8-7.8); NEUTROPHILS % (AUTO) 58 % (42-75); PLATELET COUNT 162 10^3/uL (130-400); RED CELL DISTRIBUTION WIDTH 20.5 % (10.0-14.5); WHITE BLOOD COUNT 5.7 10^3/uL (4.3-11.0)
[2018-10-09 14:15] LABS: ALANINE AMINOTRANSFERASE 22 U/L (0-55); ALBUMIN 3.3 GM/DL (3.2-4.5); ALKALINE PHOSPHATASE 102 U/L (40-136); BILIRUBIN,TOTAL 2.5 MG/DL (0.1-1.0); BUN/CREATININE RATIO 16; CALCIUM 8.8 MG/DL (8.5-10.1); CARBON DIOXIDE 24 MMOL/L (21-32); CHLORIDE 106 MMOL/L (98-107); CREATININE SERUM 0.92 MG/DL (0.60-1.30); GFR ESTIMATED > 60; GLUCOSE 116 MG/DL (70-105); MAGNESIUM 1.6 MG/DL (1.8-2.4); POTASSIUM 3.5 MMOL/L (3.6-5.0); SODIUM 138 MMOL/L (135-145); TOTAL PROTEIN 6.4 GM/DL (6.4-8.2)
[2018-10-16 13:32] LABS: BASOPHILS % (AUTO) 1 % (0-10); EOSINOPHILS # (AUTO) 0.1 10^3/uL (0.0-0.3); EOSINOPHILS % (AUTO) 3 % (0-10); HEMATOCRIT 32 % (40-54); HEMOGLOBIN 10.5 G/DL (13.3-17.7); LYMPHOCYTES % (AUTO) 31 % (12-44); MEAN CORPUSCULAR HEMOGLOBIN 33 PG (25-34); MEAN CORPUSCULAR HGB CONC 33 G/DL (32-36); MEAN CORPUSCULAR VOLUME 102 FL (80-99); MEAN PLATELET VOLUME 9.1 FL (7.4-10.4); MONOCYTES # (AUTO) 0.4 X 10^3 (0.0-1.0); MONOCYTES % (AUTO) 11 % (0-12); NEUTROPHILS # (AUTO) 1.8 X 10^3 (1.8-7.8); NEUTROPHILS % (AUTO) 54 % (42-75); PLATELET COUNT 167 10^3/uL (130-400); RED CELL DISTRIBUTION WIDTH 18.8 % (10.0-14.5); WHITE BLOOD COUNT 3.3 10^3/uL (4.3-11.0)
[2018-10-16 13:55] LABS: ALANINE AMINOTRANSFERASE 19 U/L (0-55); ALBUMIN 3.2 GM/DL (3.2-4.5); ALKALINE PHOSPHATASE 95 U/L (40-136); BILIRUBIN,TOTAL 1.1 MG/DL (0.1-1.0); BUN/CREATININE RATIO 23; CALCIUM 8.9 MG/DL (8.5-10.1); CARBON DIOXIDE 26 MMOL/L (21-32); CHLORIDE 109 MMOL/L (98-107); CREATININE SERUM 0.99 MG/DL (0.60-1.30); GFR ESTIMATED > 60; GLUCOSE 117 MG/DL (70-105); POTASSIUM 3.8 MMOL/L (3.6-5.0); SODIUM 141 MMOL/L (135-145); TOTAL PROTEIN 6.1 GM/DL (6.4-8.2)
[2018-10-23 13:32] LABS: BASOPHILS % (AUTO) 1 % (0-10); EOSINOPHILS % (AUTO) 1 % (0-10); HEMATOCRIT 31 % (40-54); HEMOGLOBIN 10.5 G/DL (13.3-17.7); LYMPHOCYTES # (AUTO) 0.9 X 10^3 (1.0-4.0); LYMPHOCYTES % (AUTO) 30 % (12-44); MEAN CORPUSCULAR HEMOGLOBIN 34 PG (25-34); MEAN CORPUSCULAR HGB CONC 34 G/DL (32-36); MEAN CORPUSCULAR VOLUME 101 FL (80-99); MEAN PLATELET VOLUME 8.8 FL (7.4-10.4); MONOCYTES # (AUTO) 0.3 X 10^3 (0.0-1.0); MONOCYTES % (AUTO) 11 % (0-12); NEUTROPHILS # (AUTO) 1.7 X 10^3 (1.8-7.8); NEUTROPHILS % (AUTO) 56 % (42-75); PLATELET COUNT 142 10^3/uL (130-400); RED CELL DISTRIBUTION WIDTH 17.5 % (10.0-14.5)
[2018-10-23 13:50] LABS: BUN/CREATININE RATIO 15; CALCIUM 8.9 MG/DL (8.5-10.1); CARBON DIOXIDE 26 MMOL/L (21-32); CHLORIDE 111 MMOL/L (98-107); CREATININE SERUM 0.92 MG/DL (0.60-1.30); GFR ESTIMATED > 60; GLUCOSE 116 MG/DL (70-105); MAGNESIUM 1.6 MG/DL (1.8-2.4); POTASSIUM 3.6 MMOL/L (3.6-5.0); SODIUM 140 MMOL/L (135-145)
[2018-10-30 09:29] LABS: BASOPHILS % (AUTO) 0 % (0-10); EOSINOPHILS # (AUTO) 0.1 10^3/uL (0.0-0.3); EOSINOPHILS % (AUTO) 2 % (0-10); HEMATOCRIT 38 % (40-54); HEMOGLOBIN 12.7 G/DL (13.3-17.7); LYMPHOCYTES # (AUTO) 0.8 X 10^3 (1.0-4.0); LYMPHOCYTES % (AUTO) 21 % (12-44); MEAN CORPUSCULAR HEMOGLOBIN 33 PG (25-34); MEAN CORPUSCULAR HGB CONC 33 G/DL (32-36); MEAN CORPUSCULAR VOLUME 101 FL (80-99); MEAN PLATELET VOLUME 9.5 FL (7.4-10.4); MONOCYTES # (AUTO) 0.5 X 10^3 (0.0-1.0); MONOCYTES % (AUTO) 13 % (0-12); NEUTROPHILS # (AUTO) 2.4 X 10^3 (1.8-7.8); NEUTROPHILS % (AUTO) 64 % (42-75); PLATELET COUNT 146 10^3/uL (130-400); RED CELL DISTRIBUTION WIDTH 16.4 % (10.0-14.5); WHITE BLOOD COUNT 3.7 10^3/uL (4.3-11.0)
[2018-10-30 09:47] LABS: BUN/CREATININE RATIO 16; CALCIUM 9.1 MG/DL (8.5-10.1); CARBON DIOXIDE 27 MMOL/L (21-32); CHLORIDE 106 MMOL/L (98-107); GFR ESTIMATED > 60; GLUCOSE 82 MG/DL (70-105); MAGNESIUM 1.9 MG/DL (1.8-2.4); POTASSIUM 3.5 MMOL/L (3.6-5.0); SODIUM 139 MMOL/L (135-145)
[2018-11-06 09:24] LABS: BASOPHILS % (AUTO) 1 % (0-10); EOSINOPHILS # (AUTO) 0.1 10^3/uL (0.0-0.3); EOSINOPHILS % (AUTO) 2 % (0-10); HEMATOCRIT 36 % (40-54); HEMOGLOBIN 12.4 G/DL (13.3-17.7); LYMPHOCYTES # (AUTO) 1.3 X 10^3 (1.0-4.0); LYMPHOCYTES % (AUTO) 23 % (12-44); MEAN CORPUSCULAR HEMOGLOBIN 34 PG (25-34); MEAN CORPUSCULAR HGB CONC 35 G/DL (32-36); MEAN CORPUSCULAR VOLUME 98 FL (80-99); MEAN PLATELET VOLUME 9.1 FL (7.4-10.4); MONOCYTES # (AUTO) 1.1 X 10^3 (0.0-1.0); MONOCYTES % (AUTO) 20 % (0-12); NEUTROPHILS % (AUTO) 54 % (42-75); PLATELET COUNT 192 10^3/uL (130-400); RED CELL DISTRIBUTION WIDTH 17.4 % (10.0-14.5); WHITE BLOOD COUNT 5.5 10^3/uL (4.3-11.0)
[2018-11-06 09:39] LABS: BUN/CREATININE RATIO 24; CARBON DIOXIDE 26 MMOL/L (21-32); CHLORIDE 104 MMOL/L (98-107); CREATININE SERUM 0.88 MG/DL (0.60-1.30); GFR ESTIMATED > 60; GLUCOSE 78 MG/DL (70-105); MAGNESIUM 1.7 MG/DL (1.8-2.4); POTASSIUM 2.8 MMOL/L (3.6-5.0); SODIUM 135 MMOL/L (135-145)
[2018-11-12 13:19] LABS: BASOPHILS % (AUTO) 1 % (0-10); EOSINOPHILS # (AUTO) 0.1 10^3/uL (0.0-0.3); EOSINOPHILS % (AUTO) 2 % (0-10); HEMATOCRIT 33 % (40-54); HEMOGLOBIN 11.3 G/DL (13.3-17.7); LYMPHOCYTES # (AUTO) 1.4 X 10^3 (1.0-4.0); LYMPHOCYTES % (AUTO) 27 % (12-44); MEAN CORPUSCULAR HEMOGLOBIN 34 PG (25-34); MEAN CORPUSCULAR HGB CONC 35 G/DL (32-36); MEAN CORPUSCULAR VOLUME 98 FL (80-99); MONOCYTES # (AUTO) 0.8 X 10^3 (0.0-1.0); MONOCYTES % (AUTO) 15 % (0-12); NEUTROPHILS # (AUTO) 2.9 X 10^3 (1.8-7.8); NEUTROPHILS % (AUTO) 56 % (42-75); PLATELET COUNT 174 10^3/uL (130-400); RED CELL DISTRIBUTION WIDTH 17.7 % (10.0-14.5); WHITE BLOOD COUNT 5.3 10^3/uL (4.3-11.0)
[2018-11-12 13:46] LABS: ALANINE AMINOTRANSFERASE 26 U/L (0-55); ALBUMIN 3.2 GM/DL (3.2-4.5); ALKALINE PHOSPHATASE 93 U/L (40-136); BILIRUBIN,TOTAL 1.7 MG/DL (0.1-1.0); BUN/CREATININE RATIO 18; CALCIUM 8.9 MG/DL (8.5-10.1); CARBON DIOXIDE 28 MMOL/L (21-32); CHLORIDE 102 MMOL/L (98-107); CREATININE SERUM 0.87 MG/DL (0.60-1.30); GFR ESTIMATED > 60; GLUCOSE 107 MG/DL (70-105); MAGNESIUM 1.8 MG/DL (1.8-2.4); POTASSIUM 3.2 MMOL/L (3.6-5.0); SODIUM 136 MMOL/L (135-145); TOTAL PROTEIN 6.4 GM/DL (6.4-8.2)
[~2018-11-20] VITALS: Ht 177.8 cm; Wt 84.4 kg
[~2018-11-20 13:33] MED LIST changes: +D5W IV ONE; +MAGNESIUM SULFATE IV ONE; +OXALIPLATIN 100 MG, OXALIPLATIN (GENERIC) 40 MG in D5W 250 ML IVPB (CANCER CTR) 250 ML IV SCH; +OXALIPLATIN 160 MG in D5W 250 ML IVPB (CANCER CTR) 250 ML IV SCH; -OXALIPLATIN 180 MG in D5W 250 ML IVPB (CANCER CTR) 250 ML IV SCH; +PANITUMUMAB INJECTION 400 MG, PANITUMUMAB INJECTION 100 MG in NS (IVPB) CANCER CENTER 1... IV SCH; +POTASSIUM CHL IV ONE; +[UNRECOGNIZED DRUG - OTHER] IV ONE; +[UNRECOGNIZED DRUG - OTHER] IV ONE
[2018-11-20 13:57] LABS: BASOPHILS % (AUTO) 0 % (0-10); EOSINOPHILS # (AUTO) 0.1 10^3/uL (0.0-0.3); EOSINOPHILS % (AUTO) 2 % (0-10); HEMATOCRIT 33 % (40-54); HEMOGLOBIN 10.9 G/DL (13.3-17.7); LYMPHOCYTES # (AUTO) 1.1 X 10^3 (1.0-4.0); LYMPHOCYTES % (AUTO) 32 % (12-44); MEAN CORPUSCULAR HEMOGLOBIN 33 PG (25-34); MEAN CORPUSCULAR HGB CONC 33 G/DL (32-36); MEAN CORPUSCULAR VOLUME 100 FL (80-99); MEAN PLATELET VOLUME 8.6 FL (7.4-10.4); MONOCYTES # (AUTO) 0.4 X 10^3 (0.0-1.0); MONOCYTES % (AUTO) 12 % (0-12); NEUTROPHILS # (AUTO) 1.9 X 10^3 (1.8-7.8); NEUTROPHILS % (AUTO) 54 % (42-75); PLATELET COUNT 176 10^3/uL (130-400); RED CELL DISTRIBUTION WIDTH 17.3 % (10.0-14.5); WHITE BLOOD COUNT 3.5 10^3/uL (4.3-11.0)
[2018-11-20 14:14] LABS: BUN/CREATININE RATIO 17; CALCIUM 8.9 MG/DL (8.5-10.1); CARBON DIOXIDE 26 MMOL/L (21-32); CHLORIDE 107 MMOL/L (98-107); CREATININE SERUM 0.87 MG/DL (0.60-1.30); GFR ESTIMATED > 60; GLUCOSE 114 MG/DL (70-105); MAGNESIUM 1.7 MG/DL (1.8-2.4); POTASSIUM 3.8 MMOL/L (3.6-5.0); SODIUM 139 MMOL/L (135-145)
[2018-11-20] MEDS ORDERED: OXALIPLATIN 100 MG, OXALIPLATIN (GENERIC) 30 MG in D5W 250 ML IVPB (CANCER CTR) 250 ML IV SCH (14:45)
== END 2018-11-26 | disposition home or self-care (01) ==
LOC: ONC 13:33
PROVIDERS: ATTEND Internal Medicine Hematology & Oncology
DX: C19 Malignant neoplasm of rectosigmoid junction (principal); R91.1 Solitary pulmonary nodule; E05.00 Thyrotoxicosis with diffuse goiter without thyrotoxic crisis or storm; B18.2 Chronic viral hepatitis C; I10 Essential (primary) hypertension; E83.42 Hypomagnesemia; D61.818 Other pancytopenia; R79.89 Other specified abnormal findings of blood chemistry; Z93.3 Colostomy status; Z79.899 Other long term (current) drug therapy; Z92.21 Personal history of antineoplastic chemotherapy; Z92.3 Personal history of irradiation; Z45.2 Encounter for adjustment and management of vascular access device
CPT/HCPCS: 36415; 36591; 80048; 80053; 82378; 83735; 85025; 87324; 87449; 96365; 96366; 96367; 96368; 96375; 96413; 96417

== ENCOUNTER → 2018-12-03 | Outpatient (CLI) | payer BC ==
[~2018-12-03] MED LIST changes: -D5W 500 ML IV (CANCER CTR) 500 ML IV SCH; -D5W IV ONE; -FOSAPREPITANT DIMEGLUMINE 150 MG in NS (IVPB) CANCER CENTER ONLY 150 ML IV SCH; +HOLD METFORMIN - RECEIVED CONTRAST 20 ML VIAL IV SCH; +IOHEXOL 350 MG/ML 100 ML (OMNIPAQUE 350) VIAL IV ONE; -MAGNESIUM SULFATE IV ONE; -NS IV 1000 ML (CANCER CTR) IV SCH; -OXALIPLATIN 100 MG, OXALIPLATIN (GENERIC) 40 MG in D5W 250 ML IVPB (CANCER CTR) 250 ML IV SCH; -OXALIPLATIN 160 MG in D5W 250 ML IVPB (CANCER CTR) 250 ML IV SCH; -PALONOSETRON HCL 0.25 MG, DEXAMETHASONE INJECTION 10 MG in NS (IVPB) CANCER CENTER 50 ML IV SCH; -PANITUMUMAB INJECTION 400 MG, PANITUMUMAB INJECTION 100 MG in NS (IVPB) CANCER CENTER 1... IV SCH; -PANITUMUMAB IV SCH; -POTASSIUM CHL IV ONE; -[UNRECOGNIZED DRUG - OTHER] IV ONE; -[UNRECOGNIZED DRUG - OTHER] IV ONE; -[UNRECOGNIZED DRUG - OTHER] IV SCH
--- NOTE | 2018-12-03 15:20 | Diagnostic Imaging Report ---
PROCEDURE: CT chest with contrast, CT abdomen and pelvis with and without contrast. TECHNIQUE: Pre and post intravenous contrast axial imaging of the abdomen and pelvis and post contrast axial imaging of the chest were performed. Auto Exposure Controls were utilized during the CT exam to meet ALARA standards for radiation dose reduction. INDICATION: Lung carcinoma as well as history of colon carcinoma COMPARISON: Correlation is made with prior CT from 07/01/2018. CT CHEST: The left chest wall port has tip in the lower SVC. No axillary lymphadenopathy is seen. A right paratracheal lymph node appears to be decreased in size since prior study measuring 6 mm compared to 11 mm when measured by the same technique. No hilar mass is seen. No pericardial or pleural fluid is identified. There has been significant decrease in size of previously noted lobulated mass in the right upper lobe medially. Mass is now approximately 9 mm x 14 mm compared with 23 mm x 32 mm when measured by the same technique. No new mass is identified. There is some minimal scarring or subsegmental atelectasis in the bilateral lower lobes posteriorly. IMPRESSION: Significant decrease in size of right upper lobe mass and right paratracheal lymphadenopathy when compared to prior CT from 07/01/2018. CT ABDOMEN AND PELVIS: Nodular contour to the liver is again noted. Right lobe contains a TIPS. No discrete liver mass is seen. Pancreas is unremarkable. Spleen remains enlarged. No adrenal mass is seen. Kidneys are unremarkable. Aorta is nonaneurysmal. Postsurgical changes in the abdomen or pelvis are noted. Previously noted presacral soft tissue thickening appears to be somewhat more prominent on today's study when compared with prior study. Area of soft tissue thickening measures 4.2 cm transverse by 2.1 cm AP compared with 3.9 x 1.9 cm. This is indeterminate. There is no free fluid. Bladder is unremarkable. There is a left inguinal hernia. No pelvic lymphadenopathy is seen. Moderate stool throughout the colon is noted. Ostomy in the left lower quadrant is again noted. Bony structures demonstrate postop changes to the left hip and left acetabulum. IMPRESSION: Overall similar appearance to the abdomen pelvis when compared with prior CT from 07/01/2018 with the exception of perhaps minimal increase in soft tissue prominence in the presacral region. Continued close followup is recommended. No abdominal or pelvic lymphadenopathy is seen. There is moderate stool throughout the colon. Dictated by: Dictated on workstation # [id number]
== END ==
LOC: RAD 13:49
PROVIDERS: ATTEND Internal Medicine Hematology & Oncology
DX: C20 Malignant neoplasm of rectum (principal); C78.01 Secondary malignant neoplasm of right lung; R59.0 Localized enlarged lymph nodes; Z95.828 Presence of other vascular implants and grafts; Z96.89 Presence of other specified functional implants; Z85.038 Personal history of other malignant neoplasm of large intestine
CPT/HCPCS: 71260; 74178

== ENCOUNTER → 2019-02-26 | Outpatient (RCR) | payer BC ==
[2018-11-28 15:51] LABS: ALANINE AMINOTRANSFERASE 26 U/L (0-55); ALBUMIN 3.5 GM/DL (3.2-4.5); ALKALINE PHOSPHATASE 98 U/L (40-136); BILIRUBIN,TOTAL 1.1 MG/DL (0.1-1.0); BUN/CREATININE RATIO 17; CARBON DIOXIDE 26 MMOL/L (21-32); CHLORIDE 107 MMOL/L (98-107); CREATININE SERUM 0.89 MG/DL (0.60-1.30); GFR ESTIMATED > 60; GLUCOSE 91 MG/DL (70-105); MAGNESIUM 1.9 MG/DL (1.8-2.4); POTASSIUM 3.5 MMOL/L (3.6-5.0); SODIUM 141 MMOL/L (135-145); TOTAL PROTEIN 6.6 GM/DL (6.4-8.2)
[2018-12-05 15:44] LABS: BASOPHILS % (AUTO) 1 % (0-10); EOSINOPHILS # (AUTO) 0.1 10^3/uL (0.0-0.3); EOSINOPHILS % (AUTO) 3 % (0-10); HEMATOCRIT 38 % (40-54); HEMOGLOBIN 12.6 G/DL (13.3-17.7); LYMPHOCYTES # (AUTO) 1.1 X 10^3 (1.0-4.0); LYMPHOCYTES % (AUTO) 25 % (12-44); MEAN CORPUSCULAR HEMOGLOBIN 34 PG (25-34); MEAN CORPUSCULAR HGB CONC 33 G/DL (32-36); MEAN CORPUSCULAR VOLUME 101 FL (80-99); MEAN PLATELET VOLUME 9.9 FL (7.4-10.4); MONOCYTES # (AUTO) 0.5 X 10^3 (0.0-1.0); MONOCYTES % (AUTO) 11 % (0-12); NEUTROPHILS # (AUTO) 2.6 X 10^3 (1.8-7.8); NEUTROPHILS % (AUTO) 61 % (42-75); PLATELET COUNT 160 10^3/uL (130-400); RED CELL DISTRIBUTION WIDTH 17.9 % (10.0-14.5); WHITE BLOOD COUNT 4.3 10^3/uL (4.3-11.0)
[2018-12-05 16:09] LABS: ALANINE AMINOTRANSFERASE 25 U/L (0-55); ALBUMIN 3.9 GM/DL (3.2-4.5); ALKALINE PHOSPHATASE 98 U/L (40-136); BILIRUBIN,TOTAL 1.3 MG/DL (0.1-1.0); BUN/CREATININE RATIO 14; CALCIUM 9.7 MG/DL (8.5-10.1); CARBON DIOXIDE 22 MMOL/L (21-32); CHLORIDE 112 MMOL/L (98-107); CREATININE SERUM 0.86 MG/DL (0.60-1.30); GFR ESTIMATED > 60; GLUCOSE 74 MG/DL (70-105); MAGNESIUM 1.7 MG/DL (1.8-2.4); POTASSIUM 3.1 MMOL/L (3.6-5.0); SODIUM 145 MMOL/L (135-145); TOTAL PROTEIN 7.5 GM/DL (6.4-8.2)
[2018-12-10 09:49] LABS: BASOPHILS % (AUTO) 1 % (0-10); EOSINOPHILS # (AUTO) 0.1 10^3/uL (0.0-0.3); EOSINOPHILS % (AUTO) 2 % (0-10); HEMATOCRIT 31 % (40-54); HEMOGLOBIN 10.6 G/DL (13.3-17.7); LYMPHOCYTES # (AUTO) 1.1 X 10^3 (1.0-4.0); LYMPHOCYTES % (AUTO) 30 % (12-44); MEAN CORPUSCULAR HEMOGLOBIN 34 PG (25-34); MEAN CORPUSCULAR HGB CONC 34 G/DL (32-36); MEAN CORPUSCULAR VOLUME 99 FL (80-99); MEAN PLATELET VOLUME 9.1 FL (7.4-10.4); MONOCYTES # (AUTO) 0.7 X 10^3 (0.0-1.0); MONOCYTES % (AUTO) 20 % (0-12); NEUTROPHILS # (AUTO) 1.8 X 10^3 (1.8-7.8); NEUTROPHILS % (AUTO) 48 % (42-75); PLATELET COUNT 143 10^3/uL (130-400); RED CELL DISTRIBUTION WIDTH 19.6 % (10.0-14.5); WHITE BLOOD COUNT 3.7 10^3/uL (4.3-11.0)
[2018-12-10 10:12] LABS: ALANINE AMINOTRANSFERASE 31 U/L (0-55); ALBUMIN 3.2 GM/DL (3.2-4.5); ALKALINE PHOSPHATASE 126 U/L (40-136); BILIRUBIN,TOTAL 1.2 MG/DL (0.1-1.0); BUN/CREATININE RATIO 18; CARBON DIOXIDE 20 MMOL/L (21-32); CHLORIDE 110 MMOL/L (98-107); CREATININE SERUM 0.82 MG/DL (0.60-1.30); GFR ESTIMATED > 60; GLUCOSE 90 MG/DL (70-105); MAGNESIUM 1.5 MG/DL (1.8-2.4); POTASSIUM 3.3 MMOL/L (3.6-5.0); SODIUM 141 MMOL/L (135-145); TOTAL PROTEIN 6.1 GM/DL (6.4-8.2)
[2018-12-23 10:04] LABS: BASOPHILS % (AUTO) 2 % (0-10); EOSINOPHILS # (AUTO) 0.1 10^3/uL (0.0-0.3); EOSINOPHILS % (AUTO) 2 % (0-10); HEMATOCRIT 34 % (40-54); HEMOGLOBIN 11.2 G/DL (13.3-17.7); LYMPHOCYTES # (AUTO) 0.9 X 10^3 (1.0-4.0); LYMPHOCYTES % (AUTO) 35 % (12-44); MEAN CORPUSCULAR HEMOGLOBIN 32 PG (25-34); MEAN CORPUSCULAR HGB CONC 33 G/DL (32-36); MEAN CORPUSCULAR VOLUME 98 FL (80-99); MEAN PLATELET VOLUME 9.2 FL (7.4-10.4); MONOCYTES # (AUTO) 0.5 X 10^3 (0.0-1.0); MONOCYTES % (AUTO) 19 % (0-12); NEUTROPHILS # (AUTO) 1.1 X 10^3 (1.8-7.8); NEUTROPHILS % (AUTO) 42 % (42-75); PLATELET COUNT 149 10^3/uL (130-400); RED CELL DISTRIBUTION WIDTH 16.3 % (10.0-14.5); WHITE BLOOD COUNT 2.5 10^3/uL (4.3-11.0)
[2018-12-23 10:24] LABS: ALBUMIN 3.4 GM/DL (3.2-4.5); BILIRUBIN,TOTAL 0.9 MG/DL (0.1-1.0); CALCIUM 8.8 MG/DL (8.5-10.1); CREATININE SERUM 1.4 MG/DL (0.60-1.30); MAGNESIUM 1.6 MG/DL (1.8-2.4); POTASSIUM 3.4 MMOL/L (3.6-5.0); TOTAL PROTEIN 6.3 GM/DL (6.4-8.2)
[2018-12-31 10:55] LABS: BASOPHILS % (AUTO) 0 % (0-10); EOSINOPHILS # (AUTO) 0.1 10^3/uL (0.0-0.3); EOSINOPHILS % (AUTO) 2 % (0-10); HEMATOCRIT 35 % (40-54); HEMOGLOBIN 11.4 G/DL (13.3-17.7); LYMPHOCYTES % (AUTO) 25 % (12-44); MEAN CORPUSCULAR HEMOGLOBIN 31 PG (25-34); MEAN CORPUSCULAR HGB CONC 33 G/DL (32-36); MEAN CORPUSCULAR VOLUME 95 FL (80-99); MEAN PLATELET VOLUME 9.6 FL (7.4-10.4); MONOCYTES # (AUTO) 0.6 X 10^3 (0.0-1.0); MONOCYTES % (AUTO) 15 % (0-12); NEUTROPHILS # (AUTO) 2.2 X 10^3 (1.8-7.8); NEUTROPHILS % (AUTO) 58 % (42-75); PLATELET COUNT 113 10^3/uL (130-400); RED CELL DISTRIBUTION WIDTH 15.2 % (10.0-14.5); WHITE BLOOD COUNT 3.7 10^3/uL (4.3-11.0)
[2018-12-31 11:16] LABS: BUN/CREATININE RATIO 14; CALCIUM 8.6 MG/DL (8.5-10.1); CARBON DIOXIDE 24 MMOL/L (21-32); CHLORIDE 107 MMOL/L (98-107); CREATININE SERUM 0.81 MG/DL (0.60-1.30); GFR ESTIMATED > 60; GLUCOSE 104 MG/DL (70-105); MAGNESIUM 1.8 MG/DL (1.8-2.4); POTASSIUM 3.3 MMOL/L (3.6-5.0); SODIUM 138 MMOL/L (135-145)
[2019-01-14 14:08] LABS: BASOPHILS % (AUTO) 1 % (0-10); EOSINOPHILS # (AUTO) 0.1 10^3/uL (0.0-0.3); EOSINOPHILS % (AUTO) 3 % (0-10); HEMATOCRIT 34 % (40-54); HEMOGLOBIN 11.2 G/DL (13.3-17.7); LYMPHOCYTES # (AUTO) 1.1 X 10^3 (1.0-4.0); LYMPHOCYTES % (AUTO) 35 % (12-44); MEAN CORPUSCULAR HEMOGLOBIN 32 PG (25-34); MEAN CORPUSCULAR HGB CONC 33 G/DL (32-36); MEAN CORPUSCULAR VOLUME 96 FL (80-99); MONOCYTES # (AUTO) 0.3 X 10^3 (0.0-1.0); MONOCYTES % (AUTO) 10 % (0-12); NEUTROPHILS # (AUTO) 1.6 X 10^3 (1.8-7.8); NEUTROPHILS % (AUTO) 51 % (42-75); PLATELET COUNT 129 10^3/uL (130-400); RED CELL DISTRIBUTION WIDTH 17.2 % (10.0-14.5); WHITE BLOOD COUNT 3.1 10^3/uL (4.3-11.0)
[2019-01-14 14:44] LABS: ALANINE AMINOTRANSFERASE 22 U/L (0-55); ALBUMIN 3.2 GM/DL (3.2-4.5); ALKALINE PHOSPHATASE 101 U/L (40-136); BILIRUBIN,TOTAL 1.1 MG/DL (0.1-1.0); BUN/CREATININE RATIO 17; CALCIUM 8.8 MG/DL (8.5-10.1); CARBON DIOXIDE 25 MMOL/L (21-32); CHLORIDE 107 MMOL/L (98-107); CREATININE SERUM 0.86 MG/DL (0.60-1.30); GFR ESTIMATED > 60; GLUCOSE 133 MG/DL (70-105); MAGNESIUM 1.8 MG/DL (1.8-2.4); POTASSIUM 3.6 MMOL/L (3.6-5.0); SODIUM 141 MMOL/L (135-145); TOTAL PROTEIN 6.3 GM/DL (6.4-8.2)
[2019-01-22 16:14] LABS: BASOPHILS % (AUTO) 1 % (0-10); EOSINOPHILS # (AUTO) 0.1 10^3/uL (0.0-0.3); EOSINOPHILS % (AUTO) 2 % (0-10); HEMATOCRIT 35 % (40-54); HEMOGLOBIN 11.5 G/DL (13.3-17.7); LYMPHOCYTES # (AUTO) 1.1 X 10^3 (1.0-4.0); LYMPHOCYTES % (AUTO) 26 % (12-44); MEAN CORPUSCULAR HEMOGLOBIN 31 PG (25-34); MEAN CORPUSCULAR HGB CONC 33 G/DL (32-36); MEAN CORPUSCULAR VOLUME 96 FL (80-99); MEAN PLATELET VOLUME 9.5 FL (7.4-10.4); MONOCYTES # (AUTO) 0.8 X 10^3 (0.0-1.0); MONOCYTES % (AUTO) 19 % (0-12); NEUTROPHILS # (AUTO) 2.1 X 10^3 (1.8-7.8); NEUTROPHILS % (AUTO) 51 % (42-75); PLATELET COUNT 159 10^3/uL (130-400); RED CELL DISTRIBUTION WIDTH 17.5 % (10.0-14.5); WHITE BLOOD COUNT 4.2 10^3/uL (4.3-11.0)
[2019-01-22 16:35] LABS: BUN/CREATININE RATIO 18; CALCIUM 9.1 MG/DL (8.5-10.1); CARBON DIOXIDE 29 MMOL/L (21-32); CHLORIDE 106 MMOL/L (98-107); CREATININE SERUM 1.04 MG/DL (0.60-1.30); GFR ESTIMATED > 60; GLUCOSE 68 MG/DL (70-105); MAGNESIUM 1.5 MG/DL (1.8-2.4); POTASSIUM 3.5 MMOL/L (3.6-5.0); SODIUM 141 MMOL/L (135-145)
[2019-01-27 16:28] LABS: BASOPHILS % (AUTO) 0 % (0-10); EOSINOPHILS # (AUTO) 0.1 10^3/uL (0.0-0.3); EOSINOPHILS % (AUTO) 1 % (0-10); HEMATOCRIT 35 % (40-54); HEMOGLOBIN 11.8 G/DL (13.3-17.7); LYMPHOCYTES # (AUTO) 1.2 X 10^3 (1.0-4.0); LYMPHOCYTES % (AUTO) 13 % (12-44); MEAN CORPUSCULAR HEMOGLOBIN 31 PG (25-34); MEAN CORPUSCULAR HGB CONC 34 G/DL (32-36); MEAN CORPUSCULAR VOLUME 93 FL (80-99); MEAN PLATELET VOLUME 9.7 FL (7.4-10.4); MONOCYTES # (AUTO) 1.1 X 10^3 (0.0-1.0); MONOCYTES % (AUTO) 12 % (0-12); NEUTROPHILS # (AUTO) 6.7 X 10^3 (1.8-7.8); NEUTROPHILS % (AUTO) 74 % (42-75); PLATELET COUNT 166 10^3/uL (130-400); RED CELL DISTRIBUTION WIDTH 18.4 % (10.0-14.5); WHITE BLOOD COUNT 9.1 10^3/uL (4.3-11.0)
[2019-01-27 16:43] LABS: BUN/CREATININE RATIO 22; CARBON DIOXIDE 25 MMOL/L (21-32); CHLORIDE 103 MMOL/L (98-107); CREATININE SERUM 0.94 MG/DL (0.60-1.30); GFR ESTIMATED > 60; GLUCOSE 81 MG/DL (70-105); MAGNESIUM 2.3 MG/DL (1.8-2.4); POTASSIUM 3.1 MMOL/L (3.6-5.0); SODIUM 134 MMOL/L (135-145)
[2019-02-10 10:02] LABS: BASOPHILS % (AUTO) 1 % (0-10); EOSINOPHILS # (AUTO) 0.1 10^3/uL (0.0-0.3); EOSINOPHILS % (AUTO) 3 % (0-10); HEMATOCRIT 32 % (40-54); HEMOGLOBIN 10.3 G/DL (13.3-17.7); LYMPHOCYTES # (AUTO) 0.8 X 10^3 (1.0-4.0); LYMPHOCYTES % (AUTO) 32 % (12-44); MEAN CORPUSCULAR HEMOGLOBIN 31 PG (25-34); MEAN CORPUSCULAR HGB CONC 32 G/DL (32-36); MEAN CORPUSCULAR VOLUME 97 FL (80-99); MEAN PLATELET VOLUME 9.6 FL (7.4-10.4); MONOCYTES # (AUTO) 0.4 X 10^3 (0.0-1.0); MONOCYTES % (AUTO) 16 % (0-12); NEUTROPHILS # (AUTO) 1.2 X 10^3 (1.8-7.8); NEUTROPHILS % (AUTO) 48 % (42-75); PLATELET COUNT 130 10^3/uL (130-400); RED CELL DISTRIBUTION WIDTH 18.8 % (10.0-14.5); WHITE BLOOD COUNT 2.4 10^3/uL (4.3-11.0)
[2019-02-10 10:21] LABS: ALANINE AMINOTRANSFERASE 22 U/L (0-55); ALBUMIN 3.2 GM/DL (3.2-4.5); ALKALINE PHOSPHATASE 118 U/L (40-136); BILIRUBIN,TOTAL 0.8 MG/DL (0.1-1.0); BUN/CREATININE RATIO 17; CALCIUM 8.8 MG/DL (8.5-10.1); CARBON DIOXIDE 26 MMOL/L (21-32); CHLORIDE 108 MMOL/L (98-107); CREATININE SERUM 1.01 MG/DL (0.60-1.30); GFR ESTIMATED > 60; GLUCOSE 108 MG/DL (70-105); MAGNESIUM 1.8 MG/DL (1.8-2.4); POTASSIUM 3.7 MMOL/L (3.6-5.0); SODIUM 140 MMOL/L (135-145); TOTAL PROTEIN 5.8 GM/DL (6.4-8.2)
[2019-02-19 15:41] LABS: BASOPHILS % (AUTO) 1 % (0-10); EOSINOPHILS # (AUTO) 0.1 10^3/uL (0.0-0.3); EOSINOPHILS % (AUTO) 3 % (0-10); HEMATOCRIT 35 % (40-54); HEMOGLOBIN 11.1 G/DL (13.3-17.7); LYMPHOCYTES # (AUTO) 0.9 X 10^3 (1.0-4.0); LYMPHOCYTES % (AUTO) 32 % (12-44); MEAN CORPUSCULAR HEMOGLOBIN 30 PG (25-34); MEAN CORPUSCULAR HGB CONC 32 G/DL (32-36); MEAN CORPUSCULAR VOLUME 95 FL (80-99); MEAN PLATELET VOLUME 9.7 FL (7.4-10.4); MONOCYTES # (AUTO) 0.5 X 10^3 (0.0-1.0); MONOCYTES % (AUTO) 16 % (0-12); NEUTROPHILS # (AUTO) 1.4 X 10^3 (1.8-7.8); NEUTROPHILS % (AUTO) 48 % (42-75); PLATELET COUNT 139 10^3/uL (130-400); RED CELL DISTRIBUTION WIDTH 17.5 % (10.0-14.5); WHITE BLOOD COUNT 2.9 10^3/uL (4.3-11.0)
[2019-02-19 15:59] LABS: BUN/CREATININE RATIO 14; CARBON DIOXIDE 27 MMOL/L (21-32); CHLORIDE 104 MMOL/L (98-107); CREATININE SERUM 0.94 MG/DL (0.60-1.30); GFR ESTIMATED > 60; GLUCOSE 118 MG/DL (70-105); MAGNESIUM 1.7 MG/DL (1.8-2.4); POTASSIUM 3.5 MMOL/L (3.6-5.0); SODIUM 138 MMOL/L (135-145)
[~2019-02-26] VITALS: Ht 177.8 cm; Wt 81.2 kg
[~2019-02-26] MED LIST changes: +D5W 500 ML IV (CANCER CTR) 500 ML IV SCH; +FOSAPREPITANT DIMEGLUMINE 150 MG in NS (IVPB) CANCER CENTER ONLY 150 ML IV SCH; -HOLD METFORMIN - RECEIVED CONTRAST 20 ML VIAL IV SCH; -IOHEXOL 350 MG/ML 100 ML (OMNIPAQUE 350) VIAL IV ONE; +NS IV 1000 ML (CANCER CTR) IV SCH; +ONDANSETRON MDV (CANCER CENTER 8 MG, DEXAMETHASONE INJECTION 10 MG in NS (IVPB) CANCER ... IV SCH; +OXALIPLATIN 100 MG, OXALIPLATIN (GENERIC) 20 MG in D5W 250 ML IVPB (CANCER CTR) 250 ML IV SCH; +OXALIPLATIN 100 MG, OXALIPLATIN (GENERIC) 30 MG in D5W 250 ML IVPB (CANCER CTR) 250 ML IV SCH; +PALONOSETRON HCL 0.25 MG, DEXAMETHASONE INJECTION 10 MG in NS (IVPB) CANCER CENTER 50 ML IV SCH; +PANITUMUMAB INJECTION 400 MG in NS (IVPB) CANCER CENTER 100 ML IV SCH; +PANITUMUMAB INJECTION 400 MG, PANITUMUMAB INJECTION 100 MG in NS (IVPB) CANCER CENTER 1... IV SCH
[2019-02-26 14:55] LABS: BASOPHILS % (AUTO) 0 % (0-10); EOSINOPHILS # (AUTO) 0.1 10^3/uL (0.0-0.3); EOSINOPHILS % (AUTO) 2 % (0-10); HEMATOCRIT 38 % (40-54); HEMOGLOBIN 12.3 G/DL (13.3-17.7); LYMPHOCYTES # (AUTO) 1.1 X 10^3 (1.0-4.0); LYMPHOCYTES % (AUTO) 23 % (12-44); MEAN CORPUSCULAR HEMOGLOBIN 31 PG (25-34); MEAN CORPUSCULAR HGB CONC 33 G/DL (32-36); MEAN CORPUSCULAR VOLUME 94 FL (80-99); MONOCYTES # (AUTO) 0.6 X 10^3 (0.0-1.0); MONOCYTES % (AUTO) 12 % (0-12); NEUTROPHILS # (AUTO) 2.9 X 10^3 (1.8-7.8); NEUTROPHILS % (AUTO) 61 % (42-75); PLATELET COUNT 173 10^3/uL (130-400); RED CELL DISTRIBUTION WIDTH 18.5 % (10.0-14.5); WHITE BLOOD COUNT 4.7 10^3/uL (4.3-11.0)
[2019-02-26 15:13] LABS: BUN/CREATININE RATIO 18; CALCIUM 9.7 MG/DL (8.5-10.1); CARBON DIOXIDE 24 MMOL/L (21-32); CHLORIDE 104 MMOL/L (98-107); CREATININE SERUM 0.85 MG/DL (0.60-1.30); GFR ESTIMATED > 60; GLUCOSE 88 MG/DL (70-105); MAGNESIUM 1.7 MG/DL (1.8-2.4); SODIUM 138 MMOL/L (135-145)
== END | disposition home or self-care (01) ==
LOC: ONC 11-28 15:07
PROVIDERS: ATTEND Internal Medicine Hematology & Oncology
DX: Z51.11 Encounter for antineoplastic chemotherapy (principal); C19 Malignant neoplasm of rectosigmoid junction; R91.1 Solitary pulmonary nodule; E05.00 Thyrotoxicosis with diffuse goiter without thyrotoxic crisis or storm; B18.2 Chronic viral hepatitis C; I10 Essential (primary) hypertension; E83.42 Hypomagnesemia; D61.818 Other pancytopenia; R79.89 Other specified abnormal findings of blood chemistry; Z93.3 Colostomy status; Z79.899 Other long term (current) drug therapy; Z92.21 Personal history of antineoplastic chemotherapy; Z92.3 Personal history of irradiation; Z45.2 Encounter for adjustment and management of vascular access device
CPT/HCPCS: 36415; 36591; 80048; 80053; 82378; 83735; 85025; 87324; 87449; 96367; 96375; 96413; 96417; 99213

== ENCOUNTER 2019-05-27 14:03 | Outpatient (RCR) | payer BC ==
[2019-03-05 14:25] LABS: BASOPHILS % (AUTO) 0 % (0-10); EOSINOPHILS # (AUTO) 0.1 10^3/uL (0.0-0.3); EOSINOPHILS % (AUTO) 4 % (0-10); HEMATOCRIT 34 % (40-54); LYMPHOCYTES # (AUTO) 1.1 X 10^3 (1.0-4.0); LYMPHOCYTES % (AUTO) 32 % (12-44); MEAN CORPUSCULAR HEMOGLOBIN 31 PG (25-34); MEAN CORPUSCULAR HGB CONC 33 G/DL (32-36); MEAN CORPUSCULAR VOLUME 95 FL (80-99); MEAN PLATELET VOLUME 9.2 FL (7.4-10.4); MONOCYTES # (AUTO) 0.3 X 10^3 (0.0-1.0); MONOCYTES % (AUTO) 10 % (0-12); NEUTROPHILS # (AUTO) 1.8 X 10^3 (1.8-7.8); NEUTROPHILS % (AUTO) 54 % (42-75); PLATELET COUNT 149 10^3/uL (130-400); RED CELL DISTRIBUTION WIDTH 18.7 % (10.0-14.5); WHITE BLOOD COUNT 3.4 10^3/uL (4.3-11.0)
[2019-03-05 14:47] LABS: ALANINE AMINOTRANSFERASE 21 U/L (0-55); ALBUMIN 3.4 GM/DL (3.2-4.5); ALKALINE PHOSPHATASE 106 U/L (40-136); BILIRUBIN,TOTAL 1.1 MG/DL (0.1-1.0); BUN/CREATININE RATIO 21; CARBON DIOXIDE 28 MMOL/L (21-32); CHLORIDE 107 MMOL/L (98-107); CREATININE SERUM 0.86 MG/DL (0.60-1.30); GFR ESTIMATED > 60; GLUCOSE 102 MG/DL (70-105); MAGNESIUM 1.8 MG/DL (1.8-2.4); POTASSIUM 3.5 MMOL/L (3.6-5.0); SODIUM 142 MMOL/L (135-145); TOTAL PROTEIN 6.5 GM/DL (6.4-8.2)
[2019-03-19 15:06] LABS: BASOPHILS % (AUTO) 0 % (0-10); EOSINOPHILS # (AUTO) 0.1 10^3/uL (0.0-0.3); EOSINOPHILS % (AUTO) 2 % (0-10); HEMATOCRIT 36 % (40-54); HEMOGLOBIN 11.8 G/DL (13.3-17.7); LYMPHOCYTES # (AUTO) 1.5 X 10^3 (1.0-4.0); LYMPHOCYTES % (AUTO) 25 % (12-44); MEAN CORPUSCULAR HEMOGLOBIN 32 PG (25-34); MEAN CORPUSCULAR HGB CONC 33 G/DL (32-36); MEAN CORPUSCULAR VOLUME 96 FL (80-99); MONOCYTES # (AUTO) 0.9 X 10^3 (0.0-1.0); MONOCYTES % (AUTO) 15 % (0-12); NEUTROPHILS # (AUTO) 3.5 X 10^3 (1.8-7.8); NEUTROPHILS % (AUTO) 58 % (42-75); PLATELET COUNT 150 10^3/uL (130-400); RED CELL DISTRIBUTION WIDTH 20.6 % (10.0-14.5)
[2019-03-19 15:27] LABS: BUN/CREATININE RATIO 18; CALCIUM 8.9 MG/DL (8.5-10.1); CARBON DIOXIDE 27 MMOL/L (21-32); CHLORIDE 104 MMOL/L (98-107); CREATININE SERUM 1.14 MG/DL (0.60-1.30); GFR ESTIMATED > 60; GLUCOSE 92 MG/DL (70-105); MAGNESIUM 1.7 MG/DL (1.6-2.4); POTASSIUM 3.4 MMOL/L (3.6-5.0); SODIUM 139 MMOL/L (135-145)
[2019-03-27 11:27] LABS: BASOPHILS % (AUTO) 0 % (0-10); EOSINOPHILS # (AUTO) 0.1 10^3/uL (0.0-0.3); EOSINOPHILS % (AUTO) 3 % (0-10); HEMATOCRIT 32 % (40-54); HEMOGLOBIN 10.5 G/DL (13.3-17.7); LYMPHOCYTES % (AUTO) 34 % (12-44); MEAN CORPUSCULAR HEMOGLOBIN 31 PG (25-34); MEAN CORPUSCULAR HGB CONC 33 G/DL (32-36); MEAN CORPUSCULAR VOLUME 96 FL (80-99); MEAN PLATELET VOLUME 9.7 FL (7.4-10.4); MONOCYTES # (AUTO) 0.3 X 10^3 (0.0-1.0); MONOCYTES % (AUTO) 12 % (0-12); NEUTROPHILS # (AUTO) 1.5 X 10^3 (1.8-7.8); NEUTROPHILS % (AUTO) 52 % (42-75); PLATELET COUNT 158 10^3/uL (130-400); WHITE BLOOD COUNT 2.8 10^3/uL (4.3-11.0)
[2019-03-27 11:47] LABS: ALANINE AMINOTRANSFERASE 23 U/L (0-55); ALBUMIN 3.1 GM/DL (3.2-4.5); ALKALINE PHOSPHATASE 92 U/L (40-136); BILIRUBIN,TOTAL 0.8 MG/DL (0.1-1.0); BUN/CREATININE RATIO 17; CALCIUM 8.8 MG/DL (8.5-10.1); CARBON DIOXIDE 24 MMOL/L (21-32); CHLORIDE 108 MMOL/L (98-107); CREATININE SERUM 0.96 MG/DL (0.60-1.30); GFR ESTIMATED > 60; GLUCOSE 116 MG/DL (70-105); MAGNESIUM 1.7 MG/DL (1.6-2.4); POTASSIUM 3.4 MMOL/L (3.6-5.0); SODIUM 143 MMOL/L (135-145); TOTAL PROTEIN 5.9 GM/DL (6.4-8.2)
[2019-04-07 10:53] LABS: BASOPHILS % (AUTO) 1 % (0-10); EOSINOPHILS # (AUTO) 0.1 10^3/uL (0.0-0.3); EOSINOPHILS % (AUTO) 2 % (0-10); HEMATOCRIT 34 % (40-54); HEMOGLOBIN 11.3 G/DL (13.3-17.7); LYMPHOCYTES # (AUTO) 0.9 X 10^3 (1.0-4.0); LYMPHOCYTES % (AUTO) 27 % (12-44); MEAN CORPUSCULAR HEMOGLOBIN 32 PG (25-34); MEAN CORPUSCULAR HGB CONC 33 G/DL (32-36); MEAN CORPUSCULAR VOLUME 95 FL (80-99); MEAN PLATELET VOLUME 9.9 FL (7.4-10.4); MONOCYTES # (AUTO) 0.4 X 10^3 (0.0-1.0); MONOCYTES % (AUTO) 13 % (0-12); NEUTROPHILS # (AUTO) 1.8 X 10^3 (1.8-7.8); NEUTROPHILS % (AUTO) 57 % (42-75); PLATELET COUNT 150 10^3/uL (130-400); RED CELL DISTRIBUTION WIDTH 20.2 % (10.0-14.5); WHITE BLOOD COUNT 3.2 10^3/uL (4.3-11.0)
[2019-04-07 11:09] LABS: BUN/CREATININE RATIO 20; CALCIUM 8.6 MG/DL (8.5-10.1); CARBON DIOXIDE 26 MMOL/L (21-32); CHLORIDE 109 MMOL/L (98-107); CREATININE SERUM 0.76 MG/DL (0.60-1.30); GFR ESTIMATED > 60; GLUCOSE 85 MG/DL (70-105); MAGNESIUM 1.2 MG/DL (1.6-2.4); POTASSIUM 3.4 MMOL/L (3.6-5.0); SODIUM 140 MMOL/L (135-145)
[2019-04-16 15:08] LABS: BASOPHILS % (AUTO) 1 % (0-10); EOSINOPHILS # (AUTO) 0.1 10^3/uL (0.0-0.3); EOSINOPHILS % (AUTO) 2 % (0-10); HEMATOCRIT 32 % (40-54); HEMOGLOBIN 10.7 G/DL (13.3-17.7); LYMPHOCYTES # (AUTO) 1.2 X 10^3 (1.0-4.0); LYMPHOCYTES % (AUTO) 30 % (12-44); MEAN CORPUSCULAR HEMOGLOBIN 31 PG (25-34); MEAN CORPUSCULAR HGB CONC 33 G/DL (32-36); MEAN CORPUSCULAR VOLUME 94 FL (80-99); MEAN PLATELET VOLUME 9.9 FL (7.4-10.4); MONOCYTES # (AUTO) 0.5 X 10^3 (0.0-1.0); MONOCYTES % (AUTO) 12 % (0-12); NEUTROPHILS # (AUTO) 2.2 X 10^3 (1.8-7.8); NEUTROPHILS % (AUTO) 56 % (42-75); PLATELET COUNT 133 10^3/uL (130-400); RED CELL DISTRIBUTION WIDTH 19.8 % (10.0-14.5)
[2019-04-16 15:23] LABS: ALANINE AMINOTRANSFERASE 17 U/L (0-55); ALBUMIN 3.4 GM/DL (3.2-4.5); ALKALINE PHOSPHATASE 79 U/L (40-136); BUN/CREATININE RATIO 24; CALCIUM 8.8 MG/DL (8.5-10.1); CARBON DIOXIDE 23 MMOL/L (21-32); CHLORIDE 109 MMOL/L (98-107); GFR ESTIMATED > 60; GLUCOSE 82 MG/DL (70-105); MAGNESIUM 1.7 MG/DL (1.6-2.4); POTASSIUM 3.9 MMOL/L (3.6-5.0); SODIUM 140 MMOL/L (135-145)
[2019-04-23 14:04] LABS: BASOPHILS % (AUTO) 0 % (0-10); EOSINOPHILS # (AUTO) 0.1 10^3/uL (0.0-0.3); EOSINOPHILS % (AUTO) 3 % (0-10); HEMATOCRIT 36 % (40-54); HEMOGLOBIN 11.6 G/DL (13.3-17.7); LYMPHOCYTES # (AUTO) 0.9 X 10^3 (1.0-4.0); LYMPHOCYTES % (AUTO) 28 % (12-44); MEAN CORPUSCULAR HEMOGLOBIN 31 PG (25-34); MEAN CORPUSCULAR HGB CONC 33 G/DL (32-36); MEAN CORPUSCULAR VOLUME 95 FL (80-99); MEAN PLATELET VOLUME 10.1 FL (7.4-10.4); MONOCYTES # (AUTO) 0.5 X 10^3 (0.0-1.0); MONOCYTES % (AUTO) 14 % (0-12); NEUTROPHILS # (AUTO) 1.8 X 10^3 (1.8-7.8); NEUTROPHILS % (AUTO) 54 % (42-75); PLATELET COUNT 153 10^3/uL (130-400); RED CELL DISTRIBUTION WIDTH 19.3 % (10.0-14.5); WHITE BLOOD COUNT 3.3 10^3/uL (4.3-11.0)
[2019-04-23 14:21] LABS: BUN/CREATININE RATIO 16; CALCIUM 8.8 MG/DL (8.5-10.1); CARBON DIOXIDE 27 MMOL/L (21-32); CHLORIDE 108 MMOL/L (98-107); CREATININE SERUM 0.87 MG/DL (0.60-1.30); GFR ESTIMATED > 60; GLUCOSE 92 MG/DL (70-105); SODIUM 139 MMOL/L (135-145)
[2019-04-30 10:17] LABS: BASOPHILS % (AUTO) 1 % (0-10); EOSINOPHILS # (AUTO) 0.1 10^3/uL (0.0-0.3); EOSINOPHILS % (AUTO) 2 % (0-10); HEMATOCRIT 33 % (40-54); HEMOGLOBIN 10.8 G/DL (13.3-17.7); LYMPHOCYTES # (AUTO) 0.7 X 10^3 (1.0-4.0); LYMPHOCYTES % (AUTO) 22 % (12-44); MEAN CORPUSCULAR HEMOGLOBIN 31 PG (25-34); MEAN CORPUSCULAR HGB CONC 33 G/DL (32-36); MEAN CORPUSCULAR VOLUME 95 FL (80-99); MEAN PLATELET VOLUME 10.4 FL (7.4-10.4); MONOCYTES # (AUTO) 0.5 X 10^3 (0.0-1.0); MONOCYTES % (AUTO) 16 % (0-12); NEUTROPHILS # (AUTO) 1.9 X 10^3 (1.8-7.8); NEUTROPHILS % (AUTO) 59 % (42-75); PLATELET COUNT 138 10^3/uL (130-400); RED CELL DISTRIBUTION WIDTH 20.3 % (10.0-14.5); WHITE BLOOD COUNT 3.1 10^3/uL (4.3-11.0)
[2019-04-30 10:34] LABS: BUN/CREATININE RATIO 15; CALCIUM 8.3 MG/DL (8.5-10.1); CARBON DIOXIDE 27 MMOL/L (21-32); CHLORIDE 109 MMOL/L (98-107); CREATININE SERUM 0.85 MG/DL (0.60-1.30); GFR ESTIMATED > 60; GLUCOSE 75 MG/DL (70-105); MAGNESIUM 1.7 MG/DL (1.6-2.4); POTASSIUM 3.4 MMOL/L (3.6-5.0); SODIUM 140 MMOL/L (135-145)
[2019-05-07 14:49] LABS: BASOPHILS % (AUTO) 0 % (0-10); EOSINOPHILS # (AUTO) 0.1 10^3/uL (0.0-0.3); EOSINOPHILS % (AUTO) 3 % (0-10); HEMATOCRIT 30 % (40-54); HEMOGLOBIN 9.7 G/DL (13.3-17.7); LYMPHOCYTES # (AUTO) 1.1 X 10^3 (1.0-4.0); LYMPHOCYTES % (AUTO) 33 % (12-44); MEAN CORPUSCULAR HEMOGLOBIN 31 PG (25-34); MEAN CORPUSCULAR HGB CONC 32 G/DL (32-36); MEAN CORPUSCULAR VOLUME 95 FL (80-99); MEAN PLATELET VOLUME 9.3 FL (7.4-10.4); MONOCYTES # (AUTO) 0.5 X 10^3 (0.0-1.0); MONOCYTES % (AUTO) 15 % (0-12); NEUTROPHILS # (AUTO) 1.6 X 10^3 (1.8-7.8); NEUTROPHILS % (AUTO) 49 % (42-75); PLATELET COUNT 148 10^3/uL (130-400); RED CELL DISTRIBUTION WIDTH 20.5 % (10.0-14.5); WHITE BLOOD COUNT 3.2 10^3/uL (4.3-11.0)
[2019-05-07 15:07] LABS: ALANINE AMINOTRANSFERASE 17 U/L (0-55); ALBUMIN 3.1 GM/DL (3.2-4.5); ALKALINE PHOSPHATASE 96 U/L (40-136); BUN/CREATININE RATIO 19; CALCIUM 8.4 MG/DL (8.5-10.1); CARBON DIOXIDE 26 MMOL/L (21-32); CHLORIDE 110 MMOL/L (98-107); GFR ESTIMATED > 60; GLUCOSE 79 MG/DL (70-105); MAGNESIUM 1.7 MG/DL (1.6-2.4); POTASSIUM 3.8 MMOL/L (3.6-5.0); SODIUM 140 MMOL/L (135-145); TOTAL PROTEIN 5.7 GM/DL (6.4-8.2)
[2019-05-15 15:27] LABS: BASOPHILS % (AUTO) 1 % (0-10); EOSINOPHILS # (AUTO) 0.1 10^3/uL (0.0-0.3); EOSINOPHILS % (AUTO) 3 % (0-10); HEMATOCRIT 41 % (40-54); HEMOGLOBIN 13.2 G/DL (13.3-17.7); LYMPHOCYTES # (AUTO) 1.1 X 10^3 (1.0-4.0); LYMPHOCYTES % (AUTO) 26 % (12-44); MEAN CORPUSCULAR HEMOGLOBIN 31 PG (25-34); MEAN CORPUSCULAR HGB CONC 33 G/DL (32-36); MEAN CORPUSCULAR VOLUME 95 FL (80-99); MEAN PLATELET VOLUME 10.5 FL (7.4-10.4); MONOCYTES # (AUTO) 0.7 X 10^3 (0.0-1.0); MONOCYTES % (AUTO) 18 % (0-12); NEUTROPHILS # (AUTO) 2.2 X 10^3 (1.8-7.8); NEUTROPHILS % (AUTO) 53 % (42-75); PLATELET COUNT 164 10^3/uL (130-400); WHITE BLOOD COUNT 4.2 10^3/uL (4.3-11.0)
[2019-05-15 15:48] LABS: BUN/CREATININE RATIO 9; CALCIUM 8.8 MG/DL (8.5-10.1); CARBON DIOXIDE 25 MMOL/L (21-32); CHLORIDE 104 MMOL/L (98-107); GFR ESTIMATED > 60; GLUCOSE 88 MG/DL (70-105); MAGNESIUM 2.1 MG/DL (1.6-2.4); POTASSIUM 3.2 MMOL/L (3.6-5.0); SODIUM 139 MMOL/L (135-145)
[~2019-05-27 14:03] MED LIST changes: -FOSAPREPITANT DIMEGLUMINE 150 MG in NS (IVPB) CANCER CENTER ONLY 150 ML IV SCH; +NS IV 500 ML (CANCER CENTER) 500 ML ONE; -OXALIPLATIN 100 MG, OXALIPLATIN (GENERIC) 20 MG in D5W 250 ML IVPB (CANCER CTR) 250 ML IV SCH; -OXALIPLATIN 100 MG, OXALIPLATIN (GENERIC) 30 MG in D5W 250 ML IVPB (CANCER CTR) 250 ML IV SCH; -PALONOSETRON HCL 0.25 MG, DEXAMETHASONE INJECTION 10 MG in NS (IVPB) CANCER CENTER 50 ML IV SCH; -PANITUMUMAB INJECTION 400 MG, PANITUMUMAB INJECTION 100 MG in NS (IVPB) CANCER CENTER 1... IV SCH
[2019-05-27 14:18] LABS: BASOPHILS % (AUTO) 1 % (0-10); EOSINOPHILS # (AUTO) 0.1 10^3/uL (0.0-0.3); EOSINOPHILS % (AUTO) 3 % (0-10); HEMATOCRIT 31 % (40-54); HEMOGLOBIN 10.1 G/DL (13.3-17.7); LYMPHOCYTES # (AUTO) 1.1 X 10^3 (1.0-4.0); LYMPHOCYTES % (AUTO) 33 % (12-44); MEAN CORPUSCULAR HEMOGLOBIN 31 PG (25-34); MEAN CORPUSCULAR HGB CONC 33 G/DL (32-36); MEAN CORPUSCULAR VOLUME 94 FL (80-99); MEAN PLATELET VOLUME 9.1 FL (7.4-10.4); MONOCYTES # (AUTO) 0.4 X 10^3 (0.0-1.0); MONOCYTES % (AUTO) 13 % (0-12); NEUTROPHILS # (AUTO) 1.7 X 10^3 (1.8-7.8); NEUTROPHILS % (AUTO) 50 % (42-75); PLATELET COUNT 147 10^3/uL (130-400); RED CELL DISTRIBUTION WIDTH 20.5 % (10.0-14.5); WHITE BLOOD COUNT 3.4 10^3/uL (4.3-11.0)
[2019-05-27 14:42] LABS: ALANINE AMINOTRANSFERASE 19 U/L (0-55); ALBUMIN 3.2 GM/DL (3.2-4.5); ALKALINE PHOSPHATASE 113 U/L (40-136); BILIRUBIN,TOTAL 1.2 MG/DL (0.1-1.0); BUN/CREATININE RATIO 18; CALCIUM 8.6 MG/DL (8.5-10.1); CARBON DIOXIDE 22 MMOL/L (21-32); CHLORIDE 111 MMOL/L (98-107); CREATININE SERUM 0.88 MG/DL (0.60-1.30); GFR ESTIMATED > 60; GLUCOSE 105 MG/DL (70-105); MAGNESIUM 1.7 MG/DL (1.6-2.4); POTASSIUM 3.4 MMOL/L (3.6-5.0); SODIUM 141 MMOL/L (135-145); TOTAL PROTEIN 5.9 GM/DL (6.4-8.2)
== END 2019-06-03 | disposition home or self-care (01) ==
LOC: ONC 14:03
PROVIDERS: ATTEND Internal Medicine Hematology & Oncology
DX: Z51.11 Encounter for antineoplastic chemotherapy (principal); C19 Malignant neoplasm of rectosigmoid junction; R91.1 Solitary pulmonary nodule; E05.00 Thyrotoxicosis with diffuse goiter without thyrotoxic crisis or storm; B18.2 Chronic viral hepatitis C; I10 Essential (primary) hypertension; E83.42 Hypomagnesemia; D61.818 Other pancytopenia; R79.89 Other specified abnormal findings of blood chemistry; Z93.3 Colostomy status; Z79.899 Other long term (current) drug therapy; Z92.21 Personal history of antineoplastic chemotherapy; Z92.3 Personal history of irradiation; Z45.2 Encounter for adjustment and management of vascular access device
CPT/HCPCS: 36415; 36591; 80048; 80053; 82378; 83735; 84443; 85025; 96375; 96413

== ENCOUNTER → 2019-06-04 | Outpatient (CLI) | payer BC ==
[~2019-06-04] MED LIST changes: -D5W 500 ML IV (CANCER CTR) 500 ML IV SCH; -NS IV 1000 ML (CANCER CTR) IV SCH; -NS IV 500 ML (CANCER CENTER) 500 ML ONE; -ONDANSETRON MDV (CANCER CENTER 8 MG, DEXAMETHASONE INJECTION 10 MG in NS (IVPB) CANCER ... IV SCH; -PANITUMUMAB INJECTION 400 MG in NS (IVPB) CANCER CENTER 100 ML IV SCH
[2019-06-04 13:23] LABS: INR 1.2 (0.8-1.4); PROTHROMBIN TIME PATIENT 15.3 SEC (12.2-14.7)
== END ==
LOC: LAB 12:55
PROVIDERS: ATTEND Internal Medicine
DX: Z01.89 Encounter for other specified special examinations (principal)
CPT/HCPCS: 36415; 82105; 82306; 85610

== ENCOUNTER → 2019-06-08 | Outpatient (CLI) | payer BC ==
[~2019-06-08] MED LIST changes: +BARIUM SUSPENSION 2.1% (VANILLA SILQ) 450 ML PO ONE; +CATHETER FLUSH 10 ML SYR IV PRN; +HOLD METFORMIN - RECEIVED CONTRAST 20 ML VIAL IV SCH; +IOHEXOL 350 MG/ML 100 ML (OMNIPAQUE 350) VIAL IV ONE; +NS 100 ML (IVPB) BAG IV ONE
--- NOTE | 2019-06-08 14:22 | Diagnostic Imaging Report ---
PROCEDURE: CT chest with contrast, CT abdomen and pelvis with and without contrast. TECHNIQUE: Pre and post intravenous contrast axial imaging of the abdomen and pelvis and post contrast axial imaging of the chest were performed. Auto Exposure Controls were utilized during the CT exam to meet ALARA standards for radiation dose reduction. INDICATION: Lung carcinoma and rectal carcinoma. COMPARISON: Correlation is made with prior CT from 12/03/2018. CT CHEST: Left chest wall port is again noted. No axillary lymphadenopathy is detected. A right paratracheal lymph node measures approximate 5 to 6 mm compared with 6 mm on prior exam. No new mediastinal or hilar lymphadenopathy is identified. No pericardial or pleural fluid is detected. Right upper lobe mass medially has increased in size, now measuring 20 mm x 14 mm compared with 14 mm x 9 mm on prior. No new pulmonary masses are detected. IMPRESSION: Increase in size of right upper lobe mass when compared with examination from 12/03/2018. No new mediastinal or hilar lymphadenopathy is detected. CT ABDOMEN AND PELVIS: TIPS located right hepatic lobe is again noted. No discrete liver mass is detected. Gallbladder is contracted. No biliary ductal dilatation is seen. Pancreas and spleen are unremarkable. No adrenal mass is identified. Kidneys are unremarkable. Aorta is non-aneurysmal. There is an ostomy in the left lower quadrant. Bowel loops appear to be normal caliber. There is no obstruction. Presacral soft tissue thickening appears fairly stable when compared with prior exam. Unopacified bladder is unremarkable. There is a fat-containing left inguinal hernia. Postsurgical changes to the left hip and left pelvis are noted. No definite abdominal or pelvic lymphadenopathy is seen. IMPRESSION: Overall stable CT of the abdomen and pelvis when compared with exam from 12/03/2018. Previously noted presacral soft tissue thickening appears stable. No new abnormality is identified. Dictated by: Dictated on workstation # [id number]
== END ==
LOC: RAD 13:15
PROVIDERS: ATTEND Nurse Practitioner Adult Health
DX: Z01.89 Encounter for other specified special examinations (principal); C20 Malignant neoplasm of rectum; C78.01 Secondary malignant neoplasm of right lung; C77.1 Secondary and unspecified malignant neoplasm of intrathoracic lymph nodes
CPT/HCPCS: 71260; 74178

== ENCOUNTER 2019-08-20 10:53 | Outpatient (RCR) | payer BC ==
[2019-06-04 13:07] LABS: BASOPHILS % (AUTO) 0 % (0-10); EOSINOPHILS # (AUTO) 0.1 10^3/uL (0.0-0.3); EOSINOPHILS % (AUTO) 3 % (0-10); HEMATOCRIT 33 % (40-54); HEMOGLOBIN 10.5 G/DL (13.3-17.7); LYMPHOCYTES # (AUTO) 0.9 X 10^3 (1.0-4.0); LYMPHOCYTES % (AUTO) 26 % (12-44); MEAN CORPUSCULAR HEMOGLOBIN 31 PG (25-34); MEAN CORPUSCULAR HGB CONC 32 G/DL (32-36); MEAN CORPUSCULAR VOLUME 95 FL (80-99); MEAN PLATELET VOLUME 10.4 FL (7.4-10.4); MONOCYTES # (AUTO) 0.4 X 10^3 (0.0-1.0); MONOCYTES % (AUTO) 12 % (0-12); NEUTROPHILS % (AUTO) 59 % (42-75); PLATELET COUNT 147 10^3/uL (130-400); RED CELL DISTRIBUTION WIDTH 19.4 % (10.0-14.5); WHITE BLOOD COUNT 3.4 10^3/uL (4.3-11.0)
[2019-06-04 13:26] LABS: CARBON DIOXIDE 26 MMOL/L (21-32); CHLORIDE 108 MMOL/L (98-107); POTASSIUM 3.3 MMOL/L (3.6-5.0); SODIUM 139 MMOL/L (135-145)
[2019-06-04 13:27] LABS: BUN/CREATININE RATIO 16; CALCIUM 8.3 MG/DL (8.5-10.1); CREATININE SERUM 0.77 MG/DL (0.60-1.30); GFR ESTIMATED > 60; GLUCOSE 68 MG/DL (70-105); MAGNESIUM 1.8 MG/DL (1.6-2.4)
[2019-06-12 16:45] LABS: BASOPHILS % (AUTO) 1 % (0-10); EOSINOPHILS # (AUTO) 0.1 10^3/uL (0.0-0.3); EOSINOPHILS % (AUTO) 4 % (0-10); HEMATOCRIT 33 % (40-54); HEMOGLOBIN 10.9 G/DL (13.3-17.7); LYMPHOCYTES # (AUTO) 1.2 X 10^3 (1.0-4.0); LYMPHOCYTES % (AUTO) 36 % (12-44); MEAN CORPUSCULAR HEMOGLOBIN 31 PG (25-34); MEAN CORPUSCULAR HGB CONC 33 G/DL (32-36); MEAN CORPUSCULAR VOLUME 94 FL (80-99); MEAN PLATELET VOLUME 9.6 FL (7.4-10.4); MONOCYTES # (AUTO) 0.5 X 10^3 (0.0-1.0); MONOCYTES % (AUTO) 14 % (0-12); NEUTROPHILS # (AUTO) 1.6 X 10^3 (1.8-7.8); NEUTROPHILS % (AUTO) 47 % (42-75); PLATELET COUNT 155 10^3/uL (130-400); RED CELL DISTRIBUTION WIDTH 20.3 % (10.0-14.5); WHITE BLOOD COUNT 3.4 10^3/uL (4.3-11.0)
[2019-06-12 17:05] LABS: BUN/CREATININE RATIO 11; CALCIUM 9.1 MG/DL (8.5-10.1); CARBON DIOXIDE 28 MMOL/L (21-32); CHLORIDE 106 MMOL/L (98-107); CREATININE SERUM 1.08 MG/DL (0.60-1.30); GFR ESTIMATED > 60; GLUCOSE 103 MG/DL (70-105); MAGNESIUM 1.7 MG/DL (1.6-2.4); SODIUM 143 MMOL/L (135-145)
[2019-06-18 15:15] LABS: BASOPHILS % (AUTO) 1 % (0-10); EOSINOPHILS # (AUTO) 0.1 10^3/uL (0.0-0.3); EOSINOPHILS % (AUTO) 4 % (0-10); HEMATOCRIT 30 % (40-54); HEMOGLOBIN 9.6 G/DL (13.3-17.7); LYMPHOCYTES # (AUTO) 1.1 X 10^3 (1.0-4.0); LYMPHOCYTES % (AUTO) 37 % (12-44); MEAN CORPUSCULAR HEMOGLOBIN 31 PG (25-34); MEAN CORPUSCULAR HGB CONC 33 G/DL (32-36); MEAN CORPUSCULAR VOLUME 94 FL (80-99); MEAN PLATELET VOLUME 10.4 FL (7.4-10.4); MONOCYTES # (AUTO) 0.5 X 10^3 (0.0-1.0); MONOCYTES % (AUTO) 19 % (0-12); NEUTROPHILS # (AUTO) 1.1 X 10^3 (1.8-7.8); NEUTROPHILS % (AUTO) 40 % (42-75); PLATELET COUNT 143 10^3/uL (130-400); RED CELL DISTRIBUTION WIDTH 19.6 % (10.0-14.5); WHITE BLOOD COUNT 2.8 10^3/uL (4.3-11.0)
[2019-06-18 15:39] LABS: ALANINE AMINOTRANSFERASE 21 U/L (0-55); ALBUMIN 3.3 GM/DL (3.2-4.5); ALKALINE PHOSPHATASE 115 U/L (40-136); BILIRUBIN,TOTAL 1.3 MG/DL (0.1-1.0); BUN/CREATININE RATIO 18; CALCIUM 8.2 MG/DL (8.5-10.1); CARBON DIOXIDE 25 MMOL/L (21-32); CHLORIDE 113 MMOL/L (98-107); CREATININE SERUM 0.83 MG/DL (0.60-1.30); GFR ESTIMATED > 60; GLUCOSE 91 MG/DL (70-105); MAGNESIUM 1.7 MG/DL (1.6-2.4); POTASSIUM 3.5 MMOL/L (3.6-5.0); SODIUM 143 MMOL/L (135-145); TOTAL PROTEIN 5.6 GM/DL (6.4-8.2)
[2019-06-24 14:18] LABS: BASOPHILS % (AUTO) 1 % (0-10); EOSINOPHILS # (AUTO) 0.1 10^3/uL (0.0-0.3); EOSINOPHILS % (AUTO) 3 % (0-10); HEMATOCRIT 31 % (40-54); HEMOGLOBIN 10.1 G/DL (13.3-17.7); LYMPHOCYTES # (AUTO) 1.1 X 10^3 (1.0-4.0); LYMPHOCYTES % (AUTO) 33 % (12-44); MEAN CORPUSCULAR HEMOGLOBIN 30 PG (25-34); MEAN CORPUSCULAR HGB CONC 32 G/DL (32-36); MEAN CORPUSCULAR VOLUME 94 FL (80-99); MEAN PLATELET VOLUME 9.8 FL (7.4-10.4); MONOCYTES # (AUTO) 0.5 X 10^3 (0.0-1.0); MONOCYTES % (AUTO) 16 % (0-12); NEUTROPHILS # (AUTO) 1.5 X 10^3 (1.8-7.8); NEUTROPHILS % (AUTO) 47 % (42-75); PLATELET COUNT 136 10^3/uL (130-400); RED CELL DISTRIBUTION WIDTH 18.9 % (10.0-14.5); WHITE BLOOD COUNT 3.3 10^3/uL (4.3-11.0)
[2019-06-24 14:35] LABS: BUN/CREATININE RATIO 14; CALCIUM 8.2 MG/DL (8.5-10.1); CARBON DIOXIDE 27 MMOL/L (21-32); CHLORIDE 108 MMOL/L (98-107); CREATININE SERUM 0.97 MG/DL (0.60-1.30); GFR ESTIMATED > 60; GLUCOSE 72 MG/DL (70-105); MAGNESIUM 1.8 MG/DL (1.6-2.4); POTASSIUM 3.5 MMOL/L (3.6-5.0); SODIUM 141 MMOL/L (135-145)
[2019-07-02 16:07] LABS: BASOPHILS % (AUTO) 1 % (0-10); EOSINOPHILS % (AUTO) 1 % (0-10); HEMATOCRIT 30 % (40-54); HEMOGLOBIN 9.7 G/DL (13.3-17.7); LYMPHOCYTES # (AUTO) 1.1 X 10^3 (1.0-4.0); LYMPHOCYTES % (AUTO) 30 % (12-44); MEAN CORPUSCULAR HEMOGLOBIN 29 PG (25-34); MEAN CORPUSCULAR HGB CONC 32 G/DL (32-36); MEAN CORPUSCULAR VOLUME 92 FL (80-99); MONOCYTES # (AUTO) 0.6 X 10^3 (0.0-1.0); MONOCYTES % (AUTO) 17 % (0-12); NEUTROPHILS # (AUTO) 1.8 X 10^3 (1.8-7.8); NEUTROPHILS % (AUTO) 51 % (42-75); PLATELET COUNT 125 10^3/uL (130-400); RED CELL DISTRIBUTION WIDTH 18.3 % (10.0-14.5); WHITE BLOOD COUNT 3.5 10^3/uL (4.3-11.0)
[2019-07-02 16:32] LABS: BUN/CREATININE RATIO 11; CALCIUM 8.5 MG/DL (8.5-10.1); CARBON DIOXIDE 26 MMOL/L (21-32); CHLORIDE 106 MMOL/L (98-107); CREATININE SERUM 0.99 MG/DL (0.60-1.30); GFR ESTIMATED > 60; GLUCOSE 78 MG/DL (70-105); MAGNESIUM 1.7 MG/DL (1.6-2.4); POTASSIUM 3.5 MMOL/L (3.6-5.0); SODIUM 141 MMOL/L (135-145)
[2019-07-09 13:52] LABS: BASOPHILS % (AUTO) 1 % (0-10); EOSINOPHILS # (AUTO) 0.1 10^3/uL (0.0-0.3); EOSINOPHILS % (AUTO) 2 % (0-10); HEMATOCRIT 30 % (40-54); HEMOGLOBIN 9.4 G/DL (13.3-17.7); LYMPHOCYTES % (AUTO) 34 % (12-44); MEAN CORPUSCULAR HEMOGLOBIN 28 PG (25-34); MEAN CORPUSCULAR HGB CONC 31 G/DL (32-36); MEAN CORPUSCULAR VOLUME 89 FL (80-99); MEAN PLATELET VOLUME 10.8 FL (7.4-10.4); MONOCYTES # (AUTO) 0.4 X 10^3 (0.0-1.0); MONOCYTES % (AUTO) 13 % (0-12); NEUTROPHILS # (AUTO) 1.6 X 10^3 (1.8-7.8); NEUTROPHILS % (AUTO) 50 % (42-75); PLATELET COUNT 134 10^3/uL (130-400); RED CELL DISTRIBUTION WIDTH 16.9 % (10.0-14.5); WHITE BLOOD COUNT 3.1 10^3/uL (4.3-11.0)
[2019-07-09 14:15] LABS: ALANINE AMINOTRANSFERASE 20 U/L (0-55); ALBUMIN 3.3 GM/DL (3.2-4.5); ALKALINE PHOSPHATASE 112 U/L (40-136); BILIRUBIN,TOTAL 0.9 MG/DL (0.1-1.0); BUN/CREATININE RATIO 14; CALCIUM 8.5 MG/DL (8.5-10.1); CARBON DIOXIDE 23 MMOL/L (21-32); CHLORIDE 110 MMOL/L (98-107); CREATININE SERUM 0.81 MG/DL (0.60-1.30); GFR ESTIMATED > 60; GLUCOSE 90 MG/DL (70-105); MAGNESIUM 1.7 MG/DL (1.6-2.4); POTASSIUM 3.6 MMOL/L (3.6-5.0); SODIUM 141 MMOL/L (135-145); TOTAL PROTEIN 5.9 GM/DL (6.4-8.2)
[2019-08-05 13:46] LABS: BASOPHILS % (AUTO) 1 % (0-10); EOSINOPHILS # (AUTO) 0.1 10^3/uL (0.0-0.3); EOSINOPHILS % (AUTO) 3 % (0-10); HEMATOCRIT 30 % (40-54); HEMOGLOBIN 9.1 G/DL (13.3-17.7); LYMPHOCYTES % (AUTO) 31 % (12-44); MEAN CORPUSCULAR HEMOGLOBIN 25 PG (25-34); MEAN CORPUSCULAR HGB CONC 31 G/DL (32-36); MEAN CORPUSCULAR VOLUME 82 FL (80-99); MONOCYTES # (AUTO) 0.5 X 10^3 (0.0-1.0); MONOCYTES % (AUTO) 15 % (0-12); NEUTROPHILS # (AUTO) 1.6 X 10^3 (1.8-7.8); NEUTROPHILS % (AUTO) 50 % (42-75); PLATELET COUNT 143 10^3/uL (130-400); RED CELL DISTRIBUTION WIDTH 16.3 % (10.0-14.5); WHITE BLOOD COUNT 3.3 10^3/uL (4.3-11.0)
[2019-08-05 14:05] LABS: ALANINE AMINOTRANSFERASE 16 U/L (0-55); ALBUMIN 3.4 GM/DL (3.2-4.5); ALKALINE PHOSPHATASE 113 U/L (40-136); BILIRUBIN,TOTAL 0.6 MG/DL (0.1-1.0); BUN/CREATININE RATIO 20; CALCIUM 8.6 MG/DL (8.5-10.1); CARBON DIOXIDE 24 MMOL/L (21-32); CHLORIDE 111 MMOL/L (98-107); CREATININE SERUM 0.92 MG/DL (0.60-1.30); GFR ESTIMATED > 60; GLUCOSE 120 MG/DL (70-105); POTASSIUM 3.7 MMOL/L (3.6-5.0); SODIUM 143 MMOL/L (135-145); TOTAL PROTEIN 6.1 GM/DL (6.4-8.2)
[~2019-08-20] VITALS: Ht 177.8 cm; Wt 82.1 kg
[~2019-08-20 10:53] MED LIST changes: -BARIUM SUSPENSION 2.1% (VANILLA SILQ) 450 ML PO ONE; -CATHETER FLUSH 10 ML SYR IV PRN; +D5W 500 ML IV (CANCER CTR) 500 ML IV SCH; +FOSAPREPITANT DIMEGLUMINE 150 MG in NS (IVPB) CANCER CENTER ONLY 150 ML IV SCH; -HOLD METFORMIN - RECEIVED CONTRAST 20 ML VIAL IV SCH; -IOHEXOL 350 MG/ML 100 ML (OMNIPAQUE 350) VIAL IV ONE; -NS 100 ML (IVPB) BAG IV ONE; +NS IV 1000 ML (CANCER CTR) IV SCH; +ONDANSETRON MDV (CANCER CENTER 8 MG, DEXAMETHASONE INJECTION 10 MG in NS (IVPB) CANCER ... IV SCH; +OXALIPLATIN 100 MG, OXALIPLATIN (GENERIC) 40 MG in D5W 250 ML IVPB (CANCER CTR) 250 ML IV SCH; +PANITUMUMAB INJECTION 400 MG in NS (IVPB) CANCER CENTER 100 ML IV SCH; +PANITUMUMAB INJECTION 400 MG, PANITUMUMAB INJECTION 100 MG in NS (IVPB) CANCER CENTER 1... IV SCH
[2019-08-20 11:13] LABS: BASOPHILS % (AUTO) 1 % (0-10); EOSINOPHILS # (AUTO) 0.1 10^3/uL (0.0-0.3); EOSINOPHILS % (AUTO) 4 % (0-10); HEMATOCRIT 30 % (40-54); HEMOGLOBIN 8.9 G/DL (13.3-17.7); LYMPHOCYTES # (AUTO) 0.8 X 10^3 (1.0-4.0); LYMPHOCYTES % (AUTO) 31 % (12-44); MEAN CORPUSCULAR HEMOGLOBIN 24 PG (25-34); MEAN CORPUSCULAR HGB CONC 30 G/DL (32-36); MEAN CORPUSCULAR VOLUME 80 FL (80-99); MEAN PLATELET VOLUME 9.1 FL (7.4-10.4); MONOCYTES # (AUTO) 0.4 X 10^3 (0.0-1.0); MONOCYTES % (AUTO) 16 % (0-12); NEUTROPHILS # (AUTO) 1.3 X 10^3 (1.8-7.8); NEUTROPHILS % (AUTO) 48 % (42-75); PLATELET COUNT 115 10^3/uL (130-400); RED CELL DISTRIBUTION WIDTH 16.7 % (10.0-14.5); WHITE BLOOD COUNT 2.6 10^3/uL (4.3-11.0)
[2019-08-20 11:40] LABS: ALANINE AMINOTRANSFERASE 14 U/L (0-55); ALBUMIN 3.4 GM/DL (3.2-4.5); ALKALINE PHOSPHATASE 116 U/L (40-136); BILIRUBIN,TOTAL 0.6 MG/DL (0.1-1.0); BUN/CREATININE RATIO 11; CALCIUM 8.5 MG/DL (8.5-10.1); CARBON DIOXIDE 24 MMOL/L (21-32); CHLORIDE 111 MMOL/L (98-107); CREATININE SERUM 1.06 MG/DL (0.60-1.30); GFR ESTIMATED > 60; GLUCOSE 88 MG/DL (70-105); POTASSIUM 3.9 MMOL/L (3.6-5.0); SODIUM 140 MMOL/L (135-145); TOTAL PROTEIN 6.1 GM/DL (6.4-8.2)
== END 2019-09-02 | disposition home or self-care (01) ==
LOC: ONC 10:53
PROVIDERS: ATTEND Internal Medicine Hematology & Oncology
DX: Z51.11 Encounter for antineoplastic chemotherapy (principal); C19 Malignant neoplasm of rectosigmoid junction; R91.1 Solitary pulmonary nodule; E05.00 Thyrotoxicosis with diffuse goiter without thyrotoxic crisis or storm; B18.2 Chronic viral hepatitis C; I10 Essential (primary) hypertension; E83.42 Hypomagnesemia; D61.818 Other pancytopenia; R79.89 Other specified abnormal findings of blood chemistry; Z93.3 Colostomy status; Z79.899 Other long term (current) drug therapy; Z92.21 Personal history of antineoplastic chemotherapy; Z92.3 Personal history of irradiation; Z45.2 Encounter for adjustment and management of vascular access device
CPT/HCPCS: 36415; 36591; 80048; 80053; 82378; 83735; 85025; 87070; 87077; 87101; 87106; 87186; 87205; 87252; 96367; 96375; 96413; 96417

== ENCOUNTER → 2019-09-15 | Outpatient (CLI) | payer BC ==
[~2019-09-15] MED LIST changes: +BARIUM SUSPENSION 2.1% (VANILLA SILQ) 450 ML PO ONE; -D5W 500 ML IV (CANCER CTR) 500 ML IV SCH; -FOSAPREPITANT DIMEGLUMINE 150 MG in NS (IVPB) CANCER CENTER ONLY 150 ML IV SCH; +HOLD METFORMIN - RECEIVED CONTRAST 20 ML VIAL IV SCH; +IOHEXOL 350 MG/ML 100 ML (OMNIPAQUE 350) VIAL IV ONE; +NS 100 ML (IVPB) BAG IV ONE; -NS IV 1000 ML (CANCER CTR) IV SCH; -ONDANSETRON MDV (CANCER CENTER 8 MG, DEXAMETHASONE INJECTION 10 MG in NS (IVPB) CANCER ... IV SCH; -OXALIPLATIN 100 MG, OXALIPLATIN (GENERIC) 40 MG in D5W 250 ML IVPB (CANCER CTR) 250 ML IV SCH; -PANITUMUMAB INJECTION 400 MG in NS (IVPB) CANCER CENTER 100 ML IV SCH; -PANITUMUMAB INJECTION 400 MG, PANITUMUMAB INJECTION 100 MG in NS (IVPB) CANCER CENTER 1... IV SCH
--- NOTE | 2019-09-15 10:20 | Diagnostic Imaging Report ---
PROCEDURE: CT chest, abdomen, and pelvis with contrast. TECHNIQUE: Multiple contiguous axial images were obtained through the chest, abdomen, and pelvis after the administration of intravenous contrast. Auto Exposure Controls were utilized during the CT exam to meet ALARA standards for radiation dose reduction. INDICATION: Malignant tumor of the rectum, lung metastases. COMPARISON: 06/08/2019. FINDINGS: CT CHEST: The right upper lobe pulmonary nodule continues to increase in size now measuring 2.7 x 2.2 cm (previously 2.0 x 1.3 cm when measured similarly). Soft tissue finger-like projection extending from the superior aspect of the right upper lobe nodule has also increased. New soft tissue nodularity along the right hemidiaphragm has developed. The largest nodule measures 1.7 cm and is abutting the IVC. No left-sided pulmonary nodules have developed. No pleural effusion or pneumothorax. No supraclavicular or axillary lymphadenopathy. The upper right paratracheal lymph node measures 7 mm in short axis diameter (previously 5 mm). No new mediastinal, hilar, or juxtaphrenic lymphadenopathy. Heart is normal in size without pericardial effusion. Normal-caliber thoracic aorta. No lytic or blastic skeletal lesions. CT ABDOMEN AND PELVIS: No free intraperitoneal air or fluid. No focal hepatic lesion. The TIPS remains patent. The spleen remains enlarged measuring 15 cm. No pancreatic mass. No adrenal mass. The kidneys enhance symmetrically without mass lesion or obstruction. Urinary bladder is normal. Prostate is unchanged. The [place] pouch has a stable appearance. Presacral soft tissue attenuation has not changed. Diverting colostomy in the left lower quadrant has no associated parastomal hernia. No bowel obstruction. No concerning focal osseous lesions. Stable postoperative changes in the left acetabulum and proximal left femur. IMPRESSION: CHEST: 1. Continued worsening of disease in the chest as the right upper lobe pulmonary nodule has increased in size and there are new soft tissue nodules along the right hemidiaphragm. 2. Right paratracheal mediastinal lymph node has mildly increased in size as well. ABDOMEN AND PELVIS: 1. No change in appearance of the abdomen and pelvis that would indicate local recurrence or distant metastases. Dictated by: Dictated on workstation # [id number]
== END ==
LOC: RAD 07:54
PROVIDERS: ATTEND Nurse Practitioner Adult Health
DX: C20 Malignant neoplasm of rectum (principal); C78.01 Secondary malignant neoplasm of right lung; C77.1 Secondary and unspecified malignant neoplasm of intrathoracic lymph nodes
CPT/HCPCS: 71260; 74177

== ENCOUNTER → 2019-09-23 | Outpatient (CLI) | payer BC ==
[~2019-09-23] MED LIST changes: -BARIUM SUSPENSION 2.1% (VANILLA SILQ) 450 ML PO ONE; -HOLD METFORMIN - RECEIVED CONTRAST 20 ML VIAL IV SCH; -IOHEXOL 350 MG/ML 100 ML (OMNIPAQUE 350) VIAL IV ONE; -NS 100 ML (IVPB) BAG IV ONE
[2019-09-23 16:31] LABS: FREE T4 (FREE THYROXINE) 0.85 NG/DL (0.70-1.48)
== END ==
LOC: LAB 15:33
PROVIDERS: ATTEND Internal Medicine
DX: Z01.89 Encounter for other specified special examinations (principal)
CPT/HCPCS: 36415; 84439; 84443

== ENCOUNTER 2019-11-19 09:04 | Outpatient (RCR) | payer BC ==
[2019-09-03 10:18] LABS: BASOPHILS % (AUTO) 1 % (0-10); EOSINOPHILS # (AUTO) 0.1 10^3/uL (0.0-0.3); EOSINOPHILS % (AUTO) 2 % (0-10); HEMATOCRIT 30 % (40-54); LYMPHOCYTES % (AUTO) 32 % (12-44); MEAN CORPUSCULAR HEMOGLOBIN 23 PG (25-34); MEAN CORPUSCULAR HGB CONC 30 G/DL (32-36); MEAN CORPUSCULAR VOLUME 78 FL (80-99); MEAN PLATELET VOLUME 10.2 FL (7.4-10.4); MONOCYTES # (AUTO) 0.5 X 10^3 (0.0-1.0); MONOCYTES % (AUTO) 18 % (0-12); NEUTROPHILS # (AUTO) 1.4 X 10^3 (1.8-7.8); NEUTROPHILS % (AUTO) 47 % (42-75); PLATELET COUNT 138 10^3/uL (130-400); RED CELL DISTRIBUTION WIDTH 16.9 % (10.0-14.5)
[2019-09-03 10:39] LABS: ALANINE AMINOTRANSFERASE 18 U/L (0-55); ALBUMIN 3.4 GM/DL (3.2-4.5); ALKALINE PHOSPHATASE 119 U/L (40-136); BILIRUBIN,TOTAL 0.6 MG/DL (0.1-1.0); BUN/CREATININE RATIO 22; CALCIUM 8.9 MG/DL (8.5-10.1); CARBON DIOXIDE 23 MMOL/L (21-32); CHLORIDE 112 MMOL/L (98-107); CREATININE SERUM 1.05 MG/DL (0.60-1.30); GFR ESTIMATED > 60; GLUCOSE 75 MG/DL (70-105); POTASSIUM 4.1 MMOL/L (3.6-5.0); SODIUM 140 MMOL/L (135-145); TOTAL PROTEIN 6.1 GM/DL (6.4-8.2)
[2019-09-17 13:07] LABS: BASOPHILS % (AUTO) 1 % (0-10); EOSINOPHILS # (AUTO) 0.1 10^3/uL (0.0-0.3); EOSINOPHILS % (AUTO) 3 % (0-10); HEMATOCRIT 33 % (40-54); LYMPHOCYTES # (AUTO) 0.9 X 10^3 (1.0-4.0); LYMPHOCYTES % (AUTO) 28 % (12-44); MEAN CORPUSCULAR HEMOGLOBIN 24 PG (25-34); MEAN CORPUSCULAR HGB CONC 31 G/DL (32-36); MEAN CORPUSCULAR VOLUME 77 FL (80-99); MEAN PLATELET VOLUME 9.1 FL (7.4-10.4); MONOCYTES # (AUTO) 0.5 X 10^3 (0.0-1.0); MONOCYTES % (AUTO) 14 % (0-12); NEUTROPHILS # (AUTO) 1.9 X 10^3 (1.8-7.8); NEUTROPHILS % (AUTO) 55 % (42-75); PLATELET COUNT 144 10^3/uL (130-400); RED CELL DISTRIBUTION WIDTH 19.7 % (10.0-14.5); WHITE BLOOD COUNT 3.4 10^3/uL (4.3-11.0)
[2019-09-23 16:21] LABS: BASOPHILS % (AUTO) 0 % (0-10); EOSINOPHILS # (AUTO) 0.1 10^3/uL (0.0-0.3); EOSINOPHILS % (AUTO) 3 % (0-10); HEMATOCRIT 40 % (40-54); HEMOGLOBIN 12.5 G/DL (13.3-17.7); LYMPHOCYTES % (AUTO) 20 % (12-44); MEAN CORPUSCULAR HEMOGLOBIN 24 PG (25-34); MEAN CORPUSCULAR HGB CONC 31 G/DL (32-36); MEAN CORPUSCULAR VOLUME 78 FL (80-99); MEAN PLATELET VOLUME 10.1 FL (7.4-10.4); MONOCYTES # (AUTO) 0.5 X 10^3 (0.0-1.0); MONOCYTES % (AUTO) 10 % (0-12); NEUTROPHILS # (AUTO) 3.3 X 10^3 (1.8-7.8); NEUTROPHILS % (AUTO) 67 % (42-75); PLATELET COUNT 151 10^3/uL (130-400); RED CELL DISTRIBUTION WIDTH 23.7 % (10.0-14.5); WHITE BLOOD COUNT 4.8 10^3/uL (4.3-11.0)
[2019-09-23 16:43] LABS: BUN/CREATININE RATIO 10; CALCIUM 8.9 MG/DL (8.5-10.1); CARBON DIOXIDE 27 MMOL/L (21-32); CHLORIDE 102 MMOL/L (98-107); CREATININE SERUM 0.91 MG/DL (0.60-1.30); GFR ESTIMATED > 60; GLUCOSE 87 MG/DL (70-105); POTASSIUM 3.2 MMOL/L (3.6-5.0); SODIUM 138 MMOL/L (135-145)
[2019-10-07 10:48] LABS: BASOPHILS % (AUTO) 1 % (0-10); EOSINOPHILS # (AUTO) 0.1 10^3/uL (0.0-0.3); EOSINOPHILS % (AUTO) 2 % (0-10); HEMATOCRIT 34 % (40-54); HEMOGLOBIN 10.8 G/DL (13.3-17.7); LYMPHOCYTES % (AUTO) 33 % (12-44); MEAN CORPUSCULAR HEMOGLOBIN 26 PG (25-34); MEAN CORPUSCULAR HGB CONC 32 G/DL (32-36); MEAN CORPUSCULAR VOLUME 82 FL (80-99); MONOCYTES # (AUTO) 0.4 X 10^3 (0.0-1.0); MONOCYTES % (AUTO) 13 % (0-12); NEUTROPHILS # (AUTO) 1.6 X 10^3 (1.8-7.8); NEUTROPHILS % (AUTO) 52 % (42-75); PLATELET COUNT 147 10^3/uL (130-400); RED CELL DISTRIBUTION WIDTH 27.4 % (10.0-14.5); WHITE BLOOD COUNT 3.1 10^3/uL (4.3-11.0)
[2019-10-07 11:11] LABS: ALANINE AMINOTRANSFERASE 21 U/L (0-55); ALBUMIN 3.3 GM/DL (3.2-4.5); ALKALINE PHOSPHATASE 99 U/L (40-136); BILIRUBIN,TOTAL 0.9 MG/DL (0.1-1.0); BUN/CREATININE RATIO 11; CALCIUM 8.6 MG/DL (8.5-10.1); CARBON DIOXIDE 23 MMOL/L (21-32); CHLORIDE 108 MMOL/L (98-107); CREATININE SERUM 0.88 MG/DL (0.60-1.30); GFR ESTIMATED > 60; GLUCOSE 116 MG/DL (70-105); MAGNESIUM 1.8 MG/DL (1.6-2.4); POTASSIUM 3.7 MMOL/L (3.6-5.0); SODIUM 140 MMOL/L (135-145); TOTAL PROTEIN 5.9 GM/DL (6.4-8.2)
[2019-10-14 16:36] LABS: BASOPHILS % (AUTO) 1 % (0-10); EOSINOPHILS # (AUTO) 0.1 10^3/uL (0.0-0.3); EOSINOPHILS % (AUTO) 4 % (0-10); HEMATOCRIT 38 % (40-54); HEMOGLOBIN 12.1 G/DL (13.3-17.7); LYMPHOCYTES # (AUTO) 1.2 X 10^3 (1.0-4.0); LYMPHOCYTES % (AUTO) 32 % (12-44); MEAN CORPUSCULAR HEMOGLOBIN 27 PG (25-34); MEAN CORPUSCULAR HGB CONC 32 G/DL (32-36); MEAN CORPUSCULAR VOLUME 84 FL (80-99); MEAN PLATELET VOLUME 8.8 FL (7.4-10.4); MONOCYTES # (AUTO) 0.5 X 10^3 (0.0-1.0); MONOCYTES % (AUTO) 13 % (0-12); NEUTROPHILS % (AUTO) 51 % (42-75); PLATELET COUNT 154 10^3/uL (130-400); RED CELL DISTRIBUTION WIDTH 29.9 % (10.0-14.5); WHITE BLOOD COUNT 3.8 10^3/uL (4.3-11.0)
[2019-10-14 16:56] LABS: BUN/CREATININE RATIO 13; CALCIUM 8.8 MG/DL (8.5-10.1); CARBON DIOXIDE 28 MMOL/L (21-32); CHLORIDE 107 MMOL/L (98-107); CREATININE SERUM 0.95 MG/DL (0.60-1.30); GFR ESTIMATED > 60; GLUCOSE 83 MG/DL (70-105); POTASSIUM 3.3 MMOL/L (3.6-5.0); SODIUM 142 MMOL/L (135-145)
[2019-10-23 15:35] LABS: BASOPHILS % (AUTO) 1 % (0-10); EOSINOPHILS # (AUTO) 0.1 10^3/uL (0.0-0.3); EOSINOPHILS % (AUTO) 1 % (0-10); HEMATOCRIT 32 % (40-54); HEMOGLOBIN 10.7 G/DL (13.3-17.7); LYMPHOCYTES # (AUTO) 1.1 X 10^3 (1.0-4.0); LYMPHOCYTES % (AUTO) 28 % (12-44); MEAN CORPUSCULAR HEMOGLOBIN 29 PG (25-34); MEAN CORPUSCULAR HGB CONC 34 G/DL (32-36); MEAN CORPUSCULAR VOLUME 85 FL (80-99); MEAN PLATELET VOLUME 9.8 FL (7.4-10.4); MONOCYTES # (AUTO) 0.7 X 10^3 (0.0-1.0); MONOCYTES % (AUTO) 18 % (0-12); NEUTROPHILS % (AUTO) 53 % (42-75); PLATELET COUNT 149 10^3/uL (130-400); RED CELL DISTRIBUTION WIDTH 30.5 % (10.0-14.5); WHITE BLOOD COUNT 3.9 10^3/uL (4.3-11.0)
[2019-10-23 15:50] LABS: BUN/CREATININE RATIO 15; CALCIUM 8.1 MG/DL (8.5-10.1); CARBON DIOXIDE 21 MMOL/L (21-32); CHLORIDE 109 MMOL/L (98-107); CREATININE SERUM 1.05 MG/DL (0.60-1.30); GFR ESTIMATED > 60; GLUCOSE 74 MG/DL (70-105); POTASSIUM 3.4 MMOL/L (3.6-5.0); SODIUM 138 MMOL/L (135-145)
[2019-10-29 13:50] LABS: BASOPHILS % (AUTO) 1 % (0-10); EOSINOPHILS # (AUTO) 0.1 10^3/uL (0.0-0.3); EOSINOPHILS % (AUTO) 2 % (0-10); HEMATOCRIT 32 % (40-54); HEMOGLOBIN 10.6 G/DL (13.3-17.7); LYMPHOCYTES # (AUTO) 1.2 X 10^3 (1.0-4.0); LYMPHOCYTES % (AUTO) 28 % (12-44); MEAN CORPUSCULAR HEMOGLOBIN 28 PG (25-34); MEAN CORPUSCULAR HGB CONC 33 G/DL (32-36); MEAN CORPUSCULAR VOLUME 86 FL (80-99); MEAN PLATELET VOLUME 8.8 FL (7.4-10.4); MONOCYTES # (AUTO) 0.5 X 10^3 (0.0-1.0); MONOCYTES % (AUTO) 12 % (0-12); NEUTROPHILS # (AUTO) 2.3 X 10^3 (1.8-7.8); NEUTROPHILS % (AUTO) 57 % (42-75); PLATELET COUNT 148 10^3/uL (130-400); RED CELL DISTRIBUTION WIDTH 31.5 % (10.0-14.5); WHITE BLOOD COUNT 4.1 10^3/uL (4.3-11.0)
[2019-10-29 14:07] LABS: ALBUMIN 3.1 GM/DL (3.2-4.5); BILIRUBIN,TOTAL 1.1 MG/DL (0.1-1.0); CALCIUM 8.5 MG/DL (8.5-10.1); CREATININE SERUM 1.25 MG/DL (0.60-1.30); MAGNESIUM 1.6 MG/DL (1.6-2.4); POTASSIUM 3.3 MMOL/L (3.6-5.0); TOTAL PROTEIN 5.9 GM/DL (6.4-8.2)
[~2019-11-19 09:04] MED LIST changes: +D5W 500 ML IV (CANCER CTR) 500 ML IV SCH; +FOSAPREPITANT DIMEGLUMINE 150 MG in NS (IVPB) CANCER CENTER ONLY 150 ML IV SCH; +NS IV 1000 ML (CANCER CTR) IV SCH; +ONDANSETRON MDV (CANCER CENTER 8 MG, DEXAMETHASONE INJECTION 10 MG in NS (IVPB) CANCER ... IV SCH; +OXALIPLATIN 100 MG, OXALIPLATIN (GENERIC) 20 MG in D5W 250 ML IVPB (CANCER CTR) 250 ML IV SCH; +OXALIPLATIN 100 MG, OXALIPLATIN (GENERIC) 40 MG in D5W 250 ML IVPB (CANCER CTR) 250 ML IV SCH; +PALONOSETRON HCL 0.25 MG, DEXAMETHASONE INJECTION 10 MG in NS (IVPB) CANCER CENTER 50 ML IV SCH; +PANITUMUMAB INJECTION 400 MG in NS (IVPB) CANCER CENTER 100 ML IV SCH; +PANITUMUMAB INJECTION 400 MG, PANITUMUMAB INJECTION 100 MG in NS (IVPB) CANCER CENTER 1... IV SCH
[2019-11-19 09:20] LABS: BASOPHILS % (AUTO) 1 % (0-10); EOSINOPHILS # (AUTO) 0.1 10^3/uL (0.0-0.3); EOSINOPHILS % (AUTO) 3 % (0-10); HEMATOCRIT 34 % (40-54); HEMOGLOBIN 11.5 G/DL (13.3-17.7); LYMPHOCYTES # (AUTO) 1.1 X 10^3 (1.0-4.0); LYMPHOCYTES % (AUTO) 32 % (12-44); MEAN CORPUSCULAR HEMOGLOBIN 32 PG (25-34); MEAN CORPUSCULAR HGB CONC 34 G/DL (32-36); MEAN CORPUSCULAR VOLUME 93 FL (80-99); MEAN PLATELET VOLUME 9.1 FL (7.4-10.4); MONOCYTES # (AUTO) 0.5 X 10^3 (0.0-1.0); MONOCYTES % (AUTO) 15 % (0-12); NEUTROPHILS # (AUTO) 1.7 X 10^3 (1.8-7.8); NEUTROPHILS % (AUTO) 49 % (42-75); PLATELET COUNT 151 10^3/uL (130-400); WHITE BLOOD COUNT 3.5 10^3/uL (4.3-11.0)
[2019-11-19 09:45] LABS: ALANINE AMINOTRANSFERASE 25 U/L (0-55); ALBUMIN 3.1 GM/DL (3.2-4.5); ALKALINE PHOSPHATASE 115 U/L (40-136); BILIRUBIN,TOTAL 1.2 MG/DL (0.1-1.0); BUN/CREATININE RATIO 14; CALCIUM 8.4 MG/DL (8.5-10.1); CARBON DIOXIDE 23 MMOL/L (21-32); CHLORIDE 108 MMOL/L (98-107); GFR ESTIMATED > 60; GLUCOSE 102 MG/DL (70-105); MAGNESIUM 1.7 MG/DL (1.6-2.4); POTASSIUM 3.6 MMOL/L (3.6-5.0); SODIUM 139 MMOL/L (135-145); TOTAL PROTEIN 6.2 GM/DL (6.4-8.2)
== END 2019-12-02 | disposition home or self-care (01) ==
LOC: ONC 09:04
PROVIDERS: ATTEND Internal Medicine Hematology & Oncology
DX: Z51.11 Encounter for antineoplastic chemotherapy (principal); C20 Malignant neoplasm of rectum; C19 Malignant neoplasm of rectosigmoid junction; R91.1 Solitary pulmonary nodule; E05.00 Thyrotoxicosis with diffuse goiter without thyrotoxic crisis or storm; B18.2 Chronic viral hepatitis C; I10 Essential (primary) hypertension; E83.42 Hypomagnesemia; D61.818 Other pancytopenia; R79.89 Other specified abnormal findings of blood chemistry; K74.60 Unspecified cirrhosis of liver; Z79.899 Other long term (current) drug therapy; Z92.21 Personal history of antineoplastic chemotherapy; Z92.3 Personal history of irradiation; Z93.3 Colostomy status
CPT/HCPCS: 36591; 80048; 80053; 82378; 82728; 83735; 85025; 96367; 96375; 96413; 96417

== ENCOUNTER → 2019-12-07 | Outpatient (CLI) | payer BC ==
[~2019-12-07] MED LIST changes: +BARIUM SUSPENSION 2.1% (VANILLA SILQ) 450 ML PO ONE; +CATHETER FLUSH 10 ML SYR IV PRN; -D5W 500 ML IV (CANCER CTR) 500 ML IV SCH; -FOSAPREPITANT DIMEGLUMINE 150 MG in NS (IVPB) CANCER CENTER ONLY 150 ML IV SCH; +HOLD METFORMIN - RECEIVED CONTRAST 20 ML VIAL IV SCH; +IOHEXOL 350 MG/ML 100 ML (OMNIPAQUE 350) VIAL IV ONE; +NS 100 ML (IVPB) BAG IV ONE; -NS IV 1000 ML (CANCER CTR) IV SCH; -ONDANSETRON MDV (CANCER CENTER 8 MG, DEXAMETHASONE INJECTION 10 MG in NS (IVPB) CANCER ... IV SCH; -OXALIPLATIN 100 MG, OXALIPLATIN (GENERIC) 20 MG in D5W 250 ML IVPB (CANCER CTR) 250 ML IV SCH; -OXALIPLATIN 100 MG, OXALIPLATIN (GENERIC) 40 MG in D5W 250 ML IVPB (CANCER CTR) 250 ML IV SCH; -PALONOSETRON HCL 0.25 MG, DEXAMETHASONE INJECTION 10 MG in NS (IVPB) CANCER CENTER 50 ML IV SCH; -PANITUMUMAB INJECTION 400 MG in NS (IVPB) CANCER CENTER 100 ML IV SCH; -PANITUMUMAB INJECTION 400 MG, PANITUMUMAB INJECTION 100 MG in NS (IVPB) CANCER CENTER 1... IV SCH
--- NOTE | 2019-12-07 10:17 | Diagnostic Imaging Report ---
PROCEDURE: CT chest with contrast, CT abdomen and pelvis with and without contrast. TECHNIQUE: Pre and post intravenous contrast axial imaging of the abdomen and pelvis and post contrast axial imaging of the chest were performed. Auto Exposure Controls were utilized during the CT exam to meet ALARA standards for radiation dose reduction. INDICATION: Lung carcinoma, followup. COMPARISON: Prior CT from 09/15/2019. FINDINGS: CT CHEST: The left chest wall port has its tip in the SVC. No axillary or supraclavicular lymphadenopathy is detected. The right paratracheal lymph node is similar to perhaps slightly smaller when compared with the prior exam measuring 6 to 7 mm compared with 7 to 8 mm on the prior. The sera are unremarkable. The previously noted right upper lobe mass in the medial right upper lobe adjacent to the hilum has decreased in size and now measures 2.4 x 1.6 cm compared with approximately 2.7 x 2.2 cm on the prior. Nodules in the right lower lobe along the right hemidiaphragm have also decreased in size. The larger nodule more medially measures approximately 12 mm compared with 17 mm. Additional smaller nodules lateral to this as well as slightly inferior and posterior to the dominant nodule are also decreased in size. No new nodule is detected. The left lung is unremarkable. There is no pericardial or pleural fluid. IMPRESSION: Decrease in size of a right upper lobe mass as well as right lower lobe nodules and right peritracheal lymph node when compared with the prior CT from 09/15/2019. No new abnormality is detected. CT ABDOMEN AND PELVIS: The TIPS in the right hepatic lobe is again noted and appears to be patent. No discrete liver mass is identified. No biliary ductal dilatation is detected. Embolization coils in the upper abdomen are noted. The pancreas is unremarkable. The spleen remains enlarged at 15.4 cm. No adrenal mass is identified. The kidneys are unremarkable. No mass or hydronephrosis is seen. The aorta is nonaneurysmal. No central retroperitoneal or mesenteric lymphadenopathy is seen. The bowel loops appear stable. There are post surgical changes from a [place] pouch in the pelvis. There is a diverting left lower quadrant colostomy. No obstruction is seen. There is no free fluid or fluid collection. The bladder is unremarkable. There are fat-containing inguinal hernias bilaterally. Evaluation of the bony structure shows post surgical changes of left hemipelvis and left hip. IMPRESSION: Stable CT abdomen and pelvis since the exam from 09/15/2019. There is no evidence of metastatic disease. Post surgical changes remain stable. Dictated by: Dictated on workstation # [id number]
== END ==
LOC: RAD 08:59
PROVIDERS: ATTEND Internal Medicine Hematology & Oncology
DX: C20 Malignant neoplasm of rectum (principal); C78.01 Secondary malignant neoplasm of right lung
CPT/HCPCS: 71260; 74178

== ENCOUNTER 2020-03-03 09:04 | Outpatient (RCR) | payer BC ==
[2019-12-10 11:21] LABS: BASOPHILS % (AUTO) 1 % (0-10); EOSINOPHILS # (AUTO) 0.1 10^3/uL (0.0-0.3); EOSINOPHILS % (AUTO) 4 % (0-10); HEMATOCRIT 32 % (40-54); HEMOGLOBIN 10.9 G/DL (13.3-17.7); LYMPHOCYTES % (AUTO) 31 % (12-44); MEAN CORPUSCULAR HEMOGLOBIN 35 PG (25-34); MEAN CORPUSCULAR HGB CONC 34 G/DL (32-36); MEAN CORPUSCULAR VOLUME 101 FL (80-99); MONOCYTES # (AUTO) 0.6 X 10^3 (0.0-1.0); MONOCYTES % (AUTO) 18 % (0-12); NEUTROPHILS # (AUTO) 1.5 X 10^3 (1.8-7.8); NEUTROPHILS % (AUTO) 47 % (42-75); PLATELET COUNT 135 10^3/uL (130-400); RED CELL DISTRIBUTION WIDTH 26.9 % (10.0-14.5); WHITE BLOOD COUNT 3.2 10^3/uL (4.3-11.0)
[2019-12-10 11:41] LABS: ALANINE AMINOTRANSFERASE 19 U/L (0-55); ALBUMIN 3.1 GM/DL (3.2-4.5); ALKALINE PHOSPHATASE 93 U/L (40-136); BILIRUBIN,TOTAL 1.1 MG/DL (0.1-1.0); BUN/CREATININE RATIO 15; CALCIUM 8.3 MG/DL (8.5-10.1); CARBON DIOXIDE 28 MMOL/L (21-32); CHLORIDE 109 MMOL/L (98-107); CREATININE SERUM 1.01 MG/DL (0.60-1.30); GFR ESTIMATED > 60; GLUCOSE 90 MG/DL (70-105); MAGNESIUM 1.7 MG/DL (1.6-2.4); POTASSIUM 3.5 MMOL/L (3.6-5.0); SODIUM 141 MMOL/L (135-145); TOTAL PROTEIN 6.2 GM/DL (6.4-8.2)
[2019-12-30 10:12] LABS: BASOPHILS % (AUTO) 1 % (0-10); EOSINOPHILS # (AUTO) 0.1 10^3/uL (0.0-0.3); EOSINOPHILS % (AUTO) 2 % (0-10); HEMATOCRIT 33 % (40-54); HEMOGLOBIN 11.6 G/DL (13.3-17.7); LYMPHOCYTES # (AUTO) 1.4 X 10^3 (1.0-4.0); LYMPHOCYTES % (AUTO) 27 % (12-44); MEAN CORPUSCULAR HEMOGLOBIN 37 PG (25-34); MEAN CORPUSCULAR HGB CONC 35 G/DL (32-36); MEAN CORPUSCULAR VOLUME 107 FL (80-99); MEAN PLATELET VOLUME 8.9 FL (7.4-10.4); MONOCYTES # (AUTO) 0.8 X 10^3 (0.0-1.0); MONOCYTES % (AUTO) 15 % (0-12); NEUTROPHILS # (AUTO) 2.9 X 10^3 (1.8-7.8); NEUTROPHILS % (AUTO) 56 % (42-75); PLATELET COUNT 132 10^3/uL (130-400); RED CELL DISTRIBUTION WIDTH 21.1 % (10.0-14.5); WHITE BLOOD COUNT 5.2 10^3/uL (4.3-11.0)
[2019-12-30 10:32] LABS: ALANINE AMINOTRANSFERASE 25 U/L (0-55); ALBUMIN 3.2 GM/DL (3.2-4.5); ALKALINE PHOSPHATASE 91 U/L (40-136); BILIRUBIN,TOTAL 1.6 MG/DL (0.1-1.0); BUN/CREATININE RATIO 20; CALCIUM 8.7 MG/DL (8.5-10.1); CARBON DIOXIDE 25 MMOL/L (21-32); CHLORIDE 107 MMOL/L (98-107); GFR ESTIMATED > 60; GLUCOSE 108 MG/DL (70-105); MAGNESIUM 1.7 MG/DL (1.6-2.4); POTASSIUM 3.4 MMOL/L (3.6-5.0); SODIUM 141 MMOL/L (135-145); TOTAL PROTEIN 6.5 GM/DL (6.4-8.2)
[2020-02-10 11:20] LABS: BASOPHILS % (AUTO) 1 % (0-10); EOSINOPHILS # (AUTO) 0.1 10^3/uL (0.0-0.3); EOSINOPHILS % (AUTO) 3 % (0-10); HEMATOCRIT 32 % (40-54); LYMPHOCYTES % (AUTO) 29 % (12-44); MEAN CORPUSCULAR HEMOGLOBIN 36 PG (25-34); MEAN CORPUSCULAR HGB CONC 34 G/DL (32-36); MEAN CORPUSCULAR VOLUME 106 FL (80-99); MONOCYTES # (AUTO) 0.5 X 10^3 (0.0-1.0); MONOCYTES % (AUTO) 16 % (0-12); NEUTROPHILS # (AUTO) 1.7 X 10^3 (1.8-7.8); NEUTROPHILS % (AUTO) 51 % (42-75); PLATELET COUNT 147 10^3/uL (130-400); RED CELL DISTRIBUTION WIDTH 16.7 % (10.0-14.5); WHITE BLOOD COUNT 3.3 10^3/uL (4.3-11.0)
[2020-02-10 11:49] LABS: ALANINE AMINOTRANSFERASE 23 U/L (0-55); ALBUMIN 3.1 GM/DL (3.2-4.5); ALKALINE PHOSPHATASE 83 U/L (40-136); BILIRUBIN,TOTAL 0.8 MG/DL (0.1-1.0); BUN/CREATININE RATIO 21; CALCIUM 8.5 MG/DL (8.5-10.1); CARBON DIOXIDE 24 MMOL/L (21-32); CHLORIDE 110 MMOL/L (98-107); CREATININE SERUM 0.91 MG/DL (0.60-1.30); GFR ESTIMATED > 60; GLUCOSE 97 MG/DL (70-105); MAGNESIUM 1.7 MG/DL (1.6-2.4); SODIUM 141 MMOL/L (135-145); TOTAL PROTEIN 6.2 GM/DL (6.4-8.2)
[~2020-03-03 09:04] MED LIST changes: -BARIUM SUSPENSION 2.1% (VANILLA SILQ) 450 ML PO ONE; -CATHETER FLUSH 10 ML SYR IV PRN; +D5W 500 ML IV (CANCER CTR) 500 ML IV ONE; +D5W 500 ML IV (CANCER CTR) 500 ML IV SCH; +FOSAPREPITANT (CANCER CENTER) 150 MG in NS (IVPB) CANCER CENTER ONLY 150 ML IV SCH; -HOLD METFORMIN - RECEIVED CONTRAST 20 ML VIAL IV SCH; -IOHEXOL 350 MG/ML 100 ML (OMNIPAQUE 350) VIAL IV ONE; -NS 100 ML (IVPB) BAG IV ONE; +NS IV 1000 ML (CANCER CTR) IV SCH; +OXALIPLATIN 100 MG, OXALIPLATIN (GENERIC) 20 MG in D5W 250 ML IVPB (CANCER CTR) 250 ML IV SCH; +PANITUMUMAB INJECTION 400 MG in NS (IVPB) CANCER CENTER 100 ML IV SCH
== END 2020-03-09 | disposition home or self-care (01) ==
LOC: ONC 09:04
PROVIDERS: ATTEND Internal Medicine Hematology & Oncology
DX: Z51.11 Encounter for antineoplastic chemotherapy (principal); C20 Malignant neoplasm of rectum; C78.01 Secondary malignant neoplasm of right lung; C77.1 Secondary and unspecified malignant neoplasm of intrathoracic lymph nodes; K74.60 Unspecified cirrhosis of liver; K76.6 Portal hypertension; K14.0 Glossitis; R19.7 Diarrhea, unspecified; R21 Rash and other nonspecific skin eruption; D75.9 Disease of blood and blood-forming organs, unspecified; Z79.899 Other long term (current) drug therapy; Z93.3 Colostomy status
CPT/HCPCS: 80053; 82378; 82728; 83735; 85025; 96367; 96375; 96413; 96417; G0463; 36591

== ENCOUNTER → 2020-03-08 | Outpatient (CLI) | payer BC ==
[~2020-03-08] MED LIST changes: +BARIUM SUSPENSION 2.1% (VANILLA SILQ) 450 ML PO ONE; -D5W 500 ML IV (CANCER CTR) 500 ML IV ONE; -D5W 500 ML IV (CANCER CTR) 500 ML IV SCH; -FOSAPREPITANT (CANCER CENTER) 150 MG in NS (IVPB) CANCER CENTER ONLY 150 ML IV SCH; +HOLD METFORMIN - RECEIVED CONTRAST 20 ML VIAL IV SCH; +IOHEXOL 350 MG/ML 100 ML (OMNIPAQUE 350) VIAL IV ONE; +NS 100 ML (IVPB) BAG IV ONE; -NS IV 1000 ML (CANCER CTR) IV SCH; -OXALIPLATIN 100 MG, OXALIPLATIN (GENERIC) 20 MG in D5W 250 ML IVPB (CANCER CTR) 250 ML IV SCH; -PANITUMUMAB INJECTION 400 MG in NS (IVPB) CANCER CENTER 100 ML IV SCH
--- NOTE | 2020-03-08 09:15 | Diagnostic Imaging Report ---
EXAMINATION: CT Chest with intravenous contrast, CT Abdomen and Pelvis without and with intravenous contrast. TECHNIQUE: Pre and post intravenous contrast axial imaging of the abdomen and pelvis and post contrast axial imaging of the chest were performed. All CT scans use one or more of the following dose optimizing techniques: automated exposure control, MA and/or KvP adjustment based on a patient size and exam type, or iterative reconstruction. HISTORY: Rectal cancer. COMPARISON: 12/07/2019 FINDINGS: There is no edema or pneumonia. No pleural effusion. No pneumothorax. The right upper lobe nodule is increased in size measuring 2.6 x 2.9 cm, previously 1.6 x 2.4 cm. There are numerous pleural nodules along the left hemidiaphragm measuring up to 1.2 cm, previously 4 mm. There is no axillary or supraclavicular lymphadenopathy. There is a stable 7 mm right upper paratracheal lymph node. No other enlarged mediastinal lymph nodes are seen. Left port catheter tip terminates in the superior vena cava. Heart size is normal. There are mild coronary artery calcifications. No pericardial effusion. Aorta is normal in caliber. Liver surface is mildly nodular consistent with cirrhosis. An intrahepatic portosystemic shunt has been created. Embolization coils are seen in the upper abdomen. There are no suspicious liver lesions seen. There is no biliary ductal dilation. Gallbladder is normal. Pancreas is normal. Spleen is enlarged. Adrenal glands are normal. The kidneys are normal. There is no hydronephrosis. Urinary bladder is normal. There has been rectal resection with an ostomy in the left lower quadrant. A small amount of stranding in the presacral space is likely related to prior treatment. There has been ventral abdominal hernia repair. No free fluid or air. No abdominal or pelvic lymphadenopathy. Aorta is normal in caliber without aneurysm. There are no suspicious osseus lesions. There is a left acetabular fixation and left femur fixation. IMPRESSION: 1. Increase in size of right upper lobe nodule and pleural metastatic disease. 2. No metastatic disease seen in the abdomen or pelvis. Dictated by: Dictated on workstation # [id number]
== END ==
LOC: RAD 07:47
PROVIDERS: ATTEND Internal Medicine Hematology & Oncology
DX: C20 Malignant neoplasm of rectum (principal); C78.01 Secondary malignant neoplasm of right lung; Z95.828 Presence of other vascular implants and grafts; Z98.890 Other specified postprocedural states
CPT/HCPCS: 71260; 74178

== ENCOUNTER → 2020-05-02 | Outpatient (CLI) | payer BC ==
[~2020-05-02] MED LIST changes: -BARIUM SUSPENSION 2.1% (VANILLA SILQ) 450 ML PO ONE; -HOLD METFORMIN - RECEIVED CONTRAST 20 ML VIAL IV SCH; -IOHEXOL 350 MG/ML 100 ML (OMNIPAQUE 350) VIAL IV ONE; -NS 100 ML (IVPB) BAG IV ONE
== END ==
LOC: CARD 15:00
PROVIDERS: ATTEND Internal Medicine
DX: R00.2 Palpitations (principal)

== ENCOUNTER → 2020-05-24 | Outpatient (CLI) | payer BC ==
[2020-05-24 11:57] LABS: CHOLESTEROL 106 MG/DL (< 200); HDL CHOLESTEROL 50 MG/DL (40-60); TRIGLYCERIDES 54 MG/DL (<150); VLDL CHOLESTEROL 11 MG/DL (5-40)
== END ==
LOC: LAB 05-20 09:20
PROVIDERS: ATTEND Internal Medicine
DX: Z01.89 Encounter for other specified special examinations (principal)
CPT/HCPCS: 36415; 80061

== ENCOUNTER → 2020-05-24 | Outpatient (CLI) | payer BC ==
[2020-05-24 11:29] LABS: BASOPHILS # (AUTO) 0.1 10^3/uL (0.0-0.1); BASOPHILS % (AUTO) 1 % (0-10); EOSINOPHILS # (AUTO) 0.2 10^3/uL (0.0-0.3); EOSINOPHILS % (AUTO) 2 % (0-10); HEMATOCRIT 36 % (40-54); HEMOGLOBIN 11.8 g/dL (13.3-17.7); LYMPHOCYTES # (AUTO) 0.8 10^3/uL (1.0-4.0); LYMPHOCYTES % (AUTO) 8 % (12-44); MEAN CORPUSCULAR HEMOGLOBIN 32 pg (25-34); MEAN CORPUSCULAR HGB CONC 33 g/dL (32-36); MEAN CORPUSCULAR VOLUME 97 fL (80-99); MEAN PLATELET VOLUME 10.1 fL (9.0-12.2); MONOCYTES # (AUTO) 0.8 10^3/uL (0.0-1.0); MONOCYTES % (AUTO) 9 % (0-12); NEUTROPHILS % (AUTO) 79 % (42-75); PLATELET COUNT 152 10^3/uL (130-400)
[2020-05-24 11:40] LABS: INR 1.1 (0.8-1.4); PROTHROMBIN TIME PATIENT 14.8 SEC (12.2-14.7)
[2020-05-24 11:57] LABS: ALANINE AMINOTRANSFERASE 28 U/L (0-55); ALBUMIN 3.1 GM/DL (3.2-4.5); ALKALINE PHOSPHATASE 101 U/L (40-136); BILIRUBIN,TOTAL 0.8 MG/DL (0.1-1.0); BUN/CREATININE RATIO 16; CALCIUM 8.5 MG/DL (8.5-10.1); CARBON DIOXIDE 28 MMOL/L (21-32); CHLORIDE 106 MMOL/L (98-107); CREATININE SERUM 0.93 MG/DL (0.60-1.30); GFR ESTIMATED > 60; GLUCOSE 96 MG/DL (70-105); POTASSIUM 3.7 MMOL/L (3.6-5.0); SODIUM 140 MMOL/L (135-145); TOTAL PROTEIN 6.1 GM/DL (6.4-8.2)
== END ==
LOC: LAB 11:11
PROVIDERS: ATTEND Internal Medicine
DX: K74.60 Unspecified cirrhosis of liver (principal); Z95.828 Presence of other vascular implants and grafts
CPT/HCPCS: 36415; 80053; 82105; 82306; 85025; 85610

== ENCOUNTER 2020-06-06 16:16 | Outpatient (RCR) | payer BC ==
[2020-03-10 09:14] LABS: BASOPHILS % (AUTO) 1 % (0-10); EOSINOPHILS # (AUTO) 0.2 10^3/uL (0.0-0.3); EOSINOPHILS % (AUTO) 4 % (0-10); HEMATOCRIT 36 % (40-54); LYMPHOCYTES % (AUTO) 26 % (12-44); MEAN CORPUSCULAR HEMOGLOBIN 34 PG (25-34); MEAN CORPUSCULAR HGB CONC 34 G/DL (32-36); MEAN CORPUSCULAR VOLUME 100 FL (80-99); MEAN PLATELET VOLUME 9.4 FL (7.4-10.4); MONOCYTES # (AUTO) 0.5 X 10^3 (0.0-1.0); MONOCYTES % (AUTO) 13 % (0-12); NEUTROPHILS % (AUTO) 56 % (42-75); PLATELET COUNT 134 10^3/uL (130-400); WHITE BLOOD COUNT 3.6 10^3/uL (4.3-11.0)
[2020-03-10 09:34] LABS: ALANINE AMINOTRANSFERASE 21 U/L (0-55); ALBUMIN 3.1 GM/DL (3.2-4.5); ALKALINE PHOSPHATASE 96 U/L (40-136); BILIRUBIN,TOTAL 0.8 MG/DL (0.1-1.0); BUN/CREATININE RATIO 22; CALCIUM 8.8 MG/DL (8.5-10.1); CARBON DIOXIDE 25 MMOL/L (21-32); CHLORIDE 107 MMOL/L (98-107); CREATININE SERUM 0.86 MG/DL (0.60-1.30); GFR ESTIMATED > 60; GLUCOSE 97 MG/DL (70-105); MAGNESIUM 1.9 MG/DL (1.6-2.4); POTASSIUM 4.1 MMOL/L (3.6-5.0); SODIUM 138 MMOL/L (135-145); TOTAL PROTEIN 6.6 GM/DL (6.4-8.2)
[2020-03-22 15:57] LABS: BASOPHILS % (AUTO) 0 % (0-10); EOSINOPHILS # (AUTO) 0.1 10^3/uL (0.0-0.3); EOSINOPHILS % (AUTO) 3 % (0-10); HEMATOCRIT 37 % (40-54); HEMOGLOBIN 12.4 G/DL (13.3-17.7); LYMPHOCYTES % (AUTO) 21 % (12-44); MEAN CORPUSCULAR HEMOGLOBIN 34 PG (25-34); MEAN CORPUSCULAR HGB CONC 34 G/DL (32-36); MEAN CORPUSCULAR VOLUME 100 FL (80-99); MEAN PLATELET VOLUME 9.4 FL (7.4-10.4); MONOCYTES # (AUTO) 0.6 X 10^3 (0.0-1.0); MONOCYTES % (AUTO) 12 % (0-12); NEUTROPHILS % (AUTO) 65 % (42-75); PLATELET COUNT 127 10^3/uL (130-400); WHITE BLOOD COUNT 4.7 10^3/uL (4.3-11.0)
[2020-03-22 16:14] LABS: BUN/CREATININE RATIO 17; CALCIUM 8.7 MG/DL (8.5-10.1); CARBON DIOXIDE 25 MMOL/L (21-32); CHLORIDE 107 MMOL/L (98-107); CREATININE SERUM 1.01 MG/DL (0.60-1.30); GFR ESTIMATED > 60; GLUCOSE 87 MG/DL (70-105); POTASSIUM 3.8 MMOL/L (3.6-5.0); SODIUM 138 MMOL/L (135-145)
[2020-03-29 09:51] LABS: BASOPHILS % (AUTO) 1 % (0-10); EOSINOPHILS # (AUTO) 0.1 10^3/uL (0.0-0.3); EOSINOPHILS % (AUTO) 3 % (0-10); HEMATOCRIT 33 % (40-54); HEMOGLOBIN 11.1 G/DL (13.3-17.7); LYMPHOCYTES # (AUTO) 0.9 X 10^3 (1.0-4.0); LYMPHOCYTES % (AUTO) 34 % (12-44); MEAN CORPUSCULAR HEMOGLOBIN 33 PG (25-34); MEAN CORPUSCULAR HGB CONC 34 G/DL (32-36); MEAN CORPUSCULAR VOLUME 96 FL (80-99); MEAN PLATELET VOLUME 9.1 FL (7.4-10.4); MONOCYTES # (AUTO) 0.3 X 10^3 (0.0-1.0); MONOCYTES % (AUTO) 13 % (0-12); NEUTROPHILS # (AUTO) 1.3 X 10^3 (1.8-7.8); NEUTROPHILS % (AUTO) 50 % (42-75); PLATELET COUNT 157 10^3/uL (130-400); WHITE BLOOD COUNT 2.6 10^3/uL (4.3-11.0)
[2020-03-29 10:06] LABS: ALANINE AMINOTRANSFERASE 30 U/L (0-55); ALKALINE PHOSPHATASE 98 U/L (40-136); BILIRUBIN,TOTAL 0.6 MG/DL (0.1-1.0); BUN/CREATININE RATIO 22; CALCIUM 8.9 MG/DL (8.5-10.1); CARBON DIOXIDE 25 MMOL/L (21-32); CHLORIDE 106 MMOL/L (98-107); CREATININE SERUM 0.83 MG/DL (0.60-1.30); GFR ESTIMATED > 60; GLUCOSE 117 MG/DL (70-105); MAGNESIUM 1.7 MG/DL (1.6-2.4); POTASSIUM 3.6 MMOL/L (3.6-5.0); SODIUM 138 MMOL/L (135-145); TOTAL PROTEIN 6.3 GM/DL (6.4-8.2)
[2020-04-06 09:18] LABS: BASOPHILS % (AUTO) 1 % (0-10); EOSINOPHILS # (AUTO) 0.1 10^3/uL (0.0-0.3); EOSINOPHILS % (AUTO) 4 % (0-10); HEMATOCRIT 35 % (40-54); HEMOGLOBIN 11.8 G/DL (13.3-17.7); LYMPHOCYTES # (AUTO) 0.8 X 10^3 (1.0-4.0); LYMPHOCYTES % (AUTO) 28 % (12-44); MEAN CORPUSCULAR HEMOGLOBIN 32 PG (25-34); MEAN CORPUSCULAR HGB CONC 34 G/DL (32-36); MEAN CORPUSCULAR VOLUME 97 FL (80-99); MEAN PLATELET VOLUME 9.4 FL (7.4-10.4); MONOCYTES # (AUTO) 0.3 X 10^3 (0.0-1.0); MONOCYTES % (AUTO) 12 % (0-12); NEUTROPHILS # (AUTO) 1.5 X 10^3 (1.8-7.8); NEUTROPHILS % (AUTO) 55 % (42-75); PLATELET COUNT 154 10^3/uL (130-400); WHITE BLOOD COUNT 2.7 10^3/uL (4.3-11.0)
[2020-04-06 09:34] LABS: BUN/CREATININE RATIO 21; CALCIUM 8.5 MG/DL (8.5-10.1); CARBON DIOXIDE 26 MMOL/L (21-32); CHLORIDE 107 MMOL/L (98-107); CREATININE SERUM 0.86 MG/DL (0.60-1.30); GFR ESTIMATED > 60; GLUCOSE 145 MG/DL (70-105); POTASSIUM 3.6 MMOL/L (3.6-5.0); SODIUM 139 MMOL/L (135-145)
[2020-04-12 11:01] LABS: BASOPHILS % (AUTO) 0 % (0-10); EOSINOPHILS # (AUTO) 0.1 10^3/uL (0.0-0.3); EOSINOPHILS % (AUTO) 1 % (0-10); HEMATOCRIT 36 % (40-54); HEMOGLOBIN 12.1 G/DL (13.3-17.7); LYMPHOCYTES # (AUTO) 1.2 X 10^3 (1.0-4.0); LYMPHOCYTES % (AUTO) 10 % (12-44); MEAN CORPUSCULAR HEMOGLOBIN 33 PG (25-34); MEAN CORPUSCULAR HGB CONC 33 G/DL (32-36); MEAN CORPUSCULAR VOLUME 97 FL (80-99); MEAN PLATELET VOLUME 9.7 FL (7.4-10.4); MONOCYTES # (AUTO) 0.5 X 10^3 (0.0-1.0); MONOCYTES % (AUTO) 4 % (0-12); NEUTROPHILS # (AUTO) 9.9 X 10^3 (1.8-7.8); NEUTROPHILS % (AUTO) 85 % (42-75); PLATELET COUNT 143 10^3/uL (130-400); WHITE BLOOD COUNT 11.6 10^3/uL (4.3-11.0)
[2020-04-12 11:21] LABS: BUN/CREATININE RATIO 23; CALCIUM 8.4 MG/DL (8.5-10.1); CARBON DIOXIDE 26 MMOL/L (21-32); CHLORIDE 109 MMOL/L (98-107); CREATININE SERUM 0.83 MG/DL (0.60-1.30); GFR ESTIMATED > 60; GLUCOSE 90 MG/DL (70-105); MAGNESIUM 1.7 MG/DL (1.6-2.4); POTASSIUM 3.7 MMOL/L (3.6-5.0); SODIUM 141 MMOL/L (135-145)
[2020-04-19 09:58] LABS: BASOPHILS % (AUTO) 1 % (0-10); EOSINOPHILS # (AUTO) 0.1 10^3/uL (0.0-0.3); EOSINOPHILS % (AUTO) 3 % (0-10); HEMATOCRIT 37 % (40-54); HEMOGLOBIN 12.2 G/DL (13.3-17.7); LYMPHOCYTES # (AUTO) 0.9 X 10^3 (1.0-4.0); LYMPHOCYTES % (AUTO) 28 % (12-44); MEAN CORPUSCULAR HEMOGLOBIN 32 PG (25-34); MEAN CORPUSCULAR HGB CONC 33 G/DL (32-36); MEAN CORPUSCULAR VOLUME 95 FL (80-99); MEAN PLATELET VOLUME 9.2 FL (7.4-10.4); MONOCYTES # (AUTO) 0.6 X 10^3 (0.0-1.0); MONOCYTES % (AUTO) 17 % (0-12); NEUTROPHILS # (AUTO) 1.7 X 10^3 (1.8-7.8); NEUTROPHILS % (AUTO) 52 % (42-75); PLATELET COUNT 134 10^3/uL (130-400); WHITE BLOOD COUNT 3.3 10^3/uL (4.3-11.0)
[2020-04-19 10:22] LABS: ALANINE AMINOTRANSFERASE 26 U/L (0-55); ALBUMIN 3.1 GM/DL (3.2-4.5); ALKALINE PHOSPHATASE 90 U/L (40-136); BILIRUBIN,TOTAL 0.7 MG/DL (0.1-1.0); BUN/CREATININE RATIO 22; CALCIUM 8.5 MG/DL (8.5-10.1); CARBON DIOXIDE 23 MMOL/L (21-32); CHLORIDE 109 MMOL/L (98-107); CREATININE SERUM 0.83 MG/DL (0.60-1.30); GFR ESTIMATED > 60; GLUCOSE 106 MG/DL (70-105); MAGNESIUM 1.7 MG/DL (1.6-2.4); POTASSIUM 3.5 MMOL/L (3.6-5.0); SODIUM 141 MMOL/L (135-145); TOTAL PROTEIN 6.4 GM/DL (6.4-8.2)
[2020-04-25 11:20] LABS: BASOPHILS % (AUTO) 0 % (0-10); EOSINOPHILS # (AUTO) 0.1 10^3/uL (0.0-0.3); EOSINOPHILS % (AUTO) 2 % (0-10); HEMATOCRIT 37 % (40-54); HEMOGLOBIN 12.2 g/dL (13.3-17.7); LYMPHOCYTES # (AUTO) 0.9 10^3/uL (1.0-4.0); LYMPHOCYTES % (AUTO) 18 % (12-44); MEAN CORPUSCULAR HEMOGLOBIN 32 pg (25-34); MEAN CORPUSCULAR HGB CONC 33 g/dL (32-36); MEAN CORPUSCULAR VOLUME 97 fL (80-99); MEAN PLATELET VOLUME 9.6 fL (9.0-12.2); MONOCYTES # (AUTO) 0.3 10^3/uL (0.0-1.0); MONOCYTES % (AUTO) 6 % (0-12); NEUTROPHILS # (AUTO) 3.7 10^3/uL (1.8-7.8); NEUTROPHILS % (AUTO) 72 % (42-75); PLATELET COUNT 139 10^3/uL (130-400); WHITE BLOOD COUNT 5.1 10^3/uL (4.3-11.0)
[2020-04-25 11:37] LABS: BUN/CREATININE RATIO 21; CALCIUM 8.4 MG/DL (8.5-10.1); CARBON DIOXIDE 26 MMOL/L (21-32); CHLORIDE 107 MMOL/L (98-107); CREATININE SERUM 0.89 MG/DL (0.60-1.30); GFR ESTIMATED > 60; GLUCOSE 85 MG/DL (70-105); POTASSIUM 4.1 MMOL/L (3.6-5.0); SODIUM 138 MMOL/L (135-145)
[2020-05-03 09:39] LABS: BASOPHILS % (AUTO) 1 % (0-10); EOSINOPHILS # (AUTO) 0.1 10^3/uL (0.0-0.3); EOSINOPHILS % (AUTO) 3 % (0-10); HEMATOCRIT 37 % (40-54); HEMOGLOBIN 12.3 g/dL (13.3-17.7); LYMPHOCYTES # (AUTO) 0.8 10^3/uL (1.0-4.0); LYMPHOCYTES % (AUTO) 24 % (12-44); MEAN CORPUSCULAR HEMOGLOBIN 32 pg (25-34); MEAN CORPUSCULAR HGB CONC 33 g/dL (32-36); MEAN CORPUSCULAR VOLUME 95 fL (80-99); MONOCYTES # (AUTO) 0.4 10^3/uL (0.0-1.0); MONOCYTES % (AUTO) 12 % (0-12); NEUTROPHILS % (AUTO) 60 % (42-75); PLATELET COUNT 177 10^3/uL (130-400); WHITE BLOOD COUNT 3.3 10^3/uL (4.3-11.0)
[2020-05-03 10:03] LABS: ALANINE AMINOTRANSFERASE 26 U/L (0-55); ALBUMIN 3.1 GM/DL (3.2-4.5); ALKALINE PHOSPHATASE 116 U/L (40-136); BILIRUBIN,TOTAL 0.5 MG/DL (0.1-1.0); BUN/CREATININE RATIO 16; CALCIUM 8.4 MG/DL (8.5-10.1); CARBON DIOXIDE 20 MMOL/L (21-32); CHLORIDE 111 MMOL/L (98-107); CREATININE SERUM 0.85 MG/DL (0.60-1.30); GFR ESTIMATED > 60; GLUCOSE 102 MG/DL (70-105); MAGNESIUM 1.6 MG/DL (1.6-2.4); POTASSIUM 3.6 MMOL/L (3.6-5.0); SODIUM 140 MMOL/L (135-145); TOTAL PROTEIN 6.4 GM/DL (6.4-8.2)
[2020-05-09 16:28] LABS: BASOPHILS % (AUTO) 1 % (0-10); EOSINOPHILS # (AUTO) 0.1 10^3/uL (0.0-0.3); EOSINOPHILS % (AUTO) 2 % (0-10); HEMATOCRIT 39 % (40-54); HEMOGLOBIN 12.7 g/dL (13.3-17.7); LYMPHOCYTES # (AUTO) 0.8 10^3/uL (1.0-4.0); LYMPHOCYTES % (AUTO) 17 % (12-44); MEAN CORPUSCULAR HEMOGLOBIN 31 pg (25-34); MEAN CORPUSCULAR HGB CONC 33 g/dL (32-36); MEAN CORPUSCULAR VOLUME 96 fL (80-99); MEAN PLATELET VOLUME 9.7 fL (9.0-12.2); MONOCYTES # (AUTO) 0.4 10^3/uL (0.0-1.0); MONOCYTES % (AUTO) 8 % (0-12); NEUTROPHILS # (AUTO) 3.6 10^3/uL (1.8-7.8); NEUTROPHILS % (AUTO) 72 % (42-75); PLATELET COUNT 146 10^3/uL (130-400)
[2020-05-09 16:50] LABS: BUN/CREATININE RATIO 13; CALCIUM 8.4 MG/DL (8.5-10.1); CARBON DIOXIDE 27 MMOL/L (21-32); CHLORIDE 103 MMOL/L (98-107); CREATININE SERUM 0.79 MG/DL (0.60-1.30); GFR ESTIMATED > 60; GLUCOSE 109 MG/DL (70-105); POTASSIUM 3.9 MMOL/L (3.6-5.0); SODIUM 137 MMOL/L (135-145)
[2020-05-17 13:28] LABS: BASOPHILS % (AUTO) 1 % (0-10); EOSINOPHILS # (AUTO) 0.1 10^3/uL (0.0-0.3); EOSINOPHILS % (AUTO) 4 % (0-10); HEMATOCRIT 33 % (40-54); LYMPHOCYTES # (AUTO) 0.8 10^3/uL (1.0-4.0); LYMPHOCYTES % (AUTO) 27 % (12-44); MEAN CORPUSCULAR HEMOGLOBIN 31 pg (25-34); MEAN CORPUSCULAR HGB CONC 34 g/dL (32-36); MEAN CORPUSCULAR VOLUME 93 fL (80-99); MEAN PLATELET VOLUME 9.7 fL (9.0-12.2); MONOCYTES # (AUTO) 0.4 10^3/uL (0.0-1.0); MONOCYTES % (AUTO) 12 % (0-12); NEUTROPHILS # (AUTO) 1.7 10^3/uL (1.8-7.8); NEUTROPHILS % (AUTO) 56 % (42-75); PLATELET COUNT 142 10^3/uL (130-400)
[2020-05-17 14:13] LABS: ALANINE AMINOTRANSFERASE 37 U/L (0-55); ALBUMIN 2.9 GM/DL (3.2-4.5); ALKALINE PHOSPHATASE 115 U/L (40-136); BILIRUBIN,TOTAL 0.6 MG/DL (0.1-1.0); BUN/CREATININE RATIO 16; CALCIUM 8.3 MG/DL (8.5-10.1); CARBON DIOXIDE 26 MMOL/L (21-32); CHLORIDE 107 MMOL/L (98-107); CREATININE SERUM 0.77 MG/DL (0.60-1.30); GFR ESTIMATED > 60; GLUCOSE 120 MG/DL (70-105); MAGNESIUM 1.4 MG/DL (1.6-2.4); POTASSIUM 2.7 MMOL/L (3.6-5.0); SODIUM 140 MMOL/L (135-145); TOTAL PROTEIN 5.9 GM/DL (6.4-8.2)
[2020-05-24 11:24] LABS: BASOPHILS # (AUTO) 0.1 10^3/uL (0.0-0.1); BASOPHILS % (AUTO) 1 % (0-10); EOSINOPHILS # (AUTO) 0.2 10^3/uL (0.0-0.3); EOSINOPHILS % (AUTO) 2 % (0-10); HEMATOCRIT 36 % (40-54); HEMOGLOBIN 11.8 g/dL (13.3-17.7); LYMPHOCYTES # (AUTO) 0.8 10^3/uL (1.0-4.0); LYMPHOCYTES % (AUTO) 8 % (12-44); MEAN CORPUSCULAR HEMOGLOBIN 32 pg (25-34); MEAN CORPUSCULAR HGB CONC 33 g/dL (32-36); MEAN CORPUSCULAR VOLUME 97 fL (80-99); MEAN PLATELET VOLUME 10.1 fL (9.0-12.2); MONOCYTES # (AUTO) 0.8 10^3/uL (0.0-1.0); MONOCYTES % (AUTO) 9 % (0-12); NEUTROPHILS % (AUTO) 79 % (42-75); PLATELET COUNT 152 10^3/uL (130-400)
[2020-05-24 12:17] LABS: BUN/CREATININE RATIO 16; CALCIUM 8.5 MG/DL (8.5-10.1); CARBON DIOXIDE 28 MMOL/L (21-32); CHLORIDE 106 MMOL/L (98-107); CREATININE SERUM 0.95 MG/DL (0.60-1.30); GFR ESTIMATED > 60; GLUCOSE 94 MG/DL (70-105); POTASSIUM 3.7 MMOL/L (3.6-5.0); SODIUM 140 MMOL/L (135-145)
[2020-05-31 09:28] LABS: BASOPHILS % (AUTO) 2 % (0-10); EOSINOPHILS # (AUTO) 0.2 10^3/uL (0.0-0.3); EOSINOPHILS % (AUTO) 6 % (0-10); HEMATOCRIT 35 % (40-54); HEMOGLOBIN 11.3 g/dL (13.3-17.7); LYMPHOCYTES # (AUTO) 0.8 10^3/uL (1.0-4.0); LYMPHOCYTES % (AUTO) 31 % (12-44); MEAN CORPUSCULAR HEMOGLOBIN 31 pg (25-34); MEAN CORPUSCULAR HGB CONC 32 g/dL (32-36); MEAN CORPUSCULAR VOLUME 96 fL (80-99); MEAN PLATELET VOLUME 9.4 fL (9.0-12.2); MONOCYTES # (AUTO) 0.5 10^3/uL (0.0-1.0); MONOCYTES % (AUTO) 17 % (0-12); NEUTROPHILS # (AUTO) 1.2 10^3/uL (1.8-7.8); NEUTROPHILS % (AUTO) 44 % (42-75); PLATELET COUNT 141 10^3/uL (130-400); WHITE BLOOD COUNT 2.7 10^3/uL (4.3-11.0)
[2020-05-31 09:46] LABS: ALANINE AMINOTRANSFERASE 34 U/L (0-55); ALBUMIN 3.2 GM/DL (3.2-4.5); ALKALINE PHOSPHATASE 103 U/L (40-136); BILIRUBIN,TOTAL 1.1 MG/DL (0.1-1.0); BUN/CREATININE RATIO 16; CALCIUM 8.5 MG/DL (8.5-10.1); CARBON DIOXIDE 25 MMOL/L (21-32); CHLORIDE 107 MMOL/L (98-107); CREATININE SERUM 0.77 MG/DL (0.60-1.30); GFR ESTIMATED > 60; GLUCOSE 100 MG/DL (70-105); MAGNESIUM 1.7 MG/DL (1.6-2.4); POTASSIUM 3.9 MMOL/L (3.6-5.0); SODIUM 138 MMOL/L (135-145); TOTAL PROTEIN 6.1 GM/DL (6.4-8.2)
[~2020-06-06 16:16] MED LIST changes: +ATROPINE INJ 0.4 MG/ML SDV (CANCER CENTER) IV SCH; +D5W 500 ML IV (CANCER CTR) 500 ML IV SCH; +FILGRASTIM 480 MCG/1.6 ML VIAL CANCER CENTER SQ SCH; +FOSAPREPITANT (CANCER CENTER) 150 MG in NS (IVPB) CANCER CENTER ONLY 150 ML IV SCH; +IRINOTECAN HCL 300 MG in D5W 250 ML IVPB (CANCER CTR) 250 ML IV SCH; +LEUCOVORIN CALCIUM 400 MG in D5W 250 ML IVPB (CANCER CTR) 250 ML IV SCH; +MAGNESIUM SULFATE IV ONE; +NS IV 1000 ML (CANCER CTR) IV SCH; +OXALIPLATIN 100 MG, OXALIPLATIN (GENERIC) 20 MG in D5W 250 ML IVPB (CANCER CTR) 250 ML IV SCH; +PANITUMUMAB INJECTION 400 MG in NS (IVPB) CANCER CENTER 100 ML IV SCH; +POTASSIUM CHL IV ONE; +[UNRECOGNIZED DRUG - OTHER] IV ONE
[2020-06-06 16:31] LABS: BASOPHILS % (AUTO) 1 % (0-10); EOSINOPHILS # (AUTO) 0.2 10^3/uL (0.0-0.3); EOSINOPHILS % (AUTO) 4 % (0-10); HEMATOCRIT 35 % (40-54); HEMOGLOBIN 11.3 g/dL (13.3-17.7); LYMPHOCYTES % (AUTO) 23 % (12-44); MEAN CORPUSCULAR HEMOGLOBIN 31 pg (25-34); MEAN CORPUSCULAR HGB CONC 32 g/dL (32-36); MEAN CORPUSCULAR VOLUME 97 fL (80-99); MEAN PLATELET VOLUME 10.3 fL (9.0-12.2); MONOCYTES # (AUTO) 0.4 10^3/uL (0.0-1.0); MONOCYTES % (AUTO) 9 % (0-12); NEUTROPHILS # (AUTO) 2.6 10^3/uL (1.8-7.8); NEUTROPHILS % (AUTO) 63 % (42-75); PLATELET COUNT 162 10^3/uL (130-400); WHITE BLOOD COUNT 4.2 10^3/uL (4.3-11.0)
[2020-06-06 17:17] LABS: BUN/CREATININE RATIO 19; CALCIUM 8.4 MG/DL (8.5-10.1); CARBON DIOXIDE 26 MMOL/L (21-32); CHLORIDE 107 MMOL/L (98-107); CREATININE SERUM 0.96 MG/DL (0.60-1.30); GFR ESTIMATED > 60; GLUCOSE 66 MG/DL (70-105); POTASSIUM 4.2 MMOL/L (3.6-5.0); SODIUM 138 MMOL/L (135-145)
== END 2020-06-08 | disposition still patient (30) ==
LOC: ONC 16:16
PROVIDERS: ATTEND Internal Medicine Hematology & Oncology
DX: C20 Malignant neoplasm of rectum (principal); C78.01 Secondary malignant neoplasm of right lung; C77.1 Secondary and unspecified malignant neoplasm of intrathoracic lymph nodes; K74.60 Unspecified cirrhosis of liver; K76.6 Portal hypertension; K14.0 Glossitis; R19.7 Diarrhea, unspecified; R21 Rash and other nonspecific skin eruption; D75.9 Disease of blood and blood-forming organs, unspecified; B19.20 Unspecified viral hepatitis C without hepatic coma; Z93.3 Colostomy status; Z79.899 Other long term (current) drug therapy; Z98.890 Other specified postprocedural states
CPT/HCPCS: 80053; 82378; 83735; 85025; G0463; 36415; 36591; 80048; 93005; 96367; 96368; 96372; 96375; 96413; 96416; 96417

== ENCOUNTER 2020-07-06 05:38 | Outpatient (RCR) | payer BC ==
[~2020-07-06] VITALS: Ht 177.8 cm; Wt 75.0 kg
[~2020-07-06 05:38] MED LIST changes: -BARIUM SUSPENSION 2.1% (VANILLA SILQ) 450 ML PO ONE; -CATHETER FLUSH 10 ML SYR IV PRN; -CHOL50005 PO; -ERGO2500 PO; -HOLD METFORMIN - RECEIVED CONTRAST 20 ML VIAL IV SCH; -IOHEXOL 350 MG/ML 100 ML (OMNIPAQUE 350) VIAL IV ONE; -LISI-556 PO; -MULT-1056 PO; -NS 100 ML (IVPB) BAG IV ONE; -POTA20TA8 PO
[2020-07-06] MEDS ORDERED: CHOL50005 PO (11:11)
[2020-07-06] MEDS ORDERED: MULT-1056 PO (11:11)
[2020-07-06] MEDS ORDERED: POTA20TA8 PO (11:11)
[2020-07-06] MEDS ORDERED: LISI-556 PO (11:11)
== END 2020-07-06 11:49 | disposition home or self-care (01) ==
LOC: PREOP 05:38
PROVIDERS: ATTEND Surgery
DX: Z01.812 Encounter for preprocedural laboratory examination (principal); T82.598A Other mechanical complication of other cardiac and vascular devices and implants, initial encounter; Z20.828 Contact with and (suspected) exposure to other viral communicable diseases
CPT/HCPCS: 87635

== ENCOUNTER → 2020-07-06 | Outpatient (CLI) | payer BC ==
[~2020-07-06] MED LIST changes: -ATROPINE INJ 0.4 MG/ML SDV (CANCER CENTER) IV SCH; +BARIUM SUSPENSION 2.1% (VANILLA SILQ) 450 ML PO ONE; +CATHETER FLUSH 10 ML SYR IV PRN; +CHOL50005 PO; -D5W 500 ML IV (CANCER CTR) 500 ML IV SCH; +ERGO2500 PO; -FILGRASTIM 480 MCG/1.6 ML VIAL CANCER CENTER SQ SCH; -FOSAPREPITANT (CANCER CENTER) 150 MG in NS (IVPB) CANCER CENTER ONLY 150 ML IV SCH; +HOLD METFORMIN - RECEIVED CONTRAST 20 ML VIAL IV SCH; +IOHEXOL 350 MG/ML 100 ML (OMNIPAQUE 350) VIAL IV ONE; -IRINOTECAN HCL 300 MG in D5W 250 ML IVPB (CANCER CTR) 250 ML IV SCH; -LEUCOVORIN CALCIUM 400 MG in D5W 250 ML IVPB (CANCER CTR) 250 ML IV SCH; +LISI-556 PO; -MAGNESIUM SULFATE IV ONE; +MULT-1056 PO; +NS 100 ML (IVPB) BAG IV ONE; -NS IV 1000 ML (CANCER CTR) IV SCH; -OXALIPLATIN 100 MG, OXALIPLATIN (GENERIC) 20 MG in D5W 250 ML IVPB (CANCER CTR) 250 ML IV SCH; -PANITUMUMAB INJECTION 400 MG in NS (IVPB) CANCER CENTER 100 ML IV SCH; +POTA20TA8 PO; -POTASSIUM CHL IV ONE; -[UNRECOGNIZED DRUG - OTHER] IV ONE
--- NOTE | 2020-07-06 10:55 | Diagnostic Imaging Report ---
PROCEDURE: CT chest with contrast, CT abdomen and pelvis with and without contrast. TECHNIQUE: Pre and post intravenous contrast axial imaging of the abdomen and pelvis and post contrast axial imaging of the chest were performed. Auto Exposure Controls were utilized during the CT exam to meet ALARA standards for radiation dose reduction. INDICATION: Lung carcinoma as well as malignant neoplasm of the rectum. Correlation is made with prior CT from 03/08/2020. CT CHEST: Left chest wall port has the tip in the lower aspect of the superior vena cava. No axillary lymphadenopathy is identified. Previously noted lymph node in the right paratracheal location measures approximately 5 mm short axis compared with 7 mm on prior exam. The sera are unremarkable. There is a mass in the right suprahilar location. Mass does appear to be slightly smaller measuring 2.5 cm AP by 2.6 cm transverse compared with 2.8 cm x 2.8 cm when measured by similar technique. The nodules identified in the right lower lobe just above the right hemidiaphragm also appear to be slightly smaller. Largest is more anterior measuring 14 mm compared with 18 mm on prior exam. No new pulmonary mass is identified. The bony structures are unremarkable. No osteolytic or blastic lesions are detected. IMPRESSION: 1. Mild decrease in size of right suprahilar mass as well as right lower lobe nodules when compared with prior CT from 03/08/2020. No new or enlarging mass is identified. CT abdomen and pelvis: No discrete liver mass is identified. Patient does have a TIPS in the right lobe. The gallbladder is unremarkable. No biliary ductal dilatation is seen. The pancreas is unremarkable. The spleen is mildly enlarged at 14.6 cm. No adrenal mass is identified. The kidneys are unremarkable. No calculi or hydronephrosis is identified. The abdominal aorta is normal in caliber. No central retroperitoneal or mesenteric lymphadenopathy is identified. Patient does appear to have an ostomy in the left lower quadrant. Intra-abdominal bowel loops are normal caliber, without evidence of obstruction. No free fluid or fluid collection is identified. The postop changes in the pelvis are again noted from prior rectal surgery. No definite pelvic lymphadenopathy is identified. There is a fat-containing left inguinal hernia. Postsurgical changes involving the left hemipelvis and the left hip are again noted. No acute bony abnormality is identified. IMPRESSION: 1. Overall stable CT of the abdomen and pelvis when compared with examination from 03/08/2020. No abdominal or pelvic lymphadenopathy or evidence of metastatic disease is identified. Features remain consistent with cirrhosis and mild portal hypertension with splenomegaly. No ascites is present. Dictated by: Dictated on workstation # [id number]
== END ==
LOC: RAD 10:15
PROVIDERS: ATTEND Internal Medicine Hematology & Oncology
DX: C20 Malignant neoplasm of rectum (principal); C78.02 Secondary malignant neoplasm of left lung
CPT/HCPCS: 71260; 74178

== ENCOUNTER 2020-07-08 07:42 | Day surgery (SDC) | payer BC ==
[2020-07-08] VITALS (8 sets, daily range): BP systolic 115–133; BP diastolic 62–78
[~2020-07-08] VITALS: Ht 177.8 cm; Wt 74.8 kg
[~2020-07-08 07:42] MED LIST changes: +CHOL50005 PO; +LISI-556 PO; +MULT-1056 PO; +POTA20TA8 PO
[2020-07-08] MEDS ORDERED: ALPR1TAB7 PO (07:57)
[2020-07-08] MEDS ORDERED: ERGO2500 PO (07:57)
[2020-07-08] MEDS ORDERED: PROPOFOL INJECTION 50 ML IV ONE ×2 (07:58→08:59)
[2020-07-08] MEDS ORDERED: MIDAZOLAM 2 MG/2 ML (VERSED) VIAL ONE (07:58)
[2020-07-08] MEDS ORDERED: HEParin (CENTRAL IV FLUSH) 500 UNIT/5 ML SYR ONE (07:59)
[2020-07-08] MEDS ORDERED: LIDOCAINE/EPI 1%-1:100,000 (XYLOCAINE) 20ML ONE ×2 (07:59→08:39)
[2020-07-08] MEDS ORDERED: LACTATED RINGERS 1,000 ML IV PRN (08:00)
[2020-07-08] MEDS ORDERED: ceFAZolin INJECTION 1,000 MG in WATER (STERILE) FOR INJECTION 10 ML IV ONE (08:00)
--- NOTE | 2020-07-08 08:00 | Progress Note-Pre Operative ---
Pre-Operative Progress Note H&P Reviewed The H&P was reviewed, patient examined and no changes noted. Date Seen by Provider: Jul 08, 2020 Time Seen by Provider: 07:59 Date H&P Reviewed: Jul 08, 2020 Time H&P Reviewed: 07:59 Pre-Operative Diagnosis: malfunction port MATTHEW CASTREJON DO Jul 08, 2020 08:00
[2020-07-08] MEDS ORDERED: ONDANSETRON 4 MG/2 ML (SDV) Z0FRAN IVP PRN (09:15)
[2020-07-08] MEDS ORDERED: fentaNYL INJECTION 100 MCG/2 ML AMP IVP ONE (09:15)
--- NOTE | 2020-07-08 09:21 | Discharge Inst-Simple/Standard ---
Discharge Inst-Standard Patient Instructions/Follow Up Plan of Care/Instructions/FU: 2 WEEKS LUCÍA Activity as Tolerated: No Discharge Diet: Regular Diet Other Inst to Patient Follow up Appt: Make appointment for 2 week. Instructions: No lifting greater than 10 pounds. No strenuous activity. May shower in 24 hours, no tub bath or soaking. Use incentive spirometer at home as directed. No Smoking Skin/Wound Care: You have special glue over your incision that will fall off on it's own. remove bandages after 24 hours but leave the glue Place ice pack on for 15 min and then remove for 30 min. Repeat for first 48 hours to decrease swelling and discomfort. Symptoms to Report: Appetite Changes, Extremity Discoloration, Numbness/Tingling, Swelling Increased, Bleeding Excessive, Eyesight Changes, Pain Increased, Urine Color Carmelita nge, Constipation(Persistent), Fever over 101 degree F, Pain/Pressure in chest, Urinating Difficulty, Cough Up/Vomit Blood, Heart Beat Irreg/Pounding, Pain/Pressure in jaw, Vaginal Bleeding Increase, Cramps in feet or legs, Lightheadedness, Pain/Pressure in shoulder, Diarrhea(Persistent), Memory Changes Suddenly, Questions/Concerns, Weight gain consecutive days, Dizziness/Fainting, Nausea/Vomiting, Shortness of Breath, Weight gain over 2 pounds If questions or concerns contact your physician Or seek help at emergency department. MATTHEW CASTREJON DO Jul 08, 2020 09:21
--- NOTE | 2020-07-08 09:25 | Progress Note-Post Operative ---
Post-Operative Progess Note Surgeon (s)/Jewel Waxer (s) Surgeon MATTHEW CASTREJON DO Jewel Waxer: na Pre-Operative Diagnosis malfunction port Post-Operative Diagnosis same Procedure & Operative Findings Date of Procedure 07/08/20 Procedure Performed/Findings PROCEDURE: Removal of port left chest, COMPLICATIONS: None. INDICATIONS: The patient is a 60 year-old male who had a port previously placed. Patient port has eroded through skin small portion. The patient was ex plained risk and benefits of the procedure and wished to proceed with procedure. Consent was signed on the chart. PROCEDURE: The patient was taken to the operating suite and was prepped and draped in sterile fashion. A surgical pause was performed. Local anesthetic was infiltrated to the area around the port. A number 15 blade scalpel was used to make an incision. Cautery was used to dissect down to the port which was then grasped and then dissected around. The catheter was removed in its entirety. The port was then able to be dissected out of the pocket and elevated. The wound was then irrigated with copious amounts of irrigation. Hemostasis had been achieved. The subcutaneous tissues were then reapproximated using 3-0 Vicryl. Skin was then closed using 4-0 Vicryl in a running fashion. The area was then washed and dried and Skin Affix placed over the incision. The patient tolerated the procedure well without complication and was taken to recovery room in stable condition. PROCEDURE: Right internal jugular port placement using ultrasound guidance. COMPLICATIONS: None. INDICATIONS: The patient is a 60 year old male needing port due to metastatic rectal cancer. Patient understands the risks and benefits of port placement and wished to proceed with the procedure. Consent was signed on the chart. PROCEDURE: The patient was taken to the operating suite, was prepped and draped in the sterile fashion. A surgical pause was performed. Ultrasound was used to locate the internal jugular vein. Once located anesthetic was infiltrated above it. Using micro-access kit, the right internal vein was accessed. Dark nonpulsatile blood was withdrawn. The wire was inserted. Fluoroscopy assured proper placement. The needle was removed. The micro-access dilator was advanced over the wire and the wire was removed. The regular wire was inserted and fluoroscopy assured proper placement. The wire was then secured. Local anesthetic was used to anesthetize from the neck for tunneling down to the right chest and for pocket creation. A 15 blade scalpel was used to make an incision over the right chest. Cautery was used to dissect down to the pectoral fascia. A pocket was created with blunt dissection. The dilator sheath was then advanced over the wire under fluoroscopy and the dilator and wire were removed. The Groshong catheter was inserted through the sheath and the sheath was then removed. The Groshong wire was removed. The catheter was then tunneled to the right chest pocket. Fluoroscopy was used to cut to length and this was then attached to the port which was then placed within the pocket. The port was then accessed without difficulty. It was then flushed with saline and then heparin. The subcutaneous tissues were then reapproximated using 3-0 Vicryl. The areas were then washed and dried. Skin Affix was placed over incision. The insertion point of the neck Skin Affix was placed over the incision. The patient tolerated the procedure well without complication and was taken to recovery room in stable condition. Chest x-ray is pending. Anesthesia Type mac Estimated Blood Loss Estimated blood loss (mL): min Specimens/Packing Specimens Removed MATTHEW Dutton DO Jul 08, 2020 09:25
--- NOTE | 2020-07-08 10:11 | Diagnostic Imaging Report ---
INDICATION: Undergoing port placement. TECHNIQUE: Single intraprocedural images upper chest. FINDINGS/ IMPRESSION: The hospital radiology department provided fluoroscopic imaging in support of an interventional procedure performed by Dr. Cody. A radiologist was not involved in the procedure. Please reference the operating provider's procedure note. Fluoroscopy Time: 51.4 seconds Limited intraprocedure image demonstrates a right IJ Dbzgnn-b-Ptud catheter to be present. Tip projects over the right superior mediastinal region, likely over the high SVC. There is suggested rotation at the proximal catheter just distal to the hub. Dictated by: Dictated on workstation # [id number]
--- NOTE | 2020-07-08 10:19 | Diagnostic Imaging Report ---
EXAMINATION: Chest radiograph, portable AP view. DATE: 07/08/2020 9:45 AM INDICATION: 60-year-old male, status post port placement. COMPARISON: Right May 17, 2019. FINDINGS: There is a right-sided port catheter with tip overlying the upper SVC. Heart size and mediastinal contours are unchanged. There is no identified pneumothorax. There is elevation of the left hemidiaphragm. There is no large pleural effusion. There is an abnormal convexity along the right mediastinal margin likely relating to the known right upper lobe pulmonary nodule. There is no otherwise radiographically apparent focal airspace consolidation. The recently noted right lower lobe pulmonary nodule on prior CT imaging is not well seen radiographically. There are metallic coils again noted in the epigastric region. IMPRESSION: 1. Right-sided port catheter tip at the level of the upper SVC. 2. Redemonstrated right upper lobe pulmonary nodule. 3. No identified interval acute cardiopulmonary abnormality. Dictated by: Dictated on workstation # [id number]
--- NOTE | 2020-07-08 10:29 | Anesthesia-General Post-Op ---
MAC Patient Condition Mental Status/LOC: Same as Preop Cardiovascular: Satisfactory Nausea/Vomiting: Absent Respiratory: Satisfactory Pain: Controlled Complications: Absent Post Op Complications Complications None Follow Up Care/Instructions Patient Instructions None needed. Anesthesiology Discharge Order Discharge Order Patient is doing well, no complaints, stable vital signs, no apparent adverse anesthesia problems. No complications reported per nursing. JOSE CERVANTES CRNA Jul 08, 2020 10:29
== END 2020-07-08 11:15 ==
LOC: SDC 07:42
PROVIDERS: ATTEND Surgery
DX: T82.598A Other mechanical complication of other cardiac and vascular devices and implants, initial encounter (principal); C20 Malignant neoplasm of rectum; C77.1 Secondary and unspecified malignant neoplasm of intrathoracic lymph nodes; B18.2 Chronic viral hepatitis C; E83.42 Hypomagnesemia; I10 Essential (primary) hypertension; C78.01 Secondary malignant neoplasm of right lung; I87.2 Venous insufficiency (chronic) (peripheral); D50.9 Iron deficiency anemia, unspecified; Z79.899 Other long term (current) drug therapy
CPT/HCPCS: 36561; 36590; 71045; 76000; 87081; C1788; C1894; 88300

== ENCOUNTER 2020-07-26 08:59 | Outpatient (RCR) | payer BC ==
[2020-06-14 10:46] LABS: BASOPHILS % (AUTO) 1 % (0-10); EOSINOPHILS # (AUTO) 0.1 10^3/uL (0.0-0.3); EOSINOPHILS % (AUTO) 3 % (0-10); HEMATOCRIT 34 % (40-54); HEMOGLOBIN 10.8 g/dL (13.3-17.7); LYMPHOCYTES # (AUTO) 0.7 10^3/uL (1.0-4.0); LYMPHOCYTES % (AUTO) 24 % (12-44); MEAN CORPUSCULAR HEMOGLOBIN 30 pg (25-34); MEAN CORPUSCULAR HGB CONC 32 g/dL (32-36); MEAN CORPUSCULAR VOLUME 97 fL (80-99); MEAN PLATELET VOLUME 10.2 fL (9.0-12.2); MONOCYTES # (AUTO) 0.5 10^3/uL (0.0-1.0); MONOCYTES % (AUTO) 17 % (0-12); NEUTROPHILS # (AUTO) 1.6 10^3/uL (1.8-7.8); NEUTROPHILS % (AUTO) 54 % (42-75); PLATELET COUNT 141 10^3/uL (130-400)
[2020-06-14 11:06] LABS: ALANINE AMINOTRANSFERASE 22 U/L (0-55); ALKALINE PHOSPHATASE 103 U/L (40-136); BILIRUBIN,TOTAL 0.8 MG/DL (0.1-1.0); BUN/CREATININE RATIO 16; CALCIUM 8.2 MG/DL (8.5-10.1); CARBON DIOXIDE 21 MMOL/L (21-32); CHLORIDE 110 MMOL/L (98-107); CREATININE SERUM 0.81 MG/DL (0.60-1.30); GFR ESTIMATED > 60; GLUCOSE 116 MG/DL (70-105); MAGNESIUM 1.5 MG/DL (1.6-2.4); POTASSIUM 3.6 MMOL/L (3.6-5.0); SODIUM 140 MMOL/L (135-145); TOTAL PROTEIN 5.8 GM/DL (6.4-8.2)
[2020-06-20 14:54] LABS: BASOPHILS % (AUTO) 1 % (0-10); EOSINOPHILS # (AUTO) 0.1 10^3/uL (0.0-0.3); EOSINOPHILS % (AUTO) 2 % (0-10); HEMATOCRIT 40 % (40-54); HEMOGLOBIN 12.9 g/dL (13.3-17.7); LYMPHOCYTES # (AUTO) 0.7 10^3/uL (1.0-4.0); LYMPHOCYTES % (AUTO) 18 % (12-44); MEAN CORPUSCULAR HEMOGLOBIN 31 pg (25-34); MEAN CORPUSCULAR HGB CONC 32 g/dL (32-36); MEAN CORPUSCULAR VOLUME 96 fL (80-99); MEAN PLATELET VOLUME 10.2 fL (9.0-12.2); MONOCYTES # (AUTO) 0.4 10^3/uL (0.0-1.0); MONOCYTES % (AUTO) 9 % (0-12); NEUTROPHILS # (AUTO) 2.9 10^3/uL (1.8-7.8); NEUTROPHILS % (AUTO) 69 % (42-75); PLATELET COUNT 163 10^3/uL (130-400); WHITE BLOOD COUNT 4.2 10^3/uL (4.3-11.0)
[2020-06-20 15:06] LABS: BUN/CREATININE RATIO 15; CALCIUM 8.6 MG/DL (8.5-10.1); CARBON DIOXIDE 25 MMOL/L (21-32); CHLORIDE 105 MMOL/L (98-107); CREATININE SERUM 0.79 MG/DL (0.60-1.30); GFR ESTIMATED > 60; GLUCOSE 102 MG/DL (70-105); POTASSIUM 3.9 MMOL/L (3.6-5.0); SODIUM 139 MMOL/L (135-145)
[2020-06-28 09:21] LABS: BASOPHILS % (AUTO) 1 % (0-10); EOSINOPHILS # (AUTO) 0.1 10^3/uL (0.0-0.3); EOSINOPHILS % (AUTO) 4 % (0-10); HEMATOCRIT 32 % (40-54); HEMOGLOBIN 10.2 g/dL (13.3-17.7); LYMPHOCYTES # (AUTO) 0.8 10^3/uL (1.0-4.0); LYMPHOCYTES % (AUTO) 27 % (12-44); MEAN CORPUSCULAR HEMOGLOBIN 31 pg (25-34); MEAN CORPUSCULAR HGB CONC 32 g/dL (32-36); MEAN CORPUSCULAR VOLUME 95 fL (80-99); MEAN PLATELET VOLUME 9.9 fL (9.0-12.2); MONOCYTES # (AUTO) 0.6 10^3/uL (0.0-1.0); MONOCYTES % (AUTO) 21 % (0-12); NEUTROPHILS # (AUTO) 1.4 10^3/uL (1.8-7.8); NEUTROPHILS % (AUTO) 47 % (42-75); PLATELET COUNT 151 10^3/uL (130-400)
[2020-06-28 09:42] LABS: ALANINE AMINOTRANSFERASE 35 U/L (0-55); ALBUMIN 2.8 GM/DL (3.2-4.5); ALKALINE PHOSPHATASE 119 U/L (40-136); BILIRUBIN,TOTAL 0.6 MG/DL (0.1-1.0); BUN/CREATININE RATIO 14; CALCIUM 8.2 MG/DL (8.5-10.1); CARBON DIOXIDE 25 MMOL/L (21-32); CHLORIDE 109 MMOL/L (98-107); CREATININE SERUM 0.74 MG/DL (0.60-1.30); GFR ESTIMATED > 60; GLUCOSE 103 MG/DL (70-105); MAGNESIUM 1.2 MG/DL (1.6-2.4); POTASSIUM 3.4 MMOL/L (3.6-5.0); SODIUM 140 MMOL/L (135-145); TOTAL PROTEIN 5.7 GM/DL (6.4-8.2)
[2020-07-04 15:23] LABS: BASOPHILS % (AUTO) 1 % (0-10); EOSINOPHILS # (AUTO) 0.1 10^3/uL (0.0-0.3); EOSINOPHILS % (AUTO) 3 % (0-10); HEMATOCRIT 35 % (40-54); LYMPHOCYTES # (AUTO) 1.2 10^3/uL (1.0-4.0); LYMPHOCYTES % (AUTO) 25 % (12-44); MEAN CORPUSCULAR HEMOGLOBIN 30 pg (25-34); MEAN CORPUSCULAR HGB CONC 32 g/dL (32-36); MEAN CORPUSCULAR VOLUME 96 fL (80-99); MEAN PLATELET VOLUME 9.4 fL (9.0-12.2); MONOCYTES # (AUTO) 0.3 10^3/uL (0.0-1.0); MONOCYTES % (AUTO) 5 % (0-12); NEUTROPHILS # (AUTO) 3.1 10^3/uL (1.8-7.8); NEUTROPHILS % (AUTO) 65 % (42-75); PLATELET COUNT 170 10^3/uL (130-400); WHITE BLOOD COUNT 4.8 10^3/uL (4.3-11.0)
[2020-07-04 15:33] LABS: BUN/CREATININE RATIO 19; CALCIUM 8.7 MG/DL (8.5-10.1); CARBON DIOXIDE 29 MMOL/L (21-32); CHLORIDE 107 MMOL/L (98-107); CREATININE SERUM 0.83 MG/DL (0.60-1.30); GFR ESTIMATED > 60; GLUCOSE 92 MG/DL (70-105); POTASSIUM 3.8 MMOL/L (3.6-5.0); SODIUM 141 MMOL/L (135-145)
[2020-07-12 11:32] LABS: BASOPHILS % (AUTO) 1 % (0-10); EOSINOPHILS # (AUTO) 0.1 10^3/uL (0.0-0.3); EOSINOPHILS % (AUTO) 4 % (0-10); HEMATOCRIT 34 % (40-54); HEMOGLOBIN 10.7 g/dL (13.3-17.7); LYMPHOCYTES # (AUTO) 0.9 10^3/uL (1.0-4.0); LYMPHOCYTES % (AUTO) 28 % (12-44); MEAN CORPUSCULAR HEMOGLOBIN 31 pg (25-34); MEAN CORPUSCULAR HGB CONC 32 g/dL (32-36); MEAN CORPUSCULAR VOLUME 97 fL (80-99); MEAN PLATELET VOLUME 10.1 fL (9.0-12.2); MONOCYTES # (AUTO) 0.5 10^3/uL (0.0-1.0); MONOCYTES % (AUTO) 16 % (0-12); NEUTROPHILS # (AUTO) 1.6 10^3/uL (1.8-7.8); NEUTROPHILS % (AUTO) 51 % (42-75); PLATELET COUNT 151 10^3/uL (130-400); WHITE BLOOD COUNT 3.2 10^3/uL (4.3-11.0)
[2020-07-12 11:50] LABS: ALANINE AMINOTRANSFERASE 31 U/L (0-55); ALBUMIN 2.9 GM/DL (3.2-4.5); ALKALINE PHOSPHATASE 104 U/L (40-136); BILIRUBIN,TOTAL 0.6 MG/DL (0.1-1.0); BUN/CREATININE RATIO 18; CARBON DIOXIDE 22 MMOL/L (21-32); CHLORIDE 111 MMOL/L (98-107); CREATININE SERUM 0.76 MG/DL (0.60-1.30); GFR ESTIMATED > 60; GLUCOSE 107 MG/DL (70-105); MAGNESIUM 1.5 MG/DL (1.6-2.4); POTASSIUM 3.4 MMOL/L (3.6-5.0); SODIUM 140 MMOL/L (135-145); TOTAL PROTEIN 5.6 GM/DL (6.4-8.2)
[2020-07-18 10:09] LABS: BASOPHILS % (AUTO) 1 % (0-10); EOSINOPHILS # (AUTO) 0.1 10^3/uL (0.0-0.3); EOSINOPHILS % (AUTO) 2 % (0-10); HEMATOCRIT 34 % (40-54); HEMOGLOBIN 10.9 g/dL (13.3-17.7); LYMPHOCYTES # (AUTO) 0.9 10^3/uL (1.0-4.0); LYMPHOCYTES % (AUTO) 18 % (12-44); MEAN CORPUSCULAR HEMOGLOBIN 30 pg (25-34); MEAN CORPUSCULAR HGB CONC 32 g/dL (32-36); MEAN CORPUSCULAR VOLUME 95 fL (80-99); MEAN PLATELET VOLUME 10.2 fL (9.0-12.2); MONOCYTES # (AUTO) 0.3 10^3/uL (0.0-1.0); MONOCYTES % (AUTO) 5 % (0-12); NEUTROPHILS # (AUTO) 3.9 10^3/uL (1.8-7.8); NEUTROPHILS % (AUTO) 74 % (42-75); PLATELET COUNT 143 10^3/uL (130-400); WHITE BLOOD COUNT 5.3 10^3/uL (4.3-11.0)
[2020-07-18 10:25] LABS: BUN/CREATININE RATIO 19; CALCIUM 8.1 MG/DL (8.5-10.1); CARBON DIOXIDE 26 MMOL/L (21-32); CHLORIDE 109 MMOL/L (98-107); CREATININE SERUM 0.81 MG/DL (0.60-1.30); GFR ESTIMATED > 60; GLUCOSE 89 MG/DL (70-105); POTASSIUM 3.3 MMOL/L (3.6-5.0); SODIUM 139 MMOL/L (135-145)
[~2020-07-26] VITALS: Ht 177.8 cm; Wt 74.4 kg
[~2020-07-26 08:59] MED LIST changes: +ATROPINE INJ 0.4 MG/ML SDV (CANCER CENTER) IV SCH; +ERGO2500 PO; +FILGRASTIM 480 MCG/1.6 ML VIAL CANCER CENTER SQ SCH; +FOSAPREPITANT (CANCER CENTER) 150 MG in NS (IVPB) CANCER CENTER ONLY 150 ML IV SCH; +IRINOTECAN HCL 300 MG in D5W 250 ML IVPB (CANCER CTR) 250 ML IV SCH; +LEUCOVORIN CALCIUM 400 MG in D5W 250 ML IVPB (CANCER CTR) 250 ML IV SCH; +MAGNESIUM SULFATE (CANCER CTR) 3 GM in NS (IVPB) CANCER CENTER 100 ML IV ONE; +NS IV 1000 ML (CANCER CTR) IV SCH; +PANITUMUMAB INJECTION 400 MG in NS (IVPB) CANCER CENTER 100 ML IV SCH
[2020-07-26 09:34] LABS: BASOPHILS % (AUTO) 1 % (0-10); EOSINOPHILS # (AUTO) 0.1 10^3/uL (0.0-0.3); EOSINOPHILS % (AUTO) 4 % (0-10); HEMATOCRIT 35 % (40-54); HEMOGLOBIN 11.3 g/dL (13.3-17.7); LYMPHOCYTES # (AUTO) 1.2 10^3/uL (1.0-4.0); LYMPHOCYTES % (AUTO) 37 % (12-44); MEAN CORPUSCULAR HEMOGLOBIN 30 pg (25-34); MEAN CORPUSCULAR HGB CONC 32 g/dL (32-36); MEAN CORPUSCULAR VOLUME 94 fL (80-99); MEAN PLATELET VOLUME 10.4 fL (9.0-12.2); MONOCYTES # (AUTO) 0.5 10^3/uL (0.0-1.0); MONOCYTES % (AUTO) 15 % (0-12); NEUTROPHILS # (AUTO) 1.3 10^3/uL (1.8-7.8); NEUTROPHILS % (AUTO) 43 % (42-75); PLATELET COUNT 193 10^3/uL (130-400); WHITE BLOOD COUNT 3.2 10^3/uL (4.3-11.0)
[2020-07-26 09:56] LABS: ALANINE AMINOTRANSFERASE 28 U/L (0-55); ALKALINE PHOSPHATASE 110 U/L (40-136); BILIRUBIN,TOTAL 0.5 MG/DL (0.1-1.0); BUN/CREATININE RATIO 12; CALCIUM 8.5 MG/DL (8.5-10.1); CARBON DIOXIDE 28 MMOL/L (21-32); CHLORIDE 110 MMOL/L (98-107); CREATININE SERUM 0.81 MG/DL (0.60-1.30); GFR ESTIMATED > 60; GLUCOSE 124 MG/DL (70-105); MAGNESIUM 1.5 MG/DL (1.6-2.4); POTASSIUM 3.4 MMOL/L (3.6-5.0); SODIUM 140 MMOL/L (135-145)
== END 2020-08-01 10:27 | disposition home or self-care (01) ==
LOC: ONC 08:59
PROVIDERS: ATTEND Internal Medicine Hematology & Oncology
DX: Z51.11 Encounter for antineoplastic chemotherapy (principal); C20 Malignant neoplasm of rectum; C78.01 Secondary malignant neoplasm of right lung; C77.1 Secondary and unspecified malignant neoplasm of intrathoracic lymph nodes; K74.60 Unspecified cirrhosis of liver; K76.6 Portal hypertension; K14.0 Glossitis; R19.7 Diarrhea, unspecified; R21 Rash and other nonspecific skin eruption; D75.9 Disease of blood and blood-forming organs, unspecified; B19.20 Unspecified viral hepatitis C without hepatic coma; Z93.3 Colostomy status; Z79.899 Other long term (current) drug therapy; Z98.890 Other specified postprocedural states
CPT/HCPCS: 80053; 83735; 85025; 96367; 96368; 96375; 96413; 96417; 96521; G0463; 36591; 80048; 82378; 96372

== ENCOUNTER → 2020-09-26 | Outpatient (CLI) | payer BC ==
[~2020-09-26] MED LIST changes: -ATROPINE INJ 0.4 MG/ML SDV (CANCER CENTER) IV SCH; +CATHETER FLUSH 10 ML SYR IV PRN; -FILGRASTIM 480 MCG/1.6 ML VIAL CANCER CENTER SQ SCH; -FOSAPREPITANT (CANCER CENTER) 150 MG in NS (IVPB) CANCER CENTER ONLY 150 ML IV SCH; +HOLD METFORMIN - RECEIVED CONTRAST 20 ML VIAL IV SCH; +IOHEXOL 350 MG/ML 100 ML (OMNIPAQUE 350) VIAL IV ONE; -IRINOTECAN HCL 300 MG in D5W 250 ML IVPB (CANCER CTR) 250 ML IV SCH; -LEUCOVORIN CALCIUM 400 MG in D5W 250 ML IVPB (CANCER CTR) 250 ML IV SCH; -LISI-552 PO; -LISI-556 PO; +LISI-729 PO; +LISI20TA26 PO; -MAGNESIUM SULFATE (CANCER CTR) 3 GM in NS (IVPB) CANCER CENTER 100 ML IV ONE; +NS 100 ML (IVPB) BAG IV ONE; -NS IV 1000 ML (CANCER CTR) IV SCH; -PANITUMUMAB INJECTION 400 MG in NS (IVPB) CANCER CENTER 100 ML IV SCH
--- NOTE | 2020-09-26 10:37 | Diagnostic Imaging Report ---
EXAMINATION: CT Chest with intravenous contrast, CT Abdomen and Pelvis without and with intravenous contrast. TECHNIQUE: Pre and post intravenous contrast axial imaging of the abdomen and pelvis and post contrast axial imaging of the chest were performed. All CT scans use one or more of the following dose optimizing techniques: automated exposure control, MA and/or KvP adjustment based on a patient size and exam type, or iterative reconstruction. HISTORY: Lung cancer COMPARISON: 07/06/2020 FINDINGS: There is no edema or pneumonia. No pleural effusion. No pneumothorax. Right suprahilar mass measures 2.6 x 2.6 cm, previously 2.4 x 2.7 cm, is not significantly changed. There is an unchanged 8 mm nodule associated with the right hemidiaphragm along the pleural space. There is no axillary or supraclavicular lymphadenopathy. There is no mediastinal lymphadenopathy. Right-sided Port-A-Cath is present. Heart size is normal. There are moderate coronary artery calcifications. No pericardial effusion. Aorta is normal in caliber. Liver is cirrhotic. A catheter-based intrahepatic portosystemic shunt is present. There is no biliary ductal dilation. The bladder is not well seen. Embolization coils are seen near the gastroduodenal artery. Pancreas is normal. Spleen is enlarged. Adrenal glands are normal. The kidneys are normal. There is no hydronephrosis. Urinary bladder is normal. Visualized bowel is normal in caliber without obstruction or inflammation. There is a left lower quadrant ostomy. Hernia repair is seen in the lower abdomen. There is a stable small amount of fluid in the presacral space which may represent a postsurgical seroma. No free fluid or air. No abdominal or pelvic lymphadenopathy. Aorta is normal in caliber without aneurysm. There is a left ureteral hydrocele. There is an unchanged sclerotic lesion in the right ilium associated with the sacroiliac joint. This is unchanged from 2014 and likely benign. There is minimal left pelvic fixation. IMPRESSION: 1. Stable right suprahilar mass and pleural-based nodules associated with the right hemidiaphragm. 2. Cirrhosis with portal hypertension. 3. No new metastatic disease. Dictated by: Dictated on workstation # [id number]
== END ==
LOC: RAD 09:41
PROVIDERS: ATTEND Nurse Practitioner Adult Health
DX: C20 Malignant neoplasm of rectum (principal); C77.1 Secondary and unspecified malignant neoplasm of intrathoracic lymph nodes; C78.01 Secondary malignant neoplasm of right lung; R91.8 Other nonspecific abnormal finding of lung field; K76.6 Portal hypertension; K74.60 Unspecified cirrhosis of liver
CPT/HCPCS: 71260; 74178

== ENCOUNTER → 2020-10-31 | Outpatient (RCR) | payer BC ==
[2020-08-16 09:15] LABS: BASOPHILS % (AUTO) 1 % (0-10); EOSINOPHILS # (AUTO) 0.3 10^3/uL (0.0-0.3); EOSINOPHILS % (AUTO) 7 % (0-10); HEMATOCRIT 37 % (40-54); HEMOGLOBIN 11.5 g/dL (13.3-17.7); LYMPHOCYTES # (AUTO) 1.3 10^3/uL (1.0-4.0); LYMPHOCYTES % (AUTO) 29 % (12-44); MEAN CORPUSCULAR HEMOGLOBIN 30 pg (25-34); MEAN CORPUSCULAR HGB CONC 31 g/dL (32-36); MEAN CORPUSCULAR VOLUME 95 fL (80-99); MEAN PLATELET VOLUME 9.9 fL (9.0-12.2); MONOCYTES # (AUTO) 0.6 10^3/uL (0.0-1.0); MONOCYTES % (AUTO) 12 % (0-12); NEUTROPHILS # (AUTO) 2.4 10^3/uL (1.8-7.8); NEUTROPHILS % (AUTO) 51 % (42-75); PLATELET COUNT 145 10^3/uL (130-400); WHITE BLOOD COUNT 4.6 10^3/uL (4.3-11.0)
[2020-08-16 09:33] LABS: ALANINE AMINOTRANSFERASE 26 U/L (0-55); ALBUMIN 3.1 GM/DL (3.2-4.5); ALKALINE PHOSPHATASE 93 U/L (40-136); BILIRUBIN,TOTAL 0.6 MG/DL (0.1-1.0); BUN/CREATININE RATIO 18; CALCIUM 8.7 MG/DL (8.5-10.1); CARBON DIOXIDE 24 MMOL/L (21-32); CHLORIDE 111 MMOL/L (98-107); GFR ESTIMATED > 60; GLUCOSE 108 MG/DL (70-105); POTASSIUM 3.8 MMOL/L (3.6-5.0); SODIUM 142 MMOL/L (135-145); TOTAL PROTEIN 6.2 GM/DL (6.4-8.2)
[2020-08-22 15:56] LABS: BASOPHILS % (AUTO) 0 % (0-10); EOSINOPHILS # (AUTO) 0.2 10^3/uL (0.0-0.3); EOSINOPHILS % (AUTO) 3 % (0-10); HEMATOCRIT 40 % (40-54); HEMOGLOBIN 12.8 g/dL (13.3-17.7); LYMPHOCYTES # (AUTO) 1.3 10^3/uL (1.0-4.0); LYMPHOCYTES % (AUTO) 17 % (12-44); MEAN CORPUSCULAR HEMOGLOBIN 30 pg (25-34); MEAN CORPUSCULAR HGB CONC 32 g/dL (32-36); MEAN CORPUSCULAR VOLUME 93 fL (80-99); MEAN PLATELET VOLUME 10.5 fL (9.0-12.2); MONOCYTES # (AUTO) 0.5 10^3/uL (0.0-1.0); MONOCYTES % (AUTO) 6 % (0-12); NEUTROPHILS # (AUTO) 5.5 10^3/uL (1.8-7.8); NEUTROPHILS % (AUTO) 73 % (42-75); PLATELET COUNT 134 10^3/uL (130-400); WHITE BLOOD COUNT 7.5 10^3/uL (4.3-11.0)
[2020-08-22 16:21] LABS: BUN/CREATININE RATIO 18; CALCIUM 8.3 MG/DL (8.5-10.1); CARBON DIOXIDE 23 MMOL/L (21-32); CHLORIDE 105 MMOL/L (98-107); CREATININE SERUM 0.79 MG/DL (0.60-1.30); GFR ESTIMATED > 60; GLUCOSE 99 MG/DL (70-105); POTASSIUM 4.3 MMOL/L (3.6-5.0); SODIUM 138 MMOL/L (135-145)
[2020-08-30 09:18] LABS: BASOPHILS % (AUTO) 1 % (0-10); EOSINOPHILS # (AUTO) 0.1 10^3/uL (0.0-0.3); EOSINOPHILS % (AUTO) 3 % (0-10); HEMATOCRIT 34 % (40-54); HEMOGLOBIN 10.9 g/dL (13.3-17.7); LYMPHOCYTES # (AUTO) 0.9 10^3/uL (1.0-4.0); LYMPHOCYTES % (AUTO) 30 % (12-44); MEAN CORPUSCULAR HEMOGLOBIN 30 pg (25-34); MEAN CORPUSCULAR HGB CONC 32 g/dL (32-36); MEAN CORPUSCULAR VOLUME 91 fL (80-99); MEAN PLATELET VOLUME 9.3 fL (9.0-12.2); MONOCYTES # (AUTO) 0.5 10^3/uL (0.0-1.0); MONOCYTES % (AUTO) 15 % (0-12); NEUTROPHILS # (AUTO) 1.7 10^3/uL (1.8-7.8); NEUTROPHILS % (AUTO) 52 % (42-75); PLATELET COUNT 158 10^3/uL (130-400); WHITE BLOOD COUNT 3.2 10^3/uL (4.3-11.0)
[2020-08-30 09:51] LABS: ALANINE AMINOTRANSFERASE 27 U/L (0-55); ALBUMIN 2.9 GM/DL (3.2-4.5); ALKALINE PHOSPHATASE 118 U/L (40-136); BILIRUBIN,TOTAL 0.6 MG/DL (0.1-1.0); BUN/CREATININE RATIO 17; CALCIUM 8.5 MG/DL (8.5-10.1); CARBON DIOXIDE 23 MMOL/L (21-32); CHLORIDE 109 MMOL/L (98-107); CREATININE SERUM 0.83 MG/DL (0.60-1.30); GFR ESTIMATED > 60; GLUCOSE 116 MG/DL (70-105); MAGNESIUM 1.6 MG/DL (1.6-2.4); POTASSIUM 3.4 MMOL/L (3.6-5.0); SODIUM 139 MMOL/L (135-145); TOTAL PROTEIN 5.9 GM/DL (6.4-8.2)
[2020-09-05 15:53] LABS: BASOPHILS % (AUTO) 1 % (0-10); EOSINOPHILS # (AUTO) 0.1 10^3/uL (0.0-0.3); EOSINOPHILS % (AUTO) 3 % (0-10); HEMATOCRIT 37 % (40-54); HEMOGLOBIN 11.7 g/dL (13.3-17.7); LYMPHOCYTES # (AUTO) 1.2 10^3/uL (1.0-4.0); LYMPHOCYTES % (AUTO) 32 % (12-44); MEAN CORPUSCULAR HEMOGLOBIN 30 pg (25-34); MEAN CORPUSCULAR HGB CONC 32 g/dL (32-36); MEAN CORPUSCULAR VOLUME 92 fL (80-99); MEAN PLATELET VOLUME 9.9 fL (9.0-12.2); MONOCYTES # (AUTO) 0.2 10^3/uL (0.0-1.0); MONOCYTES % (AUTO) 5 % (0-12); NEUTROPHILS # (AUTO) 2.2 10^3/uL (1.8-7.8); NEUTROPHILS % (AUTO) 58 % (42-75); PLATELET COUNT 166 10^3/uL (130-400); WHITE BLOOD COUNT 3.9 10^3/uL (4.3-11.0)
[2020-09-05 16:13] LABS: ALANINE AMINOTRANSFERASE 34 U/L (0-55); ALBUMIN 3.2 GM/DL (3.2-4.5); ALKALINE PHOSPHATASE 111 U/L (40-136); BILIRUBIN,TOTAL 0.4 MG/DL (0.1-1.0); BUN/CREATININE RATIO 19; CALCIUM 8.7 MG/DL (8.5-10.1); CARBON DIOXIDE 25 MMOL/L (21-32); CHLORIDE 106 MMOL/L (98-107); GFR ESTIMATED > 60; GLUCOSE 100 MG/DL (70-105); POTASSIUM 3.7 MMOL/L (3.6-5.0); SODIUM 140 MMOL/L (135-145); TOTAL PROTEIN 6.3 GM/DL (6.4-8.2)
[2020-09-13 11:24] LABS: BASOPHILS % (AUTO) 1 % (0-10); EOSINOPHILS # (AUTO) 0.1 10^3/uL (0.0-0.3); EOSINOPHILS % (AUTO) 3 % (0-10); HEMATOCRIT 33 % (40-54); HEMOGLOBIN 10.7 g/dL (13.3-17.7); LYMPHOCYTES # (AUTO) 0.9 10^3/uL (1.0-4.0); LYMPHOCYTES % (AUTO) 29 % (12-44); MEAN CORPUSCULAR HEMOGLOBIN 29 pg (25-34); MEAN CORPUSCULAR HGB CONC 32 g/dL (32-36); MEAN CORPUSCULAR VOLUME 91 fL (80-99); MEAN PLATELET VOLUME 9.2 fL (9.0-12.2); MONOCYTES # (AUTO) 0.5 10^3/uL (0.0-1.0); MONOCYTES % (AUTO) 16 % (0-12); NEUTROPHILS # (AUTO) 1.5 10^3/uL (1.8-7.8); NEUTROPHILS % (AUTO) 51 % (42-75); PLATELET COUNT 172 10^3/uL (130-400)
[2020-09-13 11:36] LABS: ALANINE AMINOTRANSFERASE 20 U/L (0-55); ALBUMIN 2.9 GM/DL (3.2-4.5); ALKALINE PHOSPHATASE 104 U/L (40-136); BILIRUBIN,TOTAL 0.5 MG/DL (0.1-1.0); BUN/CREATININE RATIO 14; CALCIUM 8.2 MG/DL (8.5-10.1); CARBON DIOXIDE 22 MMOL/L (21-32); CHLORIDE 110 MMOL/L (98-107); CREATININE SERUM 0.72 MG/DL (0.60-1.30); GFR ESTIMATED > 60; GLUCOSE 107 MG/DL (70-105); MAGNESIUM 1.6 MG/DL (1.6-2.4); POTASSIUM 3.6 MMOL/L (3.6-5.0); SODIUM 139 MMOL/L (135-145); TOTAL PROTEIN 5.9 GM/DL (6.4-8.2)
[2020-09-19 10:26] LABS: BASOPHILS % (AUTO) 1 % (0-10); EOSINOPHILS # (AUTO) 0.1 10^3/uL (0.0-0.3); EOSINOPHILS % (AUTO) 1 % (0-10); HEMATOCRIT 34 % (40-54); HEMOGLOBIN 10.7 g/dL (13.3-17.7); LYMPHOCYTES # (AUTO) 0.9 10^3/uL (1.0-4.0); LYMPHOCYTES % (AUTO) 23 % (12-44); MEAN CORPUSCULAR HEMOGLOBIN 29 pg (25-34); MEAN CORPUSCULAR HGB CONC 32 g/dL (32-36); MEAN CORPUSCULAR VOLUME 92 fL (80-99); MEAN PLATELET VOLUME 10.1 fL (9.0-12.2); MONOCYTES # (AUTO) 0.2 10^3/uL (0.0-1.0); MONOCYTES % (AUTO) 4 % (0-12); NEUTROPHILS # (AUTO) 2.8 10^3/uL (1.8-7.8); NEUTROPHILS % (AUTO) 70 % (42-75); PLATELET COUNT 141 10^3/uL (130-400); WHITE BLOOD COUNT 4.1 10^3/uL (4.3-11.0)
[2020-09-19 10:48] LABS: BUN/CREATININE RATIO 18; CALCIUM 8.2 MG/DL (8.5-10.1); CARBON DIOXIDE 25 MMOL/L (21-32); CHLORIDE 111 MMOL/L (98-107); CREATININE SERUM 0.84 MG/DL (0.60-1.30); GFR ESTIMATED > 60; GLUCOSE 107 MG/DL (70-105); POTASSIUM 3.5 MMOL/L (3.6-5.0); SODIUM 142 MMOL/L (135-145)
[2020-09-27 10:17] LABS: BASOPHILS % (AUTO) 1 % (0-10); EOSINOPHILS # (AUTO) 0.1 10^3/uL (0.0-0.3); EOSINOPHILS % (AUTO) 2 % (0-10); HEMATOCRIT 35 % (40-54); HEMOGLOBIN 10.9 g/dL (13.3-17.7); LYMPHOCYTES # (AUTO) 0.9 10^3/uL (1.0-4.0); LYMPHOCYTES % (AUTO) 25 % (12-44); MEAN CORPUSCULAR HEMOGLOBIN 29 pg (25-34); MEAN CORPUSCULAR HGB CONC 31 g/dL (32-36); MEAN CORPUSCULAR VOLUME 92 fL (80-99); MEAN PLATELET VOLUME 9.9 fL (9.0-12.2); MONOCYTES # (AUTO) 0.4 10^3/uL (0.0-1.0); MONOCYTES % (AUTO) 11 % (0-12); NEUTROPHILS # (AUTO) 2.1 10^3/uL (1.8-7.8); NEUTROPHILS % (AUTO) 61 % (42-75); PLATELET COUNT 160 10^3/uL (130-400); WHITE BLOOD COUNT 3.4 10^3/uL (4.3-11.0)
[2020-09-27 10:32] LABS: ALANINE AMINOTRANSFERASE 32 U/L (0-55); ALKALINE PHOSPHATASE 112 U/L (40-136); BILIRUBIN,TOTAL 0.4 MG/DL (0.1-1.0); BUN/CREATININE RATIO 16; CALCIUM 8.2 MG/DL (8.5-10.1); CARBON DIOXIDE 22 MMOL/L (21-32); CHLORIDE 113 MMOL/L (98-107); CREATININE SERUM 0.82 MG/DL (0.60-1.30); GFR ESTIMATED > 60; GLUCOSE 116 MG/DL (70-105); MAGNESIUM 1.7 MG/DL (1.6-2.4); POTASSIUM 3.6 MMOL/L (3.6-5.0); SODIUM 142 MMOL/L (135-145); TOTAL PROTEIN 5.7 GM/DL (6.4-8.2)
[2020-10-05 09:37] LABS: BASOPHILS % (AUTO) 1 % (0-10); EOSINOPHILS # (AUTO) 0.1 10^3/uL (0.0-0.3); EOSINOPHILS % (AUTO) 3 % (0-10); HEMATOCRIT 38 % (40-54); HEMOGLOBIN 11.9 g/dL (13.3-17.7); LYMPHOCYTES # (AUTO) 0.7 10^3/uL (1.0-4.0); LYMPHOCYTES % (AUTO) 21 % (12-44); MEAN CORPUSCULAR HEMOGLOBIN 29 pg (25-34); MEAN CORPUSCULAR HGB CONC 31 g/dL (32-36); MEAN CORPUSCULAR VOLUME 93 fL (80-99); MEAN PLATELET VOLUME 10.5 fL (9.0-12.2); MONOCYTES # (AUTO) 0.8 10^3/uL (0.0-1.0); MONOCYTES % (AUTO) 23 % (0-12); NEUTROPHILS # (AUTO) 1.7 10^3/uL (1.8-7.8); NEUTROPHILS % (AUTO) 51 % (42-75); PLATELET COUNT 166 10^3/uL (130-400); WHITE BLOOD COUNT 3.4 10^3/uL (4.3-11.0)
[2020-10-05 09:59] LABS: BUN/CREATININE RATIO 18; CALCIUM 8.2 MG/DL (8.5-10.1); CARBON DIOXIDE 23 MMOL/L (21-32); CHLORIDE 109 MMOL/L (98-107); CREATININE SERUM 0.78 MG/DL (0.60-1.30); GFR ESTIMATED > 60; GLUCOSE 90 MG/DL (70-105); POTASSIUM 4.1 MMOL/L (3.6-5.0); SODIUM 140 MMOL/L (135-145)
[2020-10-11 10:02] LABS: BASOPHILS % (AUTO) 1 % (0-10); EOSINOPHILS # (AUTO) 0.1 10^3/uL (0.0-0.3); EOSINOPHILS % (AUTO) 2 % (0-10); HEMATOCRIT 34 % (40-54); HEMOGLOBIN 10.9 g/dL (13.3-17.7); LYMPHOCYTES # (AUTO) 0.9 10^3/uL (1.0-4.0); LYMPHOCYTES % (AUTO) 32 % (12-44); MEAN CORPUSCULAR HEMOGLOBIN 29 pg (25-34); MEAN CORPUSCULAR HGB CONC 32 g/dL (32-36); MEAN CORPUSCULAR VOLUME 90 fL (80-99); MEAN PLATELET VOLUME 9.8 fL (9.0-12.2); MONOCYTES # (AUTO) 0.4 10^3/uL (0.0-1.0); MONOCYTES % (AUTO) 14 % (0-12); NEUTROPHILS # (AUTO) 1.5 10^3/uL (1.8-7.8); NEUTROPHILS % (AUTO) 51 % (42-75); PLATELET COUNT 169 10^3/uL (130-400)
[2020-10-11 10:20] LABS: ALANINE AMINOTRANSFERASE 33 U/L (0-55); ALBUMIN 2.9 GM/DL (3.2-4.5); ALKALINE PHOSPHATASE 114 U/L (40-136); BILIRUBIN,TOTAL 0.4 MG/DL (0.1-1.0); BUN/CREATININE RATIO 12; CALCIUM 8.1 MG/DL (8.5-10.1); CARBON DIOXIDE 22 MMOL/L (21-32); CHLORIDE 109 MMOL/L (98-107); CREATININE SERUM 0.77 MG/DL (0.60-1.30); GFR ESTIMATED > 60; GLUCOSE 112 MG/DL (70-105); MAGNESIUM 1.3 MG/DL (1.6-2.4); POTASSIUM 3.7 MMOL/L (3.6-5.0); SODIUM 139 MMOL/L (135-145); TOTAL PROTEIN 5.8 GM/DL (6.4-8.2)
[2020-10-17 14:33] LABS: BASOPHILS % (AUTO) 1 % (0-10); EOSINOPHILS # (AUTO) 0.1 10^3/uL (0.0-0.3); EOSINOPHILS % (AUTO) 3 % (0-10); HEMATOCRIT 42 % (40-54); HEMOGLOBIN 13.4 g/dL (13.3-17.7); LYMPHOCYTES # (AUTO) 1.1 X 10^3 (1.0-4.0); LYMPHOCYTES % (AUTO) 30 % (12-44); MEAN CORPUSCULAR HEMOGLOBIN 28 pg (25-34); MEAN CORPUSCULAR HGB CONC 32 g/dL (32-36); MEAN CORPUSCULAR VOLUME 90 fL (80-99); MEAN PLATELET VOLUME 10.1 fL (9.0-12.2); MONOCYTES # (AUTO) 0.6 X 10^3 (0.0-1.0); MONOCYTES % (AUTO) 18 % (0-12); NEUTROPHILS # (AUTO) 1.8 X 10^3 (1.8-7.8); NEUTROPHILS % (AUTO) 49 % (42-75); PLATELET COUNT 205 10^3/uL (130-400); WHITE BLOOD COUNT 3.6 10^3/uL (4.3-11.0)
[2020-10-17 14:42] LABS: BUN/CREATININE RATIO 12; CALCIUM 8.6 MG/DL (8.5-10.1); CARBON DIOXIDE 26 MMOL/L (21-32); CHLORIDE 105 MMOL/L (98-107); GFR ESTIMATED > 60; GLUCOSE 107 MG/DL (70-105); SODIUM 138 MMOL/L (135-145)
[2020-10-25 09:13] LABS: BASOPHILS % (AUTO) 1 % (0-10); EOSINOPHILS # (AUTO) 0.1 10^3/uL (0.0-0.3); EOSINOPHILS % (AUTO) 2 % (0-10); HEMATOCRIT 34 % (40-54); HEMOGLOBIN 10.8 g/dL (13.3-17.7); LYMPHOCYTES # (AUTO) 0.9 10^3/uL (1.0-4.0); LYMPHOCYTES % (AUTO) 21 % (12-44); MEAN CORPUSCULAR HEMOGLOBIN 28 pg (25-34); MEAN CORPUSCULAR HGB CONC 32 g/dL (32-36); MEAN CORPUSCULAR VOLUME 89 fL (80-99); MEAN PLATELET VOLUME 10.2 fL (9.0-12.2); MONOCYTES # (AUTO) 0.5 10^3/uL (0.0-1.0); MONOCYTES % (AUTO) 10 % (0-12); NEUTROPHILS # (AUTO) 2.9 10^3/uL (1.8-7.8); NEUTROPHILS % (AUTO) 66 % (42-75); PLATELET COUNT 186 10^3/uL (130-400); WHITE BLOOD COUNT 4.3 10^3/uL (4.3-11.0)
[2020-10-25 09:36] LABS: ALANINE AMINOTRANSFERASE 31 U/L (0-55); ALKALINE PHOSPHATASE 105 U/L (40-136); BILIRUBIN,TOTAL 0.6 MG/DL (0.1-1.0); BUN/CREATININE RATIO 16; CALCIUM 8.6 MG/DL (8.5-10.1); CARBON DIOXIDE 23 MMOL/L (21-32); CHLORIDE 109 MMOL/L (98-107); CREATININE SERUM 0.76 MG/DL (0.60-1.30); GFR ESTIMATED > 60; GLUCOSE 111 MG/DL (70-105); MAGNESIUM 2.2 MG/DL (1.6-2.4); POTASSIUM 3.3 MMOL/L (3.6-5.0); SODIUM 141 MMOL/L (135-145); TOTAL PROTEIN 5.8 GM/DL (6.4-8.2)
[~2020-10-31] VITALS: Ht 177.8 cm; Wt 74.4 kg
[~2020-10-31] MED LIST changes: +ATROPINE INJ 0.4 MG/ML SDV (CANCER CENTER) IV SCH; -CATHETER FLUSH 10 ML SYR IV PRN; +FILGRASTIM 480 MCG/1.6 ML VIAL CANCER CENTER SQ SCH; +FOSAPREPITANT (CANCER CENTER) 150 MG in NS (IVPB) CANCER CENTER ONLY 150 ML IV SCH; -HOLD METFORMIN - RECEIVED CONTRAST 20 ML VIAL IV SCH; -IOHEXOL 350 MG/ML 100 ML (OMNIPAQUE 350) VIAL IV ONE; +IRINOTECAN HCL 300 MG in D5W 250 ML IVPB (CANCER CTR) 250 ML IV SCH; +LEUCOVORIN CALCIUM 400 MG in D5W 250 ML IVPB (CANCER CTR) 250 ML IV SCH; +MAGNESIUM SULFATE (CANCER CTR) 2 GM in NS (IVPB) CANCER CENTER 100 ML IV ONE; -NS 100 ML (IVPB) BAG IV ONE; +NS IV 1000 ML (CANCER CTR) IV SCH; +PANITUMUMAB INJECTION 400 MG in NS (IVPB) CANCER CENTER 100 ML IV SCH
[2020-10-31 15:54] LABS: BASOPHILS % (AUTO) 1 % (0-10); EOSINOPHILS # (AUTO) 0.1 10^3/uL (0.0-0.3); EOSINOPHILS % (AUTO) 4 % (0-10); HEMATOCRIT 36 % (40-54); HEMOGLOBIN 11.4 g/dL (13.3-17.7); LYMPHOCYTES # (AUTO) 0.8 10^3/uL (1.0-4.0); LYMPHOCYTES % (AUTO) 30 % (12-44); MEAN CORPUSCULAR HEMOGLOBIN 29 pg (25-34); MEAN CORPUSCULAR HGB CONC 32 g/dL (32-36); MEAN CORPUSCULAR VOLUME 91 fL (80-99); MEAN PLATELET VOLUME 10.3 fL (9.0-12.2); MONOCYTES # (AUTO) 0.4 10^3/uL (0.0-1.0); MONOCYTES % (AUTO) 14 % (0-12); NEUTROPHILS # (AUTO) 1.4 10^3/uL (1.8-7.8); NEUTROPHILS % (AUTO) 51 % (42-75); PLATELET COUNT 205 10^3/uL (130-400); WHITE BLOOD COUNT 2.7 10^3/uL (4.3-11.0)
[2020-10-31 16:39] LABS: BUN/CREATININE RATIO 15; CARBON DIOXIDE 26 MMOL/L (21-32); CHLORIDE 107 MMOL/L (98-107); CREATININE SERUM 0.82 MG/DL (0.60-1.30); GFR ESTIMATED > 60; GLUCOSE 74 MG/DL (70-105); POTASSIUM 3.9 MMOL/L (3.6-5.0); SODIUM 142 MMOL/L (135-145)
== END | disposition home or self-care (01) ==
LOC: ONC 08-02 13:10
PROVIDERS: ATTEND Internal Medicine Hematology & Oncology
DX: Z51.11 Encounter for antineoplastic chemotherapy (principal); C20 Malignant neoplasm of rectum; C78.01 Secondary malignant neoplasm of right lung; C77.1 Secondary and unspecified malignant neoplasm of intrathoracic lymph nodes; K74.60 Unspecified cirrhosis of liver; K76.6 Portal hypertension; K14.0 Glossitis; I10 Essential (primary) hypertension; R19.7 Diarrhea, unspecified; R21 Rash and other nonspecific skin eruption; D75.9 Disease of blood and blood-forming organs, unspecified; B19.20 Unspecified viral hepatitis C without hepatic coma; Z93.3 Colostomy status; Z79.899 Other long term (current) drug therapy; Z98.890 Other specified postprocedural states
CPT/HCPCS: 36591; 80048; 80053; 82306; 82378; 83735; 85025; 96367; 96368; 96372; 96375; 96411; 96413; 96417

== ENCOUNTER → 2020-12-16 | Outpatient (CLI) | payer BC ==
[~2020-12-16] MED LIST changes: -ATROPINE INJ 0.4 MG/ML SDV (CANCER CENTER) IV SCH; +BARIUM SUSPENSION 2.1% (VANILLA SILQ) 450 ML PO ONE; +CATHETER FLUSH 10 ML SYR IV PRN; -FILGRASTIM 480 MCG/1.6 ML VIAL CANCER CENTER SQ SCH; -FOSAPREPITANT (CANCER CENTER) 150 MG in NS (IVPB) CANCER CENTER ONLY 150 ML IV SCH; +HOLD METFORMIN - RECEIVED CONTRAST 20 ML VIAL IV SCH; +IOHEXOL 350 MG/ML 100 ML (OMNIPAQUE 350) VIAL IV ONE; -IRINOTECAN HCL 300 MG in D5W 250 ML IVPB (CANCER CTR) 250 ML IV SCH; -LEUCOVORIN CALCIUM 400 MG in D5W 250 ML IVPB (CANCER CTR) 250 ML IV SCH; -MAGNESIUM SULFATE (CANCER CTR) 2 GM in NS (IVPB) CANCER CENTER 100 ML IV ONE; +NS 100 ML (IVPB) BAG IV ONE; -NS IV 1000 ML (CANCER CTR) IV SCH; -PANITUMUMAB INJECTION 400 MG in NS (IVPB) CANCER CENTER 100 ML IV SCH
--- NOTE | 2020-12-16 12:54 | Diagnostic Imaging Report ---
PROCEDURE: CT chest with contrast, CT abdomen and pelvis with and without contrast. TECHNIQUE: Pre and post intravenous contrast axial imaging of the abdomen and pelvis and post contrast axial imaging of the chest were performed. Auto Exposure Controls were utilized during the CT exam to meet ALARA standards for radiation dose reduction. INDICATION: Malignant neoplasm of the rectum. COMPARISON: Comparison is made with prior CT of 09/26/2020. FINDINGS: CT CHEST: A right chest wall port has the tip within the SVC. No axillary lymphadenopathy is identified. Mass associated with the right hilum does appear to be increased in size, measuring approximately 3.2 x 2.9 cm compared with 2.6 x 2.7 cm when measured by similar technique. No pericardial or pleural fluid is identified. Small nodule in the right lung base along the pleural surface appears stable. Remainder of the lung waters are clear. No infiltrates are seen. IMPRESSION: 1. Slight increase in size of right suprahilar mass when compared with exam from 09/26/2020. No new abnormalities detected. CT ABDOMEN AND PELVIS: The liver again demonstrates a TIPS within the right lobe. No discrete liver mass is identified. Gallbladder is unremarkable. There is no biliary ductal dilatation. Pancreas and spleen are unremarkable. No adrenal mass is identified. Kidneys are unremarkable. Aorta is nonaneurysmal. There are embolization coils in the upper abdomen. There is an ostomy in the left lower quadrant. The bowel loops appear to be nonobstructed. There is moderate stool in the colon. There is some soft tissue and minimal fluid in the presacral space, similar to prior exam and again likely post therapeutic. The bladder is unremarkable. There is a fat-containing left inguinal hernia. Postop changes to the left hemipelvis and left hip are noted. No definite abdominal or pelvic lymphadenopathy is detected. IMPRESSION: Overall, stable CT abdomen and pelvis when compared with exam from 09/26/2020. There is no evidence of abdominal or pelvic lymphadenopathy or metastatic disease. Dictated by: Dictated on workstation # [id number]
== END ==
LOC: RAD 11:15
PROVIDERS: ATTEND Nurse Practitioner Adult Health
DX: C20 Malignant neoplasm of rectum (principal); C77.1 Secondary and unspecified malignant neoplasm of intrathoracic lymph nodes; C78.01 Secondary malignant neoplasm of right lung
CPT/HCPCS: 71260; 74178

== ENCOUNTER → 2020-12-20 | Outpatient (CLI) | payer BC ==
[~2020-12-20] MED LIST changes: -BARIUM SUSPENSION 2.1% (VANILLA SILQ) 450 ML PO ONE; -CATHETER FLUSH 10 ML SYR IV PRN; -HOLD METFORMIN - RECEIVED CONTRAST 20 ML VIAL IV SCH; -IOHEXOL 350 MG/ML 100 ML (OMNIPAQUE 350) VIAL IV ONE; -NS 100 ML (IVPB) BAG IV ONE
[2020-12-20 10:11] LABS: FREE T4 (FREE THYROXINE) 0.82 NG/DL (0.70-1.48)
== END ==
LOC: LAB 09:12
PROVIDERS: ATTEND Internal Medicine
DX: Z01.89 Encounter for other specified special examinations (principal)
CPT/HCPCS: 36415; 84439; 84443

== ENCOUNTER → 2021-02-06 | Outpatient (RCR) | payer BC ==
[2020-11-08 09:22] LABS: BASOPHILS % (AUTO) 1 % (0-10); EOSINOPHILS # (AUTO) 0.1 10^3/uL (0.0-0.3); EOSINOPHILS % (AUTO) 2 % (0-10); HEMATOCRIT 35 % (40-54); HEMOGLOBIN 11.1 g/dL (13.3-17.7); LYMPHOCYTES % (AUTO) 24 % (12-44); MEAN CORPUSCULAR HEMOGLOBIN 29 pg (25-34); MEAN CORPUSCULAR HGB CONC 32 g/dL (32-36); MEAN CORPUSCULAR VOLUME 91 fL (80-99); MEAN PLATELET VOLUME 9.5 fL (9.0-12.2); MONOCYTES # (AUTO) 0.6 10^3/uL (0.0-1.0); MONOCYTES % (AUTO) 14 % (0-12); NEUTROPHILS # (AUTO) 2.3 10^3/uL (1.8-7.8); NEUTROPHILS % (AUTO) 58 % (42-75); PLATELET COUNT 168 10^3/uL (130-400); WHITE BLOOD COUNT 3.9 10^3/uL (4.3-11.0)
[2020-11-08 09:47] LABS: ALANINE AMINOTRANSFERASE 33 U/L (0-55); ALKALINE PHOSPHATASE 115 U/L (40-136); BILIRUBIN,TOTAL 0.5 MG/DL (0.1-1.0); BUN/CREATININE RATIO 15; CALCIUM 8.2 MG/DL (8.5-10.1); CARBON DIOXIDE 23 MMOL/L (21-32); CHLORIDE 111 MMOL/L (98-107); GFR ESTIMATED > 60; GLUCOSE 134 MG/DL (70-105); MAGNESIUM 1.5 MG/DL (1.6-2.4); POTASSIUM 3.6 MMOL/L (3.6-5.0); SODIUM 141 MMOL/L (135-145); TOTAL PROTEIN 5.8 GM/DL (6.4-8.2)
[2020-11-15 13:08] LABS: BASOPHILS % (AUTO) 1 % (0-10); EOSINOPHILS # (AUTO) 0.1 10^3/uL (0.0-0.3); EOSINOPHILS % (AUTO) 3 % (0-10); HEMATOCRIT 36 % (40-54); HEMOGLOBIN 11.1 g/dL (13.3-17.7); LYMPHOCYTES # (AUTO) 1.1 10^3/uL (1.0-4.0); LYMPHOCYTES % (AUTO) 27 % (12-44); MEAN CORPUSCULAR HEMOGLOBIN 29 pg (25-34); MEAN CORPUSCULAR HGB CONC 31 g/dL (32-36); MEAN CORPUSCULAR VOLUME 93 fL (80-99); MEAN PLATELET VOLUME 10.7 fL (9.0-12.2); MONOCYTES # (AUTO) 0.6 10^3/uL (0.0-1.0); MONOCYTES % (AUTO) 14 % (0-12); NEUTROPHILS # (AUTO) 2.2 10^3/uL (1.8-7.8); NEUTROPHILS % (AUTO) 55 % (42-75); PLATELET COUNT 166 10^3/uL (130-400)
[2020-11-15 13:26] LABS: BUN/CREATININE RATIO 12; CALCIUM 8.4 MG/DL (8.5-10.1); CARBON DIOXIDE 24 MMOL/L (21-32); CHLORIDE 106 MMOL/L (98-107); CREATININE SERUM 0.78 MG/DL (0.60-1.30); GFR ESTIMATED > 60; GLUCOSE 87 MG/DL (70-105); POTASSIUM 3.8 MMOL/L (3.6-5.0); SODIUM 139 MMOL/L (135-145)
[2020-11-22 13:25] LABS: BASOPHILS % (AUTO) 1 % (0-10); EOSINOPHILS # (AUTO) 0.1 10^3/uL (0.0-0.3); EOSINOPHILS % (AUTO) 3 % (0-10); HEMATOCRIT 33 % (40-54); HEMOGLOBIN 10.5 g/dL (13.3-17.7); LYMPHOCYTES % (AUTO) 28 % (12-44); MEAN CORPUSCULAR HEMOGLOBIN 29 pg (25-34); MEAN CORPUSCULAR HGB CONC 32 g/dL (32-36); MEAN CORPUSCULAR VOLUME 91 fL (80-99); MEAN PLATELET VOLUME 9.6 fL (9.0-12.2); MONOCYTES # (AUTO) 0.5 10^3/uL (0.0-1.0); MONOCYTES % (AUTO) 14 % (0-12); NEUTROPHILS # (AUTO) 1.9 10^3/uL (1.8-7.8); NEUTROPHILS % (AUTO) 54 % (42-75); PLATELET COUNT 179 10^3/uL (130-400); WHITE BLOOD COUNT 3.5 10^3/uL (4.3-11.0)
[2020-11-22 13:44] LABS: ALANINE AMINOTRANSFERASE 28 U/L (0-55); ALKALINE PHOSPHATASE 119 U/L (40-136); BILIRUBIN,TOTAL 0.6 MG/DL (0.1-1.0); BUN/CREATININE RATIO 13; CALCIUM 8.6 MG/DL (8.5-10.1); CARBON DIOXIDE 26 MMOL/L (21-32); CHLORIDE 109 MMOL/L (98-107); CREATININE SERUM 0.78 MG/DL (0.60-1.30); GFR ESTIMATED > 60; GLUCOSE 114 MG/DL (70-105); MAGNESIUM 1.4 MG/DL (1.6-2.4); POTASSIUM 3.9 MMOL/L (3.6-5.0); SODIUM 141 MMOL/L (135-145); TOTAL PROTEIN 5.8 GM/DL (6.4-8.2)
[2020-11-29 09:48] LABS: BASOPHILS % (AUTO) 1 % (0-10); EOSINOPHILS # (AUTO) 0.1 10^3/uL (0.0-0.3); EOSINOPHILS % (AUTO) 3 % (0-10); HEMATOCRIT 34 % (40-54); LYMPHOCYTES % (AUTO) 27 % (12-44); MEAN CORPUSCULAR HEMOGLOBIN 29 pg (25-34); MEAN CORPUSCULAR HGB CONC 32 g/dL (32-36); MEAN CORPUSCULAR VOLUME 90 fL (80-99); MEAN PLATELET VOLUME 9.9 fL (9.0-12.2); MONOCYTES # (AUTO) 0.7 10^3/uL (0.0-1.0); MONOCYTES % (AUTO) 19 % (0-12); NEUTROPHILS # (AUTO) 1.8 10^3/uL (1.8-7.8); NEUTROPHILS % (AUTO) 49 % (42-75); PLATELET COUNT 166 10^3/uL (130-400); WHITE BLOOD COUNT 3.6 10^3/uL (4.3-11.0)
[2020-11-29 10:12] LABS: BUN/CREATININE RATIO 16; CALCIUM 8.5 MG/DL (8.5-10.1); CARBON DIOXIDE 27 MMOL/L (21-32); CHLORIDE 109 MMOL/L (98-107); CREATININE SERUM 0.82 MG/DL (0.60-1.30); GFR ESTIMATED > 60; GLUCOSE 93 MG/DL (70-105); POTASSIUM 3.8 MMOL/L (3.6-5.0); SODIUM 141 MMOL/L (135-145)
[2020-12-06 09:31] LABS: BASOPHILS % (AUTO) 1 % (0-10); EOSINOPHILS # (AUTO) 0.1 10^3/uL (0.0-0.3); EOSINOPHILS % (AUTO) 3 % (0-10); HEMATOCRIT 35 % (40-54); HEMOGLOBIN 11.1 g/dL (13.3-17.7); LYMPHOCYTES # (AUTO) 0.8 10^3/uL (1.0-4.0); LYMPHOCYTES % (AUTO) 27 % (12-44); MEAN CORPUSCULAR HEMOGLOBIN 29 pg (25-34); MEAN CORPUSCULAR HGB CONC 32 g/dL (32-36); MEAN CORPUSCULAR VOLUME 89 fL (80-99); MEAN PLATELET VOLUME 9.5 fL (9.0-12.2); MONOCYTES # (AUTO) 0.4 10^3/uL (0.0-1.0); MONOCYTES % (AUTO) 12 % (0-12); NEUTROPHILS # (AUTO) 1.7 10^3/uL (1.8-7.8); NEUTROPHILS % (AUTO) 57 % (42-75); PLATELET COUNT 176 10^3/uL (130-400)
[2020-12-06 10:01] LABS: ALANINE AMINOTRANSFERASE 31 U/L (0-55); ALBUMIN 3.1 GM/DL (3.2-4.5); ALKALINE PHOSPHATASE 112 U/L (40-136); BILIRUBIN,TOTAL 0.5 MG/DL (0.1-1.0); BUN/CREATININE RATIO 13; CALCIUM 8.3 MG/DL (8.5-10.1); CARBON DIOXIDE 24 MMOL/L (21-32); CHLORIDE 109 MMOL/L (98-107); CREATININE SERUM 0.79 MG/DL (0.60-1.30); GFR ESTIMATED > 60; GLUCOSE 97 MG/DL (70-105); MAGNESIUM 1.6 MG/DL (1.6-2.4); POTASSIUM 3.4 MMOL/L (3.6-5.0); SODIUM 142 MMOL/L (135-145); TOTAL PROTEIN 5.9 GM/DL (6.4-8.2)
[2020-12-13 15:54] LABS: BASOPHILS % (AUTO) 1 % (0-10); EOSINOPHILS # (AUTO) 0.1 10^3/uL (0.0-0.3); EOSINOPHILS % (AUTO) 3 % (0-10); HEMATOCRIT 38 % (40-54); LYMPHOCYTES # (AUTO) 1.2 10^3/uL (1.0-4.0); LYMPHOCYTES % (AUTO) 34 % (12-44); MEAN CORPUSCULAR HEMOGLOBIN 29 pg (25-34); MEAN CORPUSCULAR HGB CONC 32 g/dL (32-36); MEAN CORPUSCULAR VOLUME 92 fL (80-99); MEAN PLATELET VOLUME 10.3 fL (9.0-12.2); MONOCYTES # (AUTO) 0.6 10^3/uL (0.0-1.0); MONOCYTES % (AUTO) 18 % (0-12); NEUTROPHILS # (AUTO) 1.5 10^3/uL (1.8-7.8); NEUTROPHILS % (AUTO) 43 % (42-75); PLATELET COUNT 214 10^3/uL (130-400); WHITE BLOOD COUNT 3.5 10^3/uL (4.3-11.0)
[2020-12-13 16:13] LABS: BUN/CREATININE RATIO 14; CALCIUM 8.5 MG/DL (8.5-10.1); CARBON DIOXIDE 24 MMOL/L (21-32); CHLORIDE 109 MMOL/L (98-107); CREATININE SERUM 1.01 MG/DL (0.60-1.30); GFR ESTIMATED > 60; GLUCOSE 103 MG/DL (70-105); POTASSIUM 3.9 MMOL/L (3.6-5.0); SODIUM 139 MMOL/L (135-145)
[2020-12-20 09:25] LABS: BASOPHILS % (AUTO) 1 % (0-10); EOSINOPHILS # (AUTO) 0.1 10^3/uL (0.0-0.3); EOSINOPHILS % (AUTO) 3 % (0-10); HEMATOCRIT 35 % (40-54); HEMOGLOBIN 11.1 g/dL (13.3-17.7); LYMPHOCYTES # (AUTO) 0.7 10^3/uL (1.0-4.0); LYMPHOCYTES % (AUTO) 26 % (12-44); MEAN CORPUSCULAR HEMOGLOBIN 29 pg (25-34); MEAN CORPUSCULAR HGB CONC 32 g/dL (32-36); MEAN CORPUSCULAR VOLUME 90 fL (80-99); MONOCYTES # (AUTO) 0.3 10^3/uL (0.0-1.0); MONOCYTES % (AUTO) 12 % (0-12); NEUTROPHILS # (AUTO) 1.6 10^3/uL (1.8-7.8); NEUTROPHILS % (AUTO) 57 % (42-75); PLATELET COUNT 167 10^3/uL (130-400); WHITE BLOOD COUNT 2.8 10^3/uL (4.3-11.0)
[2020-12-20 09:45] LABS: ALANINE AMINOTRANSFERASE 32 U/L (0-55); ALBUMIN 3.1 GM/DL (3.2-4.5); ALKALINE PHOSPHATASE 99 U/L (40-136); BILIRUBIN,TOTAL 0.5 MG/DL (0.1-1.0); BUN/CREATININE RATIO 11; CALCIUM 8.5 MG/DL (8.5-10.1); CARBON DIOXIDE 26 MMOL/L (21-32); CHLORIDE 110 MMOL/L (98-107); CREATININE SERUM 0.96 MG/DL (0.60-1.30); GFR ESTIMATED > 60; GLUCOSE 108 MG/DL (70-105); MAGNESIUM 1.6 MG/DL (1.6-2.4); POTASSIUM 3.7 MMOL/L (3.6-5.0); SODIUM 142 MMOL/L (135-145); TOTAL PROTEIN 5.5 GM/DL (6.4-8.2)
[2021-01-16 09:43] LABS: BASOPHILS % (AUTO) 1 % (0-10); EOSINOPHILS # (AUTO) 0.3 10^3/uL (0.0-0.3); EOSINOPHILS % (AUTO) 6 % (0-10); HEMATOCRIT 36 % (40-54); HEMOGLOBIN 11.6 g/dL (13.3-17.7); LYMPHOCYTES # (AUTO) 1.1 10^3/uL (1.0-4.0); LYMPHOCYTES % (AUTO) 21 % (12-44); MEAN CORPUSCULAR HEMOGLOBIN 29 pg (25-34); MEAN CORPUSCULAR HGB CONC 32 g/dL (32-36); MEAN CORPUSCULAR VOLUME 90 fL (80-99); MEAN PLATELET VOLUME 9.1 fL (9.0-12.2); MONOCYTES # (AUTO) 0.8 10^3/uL (0.0-1.0); MONOCYTES % (AUTO) 15 % (0-12); NEUTROPHILS # (AUTO) 3.2 10^3/uL (1.8-7.8); NEUTROPHILS % (AUTO) 58 % (42-75); PLATELET COUNT 175 10^3/uL (130-400); WHITE BLOOD COUNT 5.5 10^3/uL (4.3-11.0)
[2021-01-16 10:04] LABS: ALANINE AMINOTRANSFERASE 17 U/L (0-55); ALBUMIN 2.9 GM/DL (3.2-4.5); ALKALINE PHOSPHATASE 99 U/L (40-136); BILIRUBIN,TOTAL 0.6 MG/DL (0.1-1.0); BUN/CREATININE RATIO 15; CALCIUM 8.7 MG/DL (8.5-10.1); CARBON DIOXIDE 25 MMOL/L (21-32); CHLORIDE 105 MMOL/L (98-107); CREATININE SERUM 0.88 MG/DL (0.60-1.30); GFR ESTIMATED > 60; GLUCOSE 121 MG/DL (70-105); SODIUM 137 MMOL/L (135-145); TOTAL PROTEIN 5.9 GM/DL (6.4-8.2)
[2021-01-23 15:20] LABS: BASOPHILS % (AUTO) 1 % (0-10); EOSINOPHILS # (AUTO) 0.2 10^3/uL (0.0-0.3); EOSINOPHILS % (AUTO) 4 % (0-10); HEMATOCRIT 37 % (40-54); LYMPHOCYTES # (AUTO) 0.9 10^3/uL (1.0-4.0); LYMPHOCYTES % (AUTO) 17 % (12-44); MEAN CORPUSCULAR HEMOGLOBIN 29 pg (25-34); MEAN CORPUSCULAR HGB CONC 33 g/dL (32-36); MEAN CORPUSCULAR VOLUME 89 fL (80-99); MONOCYTES # (AUTO) 0.3 10^3/uL (0.0-1.0); MONOCYTES % (AUTO) 7 % (0-12); NEUTROPHILS # (AUTO) 3.5 10^3/uL (1.8-7.8); NEUTROPHILS % (AUTO) 70 % (42-75); PLATELET COUNT 223 10^3/uL (130-400)
[2021-01-23 15:38] LABS: BUN/CREATININE RATIO 14; CALCIUM 8.8 MG/DL (8.5-10.1); CARBON DIOXIDE 24 MMOL/L (21-32); CHLORIDE 105 MMOL/L (98-107); CREATININE SERUM 1.07 MG/DL (0.60-1.30); GFR ESTIMATED > 60; GLUCOSE 106 MG/DL (70-105); MAGNESIUM 1.8 MG/DL (1.6-2.4); POTASSIUM 4.3 MMOL/L (3.6-5.0); SODIUM 135 MMOL/L (135-145)
[2021-01-31 09:10] LABS: BASOPHILS % (AUTO) 1 % (0-10); EOSINOPHILS # (AUTO) 0.1 10^3/uL (0.0-0.3); EOSINOPHILS % (AUTO) 3 % (0-10); HEMATOCRIT 33 % (40-54); HEMOGLOBIN 10.8 g/dL (13.3-17.7); LYMPHOCYTES # (AUTO) 1.1 10^3/uL (1.0-4.0); LYMPHOCYTES % (AUTO) 28 % (12-44); MEAN CORPUSCULAR HEMOGLOBIN 29 pg (25-34); MEAN CORPUSCULAR HGB CONC 33 g/dL (32-36); MEAN CORPUSCULAR VOLUME 89 fL (80-99); MEAN PLATELET VOLUME 9.5 fL (9.0-12.2); MONOCYTES # (AUTO) 0.3 10^3/uL (0.0-1.0); MONOCYTES % (AUTO) 8 % (0-12); NEUTROPHILS # (AUTO) 2.3 10^3/uL (1.8-7.8); NEUTROPHILS % (AUTO) 60 % (42-75); PLATELET COUNT 179 10^3/uL (130-400); WHITE BLOOD COUNT 3.8 10^3/uL (4.3-11.0)
[2021-01-31 09:30] LABS: BUN/CREATININE RATIO 16; CALCIUM 8.6 MG/DL (8.5-10.1); CARBON DIOXIDE 22 MMOL/L (21-32); CHLORIDE 108 MMOL/L (98-107); GFR ESTIMATED > 60; GLUCOSE 102 MG/DL (70-105); MAGNESIUM 2.9 MG/DL (1.6-2.4); POTASSIUM 4.4 MMOL/L (3.6-5.0); SODIUM 136 MMOL/L (135-145)
[~2021-02-06] MED LIST changes: +ATROPINE INJ 0.4 MG/ML SDV (CANCER CENTER) IV SCH; +BEVACIZUMAB BVZR IV SCH; +FOSAPREPITANT (CANCER CENTER) 150 MG in NS (IVPB) CANCER CENTER ONLY 150 ML IV SCH; +IRINOTECAN HCL 300 MG in D5W 250 ML IVPB (CANCER CTR) 250 ML IV SCH; +MAGNESIUM SULFATE (CANCER CTR) 2 GM in D5W 50 ML IV(CANCER CTR) 50 ML IV ONE; +MAGNESIUM SULFATE (CANCER CTR) 2 GM in NS (IVPB) CANCER CENTER 50 ML IV ONE; +NS IV 1000 ML (CANCER CTR) IV SCH; +NS IV SCH; +ONDANSETRON 4 MG (ZOFRAN) ORAL DISSOLVE TAB PO ONE; +PANITUMUMAB INJECTION 400 MG in NS (IVPB) CANCER CENTER 100 ML IV SCH; +TBO-FILGRASTIM 480 MCG/0.8 ML (GRANIX) CANCER CTR SQ SCH
[2021-02-06 15:01] LABS: BASOPHILS % (AUTO) 0 % (0-10); EOSINOPHILS # (AUTO) 0.1 10^3/uL (0.0-0.3); EOSINOPHILS % (AUTO) 2 % (0-10); HEMATOCRIT 33 % (40-54); HEMOGLOBIN 10.6 g/dL (13.3-17.7); LYMPHOCYTES # (AUTO) 1.1 10^3/uL (1.0-4.0); LYMPHOCYTES % (AUTO) 36 % (12-44); MEAN CORPUSCULAR HEMOGLOBIN 29 pg (25-34); MEAN CORPUSCULAR HGB CONC 33 g/dL (32-36); MEAN CORPUSCULAR VOLUME 90 fL (80-99); MEAN PLATELET VOLUME 9.1 fL (9.0-12.2); MONOCYTES # (AUTO) 0.5 10^3/uL (0.0-1.0); MONOCYTES % (AUTO) 16 % (0-12); NEUTROPHILS # (AUTO) 1.3 10^3/uL (1.8-7.8); NEUTROPHILS % (AUTO) 45 % (42-75); PLATELET COUNT 165 10^3/uL (130-400); WHITE BLOOD COUNT 2.9 10^3/uL (4.3-11.0)
[2021-02-06 15:20] LABS: BUN/CREATININE RATIO 17; CARBON DIOXIDE 22 MMOL/L (21-32); CHLORIDE 111 MMOL/L (98-107); CREATININE SERUM 1.05 MG/DL (0.60-1.30); GFR ESTIMATED > 60; GLUCOSE 96 MG/DL (70-105); MAGNESIUM 1.9 MG/DL (1.6-2.4); POTASSIUM 4.6 MMOL/L (3.6-5.0); SODIUM 138 MMOL/L (135-145)
== END | disposition home or self-care (01) ==
LOC: ONC 11-08 09:07
PROVIDERS: ATTEND Internal Medicine Hematology & Oncology
DX: Z51.11 Encounter for antineoplastic chemotherapy (principal); C20 Malignant neoplasm of rectum; C78.01 Secondary malignant neoplasm of right lung; C77.1 Secondary and unspecified malignant neoplasm of intrathoracic lymph nodes; K74.60 Unspecified cirrhosis of liver; K76.6 Portal hypertension; K14.0 Glossitis; I10 Essential (primary) hypertension; R19.7 Diarrhea, unspecified; R21 Rash and other nonspecific skin eruption; D75.9 Disease of blood and blood-forming organs, unspecified; B19.20 Unspecified viral hepatitis C without hepatic coma; Z93.3 Colostomy status; Z79.899 Other long term (current) drug therapy; Z98.890 Other specified postprocedural states
CPT/HCPCS: 80053; 83735; 85025; 96367; 96368; 96375; 96413; 96417; G0463; 36591; 80048; 82306; 82378; 96372; 96409; 99213

== ENCOUNTER → 2021-04-21 | Outpatient (CLI) | payer BC ==
[~2021-04-21] MED LIST changes: -ATROPINE INJ 0.4 MG/ML SDV (CANCER CENTER) IV SCH; +BARIUM SUSPENSION 2.1% (VANILLA SILQ) 450 ML PO ONE; -BEVACIZUMAB BVZR IV SCH; +CATHETER FLUSH 10 ML SYR IV PRN; -FOSAPREPITANT (CANCER CENTER) 150 MG in NS (IVPB) CANCER CENTER ONLY 150 ML IV SCH; +HOLD METFORMIN - RECEIVED CONTRAST 20 ML VIAL IV SCH; +IOHEXOL 350 MG/ML 100 ML (OMNIPAQUE 350) VIAL IV ONE; -IRINOTECAN HCL 300 MG in D5W 250 ML IVPB (CANCER CTR) 250 ML IV SCH; -MAGNESIUM SULFATE (CANCER CTR) 2 GM in D5W 50 ML IV(CANCER CTR) 50 ML IV ONE; -MAGNESIUM SULFATE (CANCER CTR) 2 GM in NS (IVPB) CANCER CENTER 50 ML IV ONE; +NS 100 ML (IVPB) BAG IV ONE; -NS IV 1000 ML (CANCER CTR) IV SCH; -NS IV SCH; -ONDANSETRON 4 MG (ZOFRAN) ORAL DISSOLVE TAB PO ONE; -PANITUMUMAB INJECTION 400 MG in NS (IVPB) CANCER CENTER 100 ML IV SCH; -TBO-FILGRASTIM 480 MCG/0.8 ML (GRANIX) CANCER CTR SQ SCH
--- NOTE | 2021-04-21 15:43 | Diagnostic Imaging Report ---
PROCEDURE: CT chest with contrast, CT abdomen and pelvis with and without contrast. TECHNIQUE: Pre and post intravenous contrast axial imaging of the abdomen and pelvis and post contrast axial imaging of the chest were performed. Auto Exposure Controls were utilized during the CT exam to meet ALARA standards for radiation dose reduction. INDICATION: Lung cancer for restaging. COMPARISON with studies of 12/16/2020. CHEST: Right perihilar mass has a diameter of 3.8 cm, previously 3.2 cm. It does appear to encase taper and narrow the azygos arch without demonstrated thrombus. Its medial portion abuts the lower trachea at the level of the rufina and its posterior inferior aspect abuts the right mainstem bronchus. There is adjacent upper right paratracheal mediastinal lymph node measuring 1.6 x 1.2 cm, previously 0.7 x 0.6 cm. At the thoracic inlet, there is a right paraesophageal nodule 1.7 x 1.4 cm, new. No apparent supraclavicular adenopathy. The axillae unremarkable. Subcarinal mediastinum unremarkable. There is a new right pleural effusion, nonloculated, layering to an average depth of 1.5 cm. There is no pericardial fluid. There is coronary artery atherosclerotic vascular calcifications ABDOMEN PELVIS: A patent right lobe tip shunt is present. There is no identifiable liver mass. The gallbladder unremarkable. No bile duct dilatation. There are embolic coils perigastric unchanged. The spleen stable in size within the upper limits of normal. There is no adrenal mass. The pancreas nonacute. The kidneys are unobstructed. There is a left lower quadrant ostomy with no parastomal hernia. Postsurgical changes of the pelvis with some presacral tissue thickening and oversewn rectum, unchanged. Pelvic sidewalls revealed no adenopathy. There is no inguinal canal adenopathy. There is no bowel, biliary or urinary tract obstruction. There is no suspicious bony lesion. IMPRESSION: 1. Right perihilar lung mass, increased in size. Mediastinal adenopathy mildly progressed. 2. The abdominal pelvic portion is stable with no findings to suggest abdominal pelvic metastasis. Dictated by: Dictated on workstation # [id number]
--- NOTE | 2021-04-21 16:34 | Diagnostic Imaging Report ---
Exam: Nuclear medicine whole body bone scan. Date: April 21, 2021. Indication: 60-year-old male, history of lung cancer. Evaluation for bone metastasis. Comparison: CT chest, abdomen and pelvis April 21, 2021. Findings: There is a radiotracer avid lesion involving the left distal femoral diaphysis which appears to be along the lateral cortex. There is prominent activity in the urinary bladder which obscures visualization of portions of the pelvis. There is no additional identified abnormal radiotracer uptake. Impression: 1. Abnormal radiotracer uptake at the level of the left distal femoral metadiaphysis which does raise concern for a bone metastasis or other pathologic abnormality. Further evaluation with dedicated CT or MRI is recommended. Dictated by: Dictated on workstation # [id number]
== END ==
LOC: CARD 11:00
PROVIDERS: ATTEND Nurse Practitioner Adult Health
DX: C20 Malignant neoplasm of rectum (principal); C77.1 Secondary and unspecified malignant neoplasm of intrathoracic lymph nodes; C78.01 Secondary malignant neoplasm of right lung
CPT/HCPCS: 71260; 74178; 78306; A9503

== ENCOUNTER 2021-04-24 13:03 | Outpatient (RCR) | payer BC ==
[2021-02-13 15:31] LABS: BASOPHILS % (AUTO) 1 % (0-10); EOSINOPHILS % (AUTO) 2 % (0-10); HEMATOCRIT 36 % (40-54); HEMOGLOBIN 11.6 g/dL (13.3-17.7); LYMPHOCYTES # (AUTO) 1.1 10^3/uL (1.0-4.0); LYMPHOCYTES % (AUTO) 43 % (12-44); MEAN CORPUSCULAR HEMOGLOBIN 30 pg (25-34); MEAN CORPUSCULAR HGB CONC 33 g/dL (32-36); MEAN CORPUSCULAR VOLUME 91 fL (80-99); MEAN PLATELET VOLUME 9.6 fL (9.0-12.2); MONOCYTES # (AUTO) 0.5 10^3/uL (0.0-1.0); MONOCYTES % (AUTO) 18 % (0-12); NEUTROPHILS # (AUTO) 0.9 10^3/uL (1.8-7.8); NEUTROPHILS % (AUTO) 37 % (42-75); PLATELET COUNT 182 10^3/uL (130-400); WHITE BLOOD COUNT 2.5 10^3/uL (4.3-11.0)
[2021-02-13 16:04] LABS: ALANINE AMINOTRANSFERASE 21 U/L (0-55); ALBUMIN 2.9 GM/DL (3.2-4.5); ALKALINE PHOSPHATASE 125 U/L (40-136); BILIRUBIN,TOTAL 0.7 MG/DL (0.1-1.0); BUN/CREATININE RATIO 17; CALCIUM 8.8 MG/DL (8.5-10.1); CARBON DIOXIDE 27 MMOL/L (21-32); CHLORIDE 108 MMOL/L (98-107); CREATININE SERUM 0.96 MG/DL (0.60-1.30); GFR ESTIMATED > 60; GLUCOSE 109 MG/DL (70-105); SODIUM 140 MMOL/L (135-145); TOTAL PROTEIN 6.5 GM/DL (6.4-8.2)
[2021-02-20 15:59] LABS: BASOPHILS % (AUTO) 1 % (0-10); EOSINOPHILS % (AUTO) 1 % (0-10); HEMATOCRIT 37 % (40-54); HEMOGLOBIN 11.9 g/dL (13.3-17.7); LYMPHOCYTES # (AUTO) 1.1 10^3/uL (1.0-4.0); LYMPHOCYTES % (AUTO) 33 % (12-44); MEAN CORPUSCULAR HEMOGLOBIN 30 pg (25-34); MEAN CORPUSCULAR HGB CONC 32 g/dL (32-36); MEAN CORPUSCULAR VOLUME 93 fL (80-99); MEAN PLATELET VOLUME 9.8 fL (9.0-12.2); MONOCYTES # (AUTO) 0.5 10^3/uL (0.0-1.0); MONOCYTES % (AUTO) 14 % (0-12); NEUTROPHILS # (AUTO) 1.8 10^3/uL (1.8-7.8); NEUTROPHILS % (AUTO) 51 % (42-75); PLATELET COUNT 160 10^3/uL (130-400); WHITE BLOOD COUNT 3.4 10^3/uL (4.3-11.0)
[2021-02-20 16:17] LABS: CREATININE SERUM 1.21 MG/DL (0.60-1.30); MAGNESIUM 1.7 MG/DL (1.6-2.4); POTASSIUM 4.2 MMOL/L (3.6-5.0)
[2021-02-27 13:51] LABS: BASOPHILS % (AUTO) 1 % (0-10); EOSINOPHILS # (AUTO) 0.1 10^3/uL (0.0-0.3); EOSINOPHILS % (AUTO) 1 % (0-10); HEMATOCRIT 33 % (40-54); HEMOGLOBIN 10.9 g/dL (13.3-17.7); LYMPHOCYTES # (AUTO) 0.8 10^3/uL (1.0-4.0); LYMPHOCYTES % (AUTO) 20 % (12-44); MEAN CORPUSCULAR HEMOGLOBIN 31 pg (25-34); MEAN CORPUSCULAR HGB CONC 33 g/dL (32-36); MEAN CORPUSCULAR VOLUME 92 fL (80-99); MEAN PLATELET VOLUME 9.7 fL (9.0-12.2); MONOCYTES # (AUTO) 0.4 10^3/uL (0.0-1.0); MONOCYTES % (AUTO) 11 % (0-12); NEUTROPHILS # (AUTO) 2.5 10^3/uL (1.8-7.8); NEUTROPHILS % (AUTO) 67 % (42-75); PLATELET COUNT 145 10^3/uL (130-400); WHITE BLOOD COUNT 3.7 10^3/uL (4.3-11.0)
[2021-02-27 14:13] LABS: CALCIUM 8.4 MG/DL (8.5-10.1); CREATININE SERUM 0.92 MG/DL (0.60-1.30); MAGNESIUM 1.7 MG/DL (1.6-2.4); POTASSIUM 4.2 MMOL/L (3.6-5.0)
[2021-03-06 09:29] LABS: BASOPHILS % (AUTO) 0 % (0-10); EOSINOPHILS # (AUTO) 0.1 10^3/uL (0.0-0.3); EOSINOPHILS % (AUTO) 2 % (0-10); HEMATOCRIT 32 % (40-54); HEMOGLOBIN 10.6 g/dL (13.3-17.7); LYMPHOCYTES # (AUTO) 0.9 10^3/uL (1.0-4.0); LYMPHOCYTES % (AUTO) 29 % (12-44); MEAN CORPUSCULAR HEMOGLOBIN 30 pg (25-34); MEAN CORPUSCULAR HGB CONC 33 g/dL (32-36); MEAN CORPUSCULAR VOLUME 90 fL (80-99); MEAN PLATELET VOLUME 9.7 fL (9.0-12.2); MONOCYTES # (AUTO) 0.2 10^3/uL (0.0-1.0); MONOCYTES % (AUTO) 7 % (0-12); NEUTROPHILS # (AUTO) 1.9 10^3/uL (1.8-7.8); NEUTROPHILS % (AUTO) 62 % (42-75); PLATELET COUNT 130 10^3/uL (130-400); WHITE BLOOD COUNT 3.2 10^3/uL (4.3-11.0)
[2021-03-06 09:54] LABS: CALCIUM 8.6 MG/DL (8.5-10.1); CREATININE SERUM 1.2 MG/DL (0.60-1.30); MAGNESIUM 1.9 MG/DL (1.6-2.4); POTASSIUM 4.8 MMOL/L (3.6-5.0)
[2021-03-13 14:04] LABS: BASOPHILS % (AUTO) 1 % (0-10); EOSINOPHILS # (AUTO) 0.1 10^3/uL (0.0-0.3); EOSINOPHILS % (AUTO) 3 % (0-10); HEMATOCRIT 28 % (40-54); HEMOGLOBIN 9.2 g/dL (13.3-17.7); LYMPHOCYTES # (AUTO) 0.9 10^3/uL (1.0-4.0); LYMPHOCYTES % (AUTO) 41 % (12-44); MEAN CORPUSCULAR HEMOGLOBIN 29 pg (25-34); MEAN CORPUSCULAR HGB CONC 33 g/dL (32-36); MEAN CORPUSCULAR VOLUME 90 fL (80-99); MEAN PLATELET VOLUME 9.6 fL (9.0-12.2); MONOCYTES # (AUTO) 0.3 10^3/uL (0.0-1.0); MONOCYTES % (AUTO) 14 % (0-12); NEUTROPHILS # (AUTO) 0.8 10^3/uL (1.8-7.8); NEUTROPHILS % (AUTO) 37 % (42-75); PLATELET COUNT 140 10^3/uL (130-400); WHITE BLOOD COUNT 2.2 10^3/uL (4.3-11.0)
[2021-03-13 14:23] LABS: CALCIUM 8.7 MG/DL (8.5-10.1); CREATININE SERUM 0.99 MG/DL (0.60-1.30); MAGNESIUM 1.9 MG/DL (1.6-2.4); POTASSIUM 4.4 MMOL/L (3.6-5.0)
[2021-03-20 13:36] LABS: BASOPHILS % (AUTO) 1 % (0-10); EOSINOPHILS % (AUTO) 2 % (0-10); HEMATOCRIT 32 % (40-54); HEMOGLOBIN 10.3 g/dL (13.3-17.7); LYMPHOCYTES % (AUTO) 54 % (12-44); MEAN CORPUSCULAR HEMOGLOBIN 31 pg (25-34); MEAN CORPUSCULAR HGB CONC 33 g/dL (32-36); MEAN CORPUSCULAR VOLUME 95 fL (80-99); MEAN PLATELET VOLUME 9.7 fL (9.0-12.2); MONOCYTES # (AUTO) 0.2 10^3/uL (0.0-1.0); MONOCYTES % (AUTO) 12 % (0-12); NEUTROPHILS # (AUTO) 0.6 10^3/uL (1.8-7.8); NEUTROPHILS % (AUTO) 31 % (42-75); PLATELET COUNT 154 10^3/uL (130-400); WHITE BLOOD COUNT 1.9 10^3/uL (4.3-11.0)
[2021-03-20 13:57] LABS: CALCIUM 9.3 MG/DL (8.5-10.1); CREATININE SERUM 0.97 MG/DL (0.60-1.30); POTASSIUM 4.2 MMOL/L (3.6-5.0); TOTAL PROTEIN 6.7 GM/DL (6.4-8.2)
[2021-03-27 13:29] LABS: BASOPHILS % (AUTO) 1 % (0-10); EOSINOPHILS % (AUTO) 1 % (0-10); HEMATOCRIT 31 % (40-54); HEMOGLOBIN 10.1 g/dL (13.3-17.7); LYMPHOCYTES # (AUTO) 1.1 10^3/uL (1.0-4.0); LYMPHOCYTES % (AUTO) 38 % (12-44); MEAN CORPUSCULAR HEMOGLOBIN 31 pg (25-34); MEAN CORPUSCULAR HGB CONC 32 g/dL (32-36); MEAN CORPUSCULAR VOLUME 97 fL (80-99); MEAN PLATELET VOLUME 9.6 fL (9.0-12.2); MONOCYTES # (AUTO) 0.4 10^3/uL (0.0-1.0); MONOCYTES % (AUTO) 14 % (0-12); NEUTROPHILS # (AUTO) 1.3 10^3/uL (1.8-7.8); NEUTROPHILS % (AUTO) 46 % (42-75); PLATELET COUNT 114 10^3/uL (130-400); WHITE BLOOD COUNT 2.8 10^3/uL (4.3-11.0)
[2021-03-27 13:56] LABS: CREATININE SERUM 0.94 MG/DL (0.60-1.30); MAGNESIUM 1.9 MG/DL (1.6-2.4); POTASSIUM 4.2 MMOL/L (3.6-5.0)
[2021-04-04 10:17] LABS: BASOPHILS % (AUTO) 1 % (0-10); EOSINOPHILS # (AUTO) 0.1 10^3/uL (0.0-0.3); EOSINOPHILS % (AUTO) 1 % (0-10); HEMATOCRIT 32 % (40-54); HEMOGLOBIN 10.6 g/dL (13.3-17.7); LYMPHOCYTES % (AUTO) 27 % (12-44); MEAN CORPUSCULAR HEMOGLOBIN 32 pg (25-34); MEAN CORPUSCULAR HGB CONC 33 g/dL (32-36); MEAN CORPUSCULAR VOLUME 96 fL (80-99); MEAN PLATELET VOLUME 9.6 fL (9.0-12.2); MONOCYTES # (AUTO) 0.3 10^3/uL (0.0-1.0); MONOCYTES % (AUTO) 9 % (0-12); NEUTROPHILS # (AUTO) 2.2 10^3/uL (1.8-7.8); NEUTROPHILS % (AUTO) 62 % (42-75); PLATELET COUNT 148 10^3/uL (130-400); WHITE BLOOD COUNT 3.6 10^3/uL (4.3-11.0)
[2021-04-04 10:36] LABS: CREATININE SERUM 1.01 MG/DL (0.60-1.30); MAGNESIUM 1.8 MG/DL (1.6-2.4); POTASSIUM 4.2 MMOL/L (3.6-5.0)
[2021-04-10 13:54] LABS: BASOPHILS % (AUTO) 1 % (0-10); EOSINOPHILS # (AUTO) 0.1 10^3/uL (0.0-0.3); EOSINOPHILS % (AUTO) 2 % (0-10); HEMATOCRIT 31 % (40-54); HEMOGLOBIN 10.2 g/dL (13.3-17.7); LYMPHOCYTES # (AUTO) 0.8 10^3/uL (1.0-4.0); LYMPHOCYTES % (AUTO) 22 % (12-44); MEAN CORPUSCULAR HEMOGLOBIN 32 pg (25-34); MEAN CORPUSCULAR HGB CONC 33 g/dL (32-36); MEAN CORPUSCULAR VOLUME 96 fL (80-99); MEAN PLATELET VOLUME 9.3 fL (9.0-12.2); MONOCYTES # (AUTO) 0.4 10^3/uL (0.0-1.0); MONOCYTES % (AUTO) 12 % (0-12); NEUTROPHILS # (AUTO) 2.2 10^3/uL (1.8-7.8); NEUTROPHILS % (AUTO) 63 % (42-75); PLATELET COUNT 153 10^3/uL (130-400); WHITE BLOOD COUNT 3.5 10^3/uL (4.3-11.0)
[2021-04-10 14:24] LABS: CALCIUM 8.8 MG/DL (8.5-10.1); CREATININE SERUM 0.93 MG/DL (0.60-1.30); MAGNESIUM 1.6 MG/DL (1.6-2.4); POTASSIUM 4.3 MMOL/L (3.6-5.0)
[2021-04-17 12:53] LABS: BASOPHILS % (AUTO) 1 % (0-10); EOSINOPHILS # (AUTO) 0.1 10^3/uL (0.0-0.3); EOSINOPHILS % (AUTO) 2 % (0-10); HEMATOCRIT 30 % (40-54); HEMOGLOBIN 9.7 g/dL (13.3-17.7); LYMPHOCYTES % (AUTO) 33 % (12-44); MEAN CORPUSCULAR HEMOGLOBIN 32 pg (25-34); MEAN CORPUSCULAR HGB CONC 33 g/dL (32-36); MEAN CORPUSCULAR VOLUME 100 fL (80-99); MEAN PLATELET VOLUME 9.3 fL (9.0-12.2); MONOCYTES # (AUTO) 0.4 10^3/uL (0.0-1.0); MONOCYTES % (AUTO) 12 % (0-12); NEUTROPHILS # (AUTO) 1.7 10^3/uL (1.8-7.8); NEUTROPHILS % (AUTO) 53 % (42-75); PLATELET COUNT 153 10^3/uL (130-400); WHITE BLOOD COUNT 3.1 10^3/uL (4.3-11.0)
[2021-04-17 13:18] LABS: CALCIUM 8.6 MG/DL (8.5-10.1); CREATININE SERUM 0.86 MG/DL (0.60-1.30); POTASSIUM 3.9 MMOL/L (3.6-5.0)
[~2021-04-24 13:03] MED LIST changes: -BARIUM SUSPENSION 2.1% (VANILLA SILQ) 450 ML PO ONE; +BEVACIZUMAB BVZR IV SCH; -CATHETER FLUSH 10 ML SYR IV PRN; -HOLD METFORMIN - RECEIVED CONTRAST 20 ML VIAL IV SCH; -IOHEXOL 350 MG/ML 100 ML (OMNIPAQUE 350) VIAL IV ONE; -NS 100 ML (IVPB) BAG IV ONE; +NS IV SCH
[2021-04-24 13:25] LABS: BASOPHILS % (AUTO) 1 % (0-10); EOSINOPHILS # (AUTO) 0.1 10^3/uL (0.0-0.3); EOSINOPHILS % (AUTO) 2 % (0-10); HEMATOCRIT 31 % (40-54); HEMOGLOBIN 9.9 g/dL (13.3-17.7); LYMPHOCYTES % (AUTO) 33 % (12-44); MEAN CORPUSCULAR HEMOGLOBIN 32 pg (25-34); MEAN CORPUSCULAR HGB CONC 32 g/dL (32-36); MEAN CORPUSCULAR VOLUME 100 fL (80-99); MEAN PLATELET VOLUME 9.7 fL (9.0-12.2); MONOCYTES # (AUTO) 0.5 10^3/uL (0.0-1.0); MONOCYTES % (AUTO) 15 % (0-12); NEUTROPHILS # (AUTO) 1.5 10^3/uL (1.8-7.8); NEUTROPHILS % (AUTO) 50 % (42-75); PLATELET COUNT 149 10^3/uL (130-400); WHITE BLOOD COUNT 3.1 10^3/uL (4.3-11.0)
[2021-04-24 14:09] LABS: CALCIUM 8.9 MG/DL (8.5-10.1); CREATININE SERUM 0.94 MG/DL (0.60-1.30); POTASSIUM 3.9 MMOL/L (3.6-5.0); TOTAL PROTEIN 6.5 GM/DL (6.4-8.2)
== END 2021-05-14 | disposition home or self-care (01) ==
LOC: ONC 13:03
PROVIDERS: ATTEND Internal Medicine Hematology & Oncology
DX: Z51.11 Encounter for antineoplastic chemotherapy (principal); Z45.2 Encounter for adjustment and management of vascular access device; C20 Malignant neoplasm of rectum; C78.01 Secondary malignant neoplasm of right lung; C77.1 Secondary and unspecified malignant neoplasm of intrathoracic lymph nodes; K74.60 Unspecified cirrhosis of liver; K76.6 Portal hypertension; I10 Essential (primary) hypertension; E55.9 Vitamin D deficiency, unspecified; R19.7 Diarrhea, unspecified; R21 Rash and other nonspecific skin eruption; R91.1 Solitary pulmonary nodule; Z93.3 Colostomy status; Z79.899 Other long term (current) drug therapy; Z98.890 Other specified postprocedural states; Z86.19 Personal history of other infectious and parasitic diseases
CPT/HCPCS: 80053; 82378; 85025; 96409; G0463; 36591; 80048; 83735

== ENCOUNTER 2021-07-05 11:34 | Emergency (ER) | payer BC ==
[~2021-07-05] VITALS: Ht 177.8 cm; Wt 60.9 kg
[~2021-07-05 11:34] MED LIST changes: -BEVACIZUMAB BVZR IV SCH; -LISI-729 PO; +LISI5TAB20 PO; -METH5TAB5 PO; +METH5TAB95 PO; -NS IV SCH; +POTA-169 PO; -POTA20TA8 PO
[2021-07-05] MEDS ORDERED: NS IV 1000 ML 1,000 ML IV SCH (12:15)
[2021-07-05] MEDS ORDERED: NS 100 ML (IVPB) BAG IV ONE (12:30)
[2021-07-05] MEDS ORDERED: CATHETER FLUSH 10 ML SYR IV PRN (12:30)
[2021-07-05] MEDS ORDERED: IOHEXOL 350 MG/ML 100 ML (OMNIPAQUE 350) VIAL IV ONE (12:30)
[2021-07-05] MEDS ORDERED: HOLD METFORMIN - RECEIVED CONTRAST 20 ML VIAL IV SCH (12:30)
[2021-07-05 12:34] LABS: BASOPHILS % (AUTO) 0 % (0-10); EOSINOPHILS # (AUTO) 0.3 10^3/uL (0.0-0.3); EOSINOPHILS % (AUTO) 3 % (0-10); HEMATOCRIT 40 % (40-54); HEMOGLOBIN 12.8 g/dL (13.3-17.7); LYMPHOCYTES % (AUTO) 11 % (12-44); MEAN CORPUSCULAR HEMOGLOBIN 29 pg (25-34); MEAN CORPUSCULAR HGB CONC 32 g/dL (32-36); MEAN CORPUSCULAR VOLUME 90 fL (80-99); MEAN PLATELET VOLUME 9.2 fL (9.0-12.2); MONOCYTES # (AUTO) 1.1 10^3/uL (0.0-1.0); MONOCYTES % (AUTO) 12 % (0-12); NEUTROPHILS # (AUTO) 6.8 10^3/uL (1.8-7.8); NEUTROPHILS % (AUTO) 74 % (42-75); PLATELET COUNT 131 10^3/uL (130-400); WHITE BLOOD COUNT 9.2 10^3/uL (4.3-11.0)
--- NOTE | 2021-07-05 12:39 | ED General ---
General Chief Complaint: General Problems/Pain Stated Complaint: WEAKNESS,ABD CRAMPS Nursing Triage Note: AMB TO ROOM WITH PMH OF RECTAL CANCER. HAS BEEN WEAK FRO 2 DAYS WITH CONFUSION HAS COLOSTOMY. IS TAKING PO CHEMO SKIN COLOR YELLOW. FELL LAST NIGHT . History of Present Illness Date Seen by Provider: Jul 05, 2021 Time Seen by Provider: 12:00 Initial Comments 61-year-old male presents for generalized weakness for the last 2-3 days, fall in the middle of the night with no loss of consciousness, mucus from rectum, history of colorectal cancer with colostomy, jaundice, respiratory congeston, and constipation. He follows with Dr. Coffey and called him, was referred to ED. He reports falling from bed, last night, it was witnessed and he was able to get up, on his own. He is on oral chemo and noted the rectal mucosal discharge after starting the medication. No N/V since fall. Denies headache or seizure activity. He has received both COVID vaccines and one booster. He has not received his influenza vaccine. Denies any change in diet, alcohol use or supplements. Timing/Duration: 3-4 Days Associated Systoms: No Chest Pain; Cough (productive); No Diaphoresis, No Fever/Chills, No Headaches; Loss of Appetite, Malaise; No Nausea/Vomiting, No Rash, No Seizure, No Shortness of Air, No Syncope, No Weakness Allergies and Home Medications Allergies Coded Allergies: No Known Drug Allergies (Verified , 07/08/20) Patient Home Medication List Home Medication List Reviewed: Yes Alprazolam (Alprazolam) 1 Mg Tablet, 1 MG PO, (Reported) Entered as Reported by: CAMERON BLACKMAN on 07/08/20 0757 Amoxicillin/Potassium Clav (Augmentin 875-125 Tablet) 1 Each Tablet, 1 EACH PO BID Prescribed by: KANDIS BARROS on 07/05/21 1618 Azithromycin (Azithromycin) 250 Mg Tablet, 250 MG PO UD Prescribed by: KANDIS BARROS on 07/05/21 1618 Cholecalciferol (Vitamin D3) (D3-50) 1,250 Mcg Capsule, 1,250 MCG PO WEEK, (Reported) Entered as Reported by: ANNA HUTSON on 07/06/20 1111 Ergocalciferol (Vitamin D2) (Ergocal) 62.5 Mcg Capsule, 62.5 MCG PO, (Reported) Entered as Reported by: CAMERON BLACKMAN on 07/08/20 0757 Lisinopril (Lisinopril) 5 Mg Tablet, 5 MG PO DAILY, (Reported) Entered as Reported by: ANNA HUTSON on 07/06/20 1111 Magnesium Oxide (Magnesium Oxide) 400 Mg Tablet, 400 MG PO BID, (Reported) Entered as Reported by: ALESSIA HOLLOWAY on 06/25/18 1427 Multivit-Min/FA/Lycopen/Lutein (Men 50 Plus Multivitamin Tab) 1 Each Tablet, 1 EACH PO DAILY, (Reported) Entered as Reported by: ANNA HUTSON on 07/06/20 1111 Potassium Chloride (Klor-Con M20) 20 Meq Tab.er.prt, 20 MEQ PO TID, (Reported) Entered as Reported by: ANNA HUTSON on 07/06/20 1111 Review of Systems Review of Systems Constitutional: see HPI, malaise, weakness EENTM: see HPI, no symptoms reported Respiratory: see HPI, cough Cardiovascular: no symptoms reported, see HPI; No chest pain Gastrointestinal: see HPI, constipation; No diarrhea; jaundice, loss of appetite Genitourinary: no symptoms reported, see HPI Musculoskeletal: no symptoms reported, see HPI Skin: see HPI, change in color; No pruritus All Other Systems Reviewed Negative Unless Noted: Yes Past Raduelz-Yjmvqh-Satfvp Hx Patient Social History Substance use?: No Pt feels they are or have been: No Immunizations Up To Date Tetanus Booster (TDap): Unknown First/Initial COVID19 Vaccinat: 08/18 Second COVID19 Vaccination Twin: 09/17 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 hip) Fractures Endocrine: No HEENT: No Loss of Vision: Denies Hearing Impairment: Denies Cancer: Yes Lung, Colon What Type of Treatment Did You: Chemotherapy, Surgical Intervention Psychosocial: Yes Sleep Difficulties, Anxiety Integumentary: No Blood Disorders: No Adverse Reaction/Blood Tranf: No Family Medical History Reviewed Nursing Family Hx Abdominal aortic aneurysm uncle Cancer uncle uncle Cancer of colon uncle Cataract 03 FATHER Family history: Alzheimer's disease 03 FATHER Family history: Glaucoma 03 FATHER Family history: Hypertension 03 FATHER Hearing loss 03 FATHER Hypercholesterolemia 03 FATHER Myocardial infarction 03 FATHER No Family History of: Abdominal aortic aneurysm Duc's disease Alcoholism Aphasia Chest pain Congenital heart disease Congestive heart failure Cystic fibrosis Dementia Dysphagia Family history: Allergy Family history: Arthritis Family history: Asthma Family history: Breast disease Family history: Cardiovascular disease Family history: Coronary thrombosis Family history: Diabetes mellitus Family history: Gastrointestinal disease Family history: Osteoporosis Family history: Thyroid disorder Headache Heart disease Hereditary disease History of - anemia History of - disorder History of - respiratory disease History of drug abuse Human immunodeficiency virus (HIV) seropositivity Infertile Kidney disease Malignant neoplasm of lung Parkinson's disease Prostate cancer Psychotic disorder Seizure disorder Stroke Tuberculosis No Pertinent Family Hx Physical Exam Vital Signs Vital Signs - First Documented 07/05/21 11:56 Temp 36.5 Pulse 9 Resp 18 B/P (MAP) 170/92 (118) Pulse Ox 93 O2 Delivery Room Air Capillary Refill : Less Than 3 Seconds Height, Weight, BMI Height: 5'10.00" Weight: 187lbs. 0.0oz. 84.741451aq; 19.00 BMI Method:Stated General Appearance: No Apparent Distress, WD/WN HEENT: TMs Normal, Pharynx Normal, Scleral Icterus (L), Scleral Icterus (R) Neck: Full Range of Motion, Normal Inspection, Non Tender, Supple Respiratory: Chest Non Tender, Decreased Breath Sounds, Rhonci Cardiovascular: Regular Rate, Rhythm, No Edema, No Murmur, Normal Peripheral Pulses Gastrointestinal: Normal Bowel Sounds, Non Tender, Soft, Other (left colostomy, with stool present) Rectal: Normal Exam, Normal Rectal Tone; No Hemorrhoids, No Tenderness; Other (trace clear mucuous noted) Back: Normal Inspection, No CVA Tenderness Extremity: Normal Capillary Refill, Normal Inspection, Normal Range of Motion, Non Tender, No Calf Tenderness Neurologic/Psychiatric: Alert, Oriented x3, No Motor/Sensory Deficits, Normal Mood/Affect Skin: Warm/Dry, Jaundice Progress/Results/Core Measures Suspected Sepsis SIRS Temperature: Pulse: 9 Respiratory Rate: 18 Laboratory Tests 07/05/21 12:20: White Blood Count 9.2 Blood Pressure 170 /92 Mean: 118 Laboratory Tests 07/05/21 12:20: Creatinine 0.85, INR Comment 1.4, Platelet Count 131, Total Bilirubin 3.3H Results/Orders Lab Results Laboratory Tests Test 07/05/21 12:20 07/05/21 12:37 07/05/21 14:12 Range/Units White Blood Count 9.2 4.3-11.0 10^3/uL Red Blood Count 4.45 4.30-5.52 10^6/uL Hemoglobin 12.8 L 13.3-17.7 g/dL Hematocrit 40 40-54 % Mean Corpuscular Volume 90 80-99 fL Mean Corpuscular Hemoglobin 29 25-34 pg Mean Corpuscular Hemoglobin Concent 32 32-36 g/dL Red Cell Distribution Width 16.9 H 10.0-14.5 % Platelet Count 131 130-400 10^3/uL Mean Platelet Volume 9.2 9.0-12.2 fL Immature Granulocyte % (Auto) 0 % Neutrophils (%) (Auto) 74 42-75 % Lymphocytes (%) (Auto) 11 L 12-44 % Monocytes (%) (Auto) 12 0-12 % Eosinophils (%) (Auto) 3 0-10 % Basophils (%) (Auto) 0 0-10 % Neutrophils # (Auto) 6.8 1.8-7.8 10^3/uL Lymphocytes # (Auto) 1.0 1.0-4.0 10^3/uL Monocytes # (Auto) 1.1 H 0.0-1.0 10^3/uL Eosinophils # (Auto) 0.3 0.0-0.3 10^3/uL Basophils # (Auto) 0.0 0.0-0.1 10^3/uL Immature Granulocyte # (Auto) 0.0 0.0-0.1 10^3/uL Prothrombin Time 17.8 H 12.2-14.7 SEC INR Comment 1.4 0.8-1.4 Activated Partial Thromboplast Time 36 H 24-35 SEC Sodium Level 135 135-145 MMOL/L Potassium Level 3.2 L 3.6-5.0 MMOL/L Chloride Level 102 98-107 MMOL/L Carbon Dioxide Level 24 21-32 MMOL/L Anion Gap 9 5-14 MMOL/L Blood Urea Nitrogen 16 7-18 MG/DL Creatinine 0.85 0.60-1.30 MG/DL Estimat Glomerular Filtration Rate 91 BUN/Creatinine Ratio 19 Glucose Level 122 H 70-105 MG/DL Calcium Level 8.5 8.5-10.1 MG/DL Corrected Calcium 9.9 8.5-10.1 MG/DL Total Bilirubin 3.3 H 0.1-1.0 MG/DL Aspartate Amino Transf (AST/SGOT) 45 H 5-34 U/L Alanine Aminotransferase (ALT/SGPT) 25 0-55 U/L Alkaline Phosphatase 119 40-136 U/L C-Reactive Protein High Sensitivity 13.92 H 0.00-0.50 MG/DL Total Protein 6.3 L 6.4-8.2 GM/DL Albumin 2.3 L 3.2-4.5 GM/DL Amylase Level 339 H 25-125 U/L Lipase 771 H 8-78 U/L Urine Color DARK YELLOW Urine Clarity CLEAR Urine pH 6.0 5-9 Urine Specific [place] 1.020 1.016-1.022 Urine Protein TRACE H NEGATIVE Urine Glucose (UA) TRACE H NEGATIVE Urine Ketones NEGATIVE NEGATIVE Urine Nitrite NEGATIVE NEGATIVE Urine Bilirubin 1+ H NEGATIVE Urine Urobilinogen 4.0 < = 1.0 MG/DL Urine Leukocyte Esterase NEGATIVE NEGATIVE Urine RBC (Auto) NEGATIVE NEGATIVE Urine RBC NONE /HPF Urine WBC RARE /HPF Urine Crystals NONE /LPF Urine Bacteria NEGATIVE /HPF Urine Casts NONE /LPF Urine Mucus SMALL H /LPF Urine Culture Indicated NO Influenza Type A (RT-PCR) Not Detected Not Detecte Influenza Type B (RT-PCR) Not Detected Not Detecte SARS-CoV-2 RNA (RT-PCR) Not Detected Not Detecte My Orders Orders - KANDIS BARROS Amylase (07/05/21 12:03) Cbc With Automated Diff (07/05/21 12:03) Comprehensive Metabolic Panel (07/05/21 12:03) Hs C Reactive Protein (07/05/21 12:03) Lipase (07/05/21 12:03) Protime With Inr (07/05/21 12:03) Partial Thromboplastin Time (07/05/21 12:03) Ua Culture If Indicated (07/05/21 12:03) Chest 1 View, Ap/Pa Only (07/05/21 12:03) Ed Iv/Invasive Line Start (07/05/21 12:03) Ns Iv 1000 Ml (Sodium Chloride 0.9%) (07/05/21 12:15) Ct Abdomen/Pelvis W (07/05/21 12:10) Ct Head Wo (07/05/21 12:10) Iohexol Injection (Omnipaque 350 Mg/Ml 1 (07/05/21 12:30) Received Contrast (Hold Metformin- Contr (07/05/21 12:30) Sodium Chloride Flush (Catheter Flush Sy (07/05/21 12:30) Ns (Ivpb) (Sodium Chloride 0.9% Ivpb Bag (07/05/21 12:30) Covid 19 Inhouse Test (07/05/21 14:06) Influenza A And B By Pcr (07/05/21 14:06) Ceftriaxone 1 Gm Pre-Mix (Rocephin 1 Gm (07/05/21 14:30) Azithromycin Injection (Zithromax Inject (07/05/21 14:30) Medications Given in ED Current Medications Medications Dose Ordered Sig/Savana Route Start Time Stop Time Status Last Admin Dose Admin Azithromycin 500 mg/Sodium Chloride 255 ml @ 250 mls/hr ONCE ONCE IV 07/05/21 14:30 07/05/21 15:31 DC 07/05/21 14:59 250 MLS/HR Ceftriaxone Sodium/Dextrose 50 ml @ 100 mls/hr ONCE ONCE IV 07/05/21 14:30 07/05/21 14:59 DC 07/05/21 16:04 100 MLS/HR Iohexol 100 ml ONCE ONCE IV 07/05/21 12:30 07/05/21 12:34 DC 07/05/21 13:08 80 ML Sodium Chloride 10 ml NEEDED PRN IV 07/05/21 12:30 07/05/21 16:56 DC 07/05/21 13:09 10 ML Sodium Chloride 100 ml ONCE ONCE IV 07/05/21 12:30 07/05/21 12:34 DC 07/05/21 13:09 80 ML Vital Signs/I&O 07/05/21 07/05/21 11:56 16:45 Temp 36.5 Pulse 9 90 Resp 18 18 B/P (MAP) 170/92 (118) 174/97 Pulse Ox 93 95 O2 Delivery Room Air Room Air Capillary Refill : Less Than 3 Seconds Blood Pressure Mean: 118 Progress Note : Time: 12:00 Progress Note Patient seen and evaluated, will obtain labs, normal saline for hydration, Chest x-ray, CT abdomen and pelvis with contrast and CT head. 1300 patient taking Ice chips and water, no N/V. Awaiting CT. 1400 [address] and Labs reviewed with Dr. Coffey. Since no abdominal pain and improving, ok with D/C to home and follow up labs in 1 week. Rectal mucous may be from the new Oral Chemo medication. Will give IV azithromycin and Rocephin. Results discussed with the patient. 1500 No complaints, denies abdominal pain. 1530 Discharge instructions and return precautions reviewed. Diagnostic Imaging Diagonstic Imaging: Xray Plain Films/CT/US/NM/MRI: chest Comments NAME: JULIETH GARIBAY [facility] REC#: [id number] PT STATUS: REG ER : 1960 PHYSICIAN: KANDIS BARROS ADMIT DATE: 07/05/21/ER Draft Date of Exam:07/05/21 CHEST 1 VIEW, AP/PA ONLY Indication: Cough and congestion. Comparison: 07/08/2020 Findings: Single view of the chest demonstrates new moderate right-sided effusion. The heart is prominent with central vascular congestion. There is no pneumothorax. The Port-A-Cath stable. Impression: New moderate sized right-sided effusion. Dictated on workstation # [id number] Dict: 07/05/21 1238 Trans: 07/05/21 1239 [facility] [id number] Interpreted by: SUNSHINE SIMPSON Electronically signed by: Diagonstic Imaging: CT Plain Films/CT/US/NM/MRI: head Comments NAME: JULIETH GARIBAY [facility] REC#: [id number] PT STATUS: REG ER : 1960 PHYSICIAN: KANDIS BARROS ADMIT DATE: 07/05/21/ER Draft Date of Exam:07/05/21 CT HEAD WO PROCEDURE: CT head without contrast. TECHNIQUE: Multiple contiguous axial images were obtained through the brain without the use of intravenous contrast. Auto Exposure Controls were utilized during the CT exam to meet ALARA standards for radiation dose reduction. INDICATION: Weakness. COMPARISON: No prior studies are available for comparison. FINDINGS: The ventricles and sulci are within normal limits. No sulcal effacement or midline shift is identified. No acute intra-axial or extra-axial hemorrhage is detected. The cisterns are patent. The visualized paranasal sinuses are clear. IMPRESSION: No acute intracranial process is detected. Dictated on workstation # [id number] Dict: 07/05/21 1311 Trans: 07/05/21 1315 [id number] Interpreted by: JOSE JAMES MD Electronically signed by: Reviewed: Reviewed by Me Diagonstic Imaging: CT Plain Films/CT/US/NM/MRI: abdomen, pelvis Comments NAME: JULIETH GARIBAY Kasey [facility] REC#: [id number] PT STATUS: REG ER : 1960 PHYSICIAN: KANDIS BARROS ADMIT DATE: 07/05/21/ER Draft Date of Exam:07/05/21 CT ABDOMEN/PELVIS W CT ABDOMEN/PELVIS W TECHNIQUE: Multiple contiguous axial images were obtained through the abdomen and pelvis after administration of intravenous contrast. All CT scans use one or more of the following dose optimizing techniques: automated exposure control, MA and/or KvP adjustment based on patient size and exam type or iterative reconstruction. INDICATION: Abdominal pain, jaundice. History of colon cancer with colostomy. COMPARISON: 04/21/2021. FINDINGS: Lower chest: Large right pleural effusion has developed. Right perihilar lung mass is stable to slightly increased in size measuring approximately 3.6 x 3.3 cm (previously 3.3 x 3.4 cm). Near-total relaxation atelectasis within the right lower lobe due to large effusion. Peritoneum: No free intraperitoneal air or fluid. Liver and biliary system: No focal hepatic lesion has developed. Liver has shrunken morphology with mild nodularity that is likely due to underlying cirrhosis. TIPS is patent. The gallbladder is normal. No biliary duct dilation. Spleen and Pancreas: Spleen remains borderline enlarged. The pancreas enhances normally without mass lesion or peripancreatic inflammatory changes. Adrenals: Normal. tract: The kidneys enhance normally without suspicious mass or obstruction. Urinary bladder is distended without wall thickening. Prostate is grossly stable in appearance allowing for streak artifact from left hemipelvis reconstruction hardware. GI tract: Stable embolization coils along the lesser curvature of stomach. No bowel obstruction. Stable postoperative changes of diverting colostomy in the left upper quadrant. Post-treatment changes in the rectum are similar with the small presacral fluid collection not changing in the interim. Vasculature and Lymph nodes: Normal caliber aorta. No abdominal or pelvic lymphadenopathy. Musculoskeletal: No concerning osseous lesion. IMPRESSION: 1. New large right pleural effusion has developed. The right perihilar lung mass is stable to slightly increased in size since prior examination of 04/21/2021. 2. Stable appearance of the liver with a patent TIPS. No biliary duct dilatation. 3. Stable post-treatment changes in the colon. No bowel obstruction. Dictated on workstation # [id number] Dict: 07/05/21 1331 Trans: 07/05/21 1343 [id number] Interpreted by: SHANEL DALY MD Electronically signed by: Reviewed: Reviewed by Me Departure Impression Primary Impression: Colorectal cancer Additional Impressions: Fatigue Qualified Codes: R53.83 - Other fatigue Pancreatitis Qualified Codes: K85.90 - Acute pancreatitis without necrosis or infection, unspecified UTI (urinary tract infection) Qualified Codes: N30.01 - Acute cystitis with hematuria Pneumonia Qualified Codes: J18.9 - Pneumonia, unspecified organism Disposition: 01 HOME, SELF-CARE Condition: Improved Departure-Patient Inst. Decision time for Depature: 16:00 Referrals: JESIKA TORRES MD (PCP/Family) Primary Care Physician Patient Instructions: Community-Acquired Pneumonia, Adult (DC), Pancreatitis (DC), Urinary Tract Infection, Adult (DC) Add. Discharge Instructions: Take antibiotics as prescribed. You may alternate between Tylenol 650 mg and ibuprofen 600 mg as needed for pain or fever. Increase water intake, 16 ounces every 2 hours while awake. Follow-up with Dr. Coffey next week for labs. Follow-up with your primary care provider if symptoms are not improving or worsen. Continue taking all home medications. Return to the emergency department for new, urgent healthcare problems. All discharge instructions reviewed with patient and/or family. Voiced understanding. Scripts Azithromycin (Azithromycin) 250 Mg Tablet 250 MG PO UD, #6 TAB TAKE 2 TABLETS ON DAY ONE THEN TAKE 1 TABLET DAILY FOR FOUR MORE DAYS Prov: KADNIS BARROS 07/05/21 Amoxicillin/Potassium Clav (Augmentin 875-125 Tablet) 1 Each Tablet 1 EACH PO BID, #20 TAB 0 Refills Prov: KANDIS BARROS 07/05/21 Copy Copies To 1: HIMA DREW AMY ARNP Jul 05, 2021 12:39
[2021-07-05 12:43] LABS: ALBUMIN 2.3 GM/DL (3.2-4.5); POTASSIUM 3.2 MMOL/L (3.6-5.0)
[2021-07-05 12:44] LABS: CALCIUM 8.5 MG/DL (8.5-10.1)
[2021-07-05 12:45] LABS: INR 1.4 (0.8-1.4); PROTHROMBIN TIME PATIENT 17.8 SEC (12.2-14.7)
[2021-07-05 12:46] LABS: TOTAL PROTEIN 6.3 GM/DL (6.4-8.2)
[2021-07-05 12:47] LABS: BILIRUBIN,TOTAL 3.3 MG/DL (0.1-1.0)
[2021-07-05 12:49] LABS: CREATININE SERUM 0.85 MG/DL (0.60-1.30)
--- NOTE | 2021-07-05 13:15 | Diagnostic Imaging Report ---
PROCEDURE: CT head without contrast. TECHNIQUE: Multiple contiguous axial images were obtained through the brain without the use of intravenous contrast. Auto Exposure Controls were utilized during the CT exam to meet ALARA standards for radiation dose reduction. INDICATION: Weakness. COMPARISON: No prior studies are available for comparison. FINDINGS: The ventricles and sulci are within normal limits. No sulcal effacement or midline shift is identified. No acute intra-axial or extra-axial hemorrhage is detected. The cisterns are patent. The visualized paranasal sinuses are clear. IMPRESSION: No acute intracranial process is detected. Dictated by: Dictated on workstation # [id number]
--- NOTE | 2021-07-05 13:44 | Diagnostic Imaging Report ---
CT ABDOMEN/PELVIS W TECHNIQUE: Multiple contiguous axial images were obtained through the abdomen and pelvis after administration of intravenous contrast. All CT scans use one or more of the following dose optimizing techniques: automated exposure control, MA and/or KvP adjustment based on patient size and exam type or iterative reconstruction. INDICATION: Abdominal pain, jaundice. History of colon cancer with colostomy. COMPARISON: 04/21/2021. FINDINGS: Lower chest: Large right pleural effusion has developed. Right perihilar lung mass is stable to slightly increased in size measuring approximately 3.6 x 3.3 cm (previously 3.3 x 3.4 cm). Near-total relaxation atelectasis within the right lower lobe due to large effusion. Peritoneum: No free intraperitoneal air or fluid. Liver and biliary system: No focal hepatic lesion has developed. Liver has shrunken morphology with mild nodularity that is likely due to underlying cirrhosis. TIPS is patent. The gallbladder is normal. No biliary duct dilation. Spleen and Pancreas: Spleen remains borderline enlarged. The pancreas enhances normally without mass lesion or peripancreatic inflammatory changes. Adrenals: Normal. tract: The kidneys enhance normally without suspicious mass or obstruction. Urinary bladder is distended without wall thickening. Prostate is grossly stable in appearance allowing for streak artifact from left hemipelvis reconstruction hardware. GI tract: Stable embolization coils along the lesser curvature of stomach. No bowel obstruction. Stable postoperative changes of diverting colostomy in the left upper quadrant. Post-treatment changes in the rectum are similar with the small presacral fluid collection not changing in the interim. Vasculature and Lymph nodes: Normal caliber aorta. No abdominal or pelvic lymphadenopathy. Musculoskeletal: No concerning osseous lesion. IMPRESSION: 1. New large right pleural effusion has developed. The right perihilar lung mass is stable to slightly increased in size since prior examination of 04/21/2021. 2. Stable appearance of the liver with a patent TIPS. No biliary duct dilatation. 3. Stable post-treatment changes in the colon. No bowel obstruction. Dictated by: Dictated on workstation # [id number]
[2021-07-05 13:49] LABS: CLARITY,URINE CLEAR; COLOR,URINE DARK YELLOW; GLUCOSE, URINE (UA) TRACE (NEGATIVE); KETONES,URINE NEGATIVE (NEGATIVE); LEUKOCYTE ESTERASE ,URINE NEGATIVE (NEGATIVE); NITRITE,URINE NEGATIVE (NEGATIVE); PROTEIN,URINE TRACE (NEGATIVE)
[2021-07-05 13:50] LABS: BACTERIA,URINE NEGATIVE /HPF; BILIRUBIN,URINE 1+ (NEGATIVE); WBC,URINE RARE /HPF
[2021-07-05] MEDS ORDERED: cefTRIAXone 1 GM PRE-MIX 50 ML IV ONE (14:30)
[2021-07-05] MEDS ORDERED: AZITHROMYCIN INJECTION 500 MG in NS (IVPB) 250 ML IV ONE (14:30)
[2021-07-05] MEDS ORDERED: AZIT250T12 PO (16:18)
[2021-07-05] MEDS ORDERED: AMOX-358 PO (16:18)
[2021-07-05 16:45] VITALS: BP 174/97
== END 2021-07-05 16:45 | disposition home or self-care (01) ==
LOC: EDUNIT# 11:34 → ER 11:36
DX: C20 Malignant neoplasm of rectum (principal); R53.83 Other fatigue; K85.90 Acute pancreatitis without necrosis or infection, unspecified; N39.0 Urinary tract infection, site not specified; J18.9 Pneumonia, unspecified organism; I10 Essential (primary) hypertension; F41.9 Anxiety disorder, unspecified; Z20.822 Contact with and (suspected) exposure to COVID-19; Z79.899 Other long term (current) drug therapy
CPT/HCPCS: 36415; 70450; 71045; 74177; 80053; 81000; 82150; 83690; 85025; 85610; 85730; 86141; 87636; 96365; 96375

== ENCOUNTER 2021-07-26 13:44 | Outpatient (RCR) | payer BC ==
[2021-06-21 15:04] LABS: BASOPHILS % (AUTO) 1 % (0-10); EOSINOPHILS # (AUTO) 0.3 10^3/uL (0.0-0.3); EOSINOPHILS % (AUTO) 5 % (0-10); HEMATOCRIT 42 % (40-54); HEMOGLOBIN 13.4 g/dL (13.3-17.7); LYMPHOCYTES # (AUTO) 1.1 X 10^3 (1.0-4.0); LYMPHOCYTES % (AUTO) 17 % (12-44); MEAN CORPUSCULAR HEMOGLOBIN 30 pg (25-34); MEAN CORPUSCULAR HGB CONC 32 g/dL (32-36); MEAN CORPUSCULAR VOLUME 92 fL (80-99); MEAN PLATELET VOLUME 9.5 fL (9.0-12.2); MONOCYTES # (AUTO) 0.6 X 10^3 (0.0-1.0); MONOCYTES % (AUTO) 9 % (0-12); NEUTROPHILS # (AUTO) 4.2 X 10^3 (1.8-7.8); NEUTROPHILS % (AUTO) 68 % (42-75); PLATELET COUNT 188 10^3/uL (130-400); WHITE BLOOD COUNT 6.3 10^3/uL (4.3-11.0)
[2021-06-21 15:21] LABS: BILIRUBIN,TOTAL 1.1 MG/DL (0.1-1.0); CALCIUM 9.3 MG/DL (8.5-10.1); CREATININE SERUM 0.86 MG/DL (0.60-1.30); MAGNESIUM 1.7 MG/DL (1.6-2.4); TOTAL PROTEIN 7.5 GM/DL (6.4-8.2)
[2021-07-12 16:18] LABS: BASOPHILS # (AUTO) 0.1 10^3/uL (0.0-0.1); BASOPHILS % (AUTO) 1 % (0-10); EOSINOPHILS # (AUTO) 0.2 10^3/uL (0.0-0.3); EOSINOPHILS % (AUTO) 3 % (0-10); HEMATOCRIT 36 % (40-54); HEMOGLOBIN 11.7 g/dL (13.3-17.7); LYMPHOCYTES # (AUTO) 1.1 10^3/uL (1.0-4.0); LYMPHOCYTES % (AUTO) 14 % (12-44); MEAN CORPUSCULAR HEMOGLOBIN 29 pg (25-34); MEAN CORPUSCULAR HGB CONC 33 g/dL (32-36); MEAN CORPUSCULAR VOLUME 90 fL (80-99); MONOCYTES # (AUTO) 0.9 10^3/uL (0.0-1.0); MONOCYTES % (AUTO) 11 % (0-12); NEUTROPHILS # (AUTO) 5.8 10^3/uL (1.8-7.8); NEUTROPHILS % (AUTO) 71 % (42-75); PLATELET COUNT 170 10^3/uL (130-400); WHITE BLOOD COUNT 8.2 10^3/uL (4.3-11.0)
[2021-07-12 16:34] LABS: ALBUMIN 2.5 GM/DL (3.2-4.5); BILIRUBIN,TOTAL 2.7 MG/DL (0.1-1.0); CALCIUM 8.3 MG/DL (8.5-10.1); CREATININE SERUM 0.87 MG/DL (0.60-1.30); MAGNESIUM 1.4 MG/DL (1.6-2.4); POTASSIUM 3.1 MMOL/L (3.6-5.0); TOTAL PROTEIN 6.6 GM/DL (6.4-8.2)
[2021-07-19 14:57] LABS: BASOPHILS % (AUTO) 1 % (0-10); EOSINOPHILS # (AUTO) 0.2 10^3/uL (0.0-0.3); EOSINOPHILS % (AUTO) 4 % (0-10); HEMATOCRIT 36 % (40-54); HEMOGLOBIN 11.4 g/dL (13.3-17.7); LYMPHOCYTES % (AUTO) 20 % (12-44); MEAN CORPUSCULAR HEMOGLOBIN 29 pg (25-34); MEAN CORPUSCULAR HGB CONC 32 g/dL (32-36); MEAN CORPUSCULAR VOLUME 92 fL (80-99); MEAN PLATELET VOLUME 8.9 fL (9.0-12.2); MONOCYTES # (AUTO) 0.6 X 10^3 (0.0-1.0); MONOCYTES % (AUTO) 11 % (0-12); NEUTROPHILS # (AUTO) 3.2 X 10^3 (1.8-7.8); NEUTROPHILS % (AUTO) 64 % (42-75); PLATELET COUNT 129 10^3/uL (130-400)
[2021-07-19 15:13] LABS: ALBUMIN 2.1 GM/DL (3.2-4.5); BILIRUBIN,TOTAL 1.6 MG/DL (0.1-1.0); CREATININE SERUM 0.74 MG/DL (0.60-1.30); MAGNESIUM 1.6 MG/DL (1.6-2.4); POTASSIUM 3.5 MMOL/L (3.6-5.0); TOTAL PROTEIN 6.3 GM/DL (6.4-8.2)
[~2021-07-26 13:44] MED LIST changes: +AMOX-358 PO; +AZIT250T12 PO
[2021-07-26 14:17] LABS: BASOPHILS # (AUTO) 0.1 10^3/uL (0.0-0.1); BASOPHILS % (AUTO) 1 % (0-10); EOSINOPHILS # (AUTO) 0.3 10^3/uL (0.0-0.3); EOSINOPHILS % (AUTO) 4 % (0-10); HEMATOCRIT 35 % (40-54); LYMPHOCYTES # (AUTO) 1.4 10^3/uL (1.0-4.0); LYMPHOCYTES % (AUTO) 21 % (12-44); MEAN CORPUSCULAR HEMOGLOBIN 29 pg (25-34); MEAN CORPUSCULAR HGB CONC 31 g/dL (32-36); MEAN CORPUSCULAR VOLUME 93 fL (80-99); MEAN PLATELET VOLUME 9.2 fL (9.0-12.2); MONOCYTES # (AUTO) 0.9 10^3/uL (0.0-1.0); MONOCYTES % (AUTO) 14 % (0-12); NEUTROPHILS % (AUTO) 59 % (42-75); PLATELET COUNT 164 10^3/uL (130-400); WHITE BLOOD COUNT 6.7 10^3/uL (4.3-11.0)
[2021-07-26 14:53] LABS: ALBUMIN 2.4 GM/DL (3.2-4.5); BILIRUBIN,TOTAL 1.4 MG/DL (0.1-1.0); CALCIUM 8.4 MG/DL (8.5-10.1); CREATININE SERUM 0.94 MG/DL (0.60-1.30); POTASSIUM 4.3 MMOL/L (3.6-5.0); TOTAL PROTEIN 6.5 GM/DL (6.4-8.2)
== END 2021-07-28 | disposition home or self-care (01) ==
LOC: ONC 13:44
PROVIDERS: ATTEND Internal Medicine Hematology & Oncology
DX: C20 Malignant neoplasm of rectum (principal); C78.01 Secondary malignant neoplasm of right lung; C77.1 Secondary and unspecified malignant neoplasm of intrathoracic lymph nodes; K76.6 Portal hypertension; I10 Essential (primary) hypertension; E55.9 Vitamin D deficiency, unspecified; R19.7 Diarrhea, unspecified; R21 Rash and other nonspecific skin eruption; R91.1 Solitary pulmonary nodule; Z93.3 Colostomy status; Z79.899 Other long term (current) drug therapy; Z98.890 Other specified postprocedural states; Z86.19 Personal history of other infectious and parasitic diseases; Z92.21 Personal history of antineoplastic chemotherapy; Z92.3 Personal history of irradiation; Z45.2 Encounter for adjustment and management of vascular access device
CPT/HCPCS: 36591; 80053; 82378; 83735; 85025; 99213

== ENCOUNTER 2021-08-16 13:41 | Outpatient (RCR) | payer BC ==
[2021-08-02 13:52] LABS: BASOPHILS % (AUTO) 1 % (0-10); EOSINOPHILS # (AUTO) 0.2 10^3/uL (0.0-0.3); EOSINOPHILS % (AUTO) 4 % (0-10); HEMATOCRIT 36 % (40-54); HEMOGLOBIN 11.4 g/dL (13.3-17.7); LYMPHOCYTES % (AUTO) 17 % (12-44); MEAN CORPUSCULAR HEMOGLOBIN 29 pg (25-34); MEAN CORPUSCULAR HGB CONC 32 g/dL (32-36); MEAN CORPUSCULAR VOLUME 90 fL (80-99); MEAN PLATELET VOLUME 8.7 fL (9.0-12.2); MONOCYTES # (AUTO) 0.6 10^3/uL (0.0-1.0); MONOCYTES % (AUTO) 11 % (0-12); NEUTROPHILS # (AUTO) 4.1 10^3/uL (1.8-7.8); NEUTROPHILS % (AUTO) 68 % (42-75); PLATELET COUNT 165 10^3/uL (130-400); WHITE BLOOD COUNT 5.9 10^3/uL (4.3-11.0)
[2021-08-02 14:19] LABS: ALBUMIN 2.6 GM/DL (3.2-4.5); BILIRUBIN,TOTAL 1.3 MG/DL (0.1-1.0); CALCIUM 8.6 MG/DL (8.5-10.1); CREATININE SERUM 0.83 MG/DL (0.60-1.30); POTASSIUM 3.7 MMOL/L (3.6-5.0); TOTAL PROTEIN 7.1 GM/DL (6.4-8.2)
[2021-08-07 13:18] LABS: BASOPHILS # (AUTO) 0.1 10^3/uL (0.0-0.1); BASOPHILS % (AUTO) 1 % (0-10); EOSINOPHILS # (AUTO) 0.2 10^3/uL (0.0-0.3); EOSINOPHILS % (AUTO) 2 % (0-10); HEMATOCRIT 38 % (40-54); HEMOGLOBIN 11.8 g/dL (13.3-17.7); LYMPHOCYTES # (AUTO) 0.8 10^3/uL (1.0-4.0); LYMPHOCYTES % (AUTO) 12 % (12-44); MEAN CORPUSCULAR HEMOGLOBIN 29 pg (25-34); MEAN CORPUSCULAR HGB CONC 31 g/dL (32-36); MEAN CORPUSCULAR VOLUME 92 fL (80-99); MEAN PLATELET VOLUME 9.3 fL (9.0-12.2); MONOCYTES # (AUTO) 0.7 10^3/uL (0.0-1.0); MONOCYTES % (AUTO) 10 % (0-12); NEUTROPHILS # (AUTO) 5.3 10^3/uL (1.8-7.8); NEUTROPHILS % (AUTO) 75 % (42-75); PLATELET COUNT 193 10^3/uL (130-400); WHITE BLOOD COUNT 7.1 10^3/uL (4.3-11.0)
[2021-08-07 13:42] LABS: ALBUMIN 2.7 GM/DL (3.2-4.5); BILIRUBIN,TOTAL 1.1 MG/DL (0.1-1.0); CALCIUM 8.9 MG/DL (8.5-10.1); CREATININE SERUM 0.95 MG/DL (0.60-1.30); POTASSIUM 3.8 MMOL/L (3.6-5.0); TOTAL PROTEIN 7.2 GM/DL (6.4-8.2)
[2021-08-16 14:14] LABS: BASOPHILS % (AUTO) 1 % (0-10); EOSINOPHILS # (AUTO) 0.1 10^3/uL (0.0-0.3); EOSINOPHILS % (AUTO) 2 % (0-10); HEMATOCRIT 40 % (40-54); HEMOGLOBIN 12.7 g/dL (13.3-17.7); LYMPHOCYTES % (AUTO) 16 % (12-44); MEAN CORPUSCULAR HEMOGLOBIN 28 pg (25-34); MEAN CORPUSCULAR HGB CONC 32 g/dL (32-36); MEAN CORPUSCULAR VOLUME 88 fL (80-99); MONOCYTES # (AUTO) 0.9 10^3/uL (0.0-1.0); MONOCYTES % (AUTO) 15 % (0-12); NEUTROPHILS # (AUTO) 4.3 10^3/uL (1.8-7.8); NEUTROPHILS % (AUTO) 67 % (42-75); PLATELET COUNT 210 10^3/uL (130-400); WHITE BLOOD COUNT 6.4 10^3/uL (4.3-11.0)
[2021-08-16 14:32] LABS: CALCIUM 8.6 MG/DL (8.5-10.1); CREATININE SERUM 1.01 MG/DL (0.60-1.30); POTASSIUM 3.9 MMOL/L (3.6-5.0)
== END 2021-08-28 | disposition home or self-care (01) ==
LOC: ONC 13:41
PROVIDERS: ATTEND Internal Medicine Hematology & Oncology
DX: C20 Malignant neoplasm of rectum (principal); C78.01 Secondary malignant neoplasm of right lung; C77.1 Secondary and unspecified malignant neoplasm of intrathoracic lymph nodes; K76.6 Portal hypertension; I10 Essential (primary) hypertension; E55.9 Vitamin D deficiency, unspecified; R19.7 Diarrhea, unspecified; R21 Rash and other nonspecific skin eruption; R91.1 Solitary pulmonary nodule; Z93.3 Colostomy status; Z79.899 Other long term (current) drug therapy; Z98.890 Other specified postprocedural states; Z86.19 Personal history of other infectious and parasitic diseases; Z45.2 Encounter for adjustment and management of vascular access device; Z92.21 Personal history of antineoplastic chemotherapy; Z92.3 Personal history of irradiation
CPT/HCPCS: 36591; 80048; 80053; 85025

== ENCOUNTER → 2021-10-05 | Outpatient (CLI) | payer BC ==
--- NOTE | 2021-10-05 09:15 | Diagnostic Imaging Report ---
INDICATION: Right upper arm pain and swelling. History of metastatic colon cancer. FINDINGS: Color Doppler imaging does show flow throughout the right upper extremity venous system from the jugular vein to the wrist. Flow is quite slow consistent with Rouleaux flow. No evidence of thrombus at this time. There are enlarged lymph nodes demonstrated. IMPRESSION: 1. Slow flow with no evidence of thrombus at this time. 2. Enlarged lymph nodes. These may be metastatic in nature. Dictated by: Dictated on workstation # [id number]
== END ==
LOC: RAD 08:00
PROVIDERS: ATTEND Nurse Practitioner Adult Health
DX: C20 Malignant neoplasm of rectum (principal); C78.7 Secondary malignant neoplasm of liver and intrahepatic bile duct; C78.01 Secondary malignant neoplasm of right lung; C77.1 Secondary and unspecified malignant neoplasm of intrathoracic lymph nodes; R26.89 Other abnormalities of gait and mobility; Z85.038 Personal history of other malignant neoplasm of large intestine

== ENCOUNTER 2021-10-10 13:46 | Outpatient (CLI) | payer BC ==
[~2021-10-10] VITALS: Ht 177.8 cm; Wt 71.8 kg
--- NOTE | 2021-10-10 15:25 | Diagnostic Imaging Report ---
INDICATION: Post thoracentesis FINDINGS: There is complete opacification of the right hemithorax. There is no substantial displacement of the cardiomediastinal silhouette. This is presumed a combination of atelectatic consolidation and a large amount of pleural fluid. The left lung shows innumerable soft tissue density masses presumptively widespread metastatic disease. There may be minimal blunting of the left angle. No pneumothorax. IMPRESSION: Right chest white out with left lung masses, presumed metastatic, equivocal small left effusion. No pneumothorax. Dictated by: Dictated on workstation # [id number]
[2021-10-10 15:43] VITALS: BP 137/72
[2021-10-10 15:43] LABS: GLUCOSE,BODY FLUID 59 MG/DL; TOTAL PROTEIN,BODY FLUID 2.2 G/DL
[2021-10-10 15:44] LABS: AMYLASE,BODY FLUID 41 U/L; LDH,BODY FLUID 567 U/L
[2021-10-10 16:06] LABS: BODY FLUID APPEARENCE MOD CLDY; BODY FLUID COLOR YELLOW; BODY FLUID SOURCE PLEURAL; BODY FLUID WBC TOTAL COUNT 6.1 /uL
[2021-10-10 16:09] LABS: BODY FLUID RBC COUNT 3900 /uL
[2021-10-10 16:27] LABS: BF OTHER CELLS 2 %; LYMPHOCYTES,BODY FLUID 90 %
--- NOTE | 2021-10-10 16:51 | Diagnostic Imaging Report ---
INDICATION: Right pleural effusion Ultrasound of the right chest shows a large nonloculated right pleural effusion. Site was marked for Dr. Cody who performed thoracentesis. See his dictation. IMPRESSION: Ultrasound images demonstrate large nonloculated right pleural effusion. Dictated by: Dictated on workstation # [id number]
--- NOTE | 2021-10-10 21:14 | OPERATIVE REPORT ---
DATE OF SERVICE: 10/10/2021 PREOPERATIVE DIAGNOSIS: Right pleural effusion. POSTOPERATIVE DIAGNOSIS: Right pleural effusion. PROCEDURE: Right ultrasound-guided thoracentesis. SURGEON: Matthew Cody DO ANESTHESIA: 1% lidocaine 3 mL. COMPLICATIONS: None. INDICATIONS: The patient is a 61-year-old male with a right pleural effusion causing him to be symptomatic. He understands risks and benefits of procedure and wishes to proceed. Consent was signed in the chart. DESCRIPTION OF PROCEDURE: The patient is in the sitting position, ultrasound was used to isolate the largest pocket on the right chest and the pleural effusion. The area was prepped and draped in sterile fashion. Local anesthetic was infiltrated and 11 blade scalpel was used to make a small skin incision. [id number] needle and catheter were then advanced through the chest wall on the right side until straw-colored fluid was withdrawn. The catheter was inserted and the needle was removed. A total of 1300 mL of fluid was withdrawn. The catheter was removed and sterile bandage was applied. The patient tolerated the procedure well without any complications. Job ID: [id number] DocumentID: [id number] Dictated Date: 10/10/2021 20:08:40 Distribution Associate Date: 10/10/2021 21:13:32 Dictated By: MATTHEW CODY DO
== END 2021-10-10 15:43 | disposition home or self-care (01) ==
LOC: SDC 13:46
PROVIDERS: ATTEND Surgery
DX: J90 Pleural effusion, not elsewhere classified (principal); C34.90 Malignant neoplasm of unspecified part of unspecified bronchus or lung; Z98.890 Other specified postprocedural states
CPT/HCPCS: 32554; 71045; 76942; 82150; 82945; 83615; 84157; 89051